=== PATIENT | female | born 2000 | race Caucasian/White ===

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

== ENCOUNTER 2023-04-16 13:45 | Outpatient (CLI) | payer BC, MEDICAID, SELFPAY ==
--- NOTE | 2023-04-16 | ECG_ITS ---
Measurements Intervals [place] Rate: 80 P: 52 ND: 128 QRS: 66 QRSD: 80 T: 23 QT: 390 QTc: 450 Interpretive Statements SINUS RHYTHM NORMAL ECG NO PREVIOUS ECG AVAILABLE FOR COMPARISON Electronically Signed On 04-16-2023 14:42:43 CDT by Fredy Murdock D.O.
== END 2023-04-16 13:46 | disposition home or self-care (01) ==
LOC: ANHCARD 13:49
PROVIDERS: Visit Provider Obstetrics & Gynecology
DX: R07.9 Chest pain, unspecified (principal)
CPT/HCPCS: 93005

== ENCOUNTER 2023-04-21 10:24 | Observation (INO) | payer BC, OTHER, SELFPAY ==
[2023-04-21] VITALS (90 sets, daily range): BP systolic 79–132; BP diastolic 29–74; PULSE 78–149; TEMP 36.6–36.9; O2SAT 91–100; BMI 25.6
[2023-04-21 11:22] LABS: Appearance Urine Clear (Clear); Bacteria Urine None Seen /hpf; Bilirubin Urine Negative (Negative); Blood Urine Negative (Negative); Color Urine Yellow (Yellow); Glucose Urine UA Negative (Negative); Ketones Urine Negative (Negative); Leukocyte Esterase Ur 1+ LEU/UL (NEGATIVE); Need Manual Microscopic Reviewed; Nitrate Urine Negative (Negative); Non Pathogenic Casts 0-2; Protein Urine Negative (Negative); RBC Urine 0-2 /hpf (0-2); Specific Grav Ur 1.005 (1.001-1.035); Squamous Epithelial Cell Urine None seen /hpf (Few); WBC Urine 0-5 /hpf (0-3)
[2023-04-21 11:24] LABS: Add Urine Microscopic? YES
--- NOTE | 2023-04-21 11:47 | PM.OBTRLD ---
OB - Triage/Final Diagnosis Visit Information Date of evaluation: 04/21/23 Reason for evaluation: threatened labor Comments/Additional reasons for admission: I have assessed the risk for this patient, Lana Thompson, and determined that she would benefit from observation care. Evaluation Laboratory results: Laboratory Tests 04/21/23 10:54 Urine Color Yellow Urine Appearance Clear Urine pH 7.0 Ur Specific [place] 1.005 Urine Protein Negative Urine Glucose (UA) Negative Urine Ketones Negative Ur Blood (Man) Negative Urine Nitrate Negative Urine Bilirubin Negative Urine Urobilinogen 1.0 Ur Leukocyte Esterase 1+ H Add Ur Microanalysis Reviewed Urine RBC 0-2 Urine WBC 0-5 Ur Squamous Epith Cells None seen Urine Bacteria None seen Urine Casts 0-2 Vital signs: Vital Signs - 24 hr 04/21/23 10:52 04/21/23 11:00 04/21/23 11:15 Pulse Rate 78 82 78 Blood Pressure 114/68 108/67 103/59 L Oxygen Delivery 04/21/23 11:32 Pulse Rate Blood Pressure Oxygen Delivery Room Air
[2023-04-21] MEDS: TERBUTALINE SULFATE 1 MG/ML VIAL 0.25 MG SUB-Q (11:50)
[2023-04-21] MEDS: FLUCONAZOLE 150 MG TABLET PO (12:12)
[2023-04-21] MEDS: NIFEdipine 10 MG CAPSULE 20 MG PO (13:11)
[2023-04-21] MEDS: SODIUM CHLORIDE 0.9% IV 1,000 ML 999 ML IV CONT (14:22)
[2023-04-21 14:32] LABS: Basophils Absolute Auto 0.1 K/mm3 (0.0-0.1); Basophils Percent Auto 0.6 % (0.2-1.2); Eosinophils Absolute Auto 0.1 K/mm3 (0-0.3); Eosinophils Percent Auto 1.1 % (0-4.4); Hematocrit 33.9 % (37.0-47.0); Hemoglobin 11.4 g/dL (12.0-15.0); Immature Granulocyte Percent A 2.4 % (0-0.5); Lymphocytes Absolute Auto 2.26 K/mm3 (0.9-3.2); Lymphocytes Percent Auto 18.3 % (18.3-44.2); Mean Corpuscular HGB Conc 33.6 g/dl (32-36); Mean Corpuscular Hemoglobin 30.2 pg (26-34); Mean Corpuscular Volume 89.7 fl (80-100); Monocytes Absolute Auto 0.8 K/mm3 (0.1-0.6); Monocytes Percent Auto 6.2 % (2.6-8.5); Neutrophils Absolute Auto 8.8 K/mm3 (1.3-6.7); Neutrophils Percent Auto 71.4 % (45.5-73.1); Platelet Count Result 261 k/mm3 (150-375); Red Blood Count 3.78 M/mm3 (4.2-5.4); Red Cell Distribution Width 12.7 % (11.5-14.5); White Blood Count 12.3 K/mm3 (4.5-10.0)
[2023-04-21 14:43] LABS: Alanine Aminotransferase 23 U/L (6-35); Albumin Level 3.9 g/dL (3.5-5.1); Alkaline Phosphatase 115 U/L (38-126); Anion Gap 10 mmol/L (8-16); Aspartate Amino Transferase 26 U/L (14-36); Bilirubin,Total 0.3 mg/dL (0.2-1.3); Blood Urea Nitrogen 4 mg/dL (7-17); Calcium 8.7 mg/dL (8.4-10.2); Carbon Dioxide 20 mmol/L (22-30); Chloride 106 mmol/L (98-107); Estimated CRCL calculation 101 ml/min; Estimated Glomerular Filt Rate > 60; Glucose 87 mg/dL (65-110); Potassium 3.2 mmol/L (3.4-5.0); Sodium 136 mmol/L (137-145)
[2023-04-21] MEDS: MAGNESIUM SULF 20GM/WATER500ML 500 ML 50 MG IV CONT (15:12)
[2023-04-21] MEDS: BETAMETHASONE SOD PHOS/ACETATE 30 MG/5 ML VIAL 12 MG IM (15:15)
--- NOTE | 2023-04-21 15:44 | PM.IMHP ---
H&P: HPI History of Present Illness Date/Time: 04/21/23 15:44 Chief Complaint: Pain Narrative: a 22-year-old 2 para 1 at 31 and half weeks gestation with an EDC of 06/13/2023 confirmed by early ultrasound presents at 31 and half weeks gestation with lower abdominal. Initially she had a few contractions and was 1cm and very thick and long. She increased contractions and now has been started on magnesium 2g and continues to contract. PMFSH Past Medical History Medical History Gestational HTN Family History Family History Mother Hypertension Grandparent Hypertension Social History Social History Smoking status: Never smoker Substance use: never Spiritual care concerns: No Meds Home Medications and Allergies Home Medications Medication Instructions Recorded Confirmed Type vit no.95-ferrous 1 tablet PO DAILY 08/25/20 10/22/20 History fumarate 28 mg-folic acid 800 mcg tablet () acetaminophen 500 mg tablet 1,000 mg PO Q6H PRN Pain 10/06/20 10/22/20 History (Tylenol Extra Strength) Allergies Allergy/AdvReac Type Severity Reaction Status Date / Time peanut Allergy Severe Anaphylaxis Verified 10/22/20 07:20 tree nut Allergy Severe Anaphylaxis Verified 10/22/20 07:20 Vital Signs Vital Signs - 24 hr 04/21/23 10:52 04/21/23 11:00 04/21/23 11:15 Pulse Rate 78 82 78 Blood Pressure 114/68 108/67 103/59 L Pulse Oximetry Oxygen Delivery 04/21/23 12:13 04/21/23 12:15 04/21/23 12:20 Pulse Rate Blood Pressure Pulse Oximetry 100 100 100 Oxygen Delivery 04/21/23 12:25 04/21/23 12:26 04/21/23 12:31 Pulse Rate Blood Pressure Pulse Oximetry 100 100 100 Oxygen Delivery 04/21/23 12:36 04/21/23 12:41 04/21/23 12:46 Pulse Rate Blood Pressure Pulse Oximetry 100 100 100 Oxygen Delivery 04/21/23 12:51 04/21/23 12:56 04/21/23 13:01 Pulse Rate Blood Pressure Pulse Oximetry 100 100 100 Oxygen Delivery 04/21/23 13:06 04/21/23 13:11 04/21/23 13:16 Pulse Rate Blood Pressure Pulse Oximetry 100 100 100 Oxygen Delivery 04/21/23 13:21 04/21/23 13:26 04/21/23 13:28 Pulse Rate 144 H Blood Pressure 86/29 L Pulse Oximetry 100 100 Oxygen Delivery 04/21/23 13:29 04/21/23 13:30 04/21/23 13:31 Pulse Rate 147 H 140 H Blood Pressure 91/33 L 79/41 L Pulse Oximetry 100 Oxygen Delivery 04/21/23 13:34 04/21/23 13:36 04/21/23 13:41 Pulse Rate 141 H 132 H Blood Pressure 82/52 L 96/38 L Pulse Oximetry 100 100 Oxygen Delivery 04/21/23 13:45 04/21/23 13:46 04/21/23 13:51 Pulse Rate 130 H Blood Pressure 93/48 L Pulse Oximetry 100 100 Oxygen Delivery 04/21/23 13:56 04/21/23 14:00 04/21/23 14:01 Pulse Rate 131 H Blood Pressure 110/54 L Pulse Oximetry 100 100 Oxygen Delivery 04/21/23 14:06 04/21/23 14:11 04/21/23 14:21 Pulse Rate Blood Pressure Pulse Oximetry 100 100 100 Oxygen Delivery 04/21/23 14:25 04/21/23 14:30 04/21/23 14:35 Pulse Rate 109 H Blood Pressure 115/60 Pulse Oximetry 100 100 100 Oxygen Delivery 04/21/23 14:40 04/21/23 14:45 04/21/23 14:50 Pulse Rate 104 H Blood Pressure 122/62 Pulse Oximetry 100 100 100 Oxygen Delivery 04/21/23 14:55 04/21/23 15:00 04/21/23 15:05 Pulse Rate 105 H Blood Pressure 115/60 Pulse Oximetry 100 100 100 Oxygen Delivery 04/21/23 15:10 04/21/23 15:15 04/21/23 15:20 Pulse Rate 102 H Blood Pressure 117/63 Pulse Oximetry 100 100 100 Oxygen Delivery 04/21/23 15:25 04/21/23 15:30 04/21/23 15:35 Pulse Rate 113 H Blood Pressure 127/68 Pulse Oximetry 100 100 100 Oxygen Delivery 04/21/23 15:40 04/21/23 11:32 Pulse Rate Blood Pressure Pulse Oximetr
[2023-04-21] MEDS: LACTATED RINGERS 1,000 ML 75 ML IV CONT (16:16)
[2023-04-21] MEDS: AMPICILLIN 2 GM/NS 100 ML 2 GM/100 ML BAG IVPB (16:16)
== END 2023-04-21 18:00 | disposition short-term general hospital (02) ==
LOC: ANHOBPP 10:31 → ANHLDR 16:53
PROVIDERS: Admitting Provider Obstetrics & Gynecology; Visit Provider Obstetrics & Gynecology
DX: O60.03 Preterm labor without delivery, third trimester (principal); Z3A.31 31 weeks gestation of pregnancy; Z79.1 Long term (current) use of non-steroidal anti-inflammatories (NSAID); Z79.899 Other long term (current) drug therapy
CPT/HCPCS: 36415; 80053; 81001; 85025; 87086; 96361; 96365; 96372; 96375; A9270; G0378; G0379; J0290; J0702; J3105; J3475; J7030; J7120

== ENCOUNTER 2023-05-09 19:46 | Observation (INO) | payer BC, OTHER, SELFPAY ==
--- NOTE | 2023-05-15 08:03 | PM.OBTRLD ---
OB - Triage/Final Diagnosis Visit Information Comments/Additional reasons for admission: I have assessed the risk for this patient, Lana Thompson, and determined that she would benefit from observation care. Final Diagnosis (1) Back pain affecting : Code(s): O99.891 - Other specified diseases and conditions complicating ; M54.9 - Dorsalgia, unspecified Status: Acute
== END 2023-05-09 22:18 | disposition home or self-care (01) ==
PROVIDERS: Admitting Provider Obstetrics & Gynecology; Visit Provider Obstetrics & Gynecology
DX: O99.891 Other specified diseases and conditions complicating pregnancy (principal); M54.9 Dorsalgia, unspecified; Z3A.00 Weeks of gestation of pregnancy not specified
CPT/HCPCS: G0378; G0379

== ENCOUNTER 2023-05-19 12:17 | Outpatient (RCR) | payer BC, OTHER, SELFPAY ==
[2023-05-19 12:47] VITALS: BP 112/70; PULSE 100
== END 2023-07-04 11:58 | disposition home or self-care (01) ==
LOC: ANHOBOP 12:17
PROVIDERS: Visit Provider Obstetrics & Gynecology
DX: O36.8190 Decreased fetal movements, unspecified trimester, not applicable or unspecified (principal); Z3A.36 36 weeks gestation of pregnancy
CPT/HCPCS: 59025

== ENCOUNTER 2023-05-25 19:47 | Observation (INO) | payer BC, OTHER, SELFPAY ==
[2023-05-25 20:07] VITALS: BMI 28.2
--- NOTE | 2023-06-13 00:14 | PM.OBTRLD ---
OB - Triage/Final Diagnosis Visit Information Comments/Additional reasons for admission: I have assessed the risk for this patient, Lana Thompson, and determined that she would benefit from observation care. Final Diagnosis (1) Cramping affecting , antepartum: Code(s): O26.899 - Other specified related conditions, unspecified trimester; R10.9 - Unspecified abdominal pain Status: Acute
== END 2023-05-25 20:54 | disposition home or self-care (01) ==
PROVIDERS: Admitting Provider Obstetrics & Gynecology; Visit Provider Obstetrics & Gynecology
DX: O26.893 Other specified pregnancy related conditions, third trimester (principal); R10.9 Unspecified abdominal pain; Z3A.37 37 weeks gestation of pregnancy
CPT/HCPCS: G0378; G0379

== ENCOUNTER 2023-06-06 04:52 | Inpatient (IN) | payer BC, OTHER, SELFPAY ==
[2023-06-06] VITALS (159 sets, daily range): BP systolic 101–139; BP diastolic 46–90; PULSE 42–135; RESP 16; TEMP 36–36.6; O2SAT 91–100
[2023-06-06] MEDS: OXYTOCIN 30 UNITS/NS 500 ML 30 UNITS/500 ML BAG IV CONT (05:42)
[2023-06-06] MEDS: LACTATED RINGERS 1,000 ML 125 ML IV CONT ×3 (05:43→14:12)
--- NOTE | 2023-06-06 05:45 | WPDANESEPP ---
Anes - Eval Pre Procedure Procedure: labor epidural Date/Time: 06/06/23 05:45 Pre Op Diagnosis: IOL Patient Data Age: 22 Gender: F Height: Weight: Last Vital Signs O2 Del Method Room Air 06/06/23 05:15 Allergies Allergy/AdvReac Type Severity Reaction Status Date / Time peanut Allergy Severe Anaphylaxis Verified 05/26/23 15:35 tree nut Allergy Severe Anaphylaxis Verified 05/26/23 15:35 Home Medications Medication Instructions Recorded Confirmed Type vit no.95-ferrous 1 tablet PO DAILY 08/25/20 06/06/23 History fumarate 28 mg-folic acid 800 mcg tablet () buspirone 5 mg tablet 5 mg PO BID 05/25/23 06/06/23 History citalopram 40 mg tablet 40 mg PO DAILY 05/25/23 06/06/23 History albuterol sulfate 90 mcg/actuation 2 puff inhalation QID PRN Wheezing 05/26/23 05/26/23 History aerosol inhaler cetirizine 10 mg capsule (Zyrtec) 10 mg PO DAILY 05/26/23 05/26/23 History ferrous sulfate 325 mg (65 mg 325 mg PO DAILY 05/26/23 05/26/23 History iron) tablet Patient hx anesthesia problems: none Family hx anesthesia problems: none Results Review: All pre-operative results and documents have been reviewed as part of the pre-operative evaluation. [facility] Past Medical History Medical History (Updated 06/06/23 @ 05:46 by Cat Lopez CRNA) Anxiety and depression Gestational HTN Family History Family History Mother Hypertension Grandparent Hypertension Social History Social History Smoking status: Never smoker Second hand tobacco smoke exposure: No Substance use: never Lack of Transportation: No Lack of Food: Never True Current Housing: I Have Housing Concerned About Future Housing: No Difficulty Paying Gas/Electric Bills: No Difficulty Paying for Meds: No Currently Unemployed: No Education: High School Diploma/GED Difficulty w/ Childcare or Family Care: No Spiritual care concerns: No Exam Day of Procedure 06/06/23 05:45
[2023-06-06 05:58] LABS: Basophils Absolute Auto 0.1 K/mm3 (0.0-0.1); Basophils Percent Auto 0.8 % (0.2-1.2); Eosinophils Absolute Auto 0.2 K/mm3 (0-0.3); Eosinophils Percent Auto 1.3 % (0-4.4); Hematocrit 34.8 % (37.0-47.0); Hemoglobin 11.5 g/dL (12.0-15.0); Immature Granulocyte Absolute 0.59 K/mm3 (0.00-0.031); Immature Granulocyte Percent A 4.6 % (0-0.5); Lymphocytes Percent Auto 23.6 % (18.3-44.2); Mean Corpuscular Hemoglobin 31.2 pg (26-34); Mean Corpuscular Volume 94.3 fl (80-100); Mean Platelet Volume 9.9 fl (7.4-10.4); Monocytes Percent Auto 7.6 % (2.6-8.5); Neutrophils Absolute Auto 7.9 K/mm3 (1.3-6.7); Neutrophils Percent Auto 62.1 % (45.5-73.1); Platelet Count Result 209 k/mm3 (150-375); Red Blood Count 3.69 M/mm3 (4.2-5.4); Red Cell Distribution Width 13.3 % (11.5-14.5); White Blood Count 12.7 K/mm3 (4.5-10.0)
--- NOTE | 2023-06-06 06:51 | PM.IMHP ---
H&P: HPI History of Present Illness Date/Time: 06/06/23 06:51 Chief Complaint: induction of labor at term Narrative: 22-year-old 2 para whose EDC is 06/13/2023 presents at term for induction of labor. She is negative for group B strep her has been uncomplicated PMFSH Past Medical History Medical History Anxiety and depression Gestational HTN Family History Family History Mother Hypertension Grandparent Hypertension Social History Social History Smoking status: Never smoker Second hand tobacco smoke exposure: No Substance use: never Lack of Transportation: No Lack of Food: Never True Current Housing: I Have Housing Concerned About Future Housing: No Difficulty Paying Gas/Electric Bills: No Difficulty Paying for Meds: No Currently Unemployed: No Education: High School Diploma/GED Difficulty w/ Childcare or Family Care: No Spiritual care concerns: No Meds Home Medications and Allergies Home Medications Medication Instructions Recorded Confirmed Type vit no.95-ferrous 1 tablet PO DAILY 08/25/20 06/06/23 History fumarate 28 mg-folic acid 800 mcg tablet () buspirone 5 mg tablet 5 mg PO BID 05/25/23 06/06/23 History citalopram 40 mg tablet 40 mg PO DAILY 05/25/23 06/06/23 History albuterol sulfate 90 mcg/actuation 2 puff inhalation QID PRN Wheezing 05/26/23 05/26/23 History aerosol inhaler cetirizine 10 mg capsule (Zyrtec) 10 mg PO DAILY 05/26/23 05/26/23 History ferrous sulfate 325 mg (65 mg 325 mg PO DAILY 05/26/23 05/26/23 History iron) tablet Allergies Allergy/AdvReac Type Severity Reaction Status Date / Time peanut Allergy Severe Anaphylaxis Verified 05/26/23 15:35 tree nut Allergy Severe Anaphylaxis Verified 05/26/23 15:35 Vital Signs Vital Signs - 24 hr 06/06/23 05:54 06/06/23 06:01 06/06/23 06:10 Pulse Rate 94 85 74 Blood Pressure 118/69 123/81 118/79 Pulse Oximetry 100 Oxygen Delivery 06/06/23 06:13 06/06/23 06:15 06/06/23 06:17 Pulse Rate 81 91 Blood Pressure 123/75 116/77 Pulse Oximetry 100 Oxygen Delivery 06/06/23 06:17 06/06/23 06:17 06/06/23 06:19 Pulse Rate 92 86 Blood Pressure 108/67 120/72 Pulse Oximetry Oxygen Delivery 06/06/23 06:20 06/06/23 06:21 06/06/23 06:23 Pulse Rate 89 87 Blood Pressure 114/67 118/54 L Pulse Oximetry 99 Oxygen Delivery 06/06/23 06:25 06/06/23 06:27 06/06/23 06:29 Pulse Rate 98 103 H 102 H Blood Pressure 118/70 110/69 116/63 Pulse Oximetry 100 Oxygen Delivery 06/06/23 06:30 06/06/23 06:31 06/06/23 06:33 Pulse Rate 85 85 Blood Pressure 122/60 114/60 Pulse Oximetry 100 Oxygen Delivery 06/06/23 06:35 06/06/23 06:37 06/06/23 06:39 Pulse Rate 88 87 86 Blood Pressure 116/63 115/64 119/61 Pulse Oximetry 100 Oxygen Delivery 06/06/23 06:40 06/06/23 06:41 06/06/23 06:43 Pulse Rate 101 H 101 H Blood Pressure 113/71 112/67 Pulse Oximetry 100 Oxygen Delivery 06/06/23 06:45 06/06/23 06:47 06/06/23 06:50 Pulse Rate 116 H 104 H Blood Pressure 103/49 L 101/63 Pulse Oximetry 100 100 Oxygen Delivery 06/06/23 05:15 Pulse Rate Blood Pressure Pulse Oximetry Oxygen Delivery Room Air Exam Const: General: cooperative, healthy appearing, comfortable and average body habitus Orientation/consciousness: oriented to person, oriented to place and oriented to time HENMT: Head: normal to inspection Resp: Effort & Inspection: normal respiratory effort Cardio: Rate: regular rate Rhythm: regular rhythm Heart sounds: S1 normal heart sound present and S2 normal heart sound present GI: Inspection: normal to inspection ( gravid soft uterus) : External Female Exam: normal external appearance Speculum E
[2023-06-06 07:03] LABS: Hepatitis B Surface Antigen Negative (Negative)
[2023-06-06] MEDS: ONDANSETRON INJ 4 MG/2 ML VIAL IV PUSH (07:05)
[2023-06-06] MEDS: LORATADINE 10 MG TABLET PO (10:49)
[2023-06-06 10:54] LABS: Rapid Plasma Reagin Non-Reactive (NonReactive)
--- NOTE | 2023-06-06 12:06 | PM.OBPNLAB ---
Pain Control Date/time seen: 06/06/23 12:06 Pain control: tolerating well and epidural Pelvic Exam Dilation (cm): 4 Effacement (%): 90 station: -1 Amniotic membrane status: Leaking
--- NOTE | 2023-06-06 15:55 | PM.OBPNLAB ---
Pain Control Date/time seen: 06/06/23 15:55 Pain control: tolerating well and epidural Pelvic Exam Dilation (cm): 10 Effacement (%): 100 station: 0 Amniotic membrane status: Leaking
--- NOTE | 2023-06-06 16:25 | PM.OBPRVD ---
OB - Delivery Note Procedure Delivery date: 06/06/23 Procedure: mil Induction method: AROM Delivery augmentation: Pitocin Delivery monitor: External FHT and Internal Uterine Route of delivery: Laceration Description: Perineal - 1st Degree Delivery repair: vicryl Specimen: No Quantitative Blood Loss (ml): 60 Anesthesia type: Epidural Disposition: Floor Baby Date of : 06/06/23 Time of : 16:12 Weeks of gestation at delivery: 39 gender: Male Weight (pounds): 7 Weight (ounces): 9 presentation: vertex position: Right Occiput Anterior Placenta delivery description: Spontaneous Cord Vessel Description: 3 Vessels score one minute: 7 score five minutes: 8
[2023-06-06] MEDS: OXYTOCIN 30 UNITS/NS 500 ML 30 UNITS/500 ML BAG 125 UNITS IV CONT (16:49)
[2023-06-06] MEDS: ACETAMINOPHEN 325 MG TABLET 650 MG PO (17:51)
[2023-06-06] MEDS: WITCH HAZEL 40 PADS 1 PAD TOPICAL (17:51)
[2023-06-06] MEDS: BENZOCAINE 20% AER SPR (*SP) 56 GM CAN 1 SPRAY TOPICAL (17:51)
[2023-06-06 18:14] LABS: Rubella IgG Antibody 31.5 IU/ML
--- NOTE | 2023-06-06 18:45 | PC.NURSE ---
Patient transferred to post room #282 per wheelchair from labor and delivery. Support person present. Oriented to unit, room, information board, rooming in, admission packet and security measures. Patient verbalizes understanding.
[2023-06-06] MEDS: DOCUSATE SODIUM LIQ 100 MG/10 ML UDC PO (21:14)
[2023-06-06] MEDS: IBUPROFEN 600 MG TABLET PO (21:16)
[2023-06-07 00:44] VITALS: BP 115/66; PULSE 88; RESP 14; TEMP 36.6; O2SAT 99
[2023-06-07] MEDS: ACETAMINOPHEN 325 MG TABLET 650 MG PO ×3 (02:34→16:41)
[2023-06-07] MEDS: IBUPROFEN 600 MG TABLET PO ×2 (04:30→16:42)
[2023-06-07 04:39] VITALS: BP 105/66; PULSE 73; RESP 16; TEMP 36.8; O2SAT 100
[2023-06-07 04:57] LABS: Hematocrit 32.1 % (37.0-47.0); Hemoglobin 10.6 g/dL (12.0-15.0)
--- NOTE | 2023-06-07 06:44 | PM.DS ---
DS: Admitting Diagnosis Discharge Date Admitting Diagnosis term DS: Discharge Diagnosis Discharge Diagnosis (1) Term : Code(s): Z34.90 - Encounter for supervision of normal , unspecified, unspecified trimester Status: Acute DS: Summary Hospital Course Reason for hospitalization: induction of labor at term Hospital Course: patient underwent successful induction of labor at term on 06/06/2023. Her hospital course unremarkable. She remained afebrile. She was up, voiding without difficulty, ambulating, eating regular diet, and generally the complaints. Time Spent with Patient Time attestation: Total time spent providing and/or coordinating discharge services: Exam Const: General: cooperative, healthy appearing and comfortable Orientation/consciousness: oriented to person, oriented to place and oriented to time HENMT: Head: normal to inspection Resp: Effort & Inspection: normal respiratory effort Cardio: Rate: regular rate Rhythm: regular rhythm Heart sounds: S1 normal heart sound present and S2 normal heart sound present GI: Inspection: normal to inspection ( Fundus firm below the umbilicus) DS: Data Data Completed and Pending Labs on day of discharge: Labs from last 24 hours 06/07/23 06/06/23 06/06/23 04:32 16:39 05:12 Hgb 10.6 L Hct 32.1 L RPR Non-reactive Hep Bs Antigen Negative Rubella IgG Antibody 31.5 Blood Type O Positive Antibody Screen Negative Discharge Plan Discharge Attending physician on discharge: Tucker Brown Discharging Clinician: Tucker Brown Patient Disposition: Home, Self-Care Activity: may shower and no straining Diet: heart healthy Wound Care Instructions: follow printed instructions Patient Instructions: Antibiotic Form Stand Alone Forms: General Discharge Information Follow-up/Referrals: Tucker Brown MD [Physician] - Discharge Medications: Continued PNV cmb#95-ferrous fumarate-FA [] 28 mg iron- 800 mcg Tablet 1 tablet PO DAILY buspirone 5 mg tablet 5 mg PO BID citalopram 40 mg tablet 40 mg PO DAILY ferrous sulfate 325 mg (65 mg iron) Tablet 325 mg PO DAILY Zyrtec 10 mg Capsule 10 mg PO DAILY albuterol sulfate 90 mcg/actuation Hfa Aerosol Inhaler 2 puff INHALATION QID PRN (Reason: Wheezing) Date of admission: 06/06/23 04:52 Primary Care Provider: PHYSICIAN,RADIO EQUIPMENT REPAIRER Admitting Provider: Tucker Brown Attending physician on admission: Tucker Brown Condition: Stable
--- NOTE | 2023-06-07 06:45 | PC.NURSE ---
Pt introductions made and plan of care discussed per post , pain management, breast bottle feeding, daily care activities and pending discharge to home. PT and friend both recipients of such instructions and no barriers to learning identified at this time. PT received such instructions per one to one discussion , mom baby care guide and demonstrations this shift. PT and friend both verbalized understanding of such care.
--- NOTE | 2023-06-07 06:47 | PM.OBPNVD ---
OB - PN: Subj Subjective Date/time seen: 06/07/23 06:47 Patient comments: no complaints and pain well controlled baby status: doing well OB - PN: Obj Data Labs 06/07/23 04:32 Labs: Laboratory Results - last 24 hr 06/06/23 06/06/23 06/07/23 05:12 16:39 04:32 Hgb 10.6 L Hct 32.1 L RPR Non-reactive Hep Bs Antigen Negative Rubella IgG Antibody 31.5 Blood Type O Positive Antibody Screen Negative OB - PN A/P Plan day: 1 Plan: routine care, discharge home and follow up 6 weeks Time Spent With Patient Time: Total time spent is greater than 50% in coordination of care (as documented) at patient's floor/unit and/or counseling patient: Time with patient: less than 15 minutes Exam Const: General: cooperative, healthy appearing and comfortable Nutritional Appearance: average body habitus Orientation/consciousness: oriented to person, oriented to place and oriented to time Resp: Effort & Inspection: normal respiratory effort Cardio: Rate: regular rate Rhythm: regular rhythm Heart sounds: S1 normal heart sound present and S2 normal heart sound present GI: Inspection: normal to inspection ( fundus firm)
[2023-06-07 08:05] VITALS: BP 117/74; PULSE 77; RESP 18; TEMP 36.5; O2SAT 100
[2023-06-07 09:15] VITALS: PULSE 77; RESP 18; O2SAT 100
[2023-06-07] MEDS: busPIRone HCL 5 MG TABLET PO (09:17)
[2023-06-07] MEDS: MULTIVIT/MIN/PREN/FOL AC/IRON TABLET 1 TAB PO (09:17)
--- NOTE | 2023-06-07 11:42 | PC.NURSE ---
1025 - Report from Primary RN that mother states she will initiate when she gets home. Mother has a history of low milk supply. Dixon Palmer RN educated mother on milk production and building a supply. There was an offer for mother to inform the RN if she desired working with RN learning to breastfeed. Dixon Palmer RN will notify RN if mother requests to breastfeed or work with . As of now there has been one attempt, then formula bottle feeding with no pumping.
--- NOTE | 2023-06-07 11:58 | WPDANLDPN2 ---
Anes-Prog Note L&D Date/Time: 06/07/23 11:58 Neuro status: Neuro function grossly intact. Cardiovascular status: normal Respiratory status: normal Airway patency: baseline Mental status: baseline Post-Op hydration status: normal Vital Signs: Last Vital Signs Temp 36.5 C 06/07/23 08:05 Pulse 77 06/07/23 09:15 Resp 18 06/07/23 09:15 BP 117/74 06/07/23 08:05 Pulse Ox 100 06/07/23 09:15 O2 Del Method Room Air 06/07/23 09:15 Pain score (VAS): 2/10 I/O: Intake & Output 06/06/23 06/07/23 06/07/23 23:59 07:59 15:59 Intake Total 500 600 Balance 500 600 Post-procedural complaints: none Patient feedback: Patient satisfied with anesthetic care.
--- NOTE | 2023-06-07 18:25 | PC.NURSE ---
PT received discharge instructions per protocol and verbalized understanding of such care.
--- NOTE | 2023-06-07 18:41 | PC.NURSE ---
Pt discharged to home ambulatory accompanied by infant and girlfriend and walked to waiting car. follow up appts confirmed
[2023-06-09 10:23] VITALS: BP 120/70; PULSE 87; RESP 16; TEMP 37.2; O2SAT 100
== END 2023-06-07 18:41 | disposition home or self-care (01) | DRG 807 ==
LOC: ANHLDR 04:56 → ANHOB2 18:56
PROVIDERS: Admitting Provider Obstetrics & Gynecology; Visit Provider Obstetrics & Gynecology
DX: O99.344 Other mental disorders complicating childbirth (principal); Z37.0 Single live birth; Z3A.39 39 weeks gestation of pregnancy; O70.0 First degree perineal laceration during delivery; F41.9 Anxiety disorder, unspecified; F32.A Depression, unspecified
CPT/HCPCS: 36415; 85014; 85018; 85025; 86592; 86762; 86850; 86900; 86901; 87340; A9270; J2405; J2590; J2795; J7120

== ENCOUNTER 2023-10-31 13:32 | Emergency (ER) | payer OTHER, BC, MEDICAID, SELFPAY ==
--- NOTE | 2023-10-31 13:38 | ED.EAR ---
HPI - Ear Problem General Chief complaint: Ear Stated complaint: bilateral ear discomfort Time Seen by Provider: 10/31/23 13:38 Source: patient Mode of arrival: ambulatory Limitations: no limitations History of Present Illness HPI Narrative: Bobby is a 23-year-old female patient presenting to the clinic today with complaints of bilateral ear pain, runny nose, and cough times 1 day. She reports she took an at-home COVID test and it was negative. She denies any fever or chills. Related Data Home Medications Medication Instructions Recorded Confirmed citalopram 40 mg tablet 40 mg PO DAILY 05/25/23 06/06/23 bupropion HCl 150 mg 24 hr tablet, mg PO 10/31/23 10/31/23 extended release cetirizine 10 mg tablet (Zyrtec) 10 mg PO DAILY 10/31/23 10/31/23 Allergies Allergy/AdvReac Type Severity Reaction Status Date / Time peanut Allergy Severe Anaphylaxis Verified 10/31/23 13:45 tree nut Allergy Severe Anaphylaxis Verified 10/31/23 13:45 Review of Systems Review of Systems: Pertinent positives per HPI. Patient denies any fever, chills, rash, headache, visual changes, dizziness, cough, shortness of breath, chest pain, palpitations, nausea, vomiting, diarrhea, constipation, abdominal pain, or any urinary issues. [facility] Past Medical History Medical History Anxiety and depression Gestational HTN Family History Family History Mother Hypertension Grandparent Hypertension Social History Social History Smoking status: Never smoker Second hand tobacco smoke exposure: No Substance use: never Lack of Transportation: No Lack of Food: Never True Current Housing: I Have Housing Concerned About Future Housing: No Difficulty Paying Gas/Electric Bills: No Difficulty Paying for Meds: No Currently Unemployed: No Education: High School Diploma/GED Difficulty w/ Childcare or Family Care: No Spiritual care concerns: No Comments At the time of my signature, I reviewed and agree with the nursing past medical, surgical, social, and family history. There is no relevant family history pertinent to the patient complaint. Exam Narrative: General: Well-developed, well nourished, in no apparent distress Head: Normocephalic, atraumatic Eyes: Pupils equally round and reactive to light bilaterally, EOM intact, sclera and conjunctive clear, no discharge, lids normal Ears: TMs intact, congestion, bulging, fluid noted behind bilateral TMs, ear canals clear, no drainage, grossly hearing normal. Nose: Nares patent, clear nasal discharge, no inflammation, no sinus tenderness. Mouth: Oral pharynx without lesions or masses, good dentition, MMM. Neck: Supple, trachea midline, no enlargement of anterior or posterior cervical nodes, no thyroid masses or goiter palpable. Cardio: Regular rate and rhythm, s1 and s2 normal, no murmur appreciated. Resp: Clear to auscultation bilaterally, no rhonchi, rales, wheezing or rubs Course Course Emergency Course: Portions of this record may have been created with voice recognition software. Level of Care: Express Care Visit Vital Signs Vital signs: Vital signs reviewed Medical Decision Making MDM Narrative Medical decision making narrative: At the time of visit patient is resting comfortably on the exam table. Patient appears to be nontoxic. Supportive measures were discussed with the patient and they voiced understanding discharge instructions and agrees to treatment plan. Return precautions reviewed Differential Diagnosis Differential Diagnosis: otitis media, otitis externa, eustachian tube dysfunction, cerumen impaction, upper respiratory infection, serous otitis Discharge Plan Discharge Clinical Impression: Acute serous otitis media Qualifiers: Laterality: bilateral Recurrence:
[2023-10-31 13:42] VITALS: BP 129/70; PULSE 112; RESP 20; TEMP 36.7; O2SAT 98
[2023-10-31 13:47] VITALS: BP 129/70; PULSE 112; RESP 20; TEMP 36.7; O2SAT 98
== END 2023-10-31 14:03 | disposition home or self-care (01) ==
PROVIDERS: Emergency Provider Nurse Practitioner Family
DX: H65.03 Acute serous otitis media, bilateral (principal); H69.93 Unspecified Eustachian tube disorder, bilateral; J06.9 Acute upper respiratory infection, unspecified; F41.9 Anxiety disorder, unspecified; F32.A Depression, unspecified
CPT/HCPCS: 99213; G0463

== ENCOUNTER 2024-02-02 19:46 | Emergency (ER) | payer BC, MEDICAID, SELFPAY ==
[2024-02-02 20:05] VITALS: BP 124/74; PULSE 85; RESP 16; TEMP 36.5; O2SAT 100
[2024-02-02 20:06] VITALS: BP 124/74; PULSE 85; RESP 16; TEMP 36.5; O2SAT 100
--- NOTE | 2024-02-02 20:22 | ED.URI ---
HPI - URI/Sore Throat General Chief Complaint: Upper Respiratory Infection Stated Complaint: sorethroat,bilateral ear pain Time Seen by Provider: 02/02/24 19:50 Source: patient Mode of arrival: ambulatory Limitations: no limitations History of Present Illness HPI Narrative: 23-year-old female presents to [facility] with complaints of headache, sore throat, right ear pain for the past 2 days. Patient has been taking [id number] Excedrin migraine with minimal relief. 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 Patient is a nonsmoker. Patient denies recent travel. Patient denies fever, body aches, chills, vomiting or diarrhea MD elicited complaint: rhinorrhea, nasal congestion and other (Right ear pain, sore throat) Onset (ago): day(s) (2) Able to tolerate fluids by mouth: Yes Exacerbating factors: swallowing Relieving factors: nothing Treatments prior to arrival: ibuprofen Related Data Home Medications Medication Instructions Recorded Confirmed citalopram 40 mg tablet 40 mg PO DAILY 05/25/23 06/06/23 bupropion HCl 150 mg 24 hr tablet, mg PO 10/31/23 10/31/23 extended release hydroxyzine HCl 10 mg tablet mg 02/02/24 Allergies Allergy/AdvReac Type Severity Reaction Status Date / Time peanut Allergy Severe Anaphylaxis Verified 02/02/24 20:05 tree nut Allergy Severe Anaphylaxis Verified 02/02/24 20:05 Review of Systems Constitutional: Constitutional: Denies chills, Denies fatigue, Denies fever(s) and Denies weakness ENT: Denies vertigo, Denies dizziness, Denies epistaxis, Reports nasal congestion and Reports sore throat Comments: Right ear pain Cardiovascular: Cardiovascular: Denies chest pain Respiratory: Respiratory: Denies cough, Denies dyspnea and Denies wheezing Gastrointestinal: Gastrointestinal: Denies diarrhea, Denies nausea and Denies vomiting Integumentary/Breasts: Skin/Breast: Denies erythema and Denies rash Neurologic: Denies vertigo, Denies dizziness, Denies syncope, Reports headache(s), Denies focal weakness and Denies numbness PMFSH Past Medical History Medical History Anxiety and depression Gestational HTN Family History Family History Mother Hypertension Grandparent Hypertension Social History Social History Smoking status: Never smoker Second hand tobacco smoke exposure: No Substance use: never Lack of Transportation: No Lack of Food: Never True Current Housing: I Have Housing Concerned About Future Housing: No Difficulty Paying Gas/Electric Bills: No Difficulty Paying for Meds: No Currently Unemployed: No Education: High School Diploma/GED Difficulty w/ Childcare or Family Care: No Spiritual care concerns: No Comments At time of signature, I agree with nursing past medical, surgical, social and family history. There is no relevant family history pertinent to the presenting complaint. Exam Const: General: healthy appearing and no acute distress Nutritional Appearance: well nourished Orientation/consciousness: patient oriented x3 Limitations: no limitations Other: Tearful at times during examination HENMT: Head: normal to inspection Ears: external ears normal, EAC's normal and TM abnormal dull on the right and erythematous on the right Face/Nose/Sinus: Normal external nose present Face and sinus: normal facial exam Mouth: Yes Normal oral and palatal mucosa present and Yes moist mucous membranes Teeth and gingiva: dentition normal Throat: posterior oropharynx normal and uvula midline Eyes: Conjunctivae: conjunctivae normal Neck: Neck: normal visual inspection Resp: Effort & Inspection: normal respiratory effort and not labored Auscultation: clear to auscultation bilaterally, no crackles, no rales, no
== END 2024-02-02 20:33 | disposition home or self-care (01) ==
PROVIDERS: Emergency Provider Nurse Practitioner Family; PCP Family Medicine
DX: H66.90 Otitis media, unspecified, unspecified ear (principal); F41.8 Other specified anxiety disorders
CPT/HCPCS: 87081; 87426; 87804; 87880; 99213; G0463

== ENCOUNTER 2024-05-28 18:01 | Emergency (ER) | payer BC, MEDICAID, SELFPAY ==
--- NOTE | ~2024-05-28 | XR_ITS ---
EXAMINATION: XR knee LT 3V DATE: 05/28/2024 20:09 INDICATION: Left knee injury and pain. TECHNIQUE: 3 views of left knee were obtained. COMPARISON: None. FINDINGS: Alignment is normal. No fracture. Joint spaces are normal. No knee joint effusion. IMPRESSION: 1. Normal left knee. Reviewed, dictated and finalized at location [facility]. IMPRESSION: 1. Normal left knee.
[2024-05-28 18:15] VITALS: BP 112/86; PULSE 101; RESP 18; TEMP 36.6; O2SAT 100
[2024-05-28 19:39] VITALS: BP 115/70; PULSE 71; RESP 14; TEMP 36.4; O2SAT 99
--- NOTE | 2024-05-28 20:26 | ED.GENADULT ---
HPI - General Adult General Chief complaint: Extremity Injury, Lower Stated complaint: left knee pain Time Seen by Provider: 05/28/24 19:37 History of Present Illness HPI narrative: 23-year-old female present to the emergency department for evaluation for left knee pain. Patient reports she was walking up a hill this morning when she injured her left knee. Patient has tenderness to the medial aspect of her left knee. Patient states that she then immediately went to work and has been walking on the knee all day and has had increasing pain. Related Data Home Medications Medication Instructions Recorded Confirmed citalopram 40 mg tablet 40 mg PO DAILY 05/25/23 06/06/23 bupropion HCl 150 mg 24 hr tablet, mg PO 10/31/23 10/31/23 extended release hydroxyzine HCl 10 mg tablet mg 02/02/24 Allergies Allergy/AdvReac Type Severity Reaction Status Date / Time peanut Allergy Severe Anaphylaxis Verified 05/28/24 18:17 tree nut Allergy Severe Anaphylaxis Verified 05/28/24 18:17 Review of Systems Review of Systems: All systems reviewed & are unremarkable except as noted in HPI and below PMFSH Past Medical History Medical History Anxiety and depression Gestational HTN Family History Family History Mother Hypertension Grandparent Hypertension Social History Social History Smoking status: Never smoker Second hand tobacco smoke exposure: No Substance use: never Lack of Transportation: No Lack of Food: Never True Current Housing: I Have Housing Concerned About Future Housing: No Difficulty Paying Gas/Electric Bills: No Difficulty Paying for Meds: No Currently Unemployed: No Education: High School Diploma/GED Difficulty w/ Childcare or Family Care: No Spiritual care concerns: No Exam Narrative: APPEARANCE: Well appearing, no pain, no distress, well-nourished. HEAD: normocephalic, atraumatic. EYES: PERRLA/EOMI, conjunctivae clear. NOSE: Normal no drainage NECK: Supple. No adenopathy, no masses. RESPIRATORY: Airway patent, respirations nonlabored. Clear to auscultation bilaterally, no rales, rhonchi, wheezing. CARDIOVASCULAR: Regular rate and rhythm without murmurs rubs or gallops. ABDOMINAL: Soft, nontender, nondistended, normal bowel sounds MUSCULOSKELETAL: Left medial knee tenderness to palpation, no deformity NEURO: Alert. Cranial nerves II through XII intact. Good gait. Good coordination SKIN: Warm, dry. Normal Color Course Course Emergency Course: Patient was provided a knee immobilizer and crutches and encouraged to have close follow-up with primary care physician and Orthopedics. Vital Signs Vital signs: Vital Signs Temperature 98 F 05/28/24 18:15 Pulse Rate 101 H 05/28/24 18:15 Respiratory Rate 18 05/28/24 18:15 Blood Pressure 112/86 05/28/24 18:15 Pulse Oximetry 100 05/28/24 18:15 Oxygen Delivery Room Air 05/28/24 18:15 Temperature 97.6 F 05/28/24 19:39 Pulse Rate 71 05/28/24 19:39 Respiratory Rate 14 05/28/24 19:39 Blood Pressure 115/70 05/28/24 19:39 Pulse Oximetry 99 05/28/24 19:39 Oxygen Delivery Room Air 05/28/24 18:15 Medical Decision Making MDM Narrative Medical decision making narrative: 23-year-old female presenting ED for evaluation for left knee pain. X-ray was negative for acute fracture dislocation. Patient does have reproducible medial left knee tenderness. Suspect a ligament strain. Patient states she had been using a knee brace but that it was not helpful. Patient was willing to try the immobilizer and crutches. Patient was advised to limit weight-bearing and to have close follow-up with her primary care physician and with orthopedics. Patient was advised that she may benefit from an outpatient MRI if her symptoms do not improve. Gerard
== END 2024-05-28 20:42 | disposition home or self-care (01) ==
PROVIDERS: Emergency Provider Emergency Medicine; PCP Family Medicine
DX: M23.92 Unspecified internal derangement of left knee (principal); T14.90XA Injury, unspecified, initial encounter; F41.8 Other specified anxiety disorders
CPT/HCPCS: 73562; 99283

== ENCOUNTER 2024-05-31 17:16 | Emergency (ER) | payer BC, MEDICAID, SELFPAY ==
--- NOTE | ~2024-05-31 | US_ITS ---
US venous doppler [facility] DATE: 05/31/2024 18:55 INDICATION: Knee injury. Left leg coldness, pain behind left knee TECHNIQUE: Real-time and color flow imaging and Doppler analysis of the veins of the left lower extre mity COMPARISON: 05/28/2024 left FINDINGS: The left greater saphenous vein is patent. There is spontaneous and phasic flow and normal augmentation and compression of the left femoral vein. Thrombus is identified within the left femoral vein, with incomplete compression. Flow is observed within the left popliteal, posterior tibial and peroneal veins. IMPRESSION: Intraluminal deep venous thrombus of the left femoral vein Reviewed, dictated and finalized at [facility]. Reviewed, dictated and finalized at location A.
--- NOTE | ~2024-05-31 | CT_ITS ---
[facility] LE LT DATE: 05/31/2024 20:07 INDICATION: Knee injury, pain, cold sensation TECHNIQUE: Axial images through the lower pelvis and left lower extremity following intravenous admin istration 100 CC Omnipaque 350 intravenous contrast material COMPARISON: None FINDINGS: The included left external iliac artery, left common femoral, femoral and deep femoral suzanne nidhi, popliteal artery and trifurcation arteries are all patent, with three-vessel runoff into the lo wer leg. There is no identifiable plaque formation or significant stenosis or occlusion or dissection or aneurysm. Part of an IUD is suggested within the partially visualized uterus. IMPRESSION: No arterial stenosis or occlusion of the left lower extremity The timing of this study does not permit evaluation of the venous structures, which are nonenhanced i n this arterial phase examination Reviewed, dictated and finalized at [facility]. Reviewed, dictated and finalized at location A. IMPRESSION: No arterial stenosis or occlusion of the left lower extremity The timing of this study does not permit evaluation of the venous structures, w hich are nonenhanced in this arterial phase examination
[2024-05-31 17:25] VITALS: BP 147/95; PULSE 120; RESP 20; TEMP 36.6; O2SAT 99
--- NOTE | 2024-05-31 18:22 | ED.LOWEXIN ---
HPI - Extremity Injury (Lower) General Chief Complaint: Extremity Injury, Lower Stated Complaint: cold foot Time Seen by Provider: 05/31/24 18:14 Source: patient and other Mode of arrival: ambulatory Limitations: no limitations History of Present Illness HPI Narrative: patient presents with complaint of a cold left foot. She recently injured her left knee and has had her leg in of Velcro knee immobilizer. She notes for the past 3 days her leg has felt / cold. She has some peeling it but notes that she experiences intermittent tingling that does not change with positioning or elevation. She has also developed some ecchymosis behind the knee. Denies any chance of . Has a copper IUD. was to follow-up with orthopedic surgeon this week. Related Data Home Medications Medication Instructions Recorded Confirmed citalopram 40 mg tablet 40 mg PO DAILY 05/25/23 06/06/23 bupropion HCl 150 mg 24 hr tablet, mg PO 10/31/23 10/31/23 extended release hydroxyzine HCl 10 mg tablet mg 02/02/24 Allergies Allergy/AdvReac Type Severity Reaction Status Date / Time peanut Allergy Severe Anaphylaxis Verified 05/28/24 18:17 tree nut Allergy Severe Anaphylaxis Verified 05/28/24 18:17 PMFSH Past Medical History Medical History Anxiety and depression Encounter for insertion of copper IUD Gestational HTN Family History Family History Mother Hypertension Grandparent Hypertension Social History Social History Smoking status: Never smoker Second hand tobacco smoke exposure: No Alcohol intake: current Substance use: never Lack of Transportation: No Lack of Food: Never True Current Housing: I Have Housing Concerned About Future Housing: No Difficulty Paying Gas/Electric Bills: No Difficulty Paying for Meds: No Currently Unemployed: No Education: High School Diploma/GED Difficulty w/ Childcare or Family Care: No Spiritual care concerns: No Exam Narrative: GENERAL: Well-appearing, well-nourished, and in no acute distress. HEAD: Normocephalic, atraumatic. EYES: Non injected, non icteric ENT: Nares clear, no rhinorrhea or epistaxis. NECK: Supple. CHEST: Speaking in full sentences. No respiratory distress. HEART: Regular rate and rhythm. . ABDOMEN: Soft, nondistended. EXTREMITIES: Left leg initially wrapped with commercial velcro knee immobilizer. When this is removed, leg is warm to the touch underneath although the foot is cool. Palpable DP pulse however and capillary refill in toes. SKIN: Warm, dry, no rash. NEURO: No focal deficits. Alert and oriented x3. PSYCH: Normal mood and affect. Course Vital Signs Vital signs: Vital Signs Temperature 97.9 F 05/31/24 17:25 Pulse Rate 120 H 05/31/24 17:25 Respiratory Rate 20 05/31/24 17:25 Blood Pressure 147/95 H 05/31/24 17:25 Pulse Oximetry 99 05/31/24 17:25 Oxygen Delivery Room Air 05/31/24 17:25 Temperature 97.9 F 05/31/24 17:25 Pulse Rate 78 05/31/24 21:09 Respiratory Rate 15 05/31/24 21:09 Blood Pressure 138/74 05/31/24 21:09 Pulse Oximetry 100 05/31/24 21:09 Oxygen Delivery Room Air 05/31/24 17:25 MDM - Extremity Injury (Lower) MDM Narrative Medical decision making narrative: patient presents with complaint of cold foot and left lower extremity. She recently sustained an injury to her left knee and has had it mobilized in a Velcro device. She notes for the past 3 days her foot and calf I have been: Compared to the contralateral side. This does not change with applying blankets or elevating it. In the emergency department she is afebrile with vital signs notable for tachycardia as well as hypertension. She does have a DVT in the left femoral vein. Too much contrast to also receive CT PE study today and she is o
[2024-05-31 18:29] VITALS: BP 135/85; PULSE 92; RESP 17; O2SAT 100
[2024-05-31 18:43] LABS: Basophils Percent Auto 0.6 % (0.2-1.2); Eosinophils Absolute Auto 0.3 K/mm3 (0-0.3); Eosinophils Percent Auto 4.4 % (0-4.4); Hematocrit 41.1 % (37.0-47.0); Hemoglobin 13.9 g/dL (12.0-15.0); Immature Granulocyte Absolute 0.01 K/mm3 (0.00-0.031); Immature Granulocyte Percent A 0.1 % (0-0.5); Lymphocytes Absolute Auto 1.93 K/mm3 (0.9-3.2); Lymphocytes Percent Auto 28.5 % (18.3-44.2); Mean Corpuscular HGB Conc 33.8 g/dl (32-36); Mean Corpuscular Hemoglobin 29.3 pg (26-34); Mean Corpuscular Volume 86.5 fl (80-100); Mean Platelet Volume 9.7 fl (7.4-10.4); Monocytes Absolute Auto 0.4 K/mm3 (0.1-0.6); Monocytes Percent Auto 6.5 % (2.6-8.5); Neutrophils Absolute Auto 4.1 K/mm3 (1.3-6.7); Neutrophils Percent Auto 59.9 % (45.5-73.1); Platelet Count Result 294 k/mm3 (150-375); Red Blood Count 4.75 M/mm3 (4.2-5.4); Red Cell Distribution Width 12.6 % (11.5-14.5); White Blood Count 6.8 K/mm3 (4.5-10.0)
[2024-05-31 18:58] LABS: Magnesium 1.8 mg/dL (1.6-2.3)
[2024-05-31 18:59] LABS: Alanine Aminotransferase 15 U/L (6-35); Albumin Level 4.5 g/dL (3.5-5.1); Alkaline Phosphatase 68 U/L (38-126); Anion Gap 11 mmol/L (4-12); Aspartate Amino Transferase 27 U/L (14-36); Bilirubin,Total 0.8 mg/dL (0.2-1.3); Blood Urea Nitrogen 13 mg/dL (7-17); Calcium 9.6 mg/dL (8.4-10.2); Carbon Dioxide 26 mmol/L (22-30); Chloride 102 mmol/L (98-107); Creatine Kinase 54 U/L (30-135); Estimated CRCL calculation 77 ml/min; Estimated Glomerular Filt Rate > 60; Glucose 102 mg/dL (65-110); Potassium 3.8 mmol/L (3.4-5.0); Sodium 139 mmol/L (137-145)
[2024-05-31 19:00] LABS: Lactic Acid Reflex 0.7 mmol/L (0.7-2.0)
[2024-05-31 19:03] LABS: SPREG INTERNAL CONTROL Positive; Serum Qual hCG Negative
[2024-05-31] MEDS: SODIUM CHLORIDE 0.9% IV 1,000 ML 999 ML IV CONT (19:32)
[2024-05-31 19:36] VITALS: BP 144/92; PULSE 82; RESP 15; O2SAT 100
[2024-05-31 19:39] LABS: Prothrombin Time 13.6 Seconds (11.1-14.7)
[2024-05-31 19:40] LABS: Partial Thromboplastin Time 26.6 Seconds (22.3-36.8)
[2024-05-31 19:47] LABS: D Dimer < 0.27 ug/mL (<0.48)
[2024-05-31] MEDS: RIVAROXABAN 15 MG TABLET PO (21:06)
[2024-05-31 21:09] VITALS: BP 138/74; PULSE 78; RESP 15; O2SAT 100
== END 2024-05-31 21:10 | disposition home or self-care (01) ==
PROVIDERS: Emergency Provider Student in an Organized Health Care Education/Training Program; PCP Family Medicine
DX: I82.412 Acute embolism and thrombosis of left femoral vein (principal); F41.8 Other specified anxiety disorders
CPT/HCPCS: 36415; 73706; 80053; 82550; 83605; 83735; 84703; 85025; 85380; 85610; 85730; 93971; 96360; 99284; A9270; J7030; Q9967

== ENCOUNTER 2024-06-09 10:40 | Outpatient (CLI) | payer SELFPAY ==
--- NOTE | ~2024-06-09 | US_ITS ---
EXAMINATION: US venous doppler [facility] DATE: 06/09/2024 11:07 INDICATION: Left lower limb pain and swelling. TECHNIQUE: Grayscale ultrasound images without and with compression and Doppler ultrasound images of the left lower extremity veins were obtained. COMPARISON: Ultrasound 05/31/2024 FINDINGS: The visualized portions of left common femoral vein, profunda (deep) femoral vein, femoral vein, popl iteal vein, peroneal veins, posterior tibial veins, and greater saphenous vein outflow are patent. IMPRESSION: 1. No deep venous thrombosis. Reviewed, dictated and finalized at location A.
== END 2024-06-09 10:41 | disposition home or self-care (01) ==
PROVIDERS: PCP Orthopaedic Surgery; Visit Provider Orthopaedic Surgery
DX: I82.412 Acute embolism and thrombosis of left femoral vein (principal)
CPT/HCPCS: 93971

== ENCOUNTER 2024-06-13 06:38 | Outpatient (CLI) | payer BC, MEDICAID, SELFPAY ==
--- NOTE | ~2024-06-13 | MR_ITS ---
MRI of the left knee Clinical history: Pain Technique: Coronal proton density and proton density-weighted images, sagittal proton-density and T2 fat-sat images, and axial proton-density fat-saturated images were acquired. Findings: Anterior and posterior cruciate ligaments are intact. Medial collateral ligament and the la teral collateral ligament complex are intact. Popliteus tendon is intact. Medial and lateral menisci are intact, without evidence of tear. 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 There is mild amorphous hernandez bchondral reactive marrow edema at the mid patella. Remaining bone marrow signals are unremarkable. Extensor mechanism is intact. No joint effusion or Drummond's cyst. 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 Reviewed, dictated and finalized at [facility]. 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
== END 2024-06-13 06:39 | disposition home or self-care (01) ==
PROVIDERS: PCP Family Medicine; Visit Provider Orthopaedic Surgery
DX: M22.42 Chondromalacia patellae, left knee (principal)
CPT/HCPCS: 73721

== ENCOUNTER 2024-08-03 20:57 | Emergency (ER) | payer BC, MEDICAID, SELFPAY ==
--- NOTE | 2024-08-03 21:05 | ED.ALLEREA ---
HPI - Allergic Reaction General Chief complaint: Allergic Reaction Stated complaint: allergic reaction; throat closing up, cough, Time Seen by Provider: 08/03/24 21:01 Source: patient Mode of arrival: ambulatory Limitations: no limitations History of Present Illness HPI narrative: This is a 23-year-old female that presents to the emergency department for a possible allergic reaction. Reports she drank a new protein shake. Shortly after she started to develop abnormal sensation in her throat. Reports feelings of chest tightness, abdominal pain, nausea vomiting. She has allergies to tree nuts. Gave herself a dose of epi prior to arrival. Related Data Home Medications Medication Instructions Recorded Confirmed citalopram 40 mg tablet 40 mg PO DAILY 05/25/23 07/30/24 bupropion HCl 150 mg 24 hr tablet, mg PO 10/31/23 07/30/24 extended release Allergies Allergy/AdvReac Type Severity Reaction Status Date / Time peanut Allergy Severe Anaphylaxis Verified 07/30/24 10:38 tree nut Allergy Severe Anaphylaxis Verified 07/30/24 10:38 Review of Systems Review of Systems: CONSTITUTIONAL: Denies fever ENT: Reports throat discomfort CARDIOVASCULAR: Reports chest tightness RESPIRATORY: Denies dyspnea. GASTROINTESTINAL: Reports abdominal pain, nausea, vomiting All systems reviewed & are unremarkable except as noted in HPI and below PMFSH Past Medical History Medical History Anxiety and depression Encounter for insertion of copper IUD Gestational HTN Family History Family History Mother Hypertension Grandparent Hypertension Social History Social History (Updated 07/30/24 @ 11:14 by Zuleima Sharma CMA) Smoking status: Never smoker Second hand tobacco smoke exposure: No Alcohol intake: current Alcohol use details: Occasionally Substance use: never Substance use type: does not use Do You Feel Safe in your Home?: Yes Lack of Transportation: No Lack of Food: Never True Current Housing: I Have Housing Concerned About Future Housing: No Difficulty Paying Gas/Electric Bills: No Difficulty Paying for Meds: No Currently Unemployed: No Education: High School Diploma/GED Difficulty w/ Childcare or Family Care: No Living arrangements: with family Occupation/Education: occupation Additional occupation/education comments: [employer] Gender identity (if verbalized by the patient): Female Spiritual care concerns: No Exam Narrative: GENERAL: Well-appearing, well-nourished, and in no acute distress. HEAD: Normocephalic, atraumatic. EYES: EOMI. ENT: Nares clear, no rhinorrhea or epistaxis. Mucous membranes moist. Oropharynx without tonsillar hypertrophy exudate or other lesions. No swelling of the mouth or throat noted NECK: Supple. No adenopathy or masses. CHEST: Clear to auscultation. No respiratory distress. No wheezes rales or rhonchi HEART: Regular rate and rhythm. No murmur heard. Normal peripheral pulses. EXTREMITIES: Normal range of motion. No edema. SKIN: Warm, dry, no rash. NEURO: No focal deficits. Alert and oriented x3. PSYCH: Normal mood and affect Course Course Emergency Course: Patient remained stable after being observed in the ER for 3 hours. Ready for discharge Vital Signs Vital signs: Vital Signs Temperature 98.7 F 08/03/24 21:10 Pulse Rate 92 08/03/24 21:10 Respiratory Rate 12 08/03/24 21:10 Blood Pressure 137/85 08/03/24 21:10 Pulse Oximetry 100 08/03/24 21:10 Oxygen Delivery Room Air 08/03/24 21:10 Temperature 98.7 F 08/03/24 21:10 Pulse Rate 95 08/03/24 22:38 Respiratory Rate 20 08/03/24 22:38 Blood Pressure 122/64 08/03/24 22:38 Pulse Oximetry 98 08/03/24 22:38 Oxygen Delivery Room Air 08/03/24 21:10 MDM - Allergic Reaction MDM Narrative Medical decision making narrative: patient presents to the emergency department for possible allergic reaction to a protein shake. She had given herself a dose of epi prior to arrival. No obvious face, throat, mouth swelling. She was given Solu-Medrol, Pepcid and Benadryl. Has remained stable while observed in the ER for several hours. Reports she is ready for discharge. She is to follow up with primary provider. She was given warnings to return to the ER Differential Diagnosis Differential diagnosis: Likely anaphylaxis, allergic reaction and angioedema Critical Care Time Critical Care Time Critical Care Time: No Discharge Plan Discharge Clinical Impression: Allergic reaction Qualifiers: Encounter type: initial encounter Qualified Code(s): T78.40XA - Allergy, unspecified, initial encounter Patient Disposition: Home, Self-Care Condition: Improved Instructions: General Allergic Reaction (ED) Additional Instructions: Return to the emergency department if you experience fever, swelling of your mouth or throat, chest pain, shortness of breath, or any other symptoms that are concerning to you. Follow up with primary care doctor Prescriptions: New epinephrine 0.3 mg/0.3 mL auto-injector 0.3 mg IM Q5-15M PRN (Reason: anaphylaxis) Qty: 2 0RF Rx Instructions: do not exceed 3 doses per episode No Action bupropion HCl 150 mg tablet extended release 24 hr PO citalopram 40 mg tablet 40 mg PO DAILY Follow-up/Referrals: Sandeep,VALENTINA Bejarano [Primary Care Provider] -
[2024-08-03 21:10] VITALS: BP 137/85; PULSE 92; RESP 12; TEMP 37.1; O2SAT 100
[2024-08-03] MEDS: diphenhydrAMINE HCl INJ 50 MG/ML VIAL 25 MG IV PUSH (21:15)
[2024-08-03] MEDS: methylPREDNISolone SOD SUCC 125 MG VIAL IV PUSH (21:15)
[2024-08-03] MEDS: FAMOTIDINE 20 MG/2 ML VIAL IV PUSH (21:15)
[2024-08-03 22:38] VITALS: BP 122/64; PULSE 95; RESP 20; O2SAT 98
== END 2024-08-04 00:11 | disposition home or self-care (01) ==
PROVIDERS: Emergency Provider Physician Assistant; PCP Family Medicine
DX: T78.40XA Allergy, unspecified, initial encounter (principal); X58.XXXA Exposure to other specified factors, initial encounter; F41.9 Anxiety disorder, unspecified; F32.A Depression, unspecified
CPT/HCPCS: 96374; 96375; 99284; J1200; J2919

== ENCOUNTER 2024-10-24 20:48 | Emergency (ER) | payer BC, MEDICAID, SELFPAY ==
--- OUTSIDE RECORDS SUMMARY | 2024-10-24 20:51 | XMS_ITS ---
Author Organization [facility] [place] Address [address] [place] [address] Care Team Providers Care Dialysis Clinical Manager Name Role Phone Unavailable Primary Care Physician Unavailab le Medications Name Start Date Expiration Date SIG Comments ParaGard T 380A intrauterine intrauterine device 380 square mm 07/20/2023 07/21/2023 place 1 device by intrauterine route once Payers Insurance Name Company Name Plan Name Plan Number Policy Number Policy Group Number [place] Date [place] [id number] N/A History of Encounters Visit Date Visit Type Provider 07/20/2023 My-IUD Tele-Med Consult Dr. Delbert Russell MD
--- OUTSIDE RECORDS SUMMARY | 2024-10-24 20:51 | XMS_ITS | Continuity of Care Document ---
Author Organization [facility] Address [address] [place] [address] Phone Care Team Providers Care Grocery Shopper Name Role Phone Rach Ponce MD Unavailable [...] Diagnoses Date Provider Providers Copied on Encounter [facility], [address] [place] [address] [address], [place], [address], [place] tel:[phone] [facility] Rt foot fx (chief complaint) Nondisplaced fracture of third metatarsal bone of right foot with routine healing, subsequent encounter Sep-2 1- 5 [place] Rach . [address] [place] [address], [id number] . tel: [phone] [facility], [address] [place] [address] [address], [place], [address], [place] tel:[phone] [facility] Orthopedics [facility] Follow Up of ON Rt foot fx (chief complaint) Closed fracture of metatarsal bone Sep-1 0-201 5 [place] Rach . [address] [place] [address], [id number] . tel:[phone] Referring Provider: Rebecca Sanders, [address], [place], [address] . tel:[phone] Family History Family Member Type Diagnosis Age At Onset No Information Payers Payer name Insurance type Covered republican ID Gustabo bennett(s) Joaquin Cross Federal [id number] OT [id number] Social History Type Description Quantity Date Captured [...]
--- OUTSIDE RECORDS SUMMARY | 2024-10-24 20:51 | XMS_ITS | Referral Summary ---
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 Neutrophil abs 2.3 1.5 - 6.5 K/cumm Comment:Testing performed by : [address] [address] Imm gran abs 0.0 0.0 - 0.1 K/cumm NAYE Comment:Testing performed by : [address] [address] Lymphocyte abs 1.6 0.8 - 3.3 K/cumm NAYE Comment:Testing performed by : [address] [address] Monocyte abs 0.3 0.2 - 0.8 K/cumm NAYE Comment:Testing performed by : [address] [address] Eosinophil abs 0.5 0.0 - 0.5 K/cumm NAYE Comment:Testing performed by : [address], [place]., [address] Basophil abs 0.1 0.0 - 0.1 K/cumm NAYE Comment:Testing performed by : [address] [address] Neutrophil pct 47.7 % [facility] Comment: Interpretive Data Percent cell count reference ranges are not reported, since discordance with absolute values may lead to misinterpretation of CBC data. Current Interpretive Data was last revised on 2018. Testing performed by: [address] [address] Imm gran pct 0.2 % [facility] Comment: Interpretive Data Percent cell count reference ranges are not reported, since discordance with absolute values may lead to misinterpretation of CBC data. Current Interpretive Data was last revised on 2018. Testing performed by: [address] [address] Lymphocyte pct 33.4 % [facility] Comment: Interpretive Data Percent cell count reference ranges are not reported, since discordance with absolute values may lead to misinterpretation of CBC data. Current Interpretive Data was last revised on 2018. Testing performed by: [address] [address] Monocyte pct 6.7 % [facility] Comment: Interpretive Data Percent cell count reference ranges are not reported, since discordance with absolute values may lead to misinterpretation of CBC data. Current Interpretive Data was last revised on 2018. Testing performed by: [address] [address] Eosinophil pct 10.8 % NAYE Comment: Interpretive Data Percent cell count reference ranges are not reported, since discordance with absolute values may lead to misinterpretation of CBC data. Current Interpretive Data was last revised on 2018. Testing performed by: [address] [address] Basophil pct 1.2 % NAYE Comment: Interpretive Data Percent cell count reference ranges are not reported, since discordance with absolute values may lead to misinterpretation of CBC data. Current Interpretive Data was last revised on 2018. Testing performed by: [address] [address] Blood 09/08/2024 10:1 3 AM SLAG DUMPER 09/08/2024 10:14 AM SLAG DUMPER Shyla Jim MD LAB BLOOD ORDERABLES Final Result Performing Organization Address [facility] de Phone Number [address] [place] [address] * Iron profile w/ IBC (09/08/2024 10:13 AM SLAG DUMPER) Iron 68 35 - 145 mcg/dL Comment:Testing performed by : [address] [address] TIBC 338 250 - 400 mcg/dL NAYE Comment:Testing performed by : [address] [address] Transferrin saturation 20 20 - 50 % NAYE Comment:Testing performed by : [address] [address] Blood 09/08/2024 10:1 3 AM SLAG DUMPER 09/08/2024 12:17 PM SLAG DUMPER Shyla Jim MD LAB BLOOD ORDERABLES Final Result Performing Organization Address [facility] de Phone Number [address] [place] [address] * CBC with auto differential (09/08/2024 10:13 AM SLAG DUMPER) WBC 4.9 3.8 - 9.9 K/cumm Comment:Testing performed by : [address] [address] Hgb 12.7 11.9 - 15.5 g/dL NAYE Comment:Testing performed by : [address] [address] Hct 38.2 35.6 - 45.5 % NAYE Comment:Testing performed by : [address], [address] Plt 287 150 - 400 K/cumm NAYE Comment:Testing performed by : [address] [address] MPV 9.5 9.1 - 12.3 fL NAYE Comment:Testing performed by : [address], [address] RBC 4.47 3.90 - 5.20 M/cumm NAYE Comment:Testing performed by : [address], [address] MCV 85.5 81.3 - 96.4 fL NAYE Comment:Testing performed by : [address], [address] MCH 28.4 27.1 - 33.3 pg NAYE Comment:Testing performed by : [address], [address] MCHC 33.2 32.3 - 35.7 g/dL NAYE Comment:Testing performed by : [address], [address] RDW CV 12.8 11.1 - 14.9 % NAYE Comment:Testing performed by : [address], [address] RDW SD 39.6 35.7 - 48.1 fL NAYE Comment:Testing performed by : [address], [address] NRBC abs 0.00 0.00 - 0.01 K/cumm NAYE Comment:Testing performed by : [address], [address] Blood 09/08/2024 10:1 3 AM SLAG DUMPER 09/08/2024 10:14 AM SLAG DUMPER us Shyla Jim MD LAB BLOOD ORDERABLES Final Result [address] [address] * Reticulocyte Count (09/08/2024 10:13 AM SLAG DUMPER) Retics, absolute 0.066 0.020 - 0.087 M/cumm Comment:Testing performed by : [address] [address] Retics 1.5 0.4 - 2.9 % NAYE Comment:Testing performed by : [address] [address] Reticulocyte Hgb 31.6 30.5 - 38.0 pg NAYE Comment:Testing performed by : [address] [address] Blood 09/08/2024 10:1 3 AM SLAG DUMPER 09/08/2024 10:14 AM SLAG DUMPER Shyla Jim MD LAB BLOOD ORDERABLES Final Result Performing Organization Address City/[facility]/ZIP Co de Phone Number [address] [address] * TSH (09/08/2024 10:13 AM SLAG DUMPER) Thyroid Stimulating Hormone 0.98 0.30 - 4.20 mcIUnit/mL Comment:Testing performed by : [address] [address] Blood 09/08/2024 10:1 3 AM SLAG DUMPER 09/08/2024 12:17 PM SLAG DUMPER Shyla Jim MD LAB BLOOD ORDERABLES Final Result [address] [address] * Ferritin (09/08/2024 10:13 AM SLAG DUMPER) [facility] Ferritin 31 15 - 150 ng/mL Comment:Testing performed by : [address] [address] Blood 09/08/2024 10:1 3 AM SLAG DUMPER 09/08/2024 12:17 PM SLAG DUMPER Shyla Jim MD LAB BLOOD ORDERABLES Final Result NAYE [address] [facility] Department [place] [address] * N. gonorrhoeae/C. trachomatis Amplification Urine (10/21/2022 11:02 AM SLAG DUMPER) Pathologist [facility] C. trachomatis Not Detected Not Detected [facility] Comment:Testing performed by : [facility], [address] [place] [address]., [address] N. gonorrhoeae Not Detected Not Detected [facility] Comment: Interpretive Data Testing performed by the [facility]. This assay detects Chlamydia trachomatis and Neisseria gonorrhoeae by nucleic acid amplification testing (NAAT). This test is approved by the [facility] Food and Drug Administration and the performance characteristics have been verified by the laboratory. The performance characteristics of this test have not been evaluated in individuals less than 14 years of age. Current Interpretive Data was last revised on 2018. Testing performed by: [facility], [address] [place]., [address] Urine (None) 10/21/2022 11:0 2 AM SLAG DUMPER 10/21/2022 2:00 PM SLAG DUMPER Christiane Cheung DO LAB MICROBIOLOGY - GENERA L ORDERABLES Final Result Performing Organization Address City/[facility]/ZIP Co de Phone Number [facility] [address] [facility] Department [place] [address] * Hepatitis C antibody (10/21/2022 10:59 AM SLAG DUMPER) Pathologist [facility] Hep C Ab Nonreactive Nonreactive [facility] Comment: Antibodies to HCV not detected. Does NOT exclude the possibility of recent exposure to HCV. Current interpretive data was last revised on 22 Testing performed by: [facility], [address] [facility], [place]., [address] Blood 10/21/2022 10:5 9 AM SLAG DUMPER 10/21/2022 1:30 PM SLAG DUMPER us Christiane Cheung DO LAB MICROBIOLOGY - GENERA L ORDERABLES Final Result NAYE [facility] [address] [facility] Department [place] [address] from Last 3 Months or Most Recently Relevant to Health Maintenance Insurance 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
--- OUTSIDE RECORDS SUMMARY | 2024-10-24 20:51 | XMS_ITS | Clinical Summary ---
Author Organization [facility] Address [address] [facility] [place] [address] Care Team Providers Care Exercise Rider Name Role Phone Unavailable Primary Care Provider Unavailabl e Source Comments [facility],non-owned Affiliates and Associated Physician Practices is amultiple site organization consisting of ambulatory clinics and hospital sitesin [place], [place], [place] and [place]. This disclosure is being madepursuant to the Care Everywhere program and may not contain all information available regarding this patient. Last updated 18.[facility] Definigen Allergies Active Allergy Reactions Criticality Noted Date Comments Peanut-Derived Anaphylaxis High 04/21/2023 Penicillins Other 04/22/2023 Extreme anxiety, panic, crying Skin Adhesives Rash,Itching Medium 04/23/2023 Tree Nuts Anaphylaxis High 04/21/2023 Medications * Be aware that medications may not be up to date on this document. Alwaysverify current medications with the patient. Medication Sig Dispensed Refills Start Date End Date Status citalopram (CeleXA) 20 MG tablet Take 1 (one) tablet by mouth once daily Active cetirizine (ZyrTEC) 10 MG tablet Take 1 (one) tablet by mouth once daily Active MV-Min-Fe Fum-FA-DHA ( 1 PO) Active NIFEdipine (Procardia) 10 MG capsule Take 1 (one) capsule by mouth every 6 hours as needed (contractions) 30 capsule 1 04/24/2023 Active iron polysaccharides (Niferex 150) 150 MG capsule Take 1 (one) capsule by mouth once daily 30 capsule 4 04/24/2023 Active Active Problems Problem Noted Date Diagnosed Date Anxiety 04/24/2023 Depression 04/24/2023 Iron deficiency anemia 04/24/2023 Hx of preeclampsia, prior pr egnancy, currently , third trimester 04/22/2023 Threatened premature labor, antepartum 3 Resolved Problems Problem Noted Date Diagnosed Date Resolved Date Supervision of high risk pre gnancy in third trimester 04/22/2023 04/24/2023 Social History Tobacco Use Types Packs/Day Years Used Date Smoking Tobacco: Never Smokeless Tobacco: Never Tobacco Cessation:Counseling Given: Not Answered Alcohol Use Standard Drinks/Week Comments Not Currently 0 (1 standard drink = 0.6 oz pur e alcohol) Overall Financial Resource Strain (CARDIA) Answe r Date Recorded How hard is it for you to pa y for the very basics like food, housing, medical care, and heating? Somewhat hard 04/21/2023 [facility] [place] [facility] Occup[facility] ional [facility] - Occupational Stress Questionnaire Answer Date Recorded Do you feel stress - tense, restless, nervous, or anxious, or unable to sleep at night because your mind is troubled all the time - these days? Not at all 04/21/2023 Hunger Vital Sign Answer Date Recorded Within the past 12 months, y ou worried that your food would run out before you got the money to buy more. Never true 04/21/20 23 Within the past 12 months, t he food you bought just didn't last and you didn't have money to get more. Never true 04/21/2023 PRAPARE - Transportation Answer Date Re corded In the past 12 months, has l ack of transportation kept you from medical appointments or from getting medications? No 03/25 In the past 12 months, has l ack of transportation kept you from meetings, work, or from getting things needed for daily living? No 04/21/2023 Housing Stability Vital Sign Answer Blake e Recorded In the last 12 months, was t here a time when you were not able to pay the mortgage or rent on time? Yes 04/21/2023 In the last 12 months, how many places have you lived? 2 04/21/2023 In the last 12 months, was t here a time when you did not have a steady place to sleep or slept in a retirement (including now)? No 04/21/2023 Sex and Gender Information Value Date Recorded Sex Assigned at Not on file Gender Identity Not on file Sexual Orientation Not on file Last Filed Vital Signs Vital Sign Reading Time Taken Comments Blood Pressure 129/70 04/24/2023 7:43 AM CDT Pulse - - Temperature 36.6 ??C (97.9 ??F) 04/24/2023 7:43 AM CD T Respiratory Rate 18 04/24/2023 4:19 AM CDT Oxygen Saturation 99% 04/24/2023 7:43 AM CDT Inhaled Oxygen Concentration - - Weight 65 kg (143 lb 4.8 oz) 04/23/2023 9:45 AM CDT Height 157.5 cm (5' 2 ) 04/23/2023 9:45 AM CDT Body Mass Index 26.21 04/23/2023 9:45 AM CDT Plan of Treatment Health Maintenance Due Date Last Done Comments HIV SCREENING 2017 HPV VACCINE (1 - 3-dose series) 2017 MENINGOCOCCAL (Group B) VACCINE (1 of 2 - Standard) 2018 HEPATITIS C SCREENING 09/24/2020 DTAP/TDAP/TD VACCINES (1 - Tdap) 2021 HEPATITIS B VACCINE (1 of 3 - 19+ 3-dose series) 2021 CHLAMYDIA/GONORRHEA SCREENING 04/21/2024 04/21/2023 COVID-19 VACCINE (3 - 2023-2 5 season) 2024 01/12/2021, 12/15/2020 INFLUENZA VACCINE (#1) 2024 2, 09/20/2020 DEPRESSION SCREENING 09/24/2024 PAP SMEAR 10/21/2025 10/21/2022, 12/06/2020 ZOSTER VACCINE (1 of 2) 2052 HIB VACCINE Aged Out No longer eligi ble based on patient's age to complete this topic MENINGOCOCCAL VACCINE Aged Out No charanjit keesha eligible based on patient's age to complete this topic PNEUMOCOCCAL VACCINE Aged Out No long er eligible based on patient's age to complete this topic Procedures Procedure Name Priority Date/Time Associated Diagnosis Comments CHLAMYDIA + GC AMPLIFIED PROBE Routine 04/21/2023 8:47 PM CDT Threatened premature labor, antepartum (HCC) from Last 3 Months or Most Recently Relevant to Health Maintenance Results * CHLAMYDIA + GC AMPLIFIED PROBE (04/21/2023 8:47 PM CDT) Chlamydia Amplified Probe Negative Negative 04/22/2023 8:23 PM CDT [facility]CRO[facility] GC Amplified Probe Negative Negative 04/22/2023 8:23 PM CDT [facility] Microbiology PART OF UTERINE CERVIX / Unknown Collection / Unknown 04/21/2023 8:47 PM CDT 04/21/2023 9:01 PM CDT Narrative [facility] - 04/22/2023 8:23 PM CDT Results based on detection/no detection of ribosomal RNA by amplified method. Josie Gee MD LAB - MICROBIOLOGY O RDERABLES [facility] [address] [place] [address], [facility] [phone] from Last 3 Months or Most Recently Relevant to Health Maintenance Advance Directives * Full Code (Latest Code Status on File) Date Activated Date Inactivated Comments 04/21/2023 6:59 PM 04/24/2023 1:02 PM
--- OUTSIDE RECORDS SUMMARY | 2024-10-24 20:51 | XMS_ITS | Patient Health Summary ---
Author Organization [facility] Address [address] [facility] [place] [address] Care Team Providers Care Shop Fitter Name Role Phone Unavailable Primary Care Provider Unavailabl e Note from [facility],non-owned Affiliates and Associated Physician Practices is amultiple site organization consisting of ambulatory clinics and hospital sitesin [place], [place], [place] and [place]. This disclosure is being madepursuant to the Care Everywhere program and may not contain all information available regarding this patient. Last updated 18.[facility] Allergies * Peanut-Derived(Anaphylaxis) -High Criticality * Penicillins(Other) * Skin Adhesives(Rash,Itching) -Medium Criticality * Tree Nuts(Anaphylaxis) -High Criticality Medications * Be aware that medications may not be up to date on this document. Alwaysverify current medications with the patient. * citalopram (CeleXA) 20 MG tablet Take 1 (one) tablet by mouth once daily * cetirizine (ZyrTEC) 10 MG tablet Take 1 (one) tablet by mouth once daily * MV-Min-Fe Fum-FA-DHA ( 1 PO) * NIFEdipine (Procardia) 10 MG capsule(Started 04/24/2023) Take 1 (one) capsule by mouth every 6 hours as needed (contractions) 1 refill by 04/23/2024 * iron polysaccharides (Niferex 150) 150 MG capsule(Started 04/24/2023) Take 1 (one) capsule by mouth once daily 4 refills by 04/23/2024 Active Problems Problem Noted Date Diagnosed Date [...] medical care, and heating? Somewhat hard 04/21/2023 [facility] [place] of Occupat ional Health - Occupational Stress [...] place to sleep or slept in a [place] facility (including now)? No 04/21/2023 Sex and Gender [...] Mass Index 26.21 04/23/2023 9:45 AM CDT Procedures * SONOGRAM - COMPLETE(Performed 04/23/2023) * FERRITIN(Performed 04/23/2023) * IRON + TRANSFERRIN PANEL(Performed 04/23/2023) * COMPREHENSIVE METABOLIC PANEL(Performed 04/23/2023) * CBC W/O DIFFERENTIAL(Performed 04/23/2023) * URINALYSIS REFLEX MICROSCOPIC REFLEX CULTURE(Performed 04/21/2023) Performed for Threatened premature labor, antepartum ([facility]) * RUPTURE OF MEMBRANES EVAL(Performed 04/21/2023) * BLOOD TYPE VERIFICATION(Performed 04/21/2023) * CHLAMYDIA + GC AMPLIFIED PROBE(Performed 04/21/2023) Performed for Threatened premature labor, antepartum ([facility]) * TRICHOMONAS RAPID TEST(Performed 04/21/2023) Performed for Threatened premature labor, antepartum ([facility]) * TYPE + SCREEN PANEL(Performed 04/21/2023) Performed for Threatened premature labor, antepartum ([facility]) Results * SONOGRAM - COMPLETE (04/23/2023 9:02 AM CDT) Anatomical Region Laterality Modality Other 04/23/2023 9:02 AM CDT Narrative 04/23/2023 4:59 PM CDT ?[facility] ? - [place] [facility] ?PHONE: ??FAX: Pat. Name: ?LANA ARRIAZA. No: ?[id number] Study Date: ?? 04/23/2023 ??9:02am , Age: ? 2000, 22 Pregnancies: ?? 2, Para 1 Height: ? 62 in Weight: ? 127 lb LMP: ?Unknown GA by US: ? 34w5d ?? HEIKE: 05/30/2023 GA Selected: ??32w5d (From Known E) HEIKE: ?06/13/2023 Referring MD: Tucker Smith MD Player Services Representative: ??Swathi Pope RDMS CPT4: ? 04383 BMI: ?23.23 Room: ? 537 Hist/Ind: ? G2: Current ?Contractions ?Threatened PTL ?NIPT: low risk, male ?Anxiety/Depression ?Asthma ?G1: Pre-E MEASUREMENTS & AGE ? GROWTH EVALUATION Measurement ??GA ? Range ? Srce %for GA Ratios ----- ---- ------- BPD ??8.8 cm 35w3d (83y7b-10y4h) Hadl BPD 97% FL/BPD 0.70 (0.71 - 0.87* HC ??32.5 cm 36w5d (78b5l-40k2g) Hadl HC ??97% FL/AC ??0.20 (0.20 - 0.24) AC ??30.6 cm 34w4d (48z0w-96u2s) Hadl AC ??92% HC/AC ??1.06 (0.95 - 1.14) FL ?? 6.1 cm 31w6d (67n1e-68n2w) Hadl FL ??17% CI ? 0.76 (0.70 - 0.86) HL ?? 5.3 cm 30w6d (55m1g-71a8z) Bunny HL ??19% Cere 4.2 cm 33w4d (29w7c-85u3k) Hill Cere66% GA for sonogram 34w5d (75e5e-27k5p) ?? Weight Estimate: based on (BPD,HC,AC,FL) Avg ?Weight: 2355 gm (2010-8gm) Had ? : 5lbs, 3oz ? Normal: 2103 gm (1577- 2628gm) Had ? Wt% ? 82% for 32w5d Heart Rate: 134 bpm Amniotic Fluid Index: 22.5cm (08.4-24.4) Q1: 6.6cm ??Q2: 6.9cm ??Q3: 5.0cm ??Q4: 4.1cm ?? EVAL, PLACENTA Presentation: cephalic Umbilical Cord: 3 Vessels Placenta: anterior Heart Rate: 134 bpm Amniotic Fluid Volume: normal Anatomy!Normal!Abnormal!Suboptimal!Prev. Seen!Comments Cranium ?! ?? x ??! ?! ?! ?! Mdl (CSP/Thal! ?? x ??! ?! ?! ?! Ventricles ?? ! ?! ?! ? x ?! ?! Choroid Plexu! ?! ?! ? x ?! ?! Cerebellum ?? ! ?? x ??! ?! ?! ?! Cisterna M. ??! ?! ?! ? x ?! ?! Nuchal Fold ??! ?! ?! ? x ?! ?! Orbits ? ! ?? x ??! ?! ?! ?! Profile ?! ?? x ??! ?! ?! ?! Nasal Bone ?? ! ?? x ??! ?! ?! ?! Lip ?! ?? x ??! ?! ?! ?! Spine ?! ?! ?! ? x ?! ?! Lungs ?! ?? x ??! ?! ?! ?! 4 Chamber Hea! ?? x ??! ?! ?! ?! LVOT ? ! ?? x ??! ?! ?! ?! RVOT ? ! ?? x ??! ?! ?! ?! 3 Vessel View! ?? x ??! ?! ?! ?! 3 Vessel Trac! ?? x ??! ?! ?! ?! Cross-over ?? ! ?? x ??! ?! ?! ?! Ductal Arch ??! ?? x ??! ?! ?! ?! Aortic Arch ??! ?? x ??! ?! ?! ?! Caval View ?? ! ?? x ??! ?! ?! ?! Situs ?! ?? x ??! ?! ?! ?! Diaphragm ?! ?? x ??! ?! ?! ?! Stomach ?! ?? x ??! ?! ?! ?! Bowel ?! ?? x ??! ?! ?! ?! Kidneys ?! ?? x ??! ?! ?! ?! Bladder ?! ?? x ??! ?! ?! ?! 3 Vessel Cord! ?? x ??! ?! ?! ?! Cord In! ?? x ??! ?! ?! ?! Upper Extremi! ?? x ??! ?! ?! ?! Hands ?! ?! ?! ? x ?! ?! Lower Extremi! ?! ?! ? x ?! ?! Feet ? ! ?! ?! ? x ?! ?! External Julianne! ?? x ??! ?! ?! ?!Male Placental Cor! ?? x ??! ?! ?! ?! CLINICAL SUMMARY This is the first exam at our facility. A single fetus is seen in cephalic presentation. ??The measurements today are consistent with appropriate size for HEIKE provided. ?? The HEIKE is based on a prior outside ultrasound (confirmed). ??The amniotic fluid volume is within normal limits. ?? IMPRESSION: Single, live, intrauterine at 32w5d ?? size is within normal limits ?? Amniotic fluid volume: within normal limits ?? No major malformations were seen within the limitations of ultrasound ?? RECOMMEND: Follow up as clinically indicated per inpatient team. Thank you for allowing us the opportunity to care for your patient. ?? cc: ??Inpatient at time of study ? Josie Gee MD ?<Electronic Signature> ??04/23/2023 04:58pm Josie Gee MD [facility] ORDERABLES * (ABNORMAL) CBC W/O DIFFERENTIAL (04/23/2023 8:54 AM CDT) [facility] WBC 15.2(H) 4.4 - 10.7 x10E9/L 04/23/2023 9:24 AM CDT [facility] RBC 3.22(L) 3.80 - 5.20 x10E12/L 04/23/2023 9:24 AM CDT [facility] Hemoglobin 9.7(L) 12.0 - 15.6 gm/dL 04/23/2023 9:24 AM CDT [facility] Hematocrit 30.2(L) 35.9 - 45.5 % 04/23/2023 9:24 AM CDT [facility] MCV 93.8 80.7 - 98.3 fl 04/23/2023 9:24 AM CDT [facility] MCH 30.1 26.7 - 34.0 pg 04/23/2023 9:24 AM CDT [facility] MCHC 32.1 30.8 - 35.9 gm/dL 04/23/2023 9:24 AM CDT [facility] Platelet Count 198 153 - 416 x10E9/L 04/23/2023 9:24 AM CDT [facility] RDW-CV 12.7 12.1 - 14.9 % 04/23/2023 9:24 AM CDT [facility] MPV 9.6 9.4 - 12.9 fl 04/23/2023 9:24 AM T [facility] Blood BLOOD SPECIMEN / Unknown Lab Venipuncture / Unknown 04/23/2023 8:54 AM CDT 04/23/2023 9:10 AM CDT Josie Gee MD LAB - HEMATOLOGY ORD ERABLES [facility] [address] [place] [address] * (ABNORMAL) COMPREHENSIVE METABOLIC PANEL (04/23/2023 8:54 AM CDT) Glucose 123(H) 70 - 105 mg/dL 04/23/2023 9:57 AM CDT [facility] Sodium 139 136 - 145 mmol/L 04/23/2023 9:57 AM [facility] Potassium 3.4(L) 3.5 - 5.1 mmol/L 04/23/2023 9:57 AM [facility] Chloride 108(H) 98 - 107 mmol/L 04/23/2023 9:57 AM CDT [facility] CO2 19(L) 22 - 29 mmol/L 04/23/2023 9:57 AM CDT [facility] Calcium 8.6 8.4 - 10.4 mg/dL 04/23/2023 9:57 AM [facility] Anion Gap 12 6 - 16 mmol/L [facility] BUN 5(L) 5.3 - 18.7 mg/dL 04/23/2023 9:57 AM CDT [facility] Creatinine 0.67 0.57 - 1.11 mg/dL 04/23/2023 9:57 AM T [facility] Alkaline Phosphatase 96 40 - 150 U/L 04/23/2023 9:57 AM CDT [facility] ALT 19 0 - 55 U/L 04/23/2023 9:57 AM CDT [facility] AST 20 5 - 34 U/L 04/23/2023 9:57 AM [facility] Protein Total 5.9(L) 6.4 - 8.3 gm/dL 04/23/2023 9:57 AM CDT [facility] Albumin 2.5(L) 3.4 - 5.0 gm/dL 04/23/2023 9:57 AM CDT [facility] Bilirubin Total 0.2 0.2 - 1.2 mg/dL 04/23/2023 9:57 AM CDT [facility] eGFR by CKD-EPI >90 >=90 mL/min/1.7 3 m2 04/23/2023 9:57 AM CDT [facility] Blood BLOOD SPECIMEN / Unknown Lab Venipuncture / Unknown 04/23/2023 8:54 AM CDT 04/23/2023 9:10 AM CDT Josie Gee MD LAB - CHEMISTRY INDERJIT BETHEA Performing Organization Address [facility] de Phone Number [facility] [address] [place] [phone] * (ABNORMAL) IRON + TRANSFERRIN PANEL (04/23/2023 8:54 AM CDT) Iron 27(L) 40 - 150 ug/dL 04/23/2023 11:12 AM CDT [facility] Transferrin 374 174 - 382 mg/dL 04/23/2023 11:12 AM CDT [facility] TIBC Calculated 468(H) 240 - 450 ug/dL 04/23/2023 11:12 AM CDT [facility] Iron Saturation % 6(L) 20 - 50 % 04/23/2023 11:12 AM CDT [facility] Blood BLOOD SPECIMEN / Unknown Lab Venipuncture / Unknown 04/23/2023 8:54 AM CDT 04/23/2023 9:10 AM CDT Josie Gee MD LAB - CHEMISTRY INDERJIT BETHEA Performing Organization Address [facility]/ZIP Co de Phone Number [facility] [address] [place] [phone] * FERRITIN (04/23/2023 8:54 AM CDT) Ferritin 14 5 - 204 ng/mL 04/23/2023 11:28 AM CDT [facility] Blood BLOOD SPECIMEN / Unknown Lab Venipuncture / Unknown 04/23/2023 8:54 AM CDT 04/23/2023 9:10 AM CDT Josie Gee MD LAB - CHEMISTRY INDERJIT BETHEA [facility] Organization Address City/State/ZIP Co de Phone Number [facility] [address] [place], [place] [id number] * (ABNORMAL) URINALYSIS REFLEX MICROSCOPIC REFLEX CULTURE (04/21/2023 9:26 PM CDT) Color UA Straw Straw, Yellow 04/21/2023 9:38 PM CDT [facility] Clarity UA Clear Clear 04/21/2023 9:38 PM CDT [facility] Glucose UA Negative Negative 04/21/2023 9:38 PM CDT [facility] Bilirubin UA Negative Negative 04/21/2023 9:38 PM CDT [facility] Ketone UA Trace(A) Negative 04/21/2023 9:38 PM CDT [facility] Specific [place] UA 1.006 1.005 - 1.030 04/21/2023 9:38 PM CDT [facility] Blood UA Negative Negative 04/21/2023 9:38 PM CDT [facility] pH UA 7.0 5.0 - 8.0 pH 04/21/2023 9:38 PM CDT [facility] Protein UA Negative Negative 04/21/2023 9:38 PM CDT [facility] Urobilinogen UA Negative Negative mg/dL 04/21/2023 9:38 PM CDT [facility] Nitrite UA Negative Negative 04/21/2023 9:38 PM CDT [facility] Leukocyte UA Negative Negative 04/21/2023 9:38 PM CDT [facility] Urine Microscopy Urine microscopy not indicated 04/21/2023 9:38 PM CDT [facility] Reflex Status Culture not indicated 04/21/2023 9:38 PM CDT [facility] Urine URINE SPECIMEN OBTAINED BY CLEAN CATCH PROCEDURE / Unknown Collection / Unknown 04/21/2023 9:26 PM CDT 04/21/2023 9:30 PM CDT Narrative [facility] - 04/21/2023 9:38 PM CDT Josie Gee MD LAB - URINALYSIS ORD ERABLES Performing Organization Address [facility] Co de Phone Number [facility] [address] [place] [phone] * RUPTURE OF MEMBRANES EVAL (04/21/2023 9:11 PM CDT) RUPTURE OF MEMBRANES NEGATIVE NEGATIVE 04/21/2023 9:27 PM CDT [facility] Fluid VAGINAL SWAB / Unknown Collection / Unknown 04/21/2023 9:11 PM CDT 04/21/2023 9:[address] [facility] - 04/21/2023 9:27 PM CDT A rupture of membranes diagnosis should not be based on any single test and the results should be interpreted in conjunction with other clinical information. This test may report positive results in patients with intact membranes and therefore decisions to induce labor should not be based solely on the ROM Plus test results. ROM Plus test kits will function properly with trace amounts of blood in the sample. Significant amounts of bloody discharge may cause the test to malfunction and testing of these samples is not recommended. Elevated serum, urine, cord blood, and amniotic fluid as well as maternal serum levels of AFP have been reported in the literature in various developmental disorders such as neural-tube defects, hypothyroidism, autoimmune states, congenital heart defects, cystic fibrosis, etc. ROM Plus has not been evaluated for potential interference in these conditions. Josie Gee MD LAB - BODY FLUID ORD ERABLES Performing Organization Address [facility] Co de Phone Number [facility] [address] [place] [phone] * BLOOD TYPE VERIFICATION (04/21/2023 8:52 PM CDT) ABO Rh O POS 04/21/2023 9:2 4 PM CDT [facility] Blood Bank BLOOD SPECIMEN / Unknown Lab Venipuncture / Unknown 04/21/2023 8:52 PM CDT 04/21/2023 9:00 PM CDT Josie Gee MD LAB - BLOOD BANK ORD ERABLES Performing Organization Address [facility] Co de Phone Number [facility] [address] [place] [phone], [facility] [phone] * CHLAMYDIA + GC AMPLIFIED PROBE (04/21/2023 8:47 PM CDT) Pathologist [facility] Chlamydia Amplified Probe Negative Negative 04/22/2023 8:[address] [facility] GC Amplified Probe Negative Negative 04/22/2023 8:[address] [facility] Microbiology PART OF UTERINE CERVIX / Unknown Collection / Unknown 04/21/2023 8:47 PM CDT 04/21/2023 9:[address] [facility] - 04/22/2023 8:23 PM CDT Results based on detection/no detection of ribosomal RNA by amplified method. Josie Gee MD LAB - MICROBIOLOGY O RDERABLES Performing Organization Address City/[facility] Co de Phone Number [facility] [address] [place] [address], [facility] [phone] * TRICHOMONAS RAPID TEST (04/21/2023 8:47 PM CDT) Pathologist [facility] Trichomonas Rapid Test Negative Negative 04/21/2023 9:26 PM CDT [facility] Microbiology VAGINAL SWAB / Unknown Collection / Unknown 04/21/2023 8:47 PM CDT 04/21/2023 9:01 PM CDT Josie Gee MD LAB - MICROBIOLOGY O RDERABLES Performing Organization Address City/[facility]/ZIP Co de Phone Number [facility] [address] [place] [phone] * TYPE + SCREEN PANEL (04/21/2023 7:09 PM CDT) ABO Rh O POS 04/21/2023 9:24 PM CDT [facility] Comment:No history; collect retype. Antibody Screen NEG 07/29/202 3 9:24 PM CDT [facility] Blood Bank BLOOD SPECIMEN / Unknown Lab Venipuncture / Unknown 04/21/2023 7:09 PM CDT 04/21/2023 8:39 PM CDT Josie Gee MD LAB - BLOOD BANK ORD ERABLES [facility] [address] [phone]
--- OUTSIDE RECORDS SUMMARY | 2024-10-24 20:51 | XMS_ITS | Referral Summary ---
Author Organization [facility] Address [address] [facility] [place] [address] Care Team Providers Care Rolling Up Machine Operator Name Role Phone Unavailable Primary Care Provider Unavailabl e Source Comments [facility],non-owned Affiliates and Associated Physician Practices is amultiple site organization consisting of ambulatory clinics and hospital sitesin [place], [place], [place] and [place]. This disclosure is being madepursuant to the Care Everywhere program and may not contain all information available regarding this patient. Last updated 18.[facility] [employer] Allergies Active Allergy Reactions Criticality Noted Date [...] medical care, and heating? Somewhat hard 04/21/2023 [facility] [place] of Occupat ional Health - Occupational Stress [...] place to sleep or slept in a long term (including now)? No 04/21/2023 Sex and Gender [...] Mass Index 26.21 04/23/2023 9:45 AM CDT Functional Status Functional Status Response Date of Assess ment Is person deaf or have serious hearing difficult y? No 04/21/2023 Is person blind or have serious difficulty seein g? No 04/21/2023 Does person have serious dif ficulty walking/climbing stairs? No 04/21/2023 Does person have difficulty dressing/bathing? No 04/21/2023 Does person have difficulty doing errands alone? No 04/21/2023 Cognitive Status Response Date of Assessm ent Does person have difficulty concentrating/remembering/making decisions? No 04/21/2023 Plan of Treatment Not on file Procedures Procedure Name Priority Date/Time Associated Diagnosis Comments CHLAMYDIA + GC AMPLIFIED PROBE Routine 04/21/2023 8:47 PM CDT Threatened premature labor, antepartum (HCC) from Last 3 Months or Most Recently Relevant to Health Maintenance Results * CHLAMYDIA + GC AMPLIFIED PROBE (04/21/2023 8:47 PM CDT) Chlamydia Amplified Probe Negative Negative 04/22/2023 8:23 PM CDT [facility] GC Amplified Probe Negative Negative 04/22/2023 8:23 PM CDT [facility] Microbiology PART OF UTERINE CERVIX / Unknown Collection / Unknown 04/21/2023 8:47 PM CDT 04/21/2023 9:01 PM CDT Narrative [facility] - 04/22/2023 8:23 PM CDT Results based on detection/no detection of ribosomal RNA by amplified method. Josie Gee MD LAB - MICROBIOLOGY O RDERABLES [facility] [address] [place] [address], [place] [phone] from Last 3 Months or Most Recently Relevant to Health Maintenance Advance Directives * Full Code (Latest Code Status on File) Date Activated Date Inactivated Comments 04/21/2023 6:59 PM 04/24/2023 1:02 PM
--- OUTSIDE RECORDS SUMMARY | 2024-10-24 20:51 | XMS_ITS | Clinical Summary ---
Author Organization [facility] Address [address] [place] [address] Care Team Providers Care Culinary Internship Name Role Phone Rebecca Ramirez MD Unavailable [phone] Carlee Hopkins NP Primary Care Provider [phone] Allergies Active Allergy Reactions Criticality Noted Date Comments Nuts Unknown 03/14/2018 Tree Nuts Anaphylaxis High 06/04/2018 Medications levonorgestreL (MIRENA) IUD 1 each by intrauterine route once Perigard, unable to find in Rx list Active EPINEPHrine 0.3 mg/0.3 mL auto-injection syringeIndicati ons:Tree nut allergy,Nut allergy Inject 0.3 mL (0.3 mg total) into the muscle as instructed as needed for anaphylaxis 1 each 2 Active buPROPion XL (WELLBUTRIN XL) 150 mg 24 hr tabletIndicatio ns:Recurrent major depressive disorder, in partial remission (HCC) TAKE 1 TABLET BY MOUTH EVERY DAY IN THE MORNING 90 tablet 1 Active albuterol HFA (ProAir HFA) 90 mcg/actuation [...] 08/05/2024 Assessment & Plan (08/05/2024 6:31 AM CHEMICAL PUMPER): Acute, seen in ER last evening, with symptoms occurring immediately after drinking a protein shake for the 1st time, protein shake contained whey protein, soy, and dairy, and other ingredients Reviewed patient's cell phone Encouraged to avoid protein shake Advised to carry EpiPen at all times Instructed return to ER if symptoms should recur Referral made to autopsy pathologist History of DVT (deep vein thrombosis) 07/06/2024 BARRIE (generalized anxiety disorder) 01/16/2024 Assessment & Plan (10/16/2024 8:40 AM CHEMICAL PUMPER): Controlled Reviewed PHQ-9=3, BARRIE-7=3 Continued on buspirone 10 mg daily and citalopram 40 mg daily Assessment & Plan (08/05/2024 6:31 AM CHEMICAL PUMPER): Chronic, stable, controlled on medication Continued on [...] 01/16/2024 Assessment & Plan (10/16/2024 8:41 AM CHEMICAL PUMPER): Advised to check expiration date on EpiPen and to notify office if Is aware to carry at all times for possible accidental ingestion Assessment & Plan (08/05/2024 6:29 AM CHEMICAL PUMPER): Instructed to carry EpiPen at all times [...] Effexor Assessment & Plan (10/16/2024 8:41 AM CHEMICAL PUMPER): Controlled Reviewed PHQ-9=3, BARRIE-7=3 Continued on bupropion [...] safety Assessment & Plan (10/10/2022 9:00 AM CHEMICAL PUMPER): Patient with recurrent depression, will increase sertraline [...] control. Assessment & Plan (08/10/2022 8:27 AM CHEMICAL PUMPER): Patient presents today for evaluation of recurrent [...] ideation. Assessment & Plan (11/15/2021 4:04 AM CHEMICAL PUMPER): Patient with recurrent depression, she states that her current regimen is working well for her and she would like to continue on this. She denies any adverse effects and denies any suicidal or homicidal ideation. Assessment & Plan (09/26/2021 1:53 PM CHEMICAL PUMPER): Symptoms seem to be worsening since increasing Wellbutrin. Recommend decreasing Wellbutrin to 150 mg once daily and starting low-dose Lexapro. Patient does have follow-up scheduled with PCP in 1 month. Recent labs reviewed. TSH within normal limits in April 2021 Assessment & Plan (08/14/2021 6:16 PM CHEMICAL PUMPER): Patient with depression, and states that symptoms are improved with wellbutrin. Will increase dosage from 150mg to 300mg XL daily. Patient denies any suicidal or homicidal ideation. She denies any adverse effects. Allergy to peanuts 12/07/2015 Assessment & Plan (10/16/2024 8:41 AM CHEMICAL PUMPER): Advised to check expiration date on EpiPen and to notify office if Is aware to carry at all times for possible accidental ingestion Assessment & Plan (08/05/2024 6:29 AM CHEMICAL PUMPER): Instructed to carry EpiPen at all times Assessment & Plan (01/18/2024 4:21 AM CDT): Instructed to carry EpiPen at all times Moderate persistent asthma without complication 04/30/2008 Assessment & Plan (10/16/2024 8:39 AM CHEMICAL PUMPER): Uncontrolled Discontinued Flovent Started on Breo 200-25 daily Continued on albuterol as directed as needed Assessment & Plan (09/18/2024 4:40 PM CHEMICAL PUMPER): AFVSS, exam benign Recommend restarting daily inhaler [...] 01/16/2024 Assessment & Plan (10/10/2022 9:01 AM CHEMICAL PUMPER): Patient with incidental and states that she is about 4 weeks , discussed risks and benefits of current medications advised that it is okay to proceed on sertraline as this is a safe medication during , and benefits outweigh risk at this time. IUD (intrauterine device) in place 08/10/2022 10/06/2022 Assessment & Plan (08/10/2022 8:28 AM CHEMICAL PUMPER): Patient states that she has had IUD [...] 08/10/2022 Assessment & Plan (08/03/2022 5:44 PM CHEMICAL PUMPER): Rapid strep positive. Antibiotic ordered today. Discussed [...] 11/02/2021 Assessment & Plan (09/26/2021 1:54 PM CHEMICAL PUMPER): BMI Follow-up includes: education provided. Dysuria 06/23/2021 [...] 03/07/202103/10 Assessment & Plan (11/15/2021 4:04 AM CHEMICAL PUMPER): Plan as above. Assessment & Plan (06/23/2021 [...] food 04/07/2013 11/02/2021 Hay fever 04/30/2008 08/10/2022 Encounters Date Type Department Care Team Description 10/16/2024 7:00 AM CHEMICAL PUMPER Office Visit [facility] Medical [facility] Primary Care at [address] [address] Carlee Hopkins NP Moderate persistent asthma without complication (Primary Dx); Recurrent major depressive disorder, in partial remission (HCC); BARRIE (generalized anxiety disorder); Allergy to peanuts; Tree nut allergy; Need for vaccination 09/18/2024 5:05 PM CHEMICAL PUMPER Lab [facility] [place] [address] Sore throat 09/18/2024 4:30 PM CHEMICAL PUMPER Office Visit [facility] Primary Care at [address] [address] Mariela Cruz MD Mild persistent asthma with acute exacerbation (Primary Dx); Sore throat; Fatigue, unspecified type 09/18/2024 Nurse Triage [facility] Primary Care at [address] [address] Carlee Hopkins NP 09/08/2024 10:00 AM CHEMICAL PUMPER Lab [facility] at [address] [address] Iron deficiency anemia, unspecified iron deficiency anemia type; Acute deep vein thrombosis (DVT) of left femoral vein (HCC) 09/08/2024 9:00 AM CHEMICAL PUMPER Office Visit [facility] Physicians [facility] Hematology [address] [place] [address] Shyla Jim MD Iron deficiency anemia, unspecified iron deficiency anemia type (Primary Dx); Acute deep vein thrombosis (DVT) of left femoral vein (HCC); Other fatigue; History of DVT (deep vein thrombosis) 09/01/2024 Telephone [facility] Hematology [facility] Floor [address] [place] [address] hSena Smith 08/04/2024 3:45 PM CHEMICAL PUMPER Office Visit [facility] [place] [address] [place] [address] Carlee Hopkins NP Allergic reaction, subsequent encounter (Primary Dx); Allergy to peanuts; Tree nut allergy; BARRIE (generalized anxiety disorder) from Last 3 Months Immunizations Name Administration Dates Next Due HPV9 10/16/2024,07/17/2024 Hep B Vaccine 11/29/2023 Influenza, Quadrivalent, Spl it, Preservative Free, Intramuscular 08/14/2023,05/13/2022,09/20/2020 Influenza, Trivalent, Preser vative Free, Intramuscular 10/16/2024 Influenza, Unspecified 07/17/2024(Deferr ed: Patient Refused),07/25/2023,11/02/2021(Deferre d: Patient Refused) Moderna SARS-CoV-2 Monovalen t Vaccination (12+ YRS) 01/12/2021,12/15/2020 PPD TEST 05/22/2022,05/13/2022 Pneumococcal Conjugate Pcv20 07/17/2024 Tdap 09/20/2020 Surgical History Surgery Date Site/Laterality Comments TONSILLECTOMY 2021 WISDOM TOOTH EXTRACTION 09/24/2021 Medical History Medical History Date Comments Asthma 5 Y/O Anxiety Depression Preeclampsia 2020 Acne vulgaris Abnormal TSH Arthritis Kidney stone Family History Medical History Relation Name Comments Cancer Father Bernardo Nephrolithiasis Father Bernardo Hypertension Maternal Grandmother Merry Asthma Mother Roxana Cancer Mother Roxana Depression Mother Roxana Diabetes Mother Roxana Heart attack Mother Roxana Hypertension Mother Roxana Hypertension Mother's Sister Cat Bladder Cancer Paternal Grandfather Skin cancer Paternal Grandmother Relation Name Status Comments Father Bernardo Alive Maternal Grandmother Sara Mother Roxana Alive Mother's Sister Cat Paternal Grandfather Paternal Grandmother Social History Tobacco Use Types Packs/Day Years [...] on file Legal Sex Female 11:52 PM CHEMICAL PUMPER Gender Identity Female 12/09/2021 8:41 PM CDT Sexual Orientation Straight 12/09/2021 8: 42 PM CDT Obstetrics History Para Term AB IAB SAB Ectopic Multiple Livin g Live Births 2 1 1 1 1 Date Outcome GA Total Labor Labor/2nd/3rd Weight Sex Type Anes PTL Vanita A1 A5 Name Clin 021 Term 37w 0d 3.005 kg (6 lb 10 oz) M Vag-S pont N Living Complications:Pre eclampsia Delivery Location:[facility] [place] Last Filed Vital Signs Vital Sign Reading Time Taken Comments Blood Pressure 102/80 10/16/2024 7:07 AM CHEMICAL PUMPER Pulse 91 10/16/2024 7:07 AM CHEMICAL PUMPER Temperature 36.6 ??C (97.9 ??F) 10/16/2024 7:07 AM CS T Respiratory Rate 14 10/16/2024 7:07 AM CHEMICAL PUMPER Oxygen Saturation 98% 10/16/2024 7:07 AM CHEMICAL PUMPER Inhaled Oxygen Concentration - - Weight 64 kg (141 lb 3.2 oz) 10/16/2024 7:07 AM CHEMICAL PUMPER Height 158.8 cm (5' 2.52 ) 10/16/2024 7:07 AM CS T Body Mass Index 25.4 10/16/2024 7:07 AM CHEMICAL PUMPER Plan of Treatment Health Maintenance Due Date Last Done Comments Cervical Cancer Screening 2002 Meningococcal B Vaccine (1 o f 2 - Patient Seeks Protection) 2018 Chlamydia and Gonorrhea (GC/ CT) Screening 10/21/2023 10/21/2022, 04/14/2022 Covid-19 Vaccine (4 - 2023-2 5 season) 2024 10/10/2021, 01/12/2021, 12/15/2020 HPV Vaccines (3 - 3-dose series) 01/15/2025 10/16/19 25, 07/17/2024 Regular Well Visit/Exam 18-64 01/15/2025 01/16/2024, 03/04/2021 Depression Screening 10/16/2025 10/16/2024, 10/16/2024, 07/17/2024, Additional history exists DTaP/Tdap/Td Vaccine (2 - Td or Tdap) 09/20/2030 09/20/2020 Hepatitis C Screening Completed 10/21/2022 Pneumococcal vaccine <65 Completed 07/17/2024 Influenza Vaccine Completed 10/16/2024, , 07/25/2023, Additional history exists Varicella Vaccines Discontinued Procedures Procedure Name Priority Date/Time Associated Diagnosis Comments ZBIGNIEW-GOODRICH VIRUS VCA ANTIBODY PANEL Routine 09/18/2024 5:09 PM CHEMICAL PUMPER Sore throat POCT RAPID STREP Routine 09/18/2024 4:20 PM CHEMICAL PUMPER Sore throat DIFFERENTIAL AUTO Routine 09/08/2024 10: 13 AM CHEMICAL PUMPER Iron deficiency anemia, unspecified iron deficiency anemia type Acute deep vein thrombosis (DVT) of left femoral vein (HCC) CBC WITH AUTO DIFFERENTIAL Routine 09/08/2024 10:13 AM CHEMICAL PUMPER Iron deficiency anemia, unspecified iron deficiency anemia type Acute deep vein thrombosis (DVT) of left femoral vein (HCC) FERRITIN Routine 09/08/2024 10:13 AM CHEMICAL PUMPER Iron deficiency anemia, unspecified iron deficiency anemia type Acute deep vein thrombosis (DVT) of left femoral vein (HCC) IRON PROFILE W/ IBC Routine 09/08/2024 1 0:13 AM CHEMICAL PUMPER Iron deficiency anemia, unspecified iron deficiency anemia type Acute deep vein thrombosis (DVT) of left femoral vein (HCC) RETICULOCYTES Routine 09/08/2024 10:13 AM CHEMICAL PUMPER Iron deficiency anemia, unspecified iron deficiency anemia type Acute deep vein thrombosis (DVT) of left femoral vein (HCC) TSH Routine 09/08/2024 10:13 AM CHEMICAL PUMPER Iron deficiency anemia, unspecified iron deficiency anemia type Acute deep vein thrombosis (DVT) of left femoral vein (HCC) N. GONORRHOEAE/C. TRACHOMATIS AMPLIFICATION Routine 10/21/2022 11:02 AM CHEMICAL PUMPER Early stage of HEPATITIS C ANTIBODY Routine 10/21/2022 10:59 AM CHEMICAL PUMPER Early stage of from Last 3 Months or Most Recently Relevant to Health Maintenance Results * (ABNORMAL) Zbigniew-Goodrich virus (EBV) antibody panel Blood (09/18/2024 5:09 PM CHEMICAL PUMPER) Pathologist [facility] EBV nuclear Ab Positive(A) Negative Comment: Indicates the presence of detectable IgG antibody to EBV Nuclear Antigen. Testing performed by: [facility], [address] [place]., [address] EBV VCA IgG Positive(A) Negative NAYE Comment: Indicates the presence of antibody; 90% of the adult population will have been infected with EBV sometime in the past. Testing performed by: [facility], [address] [place]., [address] EBV VCA IgM Negative Negative NAYE SHEARER Comment: No detectable IgM antibody to EBV-VCA. ??A negative result indicates no current infection with EBV. If clinical suspicion of acute EBV infection is present, testing should be repeated after one week. Testing performed by: [facility], [address] [place]., [address] EBV interp Past Infection NAYE SHEARER Comment:Testing performed by : [facility], [address] [place]., [address] Blood 09/18/2024 5:09 PM CHEMICAL PUMPER 09/18/2024 9:22 PM CHEMICAL PUMPER Mariela Cruz MD LAB MICROBIOLOGY - GENERAL ORDERABLES Final Result NAYE SHEARER [facility] [place] [address] * POCT rapid strep A (09/18/2024 4:20 PM CHEMICAL PUMPER) [facility] Rapid Strep A, POC Negative Negative Comment:Lot [id number] 27 Swab 09/18/2024 4:20 PM CHEMICAL PUMPER Mariela Cruz MD POINT OF CARE DONNELL T ORDERABLES Final Result * Differential, auto (09/08/2024 10:13 AM CHEMICAL PUMPER) [facility] Neutrophil abs 2.3 1.5 - 6.5 K/cumm Comment:Testing performed by : [address] [address] Imm gran abs 0.0 0.0 - 0.1 K/cumm NAYE Comment:Testing performed by : [address] [address] Lymphocyte abs 1.6 0.8 - 3.3 K/cumm NAYE Comment:Testing performed by : [address] [address] Monocyte abs 0.3 0.2 - 0.8 K/cumm NAYE Comment:Testing performed by : [address] [address] Eosinophil abs 0.5 0.0 - 0.5 K/cumm NAYE Comment:Testing performed by : [address] [address] Basophil abs 0.1 0.0 - 0.1 K/cumm NAYE Comment:Testing performed by : [address] [address] Neutrophil pct 47.7 % [facility] Comment: Interpretive Data Percent cell count reference ranges are not reported, since discordance with absolute values may lead to misinterpretation of CBC data. Current Interpretive Data was last revised on 2018. Testing performed by: [address] [address] Imm gran pct 0.2 % [facility] Comment: Interpretive Data Percent cell count reference ranges are not reported, since discordance with absolute values may lead to misinterpretation of CBC data. Current Interpretive Data was last revised on 2018. Testing performed by: [address] [address] Lymphocyte pct 33.4 % [facility] Comment: Interpretive Data Percent cell count reference ranges are not reported, since discordance with absolute values may lead to misinterpretation of CBC data. Current Interpretive Data was last revised on 2018. Testing performed by: [address] [address] Monocyte pct 6.7 % [facility] Comment: Interpretive Data Percent cell count reference ranges are not reported, since discordance with absolute values may lead to misinterpretation of CBC data. Current Interpretive Data was last revised on 2018. Testing performed by: [address] [address] Eosinophil pct 10.8 % [facility] Comment: Interpretive Data Percent cell count reference ranges are not reported, since discordance with absolute values may lead to misinterpretation of CBC data. Current Interpretive Data was last revised on 2018. Testing performed by: [address] [address] Basophil pct 1.2 % [facility] Comment: Interpretive Data Percent cell count reference ranges are not reported, since discordance with absolute values may lead to misinterpretation of CBC data. Current Interpretive Data was last revised on 2018. Testing performed by: [address] [address] Blood 09/08/2024 10:1 3 AM CHEMICAL PUMPER 09/08/2024 10:14 AM CHEMICAL PUMPER Shyla Jim MD LAB BLOOD ORDERABLES Final Result Performing Organization Address [facility] de Phone Number [facility] [address] [facility] [place] [address] * Iron profile w/ IBC (09/08/2024 10:13 AM CHEMICAL PUMPER) Iron 68 35 - 145 mcg/dL Comment:Testing performed by : [address] [address] TIBC 338 250 - 400 mcg/dL NAYE Comment:Testing performed by : [address] [address] Transferrin saturation 20 20 - 50 % NAYE Comment:Testing performed by : [address] [address] Blood 09/08/2024 10:1 3 AM CHEMICAL PUMPER 09/08/2024 12:17 PM CHEMICAL PUMPER Shyla Jim MD LAB BLOOD ORDERABLES Final Result Performing Organization Address [facility] de Phone Number [place] [id number] [facility] [place] [address] * CBC with auto differential (09/08/2024 10:13 AM CHEMICAL PUMPER) WBC 4.9 3.8 - 9.9 K/cumm Comment:Testing performed by : [address] [address] Hgb 12.7 11.9 - 15.5 g/dL NAYE Comment:Testing performed by : [address] [address] Hct 38.2 35.6 - 45.5 % NAYE SHEARER Comment:Testing performed by : [address] [address] Plt 287 150 - 400 K/cumm NAYE SHEARER Comment:Testing performed by : [address] [address] MPV 9.5 9.1 - 12.3 fL NAYE SHEARER Comment:Testing performed by : [address], [address] RBC 4.47 3.90 - 5.20 M/cumm NAYE SHEARER Comment:Testing performed by : [address], [address] MCV 85.5 81.3 - 96.4 fL NAYE Comment:Testing performed by : [address] [address] MCH 28.4 27.1 - 33.3 pg NAYE SHEARER Comment:Testing performed by : [address] [address] MCHC 33.2 32.3 - 35.7 g/dL NAYE Comment:Testing performed by : [address], [address] RDW CV 12.8 11.1 - 14.9 % NAYE Comment:Testing performed by : [address] [address] RDW SD 39.6 35.7 - 48.1 fL NAYE Comment:Testing performed by : [address] [address] NRBC abs 0.00 0.00 - 0.01 K/cumm NAYE Comment:Testing performed by : [address] [address] Blood 09/08/2024 10:1 3 AM CHEMICAL PUMPER 09/08/2024 10:14 AM CHEMICAL PUMPER us Shyla Jim MD LAB BLOOD ORDERABLES Final Result NAYE SHEARER [address] [place] [address] * Reticulocyte Count (09/08/2024 10:13 AM CHEMICAL PUMPER) [facility] Retics, absolute 0.066 0.020 - 0.087 M/cumm Comment:Testing performed by : [address] [address] Retics 1.5 0.4 - 2.9 % NAYE Comment:Testing performed by : [address] [address] Reticulocyte Hgb 31.6 30.5 - 38.0 pg NAYE Comment:Testing performed by : [address] [address] Blood 09/08/2024 10:1 3 AM CHEMICAL PUMPER 09/08/2024 10:14 AM CHEMICAL PUMPER Shyla Jim MD LAB BLOOD ORDERABLES Final Result Performing Organization Address City/[facility] Co de Phone Number [address] [address] * TSH (09/08/2024 10:13 AM CHEMICAL PUMPER) [facility] Thyroid Stimulating Hormone 0.98 0.30 - 4.20 mcIUnit/mL Comment:Testing performed by : [address] [address] Blood 09/08/2024 10:1 3 AM CHEMICAL PUMPER 09/08/2024 12:17 PM CHEMICAL PUMPER Shyla Jim MD LAB BLOOD ORDERABLES Final Result Performing Organization Address City/[facility] Co de Phone Number [address] [address] * Ferritin (09/08/2024 10:13 AM CHEMICAL PUMPER) [facility] Ferritin 31 15 - 150 ng/mL Comment:Testing performed by : [address] [address] Blood 09/08/2024 10:1 3 AM CHEMICAL PUMPER 09/08/2024 12:17 PM CHEMICAL PUMPER Shyla Jim MD LAB BLOOD ORDERABLES Final Result Performing Organization Address City/[facility]/ZIP Co de Phone Number NAYE [address] [facility] [place] [address] * N. gonorrhoeae/C. trachomatis Amplification Urine (10/21/2022 11:02 AM CHEMICAL PUMPER) Pathologist [facility] C. trachomatis Not Detected Not Detected [facility] Comment:Testing performed by : [facility], [address] [place] [address]., [address] N. gonorrhoeae Not Detected Not Detected [facility] Comment: Interpretive Data Testing performed by the [facility] Laboratory. This assay detects Chlamydia trachomatis and Neisseria gonorrhoeae by nucleic acid amplification testing (NAAT). This test is approved by the [facility] Food and Drug Administration and the performance characteristics have been verified by the laboratory. The performance characteristics of this test have not been evaluated in individuals less than 14 years of age. Current Interpretive Data was last revised on 2018. Testing performed by: [facility], [address] [place] [address]., [address] Urine (None) 10/21/2022 11:0 2 AM CHEMICAL PUMPER 10/21/2022 2:00 PM CHEMICAL PUMPER Christiane Cheung DO LAB MICROBIOLOGY - GENERA L ORDERABLES Final Result NAYE [facility] [address] [facility] Department [place] [address] * Hepatitis C antibody (10/21/2022 10:59 AM CHEMICAL PUMPER) Pathologist [facility] Hep C Ab Nonreactive Nonreactive [facility] Comment: Antibodies to HCV not detected. Does NOT exclude the possibility of recent exposure to HCV. Current interpretive data was last revised on 22 Testing performed by: [facility], [address] [facility], [place]., [address] Blood 10/21/2022 10:5 9 AM CHEMICAL PUMPER 10/21/2022 1:30 PM CHEMICAL PUMPER us Christiane Cheung DO LAB MICROBIOLOGY - GENERA L ORDERABLES Final Result NAYE [facility] [address] [facility] Department [place] [address] from Last 3 Months or Most Recently Relevant to Health Maintenance Insurance [facility] ANTHEM TRADITIONAL Care Teams Culinary Internship Relationship Specialty Start Date End Date Carlee Hopkins NP [address] [place] [id number] PCP - General Family Medicine 01/16/24 Rebecca Ramirez MD [address] [place] [address] [address] [place] [address] 08/15/19
[2024-10-24 20:58] VITALS: BP 126/77; PULSE 102; RESP 15; TEMP 36.4; O2SAT 99
--- NOTE | 2024-10-24 23:03 | PC.NURSE ---
Patient came up to ED intake desk and advised that she was leaving. Patient had a steady gait upon leaving.
--- OUTSIDE RECORDS SUMMARY | 2024-10-24 23:13 | XMS_ITS | Clinical Summary ---
Author Organization [facility] Address [address] [facility] [place] [address] Care Team Providers Care Chemical Processing Laborer Name Role Phone Unavailable Primary Care Provider Unavailabl e Source Comments [facility],non-owned Affiliates and Associated Physician Practices is amultiple site organization consisting of ambulatory clinics and hospital sitesin [place], [place], [place] and [place]. This disclosure is being madepursuant to the Care Everywhere program and may not contain all information available regarding this patient. Last updated 18.[facility] n[facility]ino Allergies Active Allergy Reactions Criticality Noted Date [...] medical care, and heating? Somewhat hard 04/21/2023 [facility] [place] of Occupat ional Health - Occupational Stress [...] place to sleep or slept in a half-way (including now)? No 04/21/2023 Sex and Gender [...] Probe Negative Negative 04/22/2023 8:23 PM CDT [facility] GC Amplified Probe Negative Negative 04/22/2023 8:23 PM CDT [facility] Microbiology PART OF UTERINE CERVIX / Unknown Collection / Unknown 04/21/2023 8:47 PM CDT 04/21/2023 9:01 PM CDT Narrative [facility] - 04/22/2023 8:23 PM CDT Results based on detection/no detection of ribosomal RNA by amplified method. Josie Gee MD LAB - MICROBIOLOGY O RDERABLES [facility] [address] [place] [address], [facility] [phone] from Last 3 Months or Most Recently Relevant to Health Maintenance Advance Directives * Full Code (Latest Code Status on File) Date Activated Date Inactivated Comments 04/21/2023 6:59 PM 04/24/2023 1:02 PM
--- OUTSIDE RECORDS SUMMARY | 2024-10-24 23:13 | XMS_ITS | Patient Health Summary ---
Author Organization [facility] Address [address] [place] [address] Care Team Providers Care Casino Beverage Server Name Role Phone Unavailable Primary Care Provider Unavailabl e Note from [facility],non-owned Affiliates and Associated Physician Practices is amultiple site organization consisting of ambulatory clinics and hospital sitesin [place], [place], [place] and [place]. This disclosure is being madepursuant to the Care Everywhere program and may not contain all information available regarding this patient. Last updated 18.[facility] Allergies * Peanut-Derived(Anaphylaxis) -High Criticality * [...] medical care, and heating? Somewhat hard 04/21/2023 [facility] [place] of Occupat ional Health - Occupational Stress [...] place to sleep or slept in a usp (including now)? No 04/21/2023 Sex and Gender [...] 04/21/2023) Performed for Threatened premature labor, antepartum ([facility]) * RUPTURE OF MEMBRANES EVAL(Performed 04/21/2023) * BLOOD TYPE VERIFICATION(Performed 04/21/2023) * CHLAMYDIA + GC AMPLIFIED PROBE(Performed 04/21/2023) Performed for Threatened premature labor, antepartum ([facility]) * TRICHOMONAS RAPID TEST(Performed 04/21/2023) Performed for Threatened premature labor, antepartum ([facility]) * TYPE + SCREEN PANEL(Performed 04/21/2023) Performed for Threatened premature labor, antepartum ([facility]) Results * SONOGRAM - COMPLETE (04/23/2023 9:02 AM CDT) Anatomical Region Laterality Modality Other 04/23/2023 9:02 AM CDT Narrative 04/23/2023 4:59 PM CDT ?[facility] - [place] [facility] ?PHONE: ??FAX: Pat. Name: ?LANA ARRIAZA. No: ?[id number] Study Date: ?? 04/23/2023 ??9:02am , Age: ? 2000, 22 Pregnancies: ?? 2, Para 1 Height: ? 62 in Weight: ? 127 lb LMP: ?Unknown GA by US: ? 34w5d ?? HEIKE: 05/30/2023 GA Selected: ??32w5d (From Known E) HEIKE: ?06/13/2023 Referring MD: Tucker Smith MD Cabinet Mounter: ??Swathi Pope RDMS CPT4: ? 20042 BMI: ?23.23 Room: ? 537 Hist/Ind: ? G2: Current ?Contractions ?Threatened PTL ?NIPT: low risk, male ?Anxiety/Depression ?Asthma ?G1: Pre-E MEASUREMENTS & AGE ? GROWTH EVALUATION Measurement ??GA ? Range ? Srce %for GA Ratios ----- ---- ------- BPD ??8.8 cm 35w3d (42m7e-98p4g) Hadl BPD 97% FL/BPD 0.70 (0.71 - 0.87* HC ??32.5 cm 36w5d (87z0k-79c5c) Hadl HC ??97% FL/AC ??0.20 (0.20 - 0.24) AC ??30.6 cm 34w4d (83k6l-61u2c) Hadl AC ??92% HC/AC ??1.06 (0.95 - 1.14) FL ?? 6.1 cm 31w6d (85l9i-07m9w) Hadl FL ??17% CI ? 0.76 (0.70 - 0.86) HL ?? 5.3 cm 30w6d (01b2w-06z7b) Bunny HL ??19% Cere 4.2 cm 33w4d (20j8f-95f1c) Hill Cere66% GA for sonogram 34w5d (64t0w-32d9k) ?? Weight Estimate: based on (BPD,HC,AC,FL) Avg [...] ?<Electronic Signature> ??04/23/2023 04:58pm Josie Gee MD [facility] ORDERABLES * (ABNORMAL) CBC W/O DIFFERENTIAL (04/23/2023 8:54 AM CDT) [facility] WBC 15.2(H) 4.4 - 10.7 x10E9/L 04/23/2023 [...] - 14.9 % 04/23/2023 9:24 AM CDT [facility] MPV 9.6 9.4 - 12.9 fl 04/23/2023 9:24 AM T [facility] Blood BLOOD SPECIMEN / Unknown Lab Venipuncture / Unknown 04/23/2023 8:54 AM CDT 04/23/2023 9:10 AM CDT Josie Gee MD LAB - HEMATOLOGY ORD ERABLES [facility] [address] [place] [address] * (ABNORMAL) COMPREHENSIVE METABOLIC PANEL (04/23/2023 8:54 AM CDT) Glucose 123(H) 70 - 105 mg/dL 04/23/2023 9:57 AM CDT [facility] Sodium 139 136 - 145 mmol/L 04/23/2023 9:57 AM [facility] Potassium 3.4(L) 3.5 - 5.1 mmol/L 04/23/2023 9:57 AM [facility] Chloride 108(H) 98 - 107 mmol/L 04/23/2023 9:57 AM CDT [facility] CO2 19(L) 22 - 29 mmol/L 04/23/2023 9:57 AM CDT [facility] Calcium 8.6 8.4 - 10.4 mg/dL 04/23/2023 9:57 AM [facility] Anion Gap 12 6 - 16 mmol/L 04/23/2023 9:57 AM [facility] BUN 5(L) 5.3 - 18.7 mg/dL 04/23/2023 9:57 AM CDT [facility] Creatinine 0.67 0.57 - 1.11 mg/dL 04/23/2023 9:57 AM T [facility] Alkaline Phosphatase 96 40 - 150 U/L 04/23/2023 9:57 AM CDT [facility] ALT 19 0 - 55 U/L 04/23/2023 9:57 AM CDT [facility] AST 20 5 - 34 U/L 04/23/2023 9:57 AM [facility] Protein Total 5.9(L) 6.4 - 8.3 gm/dL 04/23/2023 9:57 AM CDT [facility] Albumin 2.5(L) 3.4 - 5.0 gm/dL 04/23/2023 9:57 AM CDT [facility] Bilirubin Total 0.2 0.2 - 1.2 mg/dL 04/23/2023 9:57 AM CDT [facility] eGFR by CKD-EPI >90 >=90 mL/min/1.7 3 m2 04/23/2023 9:57 AM CDT [facility] Blood BLOOD SPECIMEN / Unknown Lab Venipuncture / Unknown 04/23/2023 8:54 AM CDT 04/23/2023 9:10 AM CDT Josie Gee MD LAB - CHEMISTRY INDERJIT BETHEA Performing Organization Address [facility] de Phone Number [facility] [address] [place] [phone] * (ABNORMAL) IRON + TRANSFERRIN PANEL (04/23/2023 8:54 AM CDT) Iron 27(L) 40 - 150 ug/dL 04/23/2023 11:12 AM CDT [facility] Transferrin 374 174 - 382 mg/dL 04/23/2023 11:12 AM CDT [facility] TIBC Calculated 468(H) 240 - 450 ug/dL 04/23/2023 11:12 AM CDT [facility] Iron Saturation % 6(L) 20 - 50 % 04/23/2023 11:12 AM CDT [facility] Blood BLOOD SPECIMEN / Unknown Lab Venipuncture / Unknown 04/23/2023 8:54 AM CDT 04/23/2023 9:10 AM CDT Josie Gee MD LAB - CHEMISTRY INDERJIT BETHEA Performing Organization Address [facility]/ZIP Co de Phone Number [facility] [address] [place] [phone] * FERRITIN (04/23/2023 8:54 AM CDT) Ferritin 14 5 - 204 ng/mL 04/23/2023 11:28 AM CDT [facility] Blood BLOOD SPECIMEN / Unknown Lab Venipuncture / Unknown 04/23/2023 8:54 AM CDT 04/23/2023 9:10 AM CDT Josie Gee MD LAB - CHEMISTRY INDERJIT BETHEA [facility] Organization Address City/State/ZIP Co de Phone Number [facility] [address] [place], [place] [id number] * (ABNORMAL) URINALYSIS REFLEX MICROSCOPIC REFLEX CULTURE (04/21/2023 9:26 PM CDT) Color UA Straw Straw, Yellow 04/21/2023 9:38 PM CDT [facility] Clarity UA Clear Clear 04/21/2023 9:38 PM CDT [facility] Glucose UA Negative Negative 04/21/2023 9:38 PM CDT [facility] Bilirubin UA Negative Negative 04/21/2023 9:38 PM CDT [facility] Ketone UA Trace(A) Negative 04/21/2023 9:38 PM CDT [facility] Specific Sulligent UA 1.006 1.005 - 1.030 04/21/2023 9:38 PM CDT [facility] Blood UA Negative Negative 04/21/2023 9:38 PM CDT [facility] pH UA 7.0 5.0 - 8.0 pH 04/21/2023 9:38 PM CDT [facility] Protein UA Negative Negative 04/21/2023 9:38 PM CDT [facility] Urobilinogen UA Negative Negative mg/dL 04/21/2023 9:38 PM CDT [facility] Nitrite UA Negative Negative 04/21/2023 9:38 PM CDT [facility] Leukocyte UA Negative Negative 04/21/2023 9:38 PM CDT [facility] Urine Microscopy Urine microscopy not indicated 04/21/2023 9:38 PM CDT [facility] Reflex Status Culture not indicated 04/21/2023 9:38 PM CDT [facility] Urine URINE SPECIMEN OBTAINED BY CLEAN CATCH PROCEDURE / Unknown Collection / Unknown 04/21/2023 9:26 PM CDT 04/21/2023 9:30 PM CDT Narrative [facility] - 04/21/2023 9:38 PM CDT Josie Gee MD LAB - URINALYSIS ORD ERABLES Performing Organization Address [facility] Co de Phone Number [facility] [address] [place] [phone] * RUPTURE OF MEMBRANES EVAL (04/21/2023 9:11 PM CDT) RUPTURE OF MEMBRANES NEGATIVE NEGATIVE 04/21/2023 9:27 PM CDT [facility] Fluid VAGINAL SWAB / Unknown Collection / Unknown 04/21/2023 9:11 PM CDT 04/21/2023 9:11 PM CDT [facility] - 04/21/2023 9:27 PM CDT [...] BODY FLUID ORD ERABLES Performing Organization Address [facility] Co de Phone Number [facility] [address] [place] [phone] * BLOOD TYPE VERIFICATION (04/21/2023 8:52 PM CDT) ABO Rh O POS 04/21/2023 9:2 4 PM CDT [facility] Blood Bank BLOOD SPECIMEN / Unknown Lab Venipuncture / Unknown 04/21/2023 8:52 PM CDT 04/21/2023 9:00 PM CDT Josie Gee MD LAB - BLOOD BANK ORD ERABLES Performing Organization Address [facility] Co de Phone Number [facility] [address] [place] [address], [facility] [phone] * CHLAMYDIA + GC AMPLIFIED PROBE (04/21/2023 8:47 PM CDT) Pathologist [facility] Chlamydia Amplified Probe Negative Negative 04/22/2023 8:23 PM CDT [facility] GC Amplified Probe Negative Negative 04/22/2023 8:23 PM CDT [facility] Microbiology PART OF UTERINE CERVIX / Unknown Collection / Unknown 04/21/2023 8:47 PM CDT 04/21/2023 9:01 PM CDT Narrative [facility] - 04/22/2023 8:23 PM CDT Results based on detection/no detection of ribosomal RNA by amplified method. Josie Gee MD LAB - MICROBIOLOGY O RDERABLES Performing Organization Address City/[facility] Co de Phone Number [facility] [address] [place] [address], [facility] [phone] * TRICHOMONAS RAPID TEST (04/21/2023 8:47 PM CDT) Pathologist [facility] Trichomonas Rapid Test Negative Negative 04/21/2023 9:26 PM CDT [facility] Microbiology VAGINAL SWAB / Unknown Collection / Unknown 04/21/2023 8:47 PM CDT 04/21/2023 9:01 PM CDT Josie Gee MD LAB - MICROBIOLOGY O RDERABLES Performing Organization Address City/[facility]/ZIP Co de Phone Number [facility] [address] [place] [phone] * TYPE + SCREEN PANEL (04/21/2023 7:09 PM CDT) ABO Rh O POS 04/21/2023 9:24 PM CDT [facility] Comment:No history; collect retype. Antibody Screen NEG 07/29/202 3 9:24 PM CDT [facility] Blood Bank BLOOD SPECIMEN / Unknown Lab Venipuncture / Unknown 04/21/2023 7:09 PM CDT 04/21/2023 8:39 PM CDT Josie Gee MD LAB - BLOOD BANK ORD ERABLES [facility] [address] [phone]
--- OUTSIDE RECORDS SUMMARY | 2024-10-24 23:13 | XMS_ITS ---
Author Organization [facility] Address [address] [facility] [place] [address] Care Team Providers Care Web Production Designer Name Role Phone Unavailable Primary Care Physician Unavailab le Medications Name Start Date Expiration Date SIG Comments ParaGard T 380A intrauterine intrauterine device 380 square mm 07/20/2023 07/21/2023 place 1 device by intrauterine route once Payers Insurance Name Company Name Plan Name Plan Number Policy Number Policy Group Number [place] Date [place] [id number] N/A History of Encounters Visit Date Visit Type Provider 07/20/2023 My-IUD Tele-Med Consult Dr. Delbert Russell MD
--- OUTSIDE RECORDS SUMMARY | 2024-10-24 23:13 | XMS_ITS | Continuity of Care Document ---
Author Organization [facility] Address [address] [address] [facility] [address] [place] [address] Phone Care Team Providers Care Agriculture Department Chair Name Role Phone Rach Ponce MD Unavailable [...] Diagnoses Date Provider Providers Copied on Encounter [facility], [address] [place] [address] [address], [place], [address], [place] tel:[phone] [facility] Up of Rt foot fx (chief complaint) Nondisplaced fracture of third metatarsal bone of right foot with routine healing, subsequent encounter Sep-2 1- 5 [place] Rach . [address] [place] [address], [id number] . tel: [phone] [facility], [address] [place] [address], [place], [address], [place] tel:[phone] [facility] Follow Up of ON Rt foot fx (chief complaint) Closed fracture of metatarsal bone Sep-1 0-201 5 [place] Rach . [address] [place] [address], [id number] . tel:[phone] Referring Provider: Rebecca Sanders, [address], [place], [address] . tel:[phone] Family History Family Member Type Diagnosis Age At Onset No Information Payers Payer name Insurance type Covered democrat ID Gustabo bennett(s) [employer] [id number] Social History Type Description Quantity Date Captured [...]
--- OUTSIDE RECORDS SUMMARY | 2024-10-24 23:13 | XMS_ITS | Referral Summary ---
Author Organization [facility] Address [address] [facility] [place] [address] Care Team Providers Care Cpas Name Role Phone Unavailable Primary Care Provider Unavailabl e Source Comments [facility],non-owned Affiliates and Associated Physician Practices is amultiple site organization consisting of ambulatory clinics and hospital sitesin [place], [place], [place] and [place]. This disclosure is being madepursuant to the Care Everywhere program and may not contain all information available regarding this patient. Last updated 18.[facility] Allergies Active Allergy Reactions Criticality Noted Date [...] medical care, and heating? Somewhat hard 04/21/2023 [facility] of Occupat ional Health - Occupational Stress [...] place to sleep or slept in a long-term (including now)? No 04/21/2023 Sex and Gender [...] Probe Negative Negative 04/22/2023 8:23 PM CDT [facility] GC Amplified Probe Negative Negative 04/22/2023 8:23 PM CDT [facility] Microbiology PART OF UTERINE CERVIX / Unknown Collection / Unknown 04/21/2023 8:47 PM CDT 04/21/2023 9:01 PM CDT Narrative [facility] - 04/22/2023 8:23 PM CDT Results based on detection/no detection of ribosomal RNA by amplified method. Josie Gee MD LAB - MICROBIOLOGY O RDERABLES [facility] [address] [place] [address], [place] [phone] from Last 3 Months or Most Recently Relevant to Health Maintenance Advance Directives * Full Code (Latest Code Status on File) Date Activated Date Inactivated Comments 04/21/2023 6:59 PM 04/24/2023 1:02 PM
== END 2024-10-25 00:17 | disposition left against medical advice (07) ==
PROVIDERS: PCP Family Medicine
DX: N89.8 Other specified noninflammatory disorders of vagina (principal)
CPT/HCPCS: 99199

== ENCOUNTER 2024-10-31 09:23 | Emergency (ER) | payer BC, MEDICAID, SELFPAY ==
--- NOTE | 2024-10-31 09:33 | ED.SKABFB ---
HPI - Skin/Abscess/Foreign Bdy General Chief complaint: Allergic Reaction Stated complaint: rash on body, exp FLU A Time Seen by Provider: 10/31/24 09:33 Source: patient, RN notes reviewed and old records reviewed Mode of arrival: ambulatory Limitations: no limitations History of Present Illness HPI narrative: Patient presents with complaints rash to bilateral arms that she noticed upon awakening this morning, she reports that the rash is spreading. She is also complaining tickle in her throat, cough, runny nose. She states she feels as though she is having allergic reaction, but reports that she did not consume anything besides Gatorade yesterday, and has not had anything to eat or drink today. Denies any change in lotion, soaps, detergents. She reports that she was sitting in the emergency department all day yesterday with her child who has influenza. She has not taken any medication for her symptoms Related Data Home Medications ?Medication ?Instructions ?Recorded ?Confirmed ?Last Taken ?Type citalopram 40 mg tablet 40 mg PO DAILY 05/25/23 10/31/24 05/26/23 09:00 History bupropion HCl 150 mg 24 hr tablet, 150 mg PO DAILY 10/31/23 10/31/24 Unknown History extended release albuterol sulfate 90 mcg/actuation 2 puff inhalation Q4-6H PRN 10/31/24 10/31/24 Unknown History aerosol inhaler shortness of breath or wheezing fluticasone furoate 200 1 inh inhalation Q24H 10/31/24 10/31/24 Unknown History mcg-vilanterol 25 mcg/dose inhalation powder Allergies Allergy/AdvReac Type Severity Reaction Status Date / Time peanut Allergy Severe Anaphylaxis Verified 10/31/24 09:30 tree nut Allergy Severe Anaphylaxis Verified 10/31/24 09:30 Review of Systems Review of Systems: All systems reviewed & are unremarkable except as noted in HPI and below Constitutional: Constitutional: Reports no additional constitutional complaints ENT: Reports system reviewed and no additional complaints, except as documented, Reports nasal discharge and Reports sore throat Cardiovascular: Cardiovascular: Reports no additional cardiovascular complaints Respiratory: Respiratory: Reports no additional respiratory complaints and Reports cough Gastrointestinal: Gastrointestinal: Reports no additional gastrointestinal complaints Integumentary/Breasts: Skin/Breast: Reports pruritus and Reports rash PMFSH Past Medical History Medical History Encounter for insertion of copper IUD Anxiety and depression Gestational HTN Family History Family History Mother Hypertension Grandparent Hypertension Social History Social History Smoking status: Never smoker Second hand tobacco smoke exposure: No Alcohol intake: current Alcohol use details: Occasionally Substance use: never Substance use type: does not use Do You Feel Safe in your Home?: Yes Lack of Transportation: No Lack of Food: Never True Current Housing: I Have Housing Concerned About Future Housing: No Difficulty Paying Gas/Electric Bills: No Difficulty Paying for Meds: No Currently Unemployed: No Education: High School Diploma/GED Difficulty w/ Childcare or Family Care: No Living arrangements: with family Occupation/Education: occupation Additional occupation/education comments: [employer] Gender identity (if verbalized by the patient): Female Spiritual care concerns: No Comments At the time of my signature, I reviewed and agree with the nursing past medical, surgical, social, and family history. There is no relevant family history pertinent to the patient complaint. Exam Const: General: cooperative, no acute distress, alert and awake Orientation/consciousness: oriented to person, oriented to place and oriented to time HENMT: Head: normal to inspection Face/Nose/Sinus: Nasal discharge present clear Mouth: Yes moist mucous membranes Resp: Effort & Inspection: normal respiratory effort and able to speak in complete sentences Auscultation: clear to auscultation bilaterally, no crackles, no rales, no rhonchi and no wheezes Cardio: Palpation: normal PMI Rate: regular rate Rhythm: regular rhythm Heart sounds: S1 normal heart sound present and S2 normal heart sound present Skin: Rashes: rashes noted maculopapular rash bilateral forearm Neuro: General: oriented to person, oriented to place and oriented to time Cranial nerves: Yes CN's II-XII intact bilaterally Psych: Appearance: grossly normal Thought process: Normal thought process present Insight: Good insight present (Psych) Judgement: Good judgement present (Psych) Course Course Level of Care: Express Care Visit Vital Signs Vital signs: Reviewed Transfer Transfered to: [facility] Transportation: ALS Transfer rationale: Patient feeling worse after prednisone and Benadryl. Reports this is how she typically begins feeling prior to an anaphylactic reaction. Transferred by EMS. Lung sounds are clear, rash does not appear to be spreading. No drooling or stridor. Cough is noted Accepting physician: VALENTINA Segura MDM - Skin/Abscess/Foreign Bdy MDM Narrative Medical decision making narrative: Negative COVID, negative flu. Patient is becoming increasingly anxious, worsening cough. She was transferred via ambulance to [facility] Discharge instructions reviewed with patient, as well as provided in writing per nursing staff. The instructions also include specific and strict return/GO TO THE ER as well as f/u information. All questions have been answered, and the patient deny any further questions with discharge and discharge plan. Some parts of this dictation were generated by voice recognition software and may contain typographical and/or grammatical inaccuracies. Differential Diagnosis Differential diagnosis: Likely viral exanthem and other (Allergic reaction, influenza, Idiopathic rash) Medical Records Attestation: I reviewed the patient's medical records. Lab Data Attestation: I reviewed the patient's lab results. Discharge Plan Discharge Clinical Impression: Allergic reaction Qualifiers: Encounter type: initial encounter Qualified Code(s): T78.40XA - Allergy, unspecified, initial encounter Patient Disposition: Acute Care Hospital Condition: Stable Patient Language: Telugu Prescriptions: No Action bupropion HCl 150 mg tablet extended release 24 hr 150 mg PO DAILY fluticasone furoate-vilanterol 200-25 mcg/dose blister with device 1 inh INHALATION Q24H albuterol sulfate 90 mcg/actuation HFA aerosol inhaler 2 puff INHALATION Q4-6H PRN (Reason: shortness of breath or wheezing) citalopram 40 mg tablet 40 mg PO DAILY epinephrine 0.3 mg/0.3 mL auto-injector 0.3 mg IM Q5-15M PRN (Reason: anaphylaxis) Qty: 2 0RF Rx Instructions: do not exceed 3 doses per episode Follow-up/Referrals: Sandeep,VALENTINA Bejarano [Primary Care Provider] - Time of Disposition: 10:16
[2024-10-31 09:34] VITALS: BP 141/91; PULSE 89; RESP 16; TEMP 35.8; O2SAT 98
[2024-10-31] MEDS: predniSONE 20 MG TABLET 60 MG PO (09:41)
[2024-10-31] MEDS: diphenhydrAMINE HCl CAP 25 MG CAPSULE 50 MG PO (09:41)
[2024-10-31 10:12] VITALS: PULSE 82; O2SAT 100
[2024-10-31 10:52] LABS: EDCOVIDSCREEN Negative (Negative); EDINFLUASCREEN Negative (Negative); EDINFLUBSCREEN Negative (Negative)
== END 2024-10-31 10:12 | disposition short-term general hospital (02) ==
PROVIDERS: Emergency Provider Nurse Practitioner Family; PCP Family Medicine
DX: T78.40XA Allergy, unspecified, initial encounter (principal); Z20.822 Contact with and (suspected) exposure to COVID-19; F41.9 Anxiety disorder, unspecified; F32.A Depression, unspecified
CPT/HCPCS: 87426; 87804; 99215; A9270; G0463; J7512

== ENCOUNTER 2024-11-07 18:58 | Emergency (ER) | payer BC, MEDICAID, SELFPAY ==
--- OUTSIDE RECORDS SUMMARY | 2024-11-07 19:00 | XMS_ITS | Patient Health Summary ---
Author Organization [facility] Address [address] [place] [address] Care Team Providers Care Ground Products Director Name Role Phone Unavailable Primary Care Provider Unavailabl e Note from [facility],non-owned Affiliates and Associated Physician Practices is amultiple site organization consisting of ambulatory clinics and hospital sitesin [place], [place] and [place]. This disclosure is being madepursuant to the Care Everywhere program and may not contain all information available regarding this patient. Last updated 18.[facility] Allergies * Peanut-Derived(Anaphylaxis) -High Criticality * Penicillins(Other) [...] medical care, and heating? Somewhat hard 04/21/2023 [facility] [place] of Occupat ional Health - Occupational Stress [...] place to sleep or slept in a detention (including now)? No 04/21/2023 Sex and Gender Information Value Date Recorded Sex Assigned at Not on file Gender Identity Not on file Sexual Orientation Not on file Last Filed Vital Signs Vital Sign Reading Time Taken Comments Blood Pressure 129/70 04/24/2023 7:43 AM CDT Pulse - - Temperature 36.6 C (97.9 F) 04/24/2023 7:43 AM CDT Respiratory Rate 18 04/24/2023 4:19 AM CDT [...] 04/21/2023) Performed for Threatened premature labor, antepartum ([facility]) * RUPTURE OF MEMBRANES EVAL(Performed 04/21/2023) * BLOOD TYPE VERIFICATION(Performed 04/21/2023) * CHLAMYDIA + GC AMPLIFIED PROBE(Performed 04/21/2023) Performed for Threatened premature labor, antepartum ([facility]) * TRICHOMONAS RAPID TEST(Performed 04/21/2023) Performed for Threatened premature labor, antepartum ([facility]) * TYPE + SCREEN PANEL(Performed 04/21/2023) Performed for Threatened premature labor, antepartum ([facility]) Results * SONOGRAM - COMPLETE (04/23/2023 9:02 AM CDT) Anatomical Region Laterality Modality Other 04/23/2023 9:02 AM CDT Narrative 04/23/2023 4:59 PM CDT [facility] PHONE: FAX: Pat. Name: LANA ARRIAZA Pat. No: [id number] Study Date: 04/23/2023 9:02am , Age: 01 2000, 22 Pregnancies: 2, Para 1 Height: 62 in Weight: 127 lb LMP: Unknown GA by US: 34w5d HEIKE: 05/30/2023 GA Selected: 32w5d (From Known E) HEIKE: 06/13/2023 Referring MD: Tucker Smith MD Transition Program Manager: Swathi Pope RDMS CPT4: 30265 BMI: 23.23 Room: [address] [place] [address]/Ind: G2: Current Contractions Threatened PTL NIPT: low risk, male Anxiety/Depression Asthma G1: Pre-E MEASUREMENTS & AGE GROWTH EVALUATION Measurement GA Range Srce %for GA Ratios ----- ---- ------- BPD 8.8 cm 35w3d (69w0w-61d6m) Hadl BPD 97% FL/BPD 0.70 (0.71 - 0.87* HC 32.5 cm 36w5d (01p5q-21a1y) Hadl HC 97% FL/AC 0.20 (0.20 - 0.24) AC 30.6 cm 34w4d (13i6q-92y3g) Hadl AC 92% HC/AC 1.06 (0.95 - 1.14) FL 6.1 cm 31w6d (56y1w-81q7n) Hadl FL 17% CI 0.76 (0.70 - 0.86) HL 5.3 cm 30w6d (12w6l-70j8j) Bunny HL 19% Cere 4.2 cm 33w4d (79m0s-08k6a) Hill Cere66% GA for sonogram 34w5d (16z7g-72f7b) Weight Estimate: based on (BPD,HC,AC,FL) Avg Weight: 2355 gm (2010-8gm) Had : 5lbs, 3oz Normal: 2103 gm (1577-2628gm) Had Wt% 82% for 32w5d Heart Rate: 134 bpm Amniotic Fluid Index: 22.5cm (08.4-24.4) Q1: 6.6cm Q2: 6.9cm Q3: 5.0cm Q4: 4.1cm EVAL, PLACENTA Presentation: cephalic Umbilical Cord: 3 Vessels Placenta: anterior Heart Rate: 134 bpm Amniotic Fluid Volume: normal Anatomy!Normal!Abnormal!Suboptimal!Prev. Seen!Comments Cranium ! x ! ! ! ! Mdl (CSP/Thal! x ! ! ! ! Ventricles ! ! ! x ! ! Choroid Plexu! ! ! x ! ! Cerebellum ! x ! ! ! ! Cisterna M. ! ! ! x ! ! Nuchal Fold ! ! ! x ! ! Orbits ! x ! ! ! ! Profile ! x ! ! ! ! Nasal Bone ! x ! ! ! ! Lip ! x ! ! ! ! Spine ! ! ! x ! ! Lungs ! x ! ! ! ! 4 Chamber Hea! x ! ! ! ! LVOT ! x ! ! ! ! RVOT ! x ! ! ! ! 3 Vessel View! x ! ! ! ! 3 Vessel Trac! x ! ! ! ! Cross-over ! x ! ! ! ! Ductal Arch ! x ! ! ! ! Aortic Arch ! x ! ! ! ! Caval View ! x ! ! ! ! Situs ! x ! ! ! ! Diaphragm ! x ! ! ! ! Stomach ! x ! ! ! ! Bowel ! x ! ! ! ! Kidneys ! x ! ! ! ! Bladder ! x ! ! ! ! 3 Vessel Cord! x ! ! ! ! Cord In! x ! ! ! ! Upper Extremi! x ! ! ! ! Hands ! ! ! x ! ! Lower Extremi! ! ! x ! ! Feet ! ! ! x ! ! External Julianne! x ! ! ! !Male Placental Cor! x ! ! ! ! CLINICAL SUMMARY This is the first exam at our facility. A single fetus is seen in cephalic presentation. The measurements today are consistent with appropriate size for HEIKE provided. The HEIKE is based on a prior outside ultrasound (confirmed). The amniotic fluid volume is within normal limits. IMPRESSION: Single, live, intrauterine at 32w5d size is within normal limits Amniotic fluid volume: within normal limits No major malformations were seen within the limitations of ultrasound RECOMMEND: Follow up as clinically indicated per inpatient team. Thank you for allowing us the opportunity to care for your patient. darian cc: Inpatient at time of study Josie Gee MD <Electronic Signature> 04/23/2023 04:58pm Josie Gee MD [facility] ORDERABLES * (ABNORMAL) CBC W/O DIFFERENTIAL (04/23/2023 8:54 AM CDT) [facility] Signature WBC 15.2(H) 4.4 - 10.7 x10E9/L 04/23/2023 9:24 AM CDT [facility] RBC 3.22(L) 3.80 - 5.20 x10E12/L 04/23/2023 9:24 AM CDT [facility] Hemoglobin 9.7(L) 12.0 - 15.6 gm/dL 04/23/2023 9:24 AM CDT [facility] Hematocrit 30.2(L) 35.9 - 45.5 % 04/23/2023 9:24 AM CDT [facility] MCV 93.8 80.7 - 98.3 fl 04/23/2023 9:24 AM CDT [facility] MCH 30.1 26.7 - 34.0 pg 04/23/2023 9:24 AM CDT [facility] MCHC 32.1 30.8 - 35.9 gm/dL 04/23/2023 9:24 AM CDT [facility] Platelet Count 198 153 - 416 x10E9/L 04/23/2023 9:24 AM CDT [facility] RDW-CV 12.7 12.1 - 14.9 % 04/23/2023 9:24 AM CDT [facility] MPV 9.6 9.4 - 12.9 fl 04/23/2023 9:24 AM CDT [facility] Blood BLOOD SPECIMEN / Unknown Lab Venipuncture / Unknown 04/23/2023 8:54 AM CDT 04/23/2023 9:10 AM CDT Josie Gee MD LAB - HEMATOLOGY ORD ERABLES Performing Organization Address City/State/[facility] Co de Phone Number [facility] [address] [place] [address] * (ABNORMAL) COMPREHENSIVE METABOLIC PANEL (04/23/2023 8:54 AM CDT) Glucose 123(H) 70 - 105 mg/dL 04/23/2023 9:57 AM CDT [facility] Sodium 139 136 - 145 mmol/L 04/23/2023 9:57 AM CDT [facility] Potassium 3.4(L) 3.5 - 5.1 mmol/L 04/23/2023 9:57 AM CDT [facility] Chloride 108(H) 98 - 107 mmol/L 04/23/2023 9:57 AM CDT [facility] CO2 19(L) 22 - 29 mmol/L 04/23/2023 9:57 AM CDT [facility] Calcium 8.6 8.4 - 10.4 mg/dL 04/23/2023 9:57 AM CDT [facility] Anion Gap 12 6 - 16 mmol/L 04/23/2023 9:57 AM CDT [facility] BUN 5(L) 5.3 - 18.7 mg/dL 04/23/2023 9:57 AM CDT [facility] Creatinine 0.67 0.57 - 1.11 mg/dL 04/23/2023 9:57 AM CDT [facility] Alkaline Phosphatase 96 40 - 150 U/L 04/23/2023 9:57 AM CDT [facility] ALT 19 0 - 55 U/L 04/23/2023 9:57 AM CDT [facility] AST 20 5 - 34 U/L 04/23/2023 9:57 AM CDT [facility] Protein Total 5.9(L) 6.4 - 8.3 gm/dL 04/23/2023 9:57 AM CDT [facility] Albumin 2.5(L) 3.4 - 5.0 gm/dL 04/23/2023 9:57 AM CDT [facility] Bilirubin Total 0.2 0.2 - 1.2 mg/dL 04/23/2023 9:57 AM CDT [facility] eGFR by CKD-EPI >90 >=90 mL/min/1.7 3 m2 04/23/2023 9:57 AM CDT [facility] Blood BLOOD SPECIMEN / Unknown Lab Venipuncture / Unknown 04/23/2023 8:54 AM CDT 04/23/2023 9:10 AM CDT Josie Gee MD LAB - CHEMISTRY ORDE [facility] Organization Address City/State/ZIP Co de Phone Number [facility] [address] [place] [address] * (ABNORMAL) IRON + TRANSFERRIN PANEL (04/23/2023 8:54 AM CDT) Iron 27(L) 40 - 150 ug/dL 04/23/2023 11:12 AM CDT [facility] Transferrin 374 174 - 382 mg/dL 04/23/2023 11:12 AM CDT [facility] TIBC Calculated 468(H) 240 - 450 ug/dL 04/23/2023 11:12 AM CDT [facility] Iron Saturation % 6(L) 20 - 50 % 04/23/2023 11:12 AM CDT [facility] Blood BLOOD SPECIMEN / Unknown Lab Venipuncture / Unknown 04/23/2023 8:54 AM CDT 04/23/2023 9:10 AM CDT Josie Gee MD LAB - CHEMISTRY INDERJIT BETHEA Performing Organization Address [facility] Co de Phone Number [facility] [address] [place] [id number] * FERRITIN (04/23/2023 8:54 AM CDT) Pathologist [facility] Ferritin 14 5 - 204 ng/mL 04/23/2023 11:28 AM CDT [facility] Blood BLOOD SPECIMEN / Unknown Lab Venipuncture / Unknown 04/23/2023 8:54 AM CDT 04/23/2023 9:10 AM CDT Josie Gee MD LAB - CHEMISTRY INDERJIT BETHEA Performing Organization Address [facility] de Phone Number [facility] [address] [place] [id number] * (ABNORMAL) URINALYSIS REFLEX MICROSCOPIC REFLEX CULTURE (04/21/2023 9:26 PM CDT) Color UA Straw Straw, Yellow 04/21/2023 9:38 PM CDT [facility] Clarity UA Clear Clear 04/21/2023 9:38 PM CDT [facility] Glucose UA Negative Negative 04/21/2023 9:38 PM CDT [facility] Bilirubin UA Negative Negative 04/21/2023 9:38 PM CDT [facility] Ketone UA Trace(A) Negative 04/21/2023 9:38 PM CDT [facility] Specific [place] UA 1.006 1.005 - 1.030 04/21/2023 9:38 PM CDT [facility] Blood UA Negative Negative 04/21/2023 9:38 PM CDT [facility] pH UA 7.0 5.0 - 8.0 pH 04/21/2023 9:38 PM CDT [facility] Protein UA Negative Negative 04/21/2023 9:38 PM CDT [facility] Urobilinogen UA Negative Negative mg/dL 04/21/2023 9:38 PM CDT [facility] Nitrite UA Negative Negative 04/21/2023 9:38 PM CDT [facility] Leukocyte UA Negative Negative 04/21/2023 9:38 PM CDT [facility] Urine Microscopy Urine microscopy not indicated 04/21/2023 9:38 PM CDT [facility] Reflex Status Culture not indicated 04/21/2023 9:38 PM CDT [facility] Urine URINE SPECIMEN OBTAINED BY CLEAN CATCH PROCEDURE / Unknown Collection / Unknown 04/21/2023 9:26 PM CDT 04/21/2023 9:30 PM CDT Narrative [facility] - 04/21/2023 9:38 PM CDT Josie Gee MD LAB - URINALYSIS ORD ERABLES Performing Organization Address City/State/[facility] Co de Phone Number [facility] [address] [place] [address] * RUPTURE OF MEMBRANES EVAL (04/21/2023 9:11 PM CDT) RUPTURE OF MEMBRANES NEGATIVE NEGATIVE 04/21/2023 9:27 PM CDT [facility] Fluid VAGINAL SWAB / Unknown Collection / Unknown 04/21/2023 9:11 PM CDT 04/21/2023 9:11 PM CDT Narrative [facility] - 04/21/2023 9:27 PM CDT A [...] BODY FLUID ORD ERABLES Performing Organization Address City/[facility]/ZIP Co de Phone Number [facility] [address] [place] [phone] * BLOOD TYPE VERIFICATION (04/21/2023 8:52 PM CDT) ABO Rh O POS 04/21/2023 9:2 4 PM CDT [facility] Blood Bank BLOOD SPECIMEN / Unknown Lab Venipuncture / Unknown 04/21/2023 8:52 PM CDT 04/21/2023 9:00 PM CDT Josie Gee MD LAB - BLOOD BANK ORD ERABLES Performing Organization Address [facility] Co de Phone Number [facility] [address] [place] [id number] [place] [address] * CHLAMYDIA + GC AMPLIFIED PROBE (04/21/2023 8:47 PM CDT) Chlamydia Amplified Probe Negative Negative 04/22/2023 8:23 PM CDT [facility] GC Amplified Probe Negative Negative 04/22/2023 8:23 PM CDT [facility] Microbiology PART OF UTERINE CERVIX / Unknown Collection / Unknown 04/21/2023 8:47 PM CDT 04/21/2023 9:01 PM CDT Narrative [facility] - 04/22/2023 8:23 PM CDT Results based on detection/no detection of ribosomal RNA by amplified method. Josie Gee MD LAB - MICROBIOLOGY O RDERABLES Performing Organization Address City/[facility]/ZIP Co de Phone Number [facility] [address] [place] [address], [facility] [phone] * TRICHOMONAS RAPID TEST (04/21/2023 8:47 PM CDT) Pathologist [facility] Trichomonas Rapid Test Negative Negative 04/21/2023 9:26 PM CDT [facility] Microbiology VAGINAL SWAB / Unknown Collection / Unknown 04/21/2023 8:47 PM CDT 04/21/2023 9:01 PM CDT Josie Gee MD LAB - MICROBIOLOGY O RDERABLES Performing Organization Address City/[facility]/ZIP Co de Phone Number [facility] [address] [place] [address] * TYPE + SCREEN PANEL (04/21/2023 7:09 PM CDT) ABO Rh O POS 04/21/2023 9:24 PM CDT [facility] Comment:No history; collect retype. Antibody Screen NEG 9:24 PM CDT [facility] Blood Bank BLOOD SPECIMEN / Unknown Lab Venipuncture / Unknown 04/21/2023 7:09 PM CDT 04/21/2023 8:39 PM CDT Josie Gee MD LAB - BLOOD BANK ORD ERABLES [facility] [address] [place] [id number] [phone]
--- OUTSIDE RECORDS SUMMARY | 2024-11-07 19:00 | XMS_ITS | Referral Summary ---
Author Organization [facility] Address [address] [place] [address] Care Team Providers Care Analyst Name Role Phone Unavailable Primary Care Provider Unavailabl e Source Comments [facility],non-owned Affiliates and Associated Physician Practices is amultiple site organization consisting of ambulatory clinics and hospital sitesin [place], [place], [place] and [place]. This disclosure is being madepursuant to the Care Everywhere program and may not contain all information available regarding this patient. Last updated 18.[facility] Allergies Active Allergy Reactions Criticality Noted Date [...] medical care, and heating? Somewhat hard 04/21/2023 [facility] [place] of Occupat ional Health - Occupational Stress [...] place to sleep or slept in a custodial (including now)? No 04/21/2023 Sex and Gender [...] Probe Negative Negative 04/22/2023 8:23 PM CDT [facility] GC Amplified Probe Negative Negative 04/22/2023 8:23 PM CDT [facility] Microbiology PART OF UTERINE CERVIX / Unknown Collection / Unknown 04/21/2023 8:47 PM CDT 04/21/2023 9:01 PM CDT Narrative [facility] - 04/22/2023 8:23 PM CDT Results based on detection/no detection of ribosomal RNA by amplified method. Josie Gee MD LAB - MICROBIOLOGY O RDERABLES [facility] [address] [place] [address], [facility] [phone] from Last 3 Months or Most Recently Relevant to Health Maintenance Advance Directives * Full Code (Latest Code Status on File) Date Activated Date Inactivated Comments 04/21/2023 6:59 PM 04/24/2023 1:02 PM
--- OUTSIDE RECORDS SUMMARY | 2024-11-07 19:01 | XMS_ITS | Continuity of Care Document ---
Author Organization [facility] Orthopaed ic Surgery Address [address] [place] [address] Phone Care Team Providers Care Tank Tender Name Role Phone Rach Ponce MD Unavailable [...] Diagnoses Date Provider Providers Copied on Encounter [facility] Orthopaedic Surgery, [address] [place] [address] [address], [address], [place] tel:[phone] [facility] of Rt foot fx (chief complaint) Nondisplaced fracture of third metatarsal bone of right foot with routine healing, subsequent encounter Sep-2 1- 5 Likely Rach . [address] [place] [address], [id number] . tel: [phone] [facility] Orthopaedic Surgery, [address] [place] [address] [address], [place], [address], [place] tel:[phone] [facility] Orthopedics [facility] Follow Up of ON Rt foot fx (chief complaint) Closed fracture of metatarsal bone Sep-1 0-201 5 Kris Rach . [address] [place] [address], [id number] . tel:[phone] Referring Provider: Rebecca Sanders, [address], [place], [address] . tel:[phone] Family History Family Member Type Diagnosis Age At Onset No Information Payers Payer name Insurance type Covered alliance party ID Gustabo bennett(s) [employer] [employer] E2 OT [id number] Social History Type Description Quantity Date Captured [...]
--- OUTSIDE RECORDS SUMMARY | 2024-11-07 19:01 | XMS_ITS | Clinical Summary ---
Author Organization [facility] Address [address] [place] [address] Care Team Providers Care Lead Technician Name Role Phone Unavailable Primary Care Provider Unavailabl e Source Comments [facility],non-owned Affiliates and Associated Physician Practices is amultiple site organization consisting of ambulatory clinics and hospital sitesin [place], [place], [place] and [place]. This disclosure is being madepursuant to the Care Everywhere program and may not contain all information available regarding this patient. Last updated 18.[facility] [employer] Allergies Active Allergy Reactions Criticality Noted Date [...] medical care, and heating? Somewhat hard 04/21/2023 [facility] [place] of Occupat ional Health - Occupational [...] place to sleep or slept in a skilled nursing (including now)? No 04/21/2023 Sex and Gender [...] 2024 01/12/2021, 12/15/2020 INFLUENZA VACCINE (#1) 2024 , 09/20/2020 DEPRESSION SCREENING 09/24/2024 PAP SMEAR 10/21/2025 [...] Probe Negative Negative 04/22/2023 8:23 PM CDT [facility] GC Amplified Probe Negative Negative 04/22/2023 8:23 PM CDT [facility] Microbiology PART OF UTERINE CERVIX / Unknown Collection / Unknown 04/21/2023 8:47 PM CDT 04/21/2023 9:01 PM CDT Narrative [facility] - 04/22/2023 8:23 PM CDT Results based on detection/no detection of ribosomal RNA by amplified method. Josie Gee MD LAB - MICROBIOLOGY O RDERABLES [facility] [address] [place], [place] [address] [phone] from Last 3 Months or Most Recently Relevant to Health Maintenance Advance Directives * Full Code (Latest Code Status on File) Date Activated Date Inactivated Comments 04/21/2023 6:59 PM 04/24/2023 1:02 PM
--- OUTSIDE RECORDS SUMMARY | 2024-11-07 19:02 | XMS_ITS ---
Author Organization [facility] Address [address] [place] [address] Care Team Providers Care Summer Camp Counselor Name Role Phone Unavailable Primary Care Physician Unavailab le Medications Name Start Date Expiration Date SIG Comments ParaGard T 380A intrauterine intrauterine device 380 square mm 07/20/2023 07/21/2023 place 1 device by intrauterine route once Payers Insurance Name Company Name Plan Name Plan Number Policy Number Policy Group Number Start Date [place] [id number] N/A History of Encounters Visit Date Visit Type Provider 07/20/2023 My-IUD Tele-Med Consult Dr. Delbert Russell MD
[2024-11-07 19:06] VITALS: BP 124/77; PULSE 124; RESP 16; TEMP 36.4; O2SAT 100
[2024-11-07 20:20] VITALS: BP 119/76; O2SAT 100
--- OUTSIDE RECORDS SUMMARY | 2024-11-07 20:22 | XMS_ITS ---
Author Organization [facility] [employer] Address [address] [facility] [place] [address] Care Team Providers Care Manager Loan Name Role Phone Unavailable Primary Care Physician Unavailab le Medications Name Start Date Expiration Date SIG Comments ParaGard T 380A intrauterine intrauterine device 380 square mm 07/20/2023 07/21/2023 place 1 device by intrauterine route once Payers Insurance Name Company Name Plan Name Plan Number Policy Number Policy Group Number Start Date [place] [id number] N/A History of Encounters Visit Date Visit Type Provider 07/20/2023 My-IUD Tele-Med Consult Dr. Delbert Russell MD
--- OUTSIDE RECORDS SUMMARY | 2024-11-07 20:22 | XMS_ITS | Clinical Summary ---
Author Organization [facility] Address [address] [place] [address] Care Team Providers Care Ear Mold Laboratory Technician Name Role Phone Unavailable Primary Care Provider Unavailabl e Source Comments [facility],non-owned Affiliates and Associated Physician Practices is amultiple site organization consisting of ambulatory clinics and hospital sitesin [place], [place], [place] and [place]. This disclosure is being madepursuant to the Care Everywhere program and may not contain all information available regarding this patient. Last updated 18.[facility] Lat[facility] Medical Allergies Active Allergy Reactions Criticality Noted Date [...] medical care, and heating? Somewhat hard 04/21/2023 [facility] [place] of Occupat ional Health - Occupational Stress [...] place to sleep or slept in a mcc (including now)? No 04/21/2023 Sex and Gender [...] Probe Negative Negative 04/22/2023 8:23 PM CDT [facility]CROBIOLOG[facility] GC Amplified Probe Negative Negative 04/22/2023 8:23 PM CDT [facility] Microbiology PART OF UTERINE CERVIX / Unknown Collection / Unknown 04/21/2023 8:47 PM CDT 04/21/2023 9:01 PM CDT Narrative [facility]CRO[facility] - 04/22/2023 8:23 PM CDT Results based on detection/no detection of ribosomal RNA by amplified method. Josie Gee MD LAB - MICROBIOLOGY O RDERABLES [facility] [address] [place], [place] [address] [phone] from Last 3 Months or Most Recently Relevant to Health Maintenance Advance Directives * Full Code (Latest Code Status on File) Date Activated Date Inactivated Comments 04/21/2023 6:59 PM 04/24/2023 1:02 PM
--- OUTSIDE RECORDS SUMMARY | 2024-11-07 20:22 | XMS_ITS | Patient Health Summary ---
Author Organization [facility] Address [address] [place] [address] Care Team Providers Care Trade Union Official Name Role Phone Unavailable Primary Care Provider Unavailabl e Note from [facility],non-owned Affiliates and Associated Physician Practices is amultiple site organization consisting of ambulatory clinics and hospital sitesin [place], [place], [place] and [place]. This disclosure is being madepursuant to the Care Everywhere program and may not contain all information available regarding this patient. Last updated 18.[facility] Allergies * Peanut-Derived(Anaphylaxis) -High Criticality * Penicillins(Other) [...] medical care, and heating? Somewhat hard 04/21/2023 [facility] [place] of Occupat ional Health - Occupational Stress [...] place to sleep or slept in a mcfp (including now)? No 04/21/2023 Sex and Gender [...] 04/21/2023) Performed for Threatened premature labor, antepartum ([facility]) * RUPTURE OF MEMBRANES EVAL(Performed 04/21/2023) * BLOOD TYPE VERIFICATION(Performed 04/21/2023) * CHLAMYDIA + GC AMPLIFIED PROBE(Performed 04/21/2023) Performed for Threatened premature labor, antepartum ([facility]) * TRICHOMONAS RAPID TEST(Performed 04/21/2023) Performed for Threatened premature labor, antepartum ([facility]) * TYPE + SCREEN PANEL(Performed 04/21/2023) Performed for Threatened premature labor, antepartum ([facility]) Results * SONOGRAM - COMPLETE (04/23/2023 9:02 AM CDT) Anatomical Region Laterality Modality Other 04/23/2023 9:02 AM CDT Narrative 04/23/2023 4:59 PM CDT [facility] PHONE: FAX: Pat. Name: LANA ARRIAZA Pat. No: [id number] Study Date: 04/23/2023 9:02am , Age: 01 2000, 22 Pregnancies: 2, Para 1 Height: 62 in Weight: 127 lb LMP: Unknown GA by US: 34w5d HEIKE: 05/30/2023 GA Selected: 32w5d (From Known E) HEIKE: 06/13/2023 Referring MD: Tucker Smith MD Realty Loan Specialist: Swathi Pope RDMS CPT4: 25738 BMI: 23.23 Room: [address] [place] [address]/Ind: G2: Current Contractions Threatened PTL NIPT: low risk, male Anxiety/Depression Asthma G1: Pre-E MEASUREMENTS & AGE GROWTH EVALUATION Measurement GA Range Srce %for GA Ratios ----- ---- ------- BPD 8.8 cm 35w3d (38y4a-21o0m) Hadl BPD 97% FL/BPD 0.70 (0.71 - 0.87* HC 32.5 cm 36w5d (43d8r-46z5h) Hadl HC 97% FL/AC 0.20 (0.20 - 0.24) AC 30.6 cm 34w4d (75p0e-73q5p) Hadl AC 92% HC/AC 1.06 (0.95 - 1.14) FL 6.1 cm 31w6d (06c8j-33u2y) Hadl FL 17% CI 0.76 (0.70 - 0.86) HL 5.3 cm 30w6d (38k7o-66p7o) Bunny HL 19% Cere 4.2 cm 33w4d (47r7x-53t6d) Hill Cere66% GA for sonogram 34w5d (30c3x-94o7u) Weight Estimate: based on (BPD,HC,AC,FL) Avg Weight: [...] <Electronic Signature> 04/23/2023 04:58pm Josie Gee MD [facility] ORDERABLES * (ABNORMAL) CBC W/O DIFFERENTIAL (04/23/2023 8:54 AM CDT) [facility] Signature WBC 15.2(H) 4.4 - 10.7 x10E9/L 04/23/2023 9:24 AM CDT [facility] RBC 3.22(L) 3.80 - 5.20 x10E12/L 04/23/2023 9:[address] [facility] Hemoglobin 9.7(L) 12.0 - 15.6 gm/dL 04/23/2023 9:[address] [facility] Hematocrit 30.2(L) 35.9 - 45.5 % 04/23/2023 9:[address] [facility] MCV 93.8 80.7 - 98.3 fl 04/23/2023 9:[address] [facility] MCH 30.1 26.7 - 34.0 pg 04/23/2023 9:[address] [facility] MCHC 32.1 30.8 - 35.9 gm/dL 04/23/2023 9:[address] [facility] Platelet Count 198 153 - 416 x10E9/L 04/23/2023 9:[address] [facility] RDW-CV 12.7 12.1 - 14.9 % 04/23/2023 9:[address] [facility] MPV 9.6 9.4 - 12.9 fl 04/23/2023 9:[address] [facility] Blood BLOOD SPECIMEN / Unknown Lab Venipuncture / Unknown 04/23/2023 8:54 AM CDT 04/23/2023 9:10 AM CDT Josie Gee MD LAB - HEMATOLOGY ORD ERABLES Performing Organization Address City/State/[facility] Co de Phone Number [facility] [address] [place] [address] * (ABNORMAL) COMPREHENSIVE METABOLIC PANEL (04/23/2023 8:54 AM CDT) Glucose 123(H) 70 - 105 mg/dL 04/23/2023 9:[address] [facility] Sodium 139 136 - 145 mmol/L 04/23/2023 9:[address] [facility] Potassium 3.4(L) 3.5 - 5.1 mmol/L 04/23/2023 9:[address] [facility] Chloride 108(H) 98 - 107 mmol/L 04/23/2023 9:[address] [facility] CO2 19(L) 22 - 29 mmol/L 04/23/2023 9:[address] [facility] Calcium 8.6 8.4 - 10.4 mg/dL 04/23/2023 9:[address] [facility] Anion Gap 12 6 - 16 mmol/L 04/23/2023 9:[address] [facility] BUN 5(L) 5.3 - 18.7 mg/dL 04/23/2023 9:[address] [facility] Creatinine 0.67 0.57 - 1.11 mg/dL 04/23/2023 9:[address] [facility] Alkaline Phosphatase 96 40 - 150 U/L 04/23/2023 9:[address] [facility] ALT 19 0 - 55 U/L 04/23/2023 9:[address] [facility] AST 20 5 - 34 U/L 04/23/2023 9:[address] [facility] Protein Total 5.9(L) 6.4 - 8.3 gm/dL 04/23/2023 9:[address] [facility] Albumin 2.5(L) 3.4 - 5.0 gm/dL 04/23/2023 9:[address] [facility] Bilirubin Total 0.2 0.2 - 1.2 mg/dL 04/23/2023 9:[address] [facility] eGFR by CKD-EPI >90 >=90 mL/min/1.7 3 m2 04/23/2023 9:[address] [facility] Blood BLOOD SPECIMEN / Unknown Lab Venipuncture / Unknown 04/23/2023 8:54 AM CDT 04/23/2023 9:10 AM CDT Josie Gee MD LAB - CHEMISTRY ORDE [facility] Organization Address City/State/ZIP Co de Phone Number [facility] [address] [place] [address] * (ABNORMAL) IRON + TRANSFERRIN PANEL (04/23/2023 8:54 AM CDT) Iron 27(L) 40 - 150 ug/dL 04/23/2023 11:[address] [facility] Transferrin 374 174 - 382 mg/dL 04/23/2023 11:[address] [facility] TIBC Calculated 468(H) 240 - 450 ug/dL 04/23/2023 11:[address] [facility] Iron Saturation % 6(L) 20 - 50 % 04/23/2023 11:[address] [facility] Blood BLOOD SPECIMEN / Unknown Lab Venipuncture / Unknown 04/23/2023 8:54 AM CDT 04/23/2023 9:10 AM CDT Josie Gee MD LAB - CHEMISTRY INDERJIT BETHEA Performing Organization Address [facility] Co de Phone Number [facility] [address] [place] [address] * FERRITIN (04/23/2023 8:54 AM CDT) Pathologist [facility] Ferritin 14 5 - 204 ng/mL 04/23/2023 11:[address] [facility] Blood BLOOD SPECIMEN / Unknown Lab Venipuncture / Unknown 04/23/2023 8:54 AM CDT 04/23/2023 9:10 AM CDT Josie Gee MD LAB - CHEMISTRY INDERJIT BETHEA Performing Organization Address [facility] de Phone Number [facility] [address] [place] [address] * (ABNORMAL) URINALYSIS REFLEX MICROSCOPIC REFLEX CULTURE (04/21/2023 9:26 PM CDT) Color UA Straw Straw, Yellow 04/21/2023 9:[address] [facility] Clarity UA Clear Clear 04/21/2023 9:[address] [facility] Glucose UA Negative Negative 04/21/2023 9:[address] [facility] Bilirubin UA Negative Negative 04/21/2023 9:[address] [facility] Ketone UA Trace(A) Negative 04/21/2023 9:[address] [facility] Specific [place] UA 1.006 1.005 - 1.030 04/21/2023 9:[address] [facility] Blood UA Negative Negative 04/21/2023 9:[address] [facility] pH UA 7.0 5.0 - 8.0 pH 04/21/2023 9:[address] [facility] Protein UA Negative Negative 04/21/2023 9:[address] [facility] Urobilinogen UA Negative Negative mg/dL 04/21/2023 9:[address] [facility] Nitrite UA Negative Negative 04/21/2023 9:[address] [facility] Leukocyte UA Negative Negative 04/21/2023 9:[address] [facility] Urine Microscopy Urine microscopy not indicated 04/21/2023 9:[address] [facility] Reflex Status Culture not indicated 04/21/2023 9:[address] [facility] Urine URINE SPECIMEN OBTAINED BY CLEAN CATCH PROCEDURE / Unknown Collection / Unknown 04/21/2023 9:26 PM CDT 04/21/2023 9:[address] [facility] - 04/21/2023 9:38 PM CDT Josie Gee MD LAB - URINALYSIS ORD ERABLES Performing Organization Address City/State/[facility] Co de Phone Number [facility] [address] [place] [address] * RUPTURE OF MEMBRANES EVAL (04/21/2023 9:11 PM CDT) RUPTURE OF MEMBRANES NEGATIVE NEGATIVE 04/21/2023 9:[address] [facility] Fluid VAGINAL SWAB / Unknown Collection / Unknown 04/21/2023 9:11 PM CDT 04/21/2023 9:[address] [facility] - 04/21/2023 9:27 PM CDT A [...] BODY FLUID ORD ERABLES Performing Organization Address City/[facility]/ZIP Co de Phone Number [facility] [address] [place] [address] * BLOOD TYPE VERIFICATION (04/21/2023 8:52 PM CDT) ABO Rh O POS 04/21/2023 9:[address] [facility] Blood Bank BLOOD SPECIMEN / Unknown Lab Venipuncture / Unknown 04/21/2023 8:52 PM CDT 04/21/2023 9:00 PM CDT Josie Gee MD LAB - BLOOD BANK ORD ERABLES Performing Organization Address [facility] Co de Phone Number [facility] [address] [place] [id number] [place] [address] * CHLAMYDIA + GC AMPLIFIED PROBE (04/21/2023 8:47 PM CDT) Chlamydia Amplified Probe Negative Negative 04/22/2023 8:23 PM CDT [facility] GC Amplified Probe Negative Negative 04/22/2023 8:23 PM CDT [facility] Microbiology PART OF UTERINE CERVIX / Unknown Collection / Unknown 04/21/2023 8:47 PM CDT 04/21/2023 9:01 PM CDT Narrative [facility] - 04/22/2023 8:23 PM CDT Results based on detection/no detection of ribosomal RNA by amplified method. Josie Gee MD LAB - MICROBIOLOGY O RDERABLES Performing Organization Address City/[facility]/ZIP Co de Phone Number [facility] [address] [place] [address], [facility] [phone] * TRICHOMONAS RAPID TEST (04/21/2023 8:47 PM CDT) Pathologist [facility] Trichomonas Rapid Test Negative Negative 04/21/2023 9:[address] [facility] Microbiology VAGINAL SWAB / Unknown Collection / Unknown 04/21/2023 8:47 PM CDT 04/21/2023 9:01 PM CDT Josie Gee MD LAB - MICROBIOLOGY O RDERABLES Performing Organization Address City/[facility]/ZIP Co de Phone Number [facility] [address] [place] [address] * TYPE + SCREEN PANEL (04/21/2023 7:09 PM CDT) ABO Rh O POS 04/21/2023 9:[address] [facility] Comment:No history; collect retype. Antibody Screen NEG 9:[address] [facility] Blood Bank BLOOD SPECIMEN / Unknown Lab Venipuncture / Unknown 04/21/2023 7:09 PM CDT 04/21/2023 8:39 PM CDT Josie Gee MD LAB - BLOOD BANK ORD ERABLES [facility] [address] [place] [address] [phone]
--- OUTSIDE RECORDS SUMMARY | 2024-11-07 20:22 | XMS_ITS | Referral Summary ---
Author Organization [facility] Address [address] [place] [address] Care Team Providers Care Certification Engineer Name Role Phone Unavailable Primary Care Provider Unavailabl e Source Comments [facility],non-owned Affiliates and Associated Physician Practices is amultiple site organization consisting of ambulatory clinics and hospital sitesin [place], [place], [place] and [place]. This disclosure is being madepursuant to the Care Everywhere program and may not contain all information available regarding this patient. Last updated 18.[facility] [employer] Allergies Active Allergy Reactions Criticality Noted Date [...] medical care, and heating? Somewhat hard 04/21/2023 [facility] [place] of Occupat ional Health - Occupational Stress [...] place to sleep or slept in a alf (including now)? No 04/21/2023 Sex and Gender [...] Probe Negative Negative 04/22/2023 8:23 PM CDT [facility] GC Amplified Probe Negative Negative 04/22/2023 8:23 PM CDT [facility] Microbiology PART OF UTERINE CERVIX / Unknown Collection / Unknown 04/21/2023 8:47 PM CDT 04/21/2023 9:01 PM CDT Narrative [facility] - 04/22/2023 8:23 PM CDT Results based on detection/no detection of ribosomal RNA by amplified method. Josie Gee MD LAB - MICROBIOLOGY O RDERABLES [facility] [address] [place] [address], [facility] [phone] from Last 3 Months or Most Recently Relevant to Health Maintenance Advance Directives * Full Code (Latest Code Status on File) Date Activated Date Inactivated Comments 04/21/2023 6:59 PM 04/24/2023 1:02 PM
--- OUTSIDE RECORDS SUMMARY | 2024-11-07 20:22 | XMS_ITS | Continuity of Care Document ---
Author Organization [facility]opa[facility] Surgery Address [address] [place] [address] Phone Care Team Providers Care Eligibility Consultant Name Role Phone Rach Ponce MD Unavailable [...] Diagnoses Date Provider Providers Copied on Encounter [facility] Orthopa[facility], [address] [place] [address] [address], [address], [place] tel:[phone] [facility] of Rt foot fx (chief complaint) Nondisplaced fracture of third metatarsal bone of right foot with routine healing, subsequent encounter Sep-2 1- 5 [employer] Rach . [address] [place] [address], [id number] . tel: [phone] [facility] Orthopaedic Surgery, [address] [place] [address], [address], [place] tel:[phone] [facility] Follow Up of ON Rt foot fx (chief complaint) Closed fracture of metatarsal bone Sep-1 0-201 5 Kris Rach . [address] [place] [address], [id number] . tel:[phone] Referring Provider: Rebecca Sanders, [address], [place], [address] . tel:[phone] Family History Family Member Type Diagnosis Age At Onset No Information Payers Payer name Insurance type Covered republican ID Gustabo bennett(s) [place] [employer] E2 OT [id number] Social History Type Description Quantity Date Captured [...]
[2024-11-07 20:31] VITALS: BP 119/67; O2SAT 100
--- NOTE | 2024-11-07 20:38 | ED.ALLEREA ---
HPI - Allergic Reaction General Chief complaint: Allergic Reaction Stated complaint: allergic reaction Time Seen by Provider: 11/07/24 19:52 History of Present Illness HPI narrative: Patient presents here with anaphylaxis reaction to peanuts, she started feeling itchy, swelling of her throat, chest tightness and wheezing, gave herself her EpiPen, and came here; is still feeling shaky and some tingling in her fingers and some slight chest tightness. Related Data Home Medications ?Medication ?Instructions ?Recorded ?Confirmed ?Last Taken ?Type citalopram 40 mg tablet 40 mg PO DAILY 05/25/23 10/31/24 05/26/23 09:00 History bupropion HCl 150 mg 24 hr tablet, 150 mg PO DAILY 10/31/23 10/31/24 Unknown History extended release albuterol sulfate 90 mcg/actuation 2 puff inhalation Q4-6H PRN 10/31/24 10/31/24 Unknown History aerosol inhaler shortness of breath or wheezing buspirone 10 mg tablet 10 mg PO DAILY 10/31/24 10/31/24 Unknown History fluticasone furoate 200 1 inh inhalation Q24H 10/31/24 10/31/24 Unknown History mcg-vilanterol 25 mcg/dose inhalation powder Allergies Allergy/AdvReac Type Severity Reaction Status Date / Time peanut Allergy Severe Anaphylaxis Verified 10/31/24 09:30 tree nut Allergy Severe Anaphylaxis Verified 10/31/24 09:30 Review of Systems Review of Systems: All systems reviewed & are unremarkable except as noted in HPI and below PMFSH Past Medical History Medical History Encounter for insertion of copper IUD Anxiety and depression Gestational HTN Family History Family History Mother Hypertension Grandparent Hypertension Social History Social History Smoking status: Never smoker Second hand tobacco smoke exposure: No Alcohol intake: current Alcohol use details: Occasionally Substance use: never Substance use type: does not use Do You Feel Safe in your Home?: Yes Lack of Transportation: No Lack of Food: Never True Current Housing: I Have Housing Concerned About Future Housing: No Difficulty Paying Gas/Electric Bills: No Difficulty Paying for Meds: No Currently Unemployed: No Education: High School Diploma/GED Difficulty w/ Childcare or Family Care: No Living arrangements: with family Occupation/Education: occupation Additional occupation/education comments: [employer] Gender identity (if verbalized by the patient): Female Spiritual care concerns: No Exam Narrative: EXAMINATION OF ORGAN SYSTEMS/BODY AREAS: Constitutional: Vital signs per nursing GENERAL:[No acute distress, non-toxic appearing.] HEAD: Normal with no signs of head trauma. EYES: EOMI, conjunctiva normal ENT: No lip, tongue, throat swelling LUNGS: Slightly tachypneic without significant wheezing HEART: Slightly tachycardic ABD: [Soft], [nontender to palpation] EXT: Normal range of motion SKIN: [No rashes or lesions.] NEURO: [Alert and oriented x 3. No gross focal sensory or strength deficits.] PSYCH: Normal affect Course Vital Signs Vital signs: Vital Signs Temperature 97.6 F 11/07/24 19:06 Pulse Rate 124 H 11/07/24 19:06 Respiratory Rate 16 11/07/24 19:06 Blood Pressure 124/77 11/07/24 19:06 Pulse Oximetry 100 11/07/24 19:06 Temperature 97.6 F 11/07/24 19:06 Pulse Rate 124 H 11/07/24 19:06 Respiratory Rate 16 11/07/24 19:06 Blood Pressure 124/77 11/07/24 19:06 Pulse Oximetry 100 11/07/24 19:06 MDM - Allergic Reaction MDM Narrative Medical decision making narrative: MEDICAL DECISION MAKING AND COURSE IN THE ED WITH INTERPRETATION/REVIEW OF DIAGNOSTIC STUDIES: Electronic medical record was reviewed. Patient presented to the ED with a complaint of anaphylaxis. Vitals [were within acceptable limits]. Physical exam revealed slightly anxious appearing patient without evidence of airway compromise, clear lungs. [Patient was given claritin, famotidine, steroids]. On re-evaluation, the patient was feeling improved. She has not had worsening of symptoms here and after period of observation here, I do feel she is stable for discharge and will go home with claritin, famotidine, and prednisone and refill of EpiPen, and followup with PCP, return for further issues. Patient verbalizes understanding and feels comfortable this plan. Discharge Plan Discharge Clinical Impression: Anaphylaxis Patient Disposition: Home, Self-Care Condition: Stable Instructions: Anaphylaxis (ED) Additional Instructions: Take medications as prescribed, and if your symptoms return, give yourself your EpiPen and come to the ER immediately. Patient Language: Mohawk Prescriptions: New prednisone 20 mg tablet 40 mg PO DAILY 4 Days Qty: 8 0RF famotidine 20 mg tablet 20 mg PO DAILY Qty: 4 0RF epinephrine [EpiPen] 0.3 mg/0.3 mL auto-injector 0.3 mg IM Q5-15M PRN (Reason: anaphylaxis) Qty: 2 0RF Rx Instructions: do not exceed 3 doses per episode albuterol sulfate 90 mcg/actuation HFA aerosol inhaler 2 puff inhalation QID PRN (Reason: shortness of breath or wheezing) Qty: 8.5 0RF loratadine 10 mg tablet 10 mg PO DAILY Qty: 14 0RF No Action bupropion HCl 150 mg tablet extended release 24 hr 150 mg PO DAILY fluticasone furoate-vilanterol 200-25 mcg/dose blister with device 1 inh INHALATION Q24H albuterol sulfate 90 mcg/actuation HFA aerosol inhaler 2 puff INHALATION Q4-6H PRN (Reason: shortness of breath or wheezing) buspirone 10 mg tablet 10 mg PO DAILY citalopram 40 mg tablet 40 mg PO DAILY epinephrine 0.3 mg/0.3 mL auto-injector 0.3 mg IM Q5-15M PRN (Reason: anaphylaxis) Qty: 2 0RF Rx Instructions: do not exceed 3 doses per episode Follow-up/Referrals: Sandeep,VALENTINA Bejarano [Primary Care Provider] -
[2024-11-07 20:46] VITALS: BP 115/63; PULSE 87; RESP 20; TEMP 36.1; O2SAT 100
[2024-11-07] MEDS: LORATADINE 10 MG TABLET PO (20:58)
[2024-11-07] MEDS: predniSONE 20 MG TABLET 40 MG PO (20:58)
[2024-11-07] MEDS: FAMOTIDINE 20 MG TABLET PO (20:58)
[2024-11-07 21:00] VITALS: O2SAT 100
== END 2024-11-07 21:08 | disposition home or self-care (01) ==
PROVIDERS: Emergency Provider Emergency Medicine; PCP Family Medicine
DX: T78.01XA Anaphylactic reaction due to peanuts, initial encounter (principal); F41.9 Anxiety disorder, unspecified; F32.A Depression, unspecified; Z79.899 Other long term (current) drug therapy
CPT/HCPCS: 99283; A9270; J7512

== ENCOUNTER 2025-05-11 08:33 | Emergency (ER) | payer BC, MEDICAID, SELFPAY ==
[2025-05-11 08:40] VITALS: BP 109/61; PULSE 82; RESP 18; TEMP 36.6; O2SAT 100
--- OUTSIDE RECORDS SUMMARY | 2025-05-11 08:50 | XMS_ITS | Clinical Summary ---
Author Organization [facility] Address [address] [place] [address] Care Team Providers Care Tosser Name Role Phone Rebecca Ramirez MD Unavailable [phone] Carlee Hopkins NP Primary Care Provider [phone] Allergies Active Allergy Reactions Criticality Noted Date Comments Nuts Unknown 03/14/2018 Tree Nuts Anaphylaxis High 06/04/2018 Medications levonorgestreL (MIRENA) IUD 1 each by intrauterine route once Perigard, unable to find in Rx list Active EPINEPHrine 0.3 mg/0.3 mL auto-injection syringeIndicatio ns:Tree nut allergy,Nut allergy Inject 0.3 mL (0.3 mg total) into the muscle as instructed as needed for anaphylaxis 1 each 2 4 Active albuterol HFA (ProAir HFA) 90 mcg/actuation inhalerIndicatio ns:Mild persistent asthma without complication Inhale 2 puffs every 4 (four) hours as needed for wheezing or shortness of breath 1 each 2 4 025 Active fluticasone furoate-vilanter oL (Breo Ellipta) 200-25 mcg/dose diskus inhalerIndicatio ns:Moderate persistent asthma without complication Inhale 1 puff daily Rinse mouth with water after use. Do not swallow. 60 each 5 5 Active citalopram (CeleXA) 40 mg tabletIndication s:Recurrent major depressive disorder, in partial remission,BARRIE (generalized anxiety disorder) Take 1 tablet (40 mg total) by mouth daily 90 tablet 1 5 Active LORazepam (ATIVAN) 0.5 mg tablet Take 1 tablet (0.5 mg total) by mouth 2 (two) times a day as needed 5 Active busPIRone (BUSPAR) 15 mg tablet Take 1 tablet (15 mg total) by mouth 2 (two) times a day 5 Active dextroamphetamin e-amphetamine XR (ADDERALL XR) 25 mg 24 hr capsule TAKE 1 CAPSULE BY MOUTH DAILY IN THE MORNING 5 Active amoxicillin 500 mg capsule 5 Active buPROPion XL (WELLBUTRIN XL) 300 mg 24 hr tabletIndication s:Recurrent major depressive disorder, in partial remission Take 1 tablet (300 mg total) by mouth every morning 90 tablet 1 5 Active triamcinolone (KENALOG) 0.1 % creamIndications :Canker sore Apply to affected area 1-2 times daily as needed. 15 g 5 5 026 Active Active Problems Problem Noted Date Diagnosed Date External hemorrhoids 04/09/2025 Assessment & Plan (04/09/2025 2:30 PM CDT): New referral made to Dr. Julieth Melton, colorectal surgeon History of DVT (deep vein thrombosis) 07/06/2024 Canker sore 07/06/2024 Assessment & Plan (04/09/2025 2:30 PM CDT): Uncontrolled Started triamcinolone cream PRN Assessment & Plan (07/06/2024 1:32 PM CDT): Acute Supportive care measures discussed BARRIE (generalized anxiety disorder) 01/16/2024 Assessment & Plan (04/09/2025 2:28 PM CDT): Controlled Continue on citalopram, buspirone, and lorazepam Encouraged to follow up with psychiatry as recommended Assessment & Plan (01/14/2025 10:37 AM CDT): Uncontrolled Reviewed PHQ-2=1, previously 3, PHQ-9=10, was 3 in 09/2024, BARRIE-7=12, previously 16 Discussed options of switching from citalopram to a different SSRI, switching from citalopram to an SNRI, continuing same dose of citalopram and increasing the dose of buspirone Recommended consultation with Psychiatry and suggested counseling Mentioned walk-in clinic in [place] for mental health, encouraged to seek appointment today Assessment & Plan (12/24/2024 6:22 AM CDT): Uncontrolled Reviewed PHQ-2=1, previously 3, BARRIE-7=16, previously 3 Continued on citalopram 40 mg daily and buspirone, suggested increase in buspirone from 10 mg daily to 10 mg twice daily for better control of anxiety symptoms Assessment & Plan (10/16/2024 8:40 AM INTELLIGENCE GROUP SUPERVISOR): Controlled Reviewed PHQ-9=3, BARRIE-7=3 Continued on buspirone 10 mg daily and citalopram 40 mg daily Assessment & Plan (08/05/2024 6:31 AM INTELLIGENCE GROUP SUPERVISOR): Chronic, stable, controlled on medication Continued on [...] hair and dander 01/16/2024 Assessment & Plan (04/09/2025 2:28 PM CDT): Controlled without medication Will monitor for stability Assessment & Plan (01/18/2024 4:24 AM CDT): Chronic, stable, currently not on medication Will monitor for stability Annual physical exam 01/16/2024 Assessment & Plan (04/09/2025 2:28 PM CDT): Reviewed past and current medical history, surgical history, social history, family history, current medications, and allergies. The chart was updated to identify any changes in these areas. Assessment & Plan (01/18/2024 4:25 AM CDT): [...] Tree nut allergy 01/16/2024 Assessment & Plan (04/09/2025 2:28 PM CDT): Encouraged to carry EpiPen at all times Assessment & Plan (12/24/2024 6:23 AM CDT): Encouraged to carry EpiPen at all times Assessment & Plan (10/16/2024 8:41 AM INTELLIGENCE GROUP SUPERVISOR): Advised to check expiration date on EpiPen and to notify office if Is aware to carry at all times for possible accidental ingestion Assessment & Plan (08/05/2024 6:29 AM INTELLIGENCE GROUP SUPERVISOR): Instructed to carry EpiPen at all times Assessment & Plan (01/18/2024 4:21 AM CDT): Instructed to carry EpiPen at all times Rectal bleeding 01/16/2024 Assessment & Plan (04/09/2025 2:29 PM CDT): New referral made to Dr. Julieth Melton, colorectal surgeon Assessment & Plan (01/18/2024 4:25 AM CDT): Chronicity and stability unknown Referral made to Gastroenterology for further evaluation and management History of pre-eclampsia 01/31/2023 Recurrent major depressive disorder, in partial remission 08/14/2021 Overview (08/10/2022): Tried and failed: lexapro and Effexor Assessment & Plan (04/09/2025 2:27 PM CDT): Uncontrolled Reviewed PHQ-2=0 Continued on bupropion XL and citalopram Encouraged to follow up with psychiatry as recommended Advised if suicidal ideation thoughts of harming self or others, to go to ER and/or call [phone] for assistance, agree to contract for safety Assessment & Plan (01/14/2025 10:38 AM CDT): Uncontrolled Reviewed PHQ-2=1, previously 3, PHQ-9=10, was 3 in 09/2024, BARRIE-7=12, previously 16 Discussed options of switching from citalopram to a different SSRI, switching from citalopram to an SNRI, continuing same dose of citalopram and increasing dose of bupropion, or starting on Abilify Recommended consultation with Psychiatry and suggested counseling Mentioned walk-in clinic in [place] for mental health, encouraged to be seen today if possible Advised if suicidal ideation thoughts of harming self or others, to go to ER and/or call [phone] for assistance, agree to contract for safety Assessment & Plan (12/23/2024 3:02 PM CDT): Controlled Reviewed PHQ-2=1, previously 3, BARRIE-7=16, previously 3 Continued on bupropion XL 150 mg daily and citalopram 40 mg daily Advised if suicidal ideation thoughts of harming self or others, to go to ER and/or call [phone] for assistance, agree to contract for safety Assessment & Plan (10/16/2024 8:41 AM INTELLIGENCE GROUP SUPERVISOR): Controlled Reviewed PHQ-9=3, BARRIE-7=3 Continued on bupropion [...] safety Assessment & Plan (10/10/2022 9:00 AM INTELLIGENCE GROUP SUPERVISOR): Patient with recurrent depression, will increase sertraline [...] control. Assessment & Plan (08/10/2022 8:27 AM INTELLIGENCE GROUP SUPERVISOR): Patient presents today for evaluation of recurrent [...] ideation. Assessment & Plan (11/15/2021 4:04 AM INTELLIGENCE GROUP SUPERVISOR): Patient with recurrent depression, she states that her current regimen is working well for her and she would like to continue on this. She denies any adverse effects and denies any suicidal or homicidal ideation. Assessment & Plan (09/26/2021 1:53 PM INTELLIGENCE GROUP SUPERVISOR): Symptoms seem to be worsening since increasing Wellbutrin. Recommend decreasing Wellbutrin to 150 mg once daily and starting low-dose Lexapro. Patient does have follow-up scheduled with PCP in 1 month. Recent labs reviewed. TSH within normal limits in April 2021 Assessment & Plan (08/14/2021 6:16 PM INTELLIGENCE GROUP SUPERVISOR): Patient with depression, and states that symptoms are improved with wellbutrin. Will increase dosage from 150mg to 300mg XL daily. Patient denies any suicidal or homicidal ideation. She denies any adverse effects. Allergy to peanuts 12/07/2015 Assessment & Plan (04/09/2025 2:26 PM CDT): Encouraged to carry EpiPen at all times Assessment & Plan (12/24/2024 6:23 AM CDT): Encouraged to carry EpiPen at all times Assessment & Plan (10/16/2024 8:41 AM INTELLIGENCE GROUP SUPERVISOR): Advised to check expiration date on EpiPen and to notify office if Is aware to carry at all times for possible accidental ingestion Assessment & Plan (08/05/2024 6:29 AM INTELLIGENCE GROUP SUPERVISOR): Instructed to carry EpiPen at all times Assessment & Plan (01/18/2024 4:21 AM CDT): Instructed to carry EpiPen at all times Moderate persistent asthma without complication 04/30/2008 Assessment & Plan (04/09/2025 2:26 PM CDT): Controlled Continued on Breo 200-25 daily and albuterol as directed as needed Assessment & Plan (12/24/2024 6:22 AM CDT): Controlled Continued on Breo 200-25 daily and albuterol as directed as needed Assessment & Plan (10/16/2024 8:39 AM INTELLIGENCE GROUP SUPERVISOR): Uncontrolled Discontinued Flovent Started on Breo 200-25 daily Continued on albuterol as directed as needed Assessment & Plan (09/18/2024 4:40 PM INTELLIGENCE GROUP SUPERVISOR): AFVSS, exam benign Recommend restarting daily inhaler [...] Problem Noted Date Diagnosed Date Resolved Date Acute nonintractable headache 03/12/2025 04/09/2025 Assessment & Plan (03/12/2025 2:08 PM CDT): Improving Reviewed ER notes dated 03/09/2025 Continued on prednisone naproxen, and orphenadrine ER as directed Offered additional time off work, declined, would like to return to work today, has excuse for 03/09 through 03/11 provided by ER Strict return precautions given Acute bilateral low back lore n without sciatica 03/12/2025 04/09/2025 Assessment & Plan (03/12/2025 2:08 PM CDT): Reviewed ER notes dated 03/09/2025 Continued on prednisone naproxen, and orphenadrine ER as directed Discussed obtaining x-rays, referral to PT if pain does not resolve Offered additional time off work, declined, would like to return to work today, has excuse for 03/09 through 03/11 provided by ER Strict return precautions given Acute bilateral thoracic back pain 03/12/2025 04/09/2025 Assessment & Plan (03/12/2025 2:08 PM CDT): Reviewed ER notes dated 03/09/2025 Continued on prednisone naproxen, and orphenadrine ER as directed Discussed obtaining x-rays, referral to PT if pain does not resolve Offered additional time off work, declined, would like to return to work today, has excuse for 03/09 through 03/11 provided by ER Strict return precautions given Interscapular pain 03/12/2025 Assessment & Plan (03/12/2025 2:09 PM CDT): Reviewed ER notes dated 03/09/2025 Continued on prednisone naproxen, and orphenadrine ER as directed Discussed obtaining x-rays, referral to PT if pain does not resolve Offered additional time off work, declined, would like to return to work today, has excuse for 03/09 through 03/11 provided by ER Strict return precautions given Allergic reaction 08/05/2024 12/24/2024 Assessment & Plan (08/05/2024 6:31 AM INTELLIGENCE GROUP SUPERVISOR): Acute, seen in ER last evening, with symptoms occurring immediately after drinking a protein shake for the 1st time, protein shake contained whey protein, soy, and dairy, and other ingredients Reviewed patient's cell phone Encouraged to avoid protein shake Advised to carry EpiPen at all times Instructed return to ER if symptoms should recur Referral made to lime trimmer sree Martinez 07/06/2024 07/21/2024 Assessment & Plan (07/06/2024 1:31 PM CDT): Acute Started on nystatin swish and swallow as directed Acute deep vein thrombosis ( DVT) of [...] 01/16/2024 Assessment & Plan (10/10/2022 9:01 AM INTELLIGENCE GROUP SUPERVISOR): Patient with incidental and states that she is about 4 weeks , discussed risks and benefits of current medications advised that it is okay to proceed on sertraline as this is a safe medication during , and benefits outweigh risk at this time. IUD (intrauterine device) in place 08/10/2022 10/06/2022 Assessment & Plan (08/10/2022 8:28 AM INTELLIGENCE GROUP SUPERVISOR): Patient states that she has had IUD [...] 08/10/2022 Assessment & Plan (08/03/2022 5:44 PM INTELLIGENCE GROUP SUPERVISOR): Rapid strep positive. Antibiotic ordered today. Discussed [...] 11/02/2021 Assessment & Plan (09/26/2021 1:54 PM INTELLIGENCE GROUP SUPERVISOR): BMI Follow-up includes: education provided. Dysuria 06/23/2021 [...] Acute midline low back pain without sciatica 1 03/10/2022 Assessment & Plan (06/22/2021 11:13 AM [...] 03/07/202103/10 Assessment & Plan (11/15/2021 4:04 AM INTELLIGENCE GROUP SUPERVISOR): Plan as above. Assessment & Plan (06/23/2021 [...] Encounters Date Type Department Care Team Description 04/09/2025 2:30 PM CDT Office Visit [facility] Primary Care at [address] [phone] Carlee Hopkins NP Annual physical exam (Primary Dx); Rectal bleeding; External hemorrhoids; Moderate persistent asthma without complication; Recurrent major depressive disorder, in partial remission; BARRIE (generalized anxiety disorder); Tree nut allergy; Allergy to peanuts; Canker sore; Allergic rhinitis due to animal hair and dander 04/07/2025 Nurse Triage [facility] Primary [facility] at [address] [phone] Carlee Melendez RN 04/07/2025 Telephone [facility] Primary [facility] at [address] [phone] Carlee Hopkins NP Recommendation Request 03/13/2025 Results Follow-Up [facility] Emergency Department [address] [place] [address] Cris Kinney PA Urine culture Urine 03/12/2025 9:15 AM CDT Office Visit [facility] Primary [facility] at [address] [phone] Carlee Hopkins NP Interscapular pain (Primary Dx); Acute bilateral thoracic back pain; Acute bilateral low back pain without sciatica; Acute nonintractable headache, unspecified headache type 03/09/2025 8:44 AM CDT - 03/09/2025 12:21 PM CDT Emergency [facility] Emergency Department [address] [place] [address] Acute left-sided thoracic back pain (Primary Dx); Cystitis Discharge Disposition: Discharge to home or self care 02/18/2025 Telephone [facility] [address] [address] [place] [address] Hank Aguilar DO from Last 3 Months Immunizations Immunization Administration Dates Next Due HPV9 10/16/2024,07/17/2024 Hep [...] Y/O Anxiety Depression Preeclampsia 2020 Acne vulgaris 03/22/2018 Abnormal TSH 03/07/2021 Arthritis Kidney stone Family History Medical History Relation Name Comments Cancer Father Bernardo Nephrolithiasis Father Bernardo Hypertension Maternal Grandmother Merry Asthma Mother Roxana Cancer Mother Roxana Depression Mother Roxana Diabetes Mother Roxana Heart attack Mother Roxana Hypertension Mother Roxana Hypertension Mother's Sister Cat Bladder Cancer Paternal Grandfather Skin cancer Paternal Grandmother Relation Name Status Comments Father Bernardo Alive Maternal Grandmother Merry Mother Roxana Alive Mother's Sister Cat Paternal Grandfather Paternal Grandmother Social History Tobacco Use Types Packs/Day Years Used Date Smoking Tobacco: Some Days Vaping Started: 2022 Passive Smoke Exposure: Yes Smokeless Tobacco: Never [...] points, staff should administer the PHQ-9) 0 04/09/2025 Exercise Vital Sign Answer Date Recorde d Days of Exercise per Week 7 days 2018 Minutes of Exercise per Session 30 min 02/25/2019 PHQ-9 Answer Date Recorded PHQ-9 Total Score 10 01/14/2025 Personal Safety Answer Date Recorded Have you ever been in or are you currently in a harmful physical or emotional relationship or is someone making you feel afraid or unsafe? Denies 03/09/2025 Comments No Sex and Gender Information Value Date Recorded Sex Assigned at Not on file Legal Sex Female 11:52 PM INTELLIGENCE GROUP SUPERVISOR Gender Identity Female 12/09/2021 8:41 PM CDT [...] Vag-S pont N Living Complications:Pre eclampsia Delivery Location:[facility] in [place] Last Filed Vital Signs Vital Sign Reading Time Taken Comments Blood Pressure 108/70 04/09/2025 1:47 PM CDT Pulse 95 04/09/2025 1:47 PM CDT Temperature 36.8 C (98.2 F) 04/09/2025 1:47 PM CDT Respiratory Rate 14 04/09/2025 1:47 PM CDT Oxygen Saturation 98% 04/09/2025 1:47 PM CDT Inhaled Oxygen Concentration - - Weight 54.5 kg (120 lb 3.2 oz) 04/09/2025 1:47 P M CDT Height 157.5 cm (5' 2.01) 04/09/2025 1:47 PM CD T Body Mass Index 21.98 04/09/2025 1:47 PM CDT Plan of Treatment Health Maintenance Due Date Last Done Comments Cervical Cancer Screening 2002 Meningococcal B Vaccine (1 o f 2 - Standard) 2018 Chlamydia and Gonorrhea (GC/ CT) Screening 10/21/2023 10/21/2022, 04/14/2022 Covid-19 Vaccine (2023-2 5 season) 2024 10/10/2021, 01/12/2021, 12/15/2020 HPV Vaccines (3 - 3-dose series) 01/15/2025 10/16/19 25, 07/17/2024 Influenza Vaccine (#1) 2025 , 08/14/2023, 07/25/2023, Additional history exists Depression Screening 04/09/2026 04/09/2025, 03/12/2025, 01/14/2025, Additional history exists Regular Well Visit/Exam 18-64 04/09/2026, 01/16/2024, 03/04/2021 DTaP/Tdap/Td Vaccine (2 - Td or Tdap) 09/20/2030 09/20/2020 Hepatitis C Screening Completed 10/21/2022 Hepatitis B Screening Completed 11/29/2023 Pneumococcal vaccine <65 Completed 07/17/2024 Varicella Vaccines Discontinued Procedures Procedure Name Priority Date/Time Associated Diagnosis Comments EGFR STAT 03/09/2025 9:26 AM CDT URINALYSIS, MICROSCOPIC ONLY STAT 03/09/2025 9:26 AM CDT DIFFERENTIAL AUTO STAT 03/09/2025 9:2 6 AM CDT COMPREHENSIVE METABOLIC PANEL STAT 03/09/2025 9:26 AM CDT CBC WITH AUTO DIFFERENTIAL STAT 03/09/2025 9:26 AM CDT URINE CULTURE STAT 03/09/2025 9:26 AM CDT URINALYSIS AND REFLEX TO MICROSCOPIC AND CULTURE STAT 03/09/2025 9:26 AM CDT POCT HCG, URINE Routine 03/09/2025 8:14 AM CDT N. GONORRHOEAE/C. TRACHOMATIS AMPLIFICATION Routine 10/21/2022 11:02 AM INTELLIGENCE GROUP SUPERVISOR Early stage of HEPATITIS C ANTIBODY Routine 10/21/2022 10:59 AM INTELLIGENCE GROUP SUPERVISOR Early stage of from Last 3 Months or Most Recently Relevant to Health Maintenance Results * eGFR (03/09/2025 9:26 AM CDT) eGFR 76 >=60 mL/min/1. 73 m2 Comment: Interpretive Data Reference Interval Normal >/= 90 mL/min/1.73m2 Mildly decreased* 60 - 89 mL/min/1.73m2 Mildly to moderately decreased 45 - 59 mL/min/1.73m2 Moderately to severely decreased 30 - 44 mL/min/1.73m2 Severely decreased 15 - 29 mL/min/1.73m2 Kidney Failure < 15 mL/min/1.73m2 *Relative to young adult level Estimated glomerular filtration rate is determined by the 2020 CKD-EPI equation recommended by the National Kidney Foundation (A Unifying Approach to GFR Estimation: Recommendations of the NKF-ASK Task Force on Reassessing the Inclusion of Race in Diagnosing Kidney Disease, JASN 2020). The CKD-EPI equation should not be used for patients with unstable renal function and has not been validated in children and those over 70. Current interpretive data was last reviewed 2021. Testing performed by: [facility], [address] [place] [address]., [id number] Blood 03/09/2025 9:26 AM CDT 03/09/2025 9:32 AM CDT us Cris MADDEN LAB BLOOD ORDERABLES Final R esult [facility] [address] [facility] Department [place] [address] * (ABNORMAL) Differential, auto (03/09/2025 9:26 AM CDT) Neutrophil abs 10.65(H) 1.50 - 6.50 K/cumm Comment:Testing performed by : [address] [address] Imm gran abs 0.07 0.00 - 0.10 K/cumm NAYE Comment:Testing performed by : [address] [address] Lymphocyte abs 0.73(L) 0.80 - 3.30 K/cumm NAYE Comment:Testing performed by : [address] [address] Monocyte abs 0.83(H) 0.20 - 0.80 K/cumm NAYE Comment:Testing performed by : [address] [address] Eosinophil abs 0.09 0.00 - 0.50 K/cumm NAYE Comment:Testing performed by : [address] [address] Basophil abs 0.05 0.00 - 0.10 K/cumm NAYE Comment:Testing performed by : [address] [address] Neutrophil pct 85.7 % NAYE Comment: Interpretive Data Percent cell count reference ranges are not reported, since discordance with absolute values may lead to misinterpretation of CBC data. Current Interpretive Data was last revised on 2018. Testing performed by: [address] [address] Imm gran pct 0.6 % NAYE Comment: Interpretive Data Percent cell count reference ranges are not reported, since discordance with absolute values may lead to misinterpretation of CBC data. Current Interpretive Data was last revised on 2018. Testing performed by: [address] [address] Lymphocyte pct 5.9 % NAYE Comment: Interpretive Data Percent cell count reference ranges are not reported, since discordance with absolute values may lead to misinterpretation of CBC data. Current Interpretive Data was last revised on 2018. Testing performed by: [address] [address] Monocyte pct 6.7 % NAYE Comment: Interpretive Data Percent cell count reference ranges are not reported, since discordance with absolute values may lead to misinterpretation of CBC data. Current Interpretive Data was last revised on 2018. Testing performed by: [address] [address] Eosinophil pct 0.7 % NAYE Comment: Interpretive Data Percent cell count reference ranges are not reported, since discordance with absolute values may lead to misinterpretation of CBC data. Current Interpretive Data was last revised on 2018. Testing performed by: [address] [address] Basophil pct 0.4 % NAYE Comment: Interpretive Data Percent cell count reference ranges are not reported, since discordance with absolute values may lead to misinterpretation of CBC data. Current Interpretive Data was last revised on 2018. Testing performed by: [address] [address] Blood 03/09/2025 9:26 AM CDT 03/09/2025 9:32 AM CDT us Cris MADDEN LAB BLOOD ORDERABLES Final [facility] [address] [facility] Department [place] [address] * (ABNORMAL) Urinalysis reflex to microscopic and culture Urine (03/09/2025 9:26 AM CDT) Color, ur Yellow Yellow Comment:Testing performed by : [address] [address] Clarity, ur Cloudy(A) Clear NAYE Comment:Testing performed by : [address] [address] Specific gravity, ur 1.025 1.003 - 1.030 NAYE Comment:Testing performed by : [address], [place]., [address] pH, urine 6.5 NAYE Comment: Interpretive Data U rine pH is affected by diet, medications, systemic acid-base disturbances, and renal tubular function. pH may affect urinary stone formation. For example, urine pH below 6.0 may help reduce the tendency for calcium phosphate stones and pH greater than 6.0 may reduce the tendency for uric acid stone formation. Source: [facility] [employer] Current Interpretive Data was last revised on 2017 Testing performed by: [address] [address] Protein, ur ql 1+(A) Negative NAYE Comment:Testing performed by : [address] [address] Glucose, ur ql Negative Negative NAYE Comment:Testing performed by : [address] [address] Ketones, ur Negative Negative NAYE Comment:Testing performed by : [address] [address] Bilirubin, ur Negative Negative NAYE Comment:Testing performed by : [address] [address] Blood, ur 1+(A) Negative NAYE Comment:Testing performed by : [address] [address] Urobilinogen, ur <2.0 <2.0 mg/dL NAYE Comment:Testing performed by : [address] [address] Nitrite, ur Positive(A) Negative NAYE Comment:Testing performed by : [address] [address] Leukocyte esterase, ur 2+(A) Negative NAYE Comment:Testing performed by : [address] [address] UA reflex comment Reflex to microscopic UA will be performed. NAYE Comment:Testing performed by : [address] [address] Urine 03/09/2025 9:26 AM CDT 03/09/2025 9:32 AM CDT us Cris MADDEN LAB MICROBIOLOGY - GENERAL O RDERABLES Final Result [facility] [address] [facility] Department [place] [address] * (ABNORMAL) CBC with auto differential (03/09/2025 9:26 AM CDT) WBC 12.42(H) 3.80 - 9.90 K/cumm Comment:Testing performed by : [address] [address] Hgb 12.3 11.9 - 15.5 g/dL NAYE Comment:Testing performed by : [address] [address] Hct 35.8 35.6 - 45.5 % NAYE Comment:Testing performed by : [address] [id number] Plt 263 150 - 400 K/cumm NAYE Comment:Testing performed by : [address] [address] MPV 9.1 9.1 - 12.3 fL NAYE Comment:Testing performed by : [address] [address] RBC 4.24 3.90 - 5.20 M/cumm NAYE SHEARER Comment:Testing performed by : [address] [address] MCV 84.4 81.3 - 96.4 fL NAYE Comment:Testing performed by : [address] [address] MCH 29.0 27.1 - 33.3 pg NAYE SHEARER Comment:Testing performed by : [address] [address] MCHC 34.4 32.3 - 35.7 g/dL NAYE SHEARER Comment:Testing performed by : [facility], [address] [place] [address], [place]., [address] RDW CV 12.8 11.1 - 14.9 % NAYE SHEARER Comment:Testing performed by : [facility], [address] [place] [address], [place]., [address] RDW SD 39.0 35.7 - 48.1 fL NAYE SHEARER Comment:Testing performed by : [address], [place]., [address] NRBC abs 0.00 0.00 - 0.01 K/cumm NAYE Comment:Testing performed by : [address], [place]., [address] Blood 03/09/2025 9:26 AM CDT 03/09/2025 9:32 AM CDT us Cris MADDEN LAB BLOOD ORDERABLES Final R esult Performing Organization Address City/State/[facility] Co de Phone Number NAYE [address] [facility] Department [place] [address] * (ABNORMAL) Urinalysis, microscopic only (03/09/2025 9:26 AM CDT) WBC, ur 21-50(A) 0 - 5 /HPF Comment:Testing performed by : [address] [address] RBC, ur 11-20(A) 0 - 2 /HPF NAYE SHEARER Comment:Testing performed by : [address] [address] Epithelial cells, squamous, ur >50(A) 0 - 5 /HPF NAYE Comment:Testing performed by : [address], [place]., [address] Mucous, ur Present(A) NAYE SHEARER Comment:Testing performed by : [address] [address] Culture Reflex Comment Reflex to urine culture will be performed. NAYE SHEARER Comment:Testing performed by : [address], [place]., [address] Urine 03/09/2025 9:2 6 AM CDT 03/09/2025 9:32 AM CDT us Cris MADDEN LAB URINE ORDERABLES Final R esult NAYE [address] [facility] Department [place] [address] * (ABNORMAL) Urine culture Urine (03/09/2025 9:26 AM CDT) Report Final Report: Greater than or equal to 100,000 colonies/mL of Klebsiella (Enterobacter) aerogenes (.) Comment:Testing performed by : [facility], [address] [place] [address] Organism KLEBSIELLA (ENTEROBACTER) AEROGENES NAYE Urine 03/09/2025 9:26 AM CDT 03/09/2025 1:49 PM CDT Narrative NAYE - 03/11/2025 11:29 AM CDT Urine culture reflexed based upon urinalysis results. Testing performed by [facility] Microbiology Laboratory ([phone]) Organism Antibiotic Method Susceptibility Klebsiella (Enterobacter) aerogenes Ampicillin INTERPRETATION Resistant Klebsiella (Enterobacter) aerogenes Cefazolin INTERPRETATION Resistant Klebsiella (Enterobacter) aerogenes Nitrofurantoin INTERPRETATION Intermediate Klebsiella (Enterobacter) aerogenes Gentamicin INTERPRETATION Susceptible Klebsiella (Enterobacter) aerogenes Trimethoprim with Sulfamethoxazole INTERPRETATION Susceptible Klebsiella (Enterobacter) aerogenes Meropenem INTERPRETATION Susceptible Klebsiella (Enterobacter) aerogenes Cefepime INTERPRETATION Susceptible Klebsiella (Enterobacter) aerogenes Ciprofloxacin INTERPRETATION Susceptible Klebsiella (Enterobacter) aerogenes Ceftazidime INTERPRETATION Resistant Klebsiella (Enterobacter) aerogenes Ceftriaxone INTERPRETATION Resistant Klebsiella (Enterobacter) aerogenes Piperacillin/Tazobactam INTERPRETATION Resistant us Cris MADDEN LAB MICROBIOLOGY - GENERAL O RDERABLES Final Result NAYE [facility] Department [place] [address] * Comprehensive metabolic panel (03/09/2025 9:26 AM CDT) Sodium 137 135 - 145 mmol/L Comment:Testing performed by : [address], [place]., [address] Potassium, pl 3.4 3.3 - 4.9 mmol/L NAYE Comment:Testing performed by : [address], [place]., [address] Chloride 103 97 - 110 mmol/L NAYE Comment:Testing performed by : [address], [place]., [address] CO2 24 22 - 32 mmol/L NAYE Comment:Testing performed by : [address], [place]., [address] Anion gap 10 2 - 15 mmol/L NAYE Comment:Testing performed by : [address], [place]., [address] BUN 12 6 - 25 mg/dL NAYE Comment:Testing performed by : [address], [place]., [address] Creatinine 1.06 0.60 - 1.10 mg/dL NAYE Comment:Testing performed by : [address], [place]., [address] Glucose 92 70 - 199 mg/dL [facility] Comment: Interpretive Data Fasting glucose >/= 126 mg/dl is diagnostic for diabetes. Fasting is defined as no caloric intake for at least 8 hours. Fasting glucose between 100 mg/dl to 125 mg/dl is diagnostic of prediabetes. In a patient with classic symptoms of hyperglycemia or hyperglycemic crisis, a random glucose >/= 200 mg/dl is diagnostic for diabetes. In the absence of unequivocal hyperglycemia, results should be confirmed by repeat testing. The classification and Diagnosis of Diabetes Diabetes Care 202; 46: S19-S40. Current interpretive data was last revised 2022. Testing performed by: [address] [address] Calcium 9.1 8.5 - 10.3 mg/dL NAYE Comment:Testing performed by : [address], [place]., [address] Bilirubin, total 0.9 0.1 - 1.2 mg/dL NAYE Comment:Testing performed by : [address] [address] Protein, pl 6.7 6.5 - 8.5 g/dL NAYE Comment:Testing performed by : [address] [address] Albumin 4.3 3.5 - 5.0 g/dL NAYE Comment:Testing performed by : [address] [address] Alk phos 74 40 - 130 Units/L NAYE Comment:Testing performed by : [address], [place]., [address] ALT 17 7 - 45 Units/L NAYE Comment:Testing performed by : [address] [address] AST 18 10 - 45 Units/L NAYE Comment:Testing performed by : [address] [address] Blood 03/09/2025 9:26 AM CDT 03/09/2025 9:32 AM CDT Cris MADDEN LAB BLOOD ORDERABLES Final R esult NAYE [address] [facility] Department of Laboratories [place], [place] [id number] * POCT hCG, urine (03/09/2025 8:14 AM CDT) Pathologist [facility] [place] HCG, ur, POC Negative Negative Lot Number [id number] QC Backgroud Clear Acceptable QC Control Line Acceptable Urine 03/09/2025 8:14 AM CDT Paco Metcalf DO POINT OF CARE TEST ORDERABL ES Final Result * N. gonorrhoeae/C. trachomatis Amplification Urine (10/21/2022 11:02 AM INTELLIGENCE GROUP SUPERVISOR) Pathologist [facility] [place] C. trachomatis Not Detected Not Detected [facility] Comment:Testing performed by : [facility], [address] [place]., [address] N. gonorrhoeae Not Detected Not Detected [facility] Comment: Interpretive Data Testing performed by the [facility] Laboratory. This assay detects Chlamydia trachomatis and Neisseria gonorrhoeae by nucleic acid amplification testing (NAAT). This test is approved by the [facility] Food and Drug Administration and the performance characteristics have been verified by the laboratory. The performance characteristics of this test have not been evaluated in individuals less than 14 years of age. Current Interpretive Data was last revised on 2018. Testing performed by: [facility], [address] [place] [address]., [address] Urine (None) 10/21/2022 11:0 2 AM INTELLIGENCE GROUP SUPERVISOR 10/21/2022 2:00 PM INTELLIGENCE GROUP SUPERVISOR [facility] LAB MICROBIOLOGY - GENERA L ORDERABLES Final Result Performing Organization Address City/[facility] Co de Phone Number [facility] [address] [place] [address] * Hepatitis C antibody (10/21/2022 10:59 AM INTELLIGENCE GROUP SUPERVISOR) Pathologist [facility] [place] Hep C Ab Nonreactive Nonreactive [facility] Comment: Antibodies to HCV not detected. Does NOT exclude the possibility of recent exposure to HCV. Current interpretive data was last revised on 22 Testing performed by: [facility], [address] [place] [address]., [address] Blood 10/21/2022 10:5 9 AM INTELLIGENCE GROUP SUPERVISOR 10/21/2022 1:30 PM INTELLIGENCE GROUP SUPERVISOR Christiane [facility]le [facility] LAB MICROBIOLOGY - GENERA L ORDERABLES Final Result Performing Organization Address City/[facility]/ZIP Co de Phone Number [facility] [address] [place] [address] from Last 3 Months or Most Recently Relevant to Health Maintenance Insurance [facility] FEDERAL Member Subscriber Plan / Payer (Ef fective 2020-Present) Name:Lana Arriaza Relation to Subscriber:Child Name:BERNARDO ARRIAZA Date of :1975 (Home) Address: [address] [place] [id number] Payer ID:[id number] (NAIC) Group ID:[id number] Type:Copious Address: [facility] [id number] [place] [address] [facility] IDPA ANTH TRADITIONAL Care Teams Tosser Relationship Specialty Start Date End Date Carlee Hopkins NP [address] [place] [id number] PCP - General Family Medicine 01/16/24 Rebecca Ramirez MD [address] [place] [address] [address] [address] 08/15/19
--- OUTSIDE RECORDS SUMMARY | 2025-05-11 08:51 | XMS_ITS | Patient Health Record ---
Author Organization [facility] Address [address] [place] [address] Care Team Providers Care Executive Talent Acquisition Consultant Name Role Phone Carlee Campos Primary Care Provider UnavailMarilu Hernandez Unavailable [phone] Ken Rizo Unavailable [phone] Allergies Allergen (clinical drug ingredient) Drug/Non Drug Allergy documented on EMR Reaction Allergy Type Onset Date Status PEANUTS (uncoded) Unknown Allergy Ac tive TREENUTS (uncoded) Unknown Allergy A ctive Results Component Value Reference Range Notes UDT Reviewed date:01/27/2025 02:54:02 PM Interpretation: Performing Lab: Notes/Report: THC n 0 - 50 ng/ml Cocaine n 0 - 300 ng/ml Amphetamine n 0 - 1000 ng/ml Buprenorphine (BUP) n 0 - 10 ng/ml Secobarbital (Bar) n 0 - 300 ng/ml Oxazepam (BZO) n 0 - 300 ng/ml 4-kepvkzjyte-4,9-ldeqcloh-0, 3-dipheny lpyrrolidine (EDDP) n 0 - 300 ng/ml Methamphetamine (MET) n 0 - 1000 ng/ml Methylenedioxymethamphetamine (MDMA) n 0 - 500 ng/ml Morphine (MOP 300/[id number]) n 0 - 300 ng/ml Methadone (MTD) n 0 - 300 ng/ml Phencyclidine (PCP) n 0 - 25 ng/ml Nortriptyline (TCA) n 0 - 1000 ng/ml Oxycodone n 0 - 300 ng/ml x n 0 - 300 ng/ml UDT Reviewed date:01/14/2025 01:17:39 PM Interpretation: Performing Lab: Notes/Report: THC N 0 - 50 ng/ml Cocaine N 0 - 300 ng/ml Amphetamine N 0 - 1000 ng/ml Buprenorphine (BUP) M 0 - 10 ng/ml Secobarbital (Bar) N 0 - 300 ng/ml Oxazepam (BZO) N 0 - 300 ng/ml 9-qewwvgyulg-2,5-tsqwaqco-0, 3-dipheny lpyrrolidine (EDDP) N 0 - 300 ng/ml Methamphetamine (MET) N 0 - 1000 ng/ml Methylenedioxymethamphetamine (MDMA) N 0 - 500 ng/ml Morphine (MOP 300/[id number]) N 0 - 300 ng/ml Methadone (MTD) N 0 - 300 ng/ml Phencyclidine (PCP) N 0 - 25 ng/ml Nortriptyline (TCA) N 0 - 1000 ng/ml Oxycodone N 0 - 300 ng/ml Amphetamine Reviewed date:02/22/2025 07:05:20 PM Interpretation: Performing Lab: Notes/Report: Stimulants Reviewed date:02/22/2025 07:05:20 PM Interpretation: Performing Lab: Notes/Report: Phentermine NEGATIVE 100.0 ng/mL Not Medicated Consistent Methylphenidate NEGATIVE 50.0 ng/mL Not Medicate d Consistent Methamphetamine NEGATIVE 100.0 ng/mL Not Medicate d Consistent Amphetamine 1909.4 100.0 ng/mL Medicated Consistent Benzodiazepines Reviewed date:02/22/2025 07:05:20 PM Interpretation: Performing Lab:[address] [place] [address], [address] [place] [address], Director - [phone] Notes/Report: An exception occurred while processing this report and so it has incomplete data. Please contact [employer] for assistance. Not Medicated Consistent Not Medicated Consistent Not Medicated Consistent Not Medicated Consistent Not Medicated Consistent Medicated Consistent Not Medicated Consistent Not Medicated Consistent Not Medicated Consistent Not Medicated Consistent 7-Aminoclonazepam NEGATIVE 20.0 ng/mL Temazepam NEGATIVE 40.0 ng/mL Oxazepam NEGATIVE 40.0 ng/mL Midazolam NEGATIVE 40.0 ng/mL Lorazepam 126.9 40.0 ng/mL Nordiazepam NEGATIVE 40.0 ng/mL Diazepam NEGATIVE 40.0 ng/mL Clonazepam NEGATIVE 20.0 ng/mL Hydroxyalprazolam NEGATIVE 20.0 ng/mL Alprazolam NEGATIVE 20.0 ng/mL PDF Report [email or web address] [email or web address] Validity Testing Reviewed date:02/22/2025 07:05:20 PM Interpretation: Performing Lab: Notes/Report: Not Medicated Consistent Not Medicated Consistent Not Medicated Consistent Not Medicated Consistent Specific [place] 1.009 1.003 - 1.030 pH 6.6 3.0 - 10.9 Oxidants 0 200 g/mL Creatinine 40.1 20.0 - 300.0 mg/dL UDT Reviewed date:03/02/2025 10:50:39 AM Interpretation: Performing Lab: Notes/Report: THC n 0 - 50 ng/ml Cocaine n 0 - 300 ng/ml Amphetamine p 0 - 1000 ng/ml Buprenorphine (BUP) n 0 - 10 ng/ml Secobarbital (Bar) n 0 - 300 ng/ml Oxazepam (BZO) p 0 - 300 ng/ml 9-qjlcoxrkpl-5,1-tekvbcjr-0, 3-dipheny lpyrrolidine (EDDP) n 0 - 300 ng/ml Methamphetamine (MET) n 0 - 1000 ng/ml Methylenedioxymethamphetamine (MDMA) n 0 - 500 ng/ml Morphine (MOP 300/[id number]) n 0 - 300 ng/ml Methadone (MTD) n 0 - 300 ng/ml Phencyclidine (PCP) n 0 - 25 ng/ml Nortriptyline (TCA) n 0 - 1000 ng/ml Oxycodone n 0 - 300 ng/ml x n 0 - 300 ng/ml UDT Reviewed date:02/11/2025 09:41:37 AM Interpretation: Performing Lab: Notes/Report: THC n 0 - 50 ng/ml Cocaine n 0 - 300 ng/ml Amphetamine p 0 - 1000 ng/ml Buprenorphine (BUP) n 0 - 10 ng/ml Secobarbital (Bar) n 0 - 300 ng/ml Oxazepam (BZO) p 0 - 300 ng/ml 6-gxsuohksap-4,4-bgmezqrj-5, 3-dipheny lpyrrolidine (EDDP) n 0 - 300 ng/ml Methamphetamine (MET) n 0 - 1000 ng/ml Methylenedioxymethamphetamine (MDMA) n 0 - 500 ng/ml Morphine (MOP 300/[id number]) n 0 - 300 ng/ml Methadone (MTD) n 0 - 300 ng/ml Phencyclidine (PCP) n 0 - 25 ng/ml Nortriptyline (TCA) n 0 - 1000 ng/ml Oxycodone n 0 - 300 ng/ml x n 0 - 300 ng/ml Reason For Referral No Information Medications Medication SIG (Take, Route, Frequency, Duration) Notes Start Date End Date Status Amphetamine-Dextroamphet ER 20 MG 1 capsule every morning Orally Once a day; Duration: 30 days 05/07/2025 Active LORazepam 0.5 MG 1 tablet at bedtime as needed Orally twice a day; Duration: 30 days Active guanFACINE HCl ER 1 MG 1 tablet Orally d aily; Duration: 30 days 05/07/2025 Active buPROPion HCl ER (XL) 300 MG 1 tablet every morning Oral Once a day; Duration: 90 days Active busPIRone HCl 15 MG TAKE 1 TABLET BY ZUHAIR TH TWICE DAILY; Duration: 90 Active busPIRone HCl 15 MG 1 tablet Oral Twice a day; Duration: 90 days Active Citalopram Hydrobromide 40 MG TAKE 1 TABLET BY MOUTH DAILY; Duration: 90 Active Social History Tobacco Use: Social History Observation Description Date Details (start date - stop date) Never Smoker NA - NA Sex Assigned At : Social History Observation Description Sex Assigned At Female Tobacco Control (Standard) Question Answer Notes Tobacco use: Nonsmoker AUDIT-C (Standard) Question Answer Notes Did you have a drink contain ing alcohol in the past year? Yes How often did you have six o r more drinks on one occasion in the past year? Never (0 point) How many drinks did you have on a typical day when you were drinking in the past year? 1 or 2 drinks (0 point) How often did you have a dri nk containing alcohol in the past year? 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) Active confirmed Problem Generalized anxiety disorder (98711993) Generalized anxiety disorder (F41.1) Active confirmed Problem Attention deficit hyperactivity disorder (860501058) ADHD (attention deficit hyperactivity disorder), combined type (F90.2) Active confirmed Problem Attention deficit hyperactivity disorder (881887663) Attention deficit hyperactivity disorder (ADHD), unspecified ADHD type (F90.9) Active confirmed Problem Unable to concentrate (finding) (66557447) Difficulty concentrating (R41.840) Active confirmed Vital Signs Heart Rate 97 /min 05/07/2025 Height-cm 157.48 cm 05/07/2025 Blood pressure diastolic 85 mm Hg 05/07/2025 Weight-kg 55.97 kg 05/07/2025 Height 62 in 05/07/2025 Blood pressure systolic 130 mm Hg 05/07/2025 Weight 123.4 lbs 05/07/2025 BMI 22.57 kg/m2 05/07/2025 Procedures Procedure Date Ordered Date Performed Result Body Sit e ADHD Testing 01/14/2025 01/19/2025 N/A Encounters Encounter Location Date Provider Diagnosis [facility] [employer] [address] [address] 01/14/2025 Marilu Kurilla Major depressive disorder, recurrent severe without psychotic features F33.2 ; Generalized anxiety disorder F41.1 ; Difficulty concentrating R41.840 ; Encounter for screening for cardiovascular disorders Z13.6 and Encounter for screening for depression Z13.31 [facility] [employer] [address] [address] 01/19/2025 Ken Rizo Attention deficit hyperactivity disorder (ADHD), unspecified ADHD type F90.9 [facility] [employer] [address] 01/26/2025 Marilu Kurilla Major depressive disorder, recurrent severe without psychotic features F33.2 ; Generalized anxiety disorder F41.1 ; ADHD (attention deficit hyperactivity disorder), combined type F90.2 ; Encounter for screening for depression Z13.31 and Encounter for screening for cardiovascular disorders Z13.6 [facility] [employer] [address] [address] 01/27/2025 Marilu Kurilla Major depressive disorder, recurrent severe without psychotic features F33.2 ; Generalized anxiety disorder F41.1 ; ADHD (attention deficit hyperactivity disorder), combined type F90.2 ; Encounter for screening for cardiovascular disorders Z13.6 and Encounter for screening for depression Z13.31 [facility] [employer] [address] [address] 02/11/2025 Marilu Kurilla Major depressive disorder, recurrent severe without psychotic features F33.2 ; Generalized anxiety disorder F41.1 ; ADHD (attention deficit hyperactivity disorder), combined type F90.2 ; Encounter for screening for depression Z13.31 ; Encounter for screening for cardiovascular disorders Z13.6 and High risk medication use Z79.899 [facility], [facility] [address] [place] [address] 03/02/2025 Marilu Kurilla Major depressive disorder, recurrent severe without psychotic features F33.2 ; Generalized anxiety disorder F41.1 ; ADHD (attention deficit hyperactivity disorder), combined type F90.2 ; Encounter for screening for depression Z13.31 ; Negative depression screening Z13.31 and Encounter for screening for cardiovascular disorders Z13.6 [facility] [address] [place] [address] 04/16/2025 Marilu Mcqueen [facility], [facility] [address] [place] [address] 05/07/2025 Marilu Kurilla Major depressive disorder, recurrent severe without psychotic features F33.2 ; Generalized anxiety disorder F41.1 and ADHD (attention deficit hyperactivity disorder), combined type F90.2 [facility] [address] [place] [address] 01/28/2025 Marilu Mcqueen [facility], [facility] [address] [place] [address] 01/29/2025 Mariluharmony Mcqueen Generalized anxiety disorder F41.1 [facility] [address] [place] [address] 01/14/2025 Mariluharmony Mcqueen [facility], [facility] [address] [place] [address] 01/14/2025 Mariluharmony Mcqueen [facility], [facility] [address] [place] [address] 01/26/2025 Mariluharmony Mcqueen ADHD (attention defi cit hyperactivity disorder), combined type F90.2 [place] [address] [place] [address] 01/27/2025 Marilu Mcqueen [facility], [facility] [address] [place] [address] 01/27/2025 Marilu Mcqueen [facility], [facility] [address] [place] [address] 01/27/2025 Marilu Mcqueen [facility], [facility] [address] [place] [address] 01/27/2025 Marilu Mcqueen [facility], [facility] [address] [place] [address] 01/27/2025 Marilu Mcqueen [facility], [facility] [address] [place] [address] 01/27/2025 Marilu Mcqueen [facility], [facility] [address] [place] [address] 01/27/2025 Marilu Mcqueen [facility], [facility] [address] [place] [address] 01/27/2025 Marilu Mcqueen [facility], [facility] [address] [place] [address] 01/27/2025 Marilu Mcqueen [facility], [facility] [address] [place] [address] 02/04/2025 Marilu Mcqueen [facility], [facility] [address] [place] [address] 02/05/2025 Marilu Mcqueen [facility], [facility] [address] [place] [address] 02/07/2025 Marilu Mcqueen [facility], [facility] [address] [place] [address] 02/07/2025 Marilu Mcqueen [facility], [facility] [address] [place] [address] 02/09/2025 Marilu Mcqueen [facility], [facility] [address] [place] [address] 02/11/2025 Marilu Mcqueen [facility], [facility] [address] [place] [address] 02/11/2025 Marilu Mcqueen [facility], [facility] [address] [place] [address] 02/11/2025 Marilu Mcqueen [facility], [facility] [address] [place] [address] 02/17/2025 Marilu Mcqueen [facility], [facility] [address] [place] [address] 02/21/2025 Marilu Mcqueen [facility], [facility] [address] [place] [address] 02/23/2025 [facility]ilu Mcqueen [facility] [address] [place] [address] 02/23/2025 Marilu Mcqueen [facility] [address] [place] [address] 03/31/2025 Marilu Mcqueen ADHD (attention defi cit hyperactivity disorder), combined type F90.2 [facility] [address] [place] [address] 05/05/2025 Marilu Mcqueen ADHD (attention defi cit hyperactivity disorder), combined type F90.2 Assessments Encounter Date Diagnosis (ICD Code) Assessment Notes Treatment Notes Treatment Clinical Notes Section Notes 01/14/2025 Major depressive disorder, recurrent severe without psychotic features (ICD-10 - F33.2) Common side effects of Wellbutrin include insomnia, increased anxiety, nausea, dizziness, decreased appetite, restlessness, irritability and anger, increased sweating or hot flashes, tremors, joint pain. Wellbutrin is not recommended in individuals with a history of seizures. If side effects persist, please contact the office. 01/14/2025 Generalized anxiety disorder (ICD-10 - F41.1) 01/19/2025 Attention deficit hyperactivity disorder (ADHD), unspecified ADHD type (ICD-10 - F90.9) ADHD and Cognitive Profile Interpretation ASRS Result: Not indicative of ADHD Cognitive Markers Outside Typical Range: 3 Momin Findings: Response Inhibition (Double Trouble) Number of Errors: 22 (Significantly higher than typical) Interference Ratios: Errors = 7, Reaction Time = 1.5 (Both outside normal range) Percentiles: Errors (97), Interference for Errors (93), Reaction Time (92) Interpretation: Clear deficits in response inhibition. The individual has difficulty suppressing irrelevant information, which may result in distractibility or impulsivity, even if not self-reported. Sustained Attention (SART) Reaction Time Variability: 64 ms (3rd percentile) Commission and Omission Errors: Within normal limits Interpretation: Extremely poor consistency in maintaining attention over time, even though accuracy is preserved. Suggests vigilance fatigue or mental drifting. Attention (Feature Match) Errors: 1 (Acceptable), but reaction time is 2917 ms (slower than typical) Percentile: 34 for accuracy, 64 for speed Interpretation: Attention is functionally intact but potentially slowed, which could impact real-world task efficiency. Planning and Working Memory Scores: Planning (21, 52nd percentile), Working Memory (6, 51st percentile) Interpretation: These executive functions are in the average range, suggesting the ability to organize and manage information is not impaired. ASRS (Adult ADHD Self-Report Scale) Part A: 3 (below diagnostic threshold) Part B: 6 (supportive but not diagnostic) Interpretation: Self-report does not reflect significant ADHD symptoms, but objective impairments in inhibition and sustained attention are present. Clinical Summary: Although the ASRS does not indicate ADHD, there are notable impairments in response inhibition and sustained attention, which may reflect difficulties with self-regulation and cognitive control. This suggests a subclinical executive function profile that could affect academic, occupational, or daily performance, even in the absence of a formal ADHD diagnosis. Non-Pharmacologic Recommendations: 1. Cognitive Control Training Use online tools that target inhibition and task switching. Exercises like Stroop tasks, Steven tasks, or go/no-go games are helpful. 2. Mindfulness-Based Attention Training Daily mindfulness practice (10 minutes per day) improves sustained attention and reduces cognitive interference. Apps like [employer]ago or [employer] Timer can support this. 3. Metacognitive Strategy Training Teach self-monitoring techniques to identify distraction or errors. Use checklists to guide behavior during tasks requiring sustained attention. 4. Environmental Supports Minimize distractions (visual and auditory) in work or study areas. Use noise-canceling headphones or white noise to support focus. 5. Consistent Task Scheduling Time-block demanding tasks during peak mental alertness hours. Break tasks into short intervals with brief rests to avoid attention lapses. 6. Sleep and Physical Activity Prioritize 7 to 9 hours of quality sleep to optimize attention regulation. Engage in regular physical activity to support cognitive endurance. 7. Cognitive Fatigue Management Rotate tasks that require high attention with low-demand ones to preserve mental energy. Use timers to prompt attention breaks and re-engagement. 01/26/2025 Major depressive disorder, recurrent severe without psychotic features (ICD-10 - F33.2) Common side effects of Wellbutrin include insomnia, increased anxiety, nausea, dizziness, decreased appetite, restlessness, irritability and anger, increased sweating or hot flashes, tremors, joint pain. Wellbutrin is not recommended in individuals with a history of seizures. If side effects persist, please contact the office. 01/26/2025 Generalized anxiety disorder (ICD-10 - F41.1) 01/26/2025 ADHD (attention deficit hyperactivity disorder), combined type (ICD-10 - F90.2) 01/27/2025 Major depressive disorder, recurrent severe without psychotic features (ICD-10 - F33.2) Common side effects of Wellbutrin include insomnia, increased anxiety, nausea, dizziness, decreased appetite, restlessness, irritability and anger, increased sweating or hot flashes, tremors, joint pain. Wellbutrin is not recommended in individuals with a history of seizures. If side effects persist, please contact the office. 01/27/2025 Generalized anxiety disorder (ICD-10 - F41.1) 01/29/2025 Generalized anxiety disorder (ICD-10 - F41.1) 02/11/2025 Major depressive disorder, recurrent severe without psychotic features (ICD-10 - F33.2) Common side effects of Wellbutrin include insomnia, increased anxiety, nausea, dizziness, decreased appetite, restlessness, irritability and anger, increased sweating or hot flashes, tremors, joint pain. Wellbutrin is not recommended in individuals with a history of seizures. If side effects persist, please contact the office. 02/11/2025 Generalized anxiety disorder (ICD-10 - F41.1) 03/02/2025 Major depressive disorder, recurrent severe without psychotic features (ICD-10 - F33.2) Common side effects of Wellbutrin include insomnia, increased anxiety, nausea, dizziness, decreased appetite, restlessness, irritability and anger, increased sweating or hot flashes, tremors, joint pain. Wellbutrin is not recommended in individuals with a history of seizures. If side effects persist, please contact the office. 03/02/2025 Generalized anxiety disorder (ICD-10 - F41.1) 03/31/2025 ADHD (attention deficit hyperactivity disorder), combined type (ICD-10 - F90.2) 05/05/2025 ADHD (attention deficit hyperactivity disorder), combined type (ICD-10 - F90.2) 05/07/2025 Major depressive disorder, recurrent severe without psychotic features (ICD-10 - F33.2) Common side effects of Wellbutrin include insomnia, increased anxiety, nausea, dizziness, decreased appetite, restlessness, irritability and anger, increased sweating or hot flashes, tremors, joint pain. Wellbutrin is not recommended in individuals with a history of seizures. If side effects persist, please contact the office. 05/07/2025 Generalized anxiety disorder (ICD-10 - F41.1) 03/02/2025 ADHD (attention deficit hyperactivity disorder), combined type (ICD-10 - F90.2) ADHD Stimulant Education -Discussed with patient risk of misuse, abuse, and addiction before prescribing stimulant medicines. -Counseled not to share their prescribed stimulant with anyone else. -Educated patient will monitor during treatment: regularly assess and monitor them for signs and symptoms of nonmedical use, addiction, and potential diversion, which may be evidenced by more frequent renewal requests and medication metabolites absent from urine drug screens. -Random UDS (at least every three months or more frequently deemed by provider). -Per office policy, only prescribed to local pharmacy in [place], no early refills on control substance. 02/11/2025 ADHD (attention deficit hyperactivity disorder), combined type (ICD-10 - F90.2) ADHD Stimulant Education -Discussed with patient risk of misuse, abuse, and addiction before prescribing stimulant medicines. -Counseled not to share their prescribed stimulant with anyone else. -Educated patient will monitor during treatment: regularly assess and monitor them for signs and symptoms of nonmedical use, addiction, and potential diversion, which may be evidenced by more frequent renewal requests and medication metabolites absent from urine drug screens. -Random UDS (at least every three months or more frequently deemed by provider). -Per office policy, only prescribed to [facility] in [place], no early refills on control substance. 01/14/2025 Difficulty concentrating (ICD-10 - R41.840) Pre-treatment evaluation and contraindications Before initiating treatment with a stimulant in adults, we review their cardiovascular history, including chest pain, palpitations, syncope, myocardial infarction, arrhythmia, valvular disease, and family history. We measure blood pressure and pulse in all patients and obtain an electrocardiogram (ECG) in individuals with cardiac history or cardiac symptoms such as palpitations or chest pain. In individuals with a cardiac history, or when findings outside normal limits are seen, we consult a banquet kitchen supervisor to determine whether the results are sufficiently severe to avoid these medications. We also rule out MIKA; if you are using cannabis, are heavy alcohol, or are using other street drugs and have a history of MIKA, than we consider non-stimulant treatment. We also do routine and random UDT If you refuse or fail to give urine for urine, then we will not prescribe controlled substances. If your urine comes positive for medicine (which are not prescribed to you) and illicit drugs (including Cannabis) then we will not prescribe a controlled substance There is a charge for Stimulant refills 01/26/2025 ADHD (attention deficit hyperactivity disorder), combined type (ICD-10 - F90.2) ADHD Stimulant Education -Discussed with patient risk of misuse, abuse, and addiction before prescribing stimulant medicines. -Counseled not to share their prescribed stimulant with anyone else. -Educated patient will monitor during treatment: regularly assess and monitor them for signs and symptoms of nonmedical use, addiction, and potential diversion, which may be evidenced by more frequent renewal requests and medication metabolites absent from urine drug screens. -Random UDS (at least every three months or more frequently deemed by provider). -Per office policy, only prescribed to local pharmacy in [place], no early refills on control substance. 01/27/2025 ADHD (attention deficit hyperactivity disorder), combined type (ICD-10 - F90.2) ADHD Stimulant Education -Discussed with patient risk of misuse, abuse, and addiction before prescribing stimulant medicines. -Counseled not to share their prescribed stimulant with anyone else. -Educated patient will monitor during treatment: regularly assess and monitor them for signs and symptoms of nonmedical use, addiction, and potential diversion, which may be evidenced by more frequent renewal requests and medication metabolites absent from urine drug screens. -Random UDS (at least every three months or more frequently deemed by provider). -Per office policy, only prescribed to local pharmacy in [place], no early refills on control substance. 01/26/2025 Encounter for screening for depression (ICD-10 - Z13.31) 01/27/2025 Encounter for screening for cardiovascular disorders (ICD-10 - Z13.6) 01/14/2025 Encounter for screening for cardiovascular disorders (ICD-10 - Z13.6) 02/11/2025 Encounter for screening for depression (ICD-10 - Z13.31) 03/02/2025 Encounter for screening for depression (ICD-10 - Z13.31) 05/07/2025 ADHD (attention deficit hyperactivity disorder), combined type (ICD-10 - F90.2) ADHD Stimulant Education -Discussed with patient risk of misuse, abuse, and addiction before prescribing stimulant medicines. -Counseled not to share their prescribed stimulant with anyone else. -Educated patient will monitor during treatment: regularly assess and monitor them for signs and symptoms of nonmedical use, addiction, and potential diversion, which may be evidenced by more frequent renewal requests and medication metabolites absent from urine drug screens. -Random UDS (at least every three months or more frequently deemed by provider). -Per office policy, only prescribed to local pharmacy in [place], no early refills on control substance. 03/02/2025 Negative depression screening (ICD-10 - Z13.31) 02/11/2025 Encounter for screening for cardiovascular disorders (ICD-10 - Z13.6) 01/14/2025 Encounter for screening for depression (ICD-10 - Z13.31) 01/26/2025 Encounter for screening for cardiovascular disorders (ICD-10 - Z13.6) 01/27/2025 Encounter for screening for depression (ICD-10 - Z13.31) 02/11/2025 High risk medication use (ICD-10 - Z79.899) 03/02/2025 Encounter for screening for cardiovascular disorders (ICD-10 - Z13.6) 01/14/2025 Other Increase Wellbutrin to 300mg daily for depression. Increase Buspar to 15mg BID for anxiety Patient educated on all medications including potential benefits, side effects, risks. Educated on proper dosing schedule and importance of compliance. Schedule for ADHD evaluation, appears ADHD related symptoms potentially exacerbating anxiety and depression. ADHD evaluation to confirm diagnosis. -Assessment and treatment plan reviewed with patient. -Compliance with treatment plan importance discussed. -Discussed the risks/benefits of this medication -Discussed medication side effects. -Contact office if symptoms worsen. -Discussed that it can take up to 6-8 weeks to see full therapeutic effects of psychotropic medications. -Crisis prevention hotline 988. 01/26/2025 Other [facility] Clinical Report ADHD testing results reviewed and discussed with patient. - Cognitive markers supportive of diagnosis. Start Adderall ER 15mg daily for ADHD management Continue increased Wellbutrin, Buspar- most recent increase about 10 days ago, expect further improvements as it may take up to 6 weeks for full benefit. Patient educated on all medications including potential benefits, side effects, risks. Educated on proper dosing schedule and importance of compliance. [place] report checked and consistent with prescription history, no controlled substance prescriptions from other providers. UDT completed last apt, negative for illicit substances -Assessment and treatment plan reviewed with patient. -Compliance with treatment plan importance discussed. -Discussed the risks/benefits of this medication -Discussed medication side effects. -Contact office if symptoms worsen. -Discussed that it can take up to 6-8 weeks to see full therapeutic effects of psychotropic medications. -[facility] 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 Await Adderall insurance approval, has not started yet Patient educated on all medications including potential benefits, side effects, risks. Educated on proper dosing schedule and importance of compliance. [place] report checked and consistent with prescription history, no controlled substance prescriptions from other providers. -Assessment and treatment plan reviewed with patient. -Compliance with treatment plan importance discussed. -Discussed the risks/benefits of this medication -Discussed medication side effects. -Contact office if symptoms worsen. -Discussed that it can take up to 6-8 weeks to see full therapeutic effects of psychotropic medications. -[facility] 02/11/2025 Other Increase Adderall ER to 20mg daily for ADHD management Patient educated on all medications including potential benefits, side effects, risks. Educated on proper dosing schedule and importance of compliance. [place] report checked and consistent with prescription history, no controlled substance prescriptions from other providers. -Assessment and treatment plan reviewed with patient. -Compliance with treatment plan importance discussed. -Discussed the risks/benefits of this medication -Discussed medication side effects. -Contact office if symptoms worsen. -Discussed that it can take up to 6-8 weeks to see full therapeutic effects of psychotropic medications. -[facility]. 03/02/2025 Other Increase Adderall ER to 25mg daily for ADHD management, emotional dysregulation. -could consider guanfacine, clonidine augmentation if needed Patient educated on all medications including potential benefits, side effects, risks. Educated on proper dosing schedule and importance of compliance. [place] report checked and consistent with prescription history, no controlled substance prescriptions from other providers. -Assessment and treatment plan reviewed with patient. -Compliance with treatment plan importance discussed. -Discussed the risks/benefits of this medication -Discussed medication side effects. -Contact office if symptoms worsen. -Discussed that it can take up to 6-8 weeks to see full therapeutic effects of psychotropic medications. -Crisis prevention hotline 988. 05/07/2025 Other Decrease Adderall back to 20mg daily Start guanfacine er 1mg daily for adhd, emotional regulation Patient educated on all medications including potential benefits, side effects, risks. Educated on proper dosing schedule and importance of compliance. [place] report checked and consistent with prescription history, no controlled substance prescriptions from other providers. -Assessment and treatment plan reviewed with patient. -Compliance with treatment plan importance discussed. -Discussed the risks/benefits of this medication -Discussed medication side effects. -Contact office if symptoms worsen. -Discussed that it can take up to 6-8 weeks to see full therapeutic effects of psychotropic medications. -Crisis prevention hotline 988. Plan Of Treatment Pending Test Test Name Order Date DRUG MONITOR,AMPHETAMINE, QN, URINE ([id number]) 02/11/2025 DRUG MONITOR,AMPHETAMINE, W/DL, QN URINE ([id number]) 02/11/2025 DRUG MONITOR,BARBITURATE, QN, URINE ([id number]) 02/11/2025 DRUG MONITOR, BENZO, QN, URINE ([id number]) 0 02/11/2025 DRUG MONITOR, MARIJUANA METAB, QN, URINE ([id number]) 02/11/2025 DRUG MONITOR, METHADONE METAB, QN, URINE ([id number]) 02/11/2025 DRUG MONITOR, OPIATES EXPANDED, QN, URIN E ([id number]) 02/11/2025 DRUG MONITOR, PCP, QN, URINE ([id number]) DRUG MONITOR, FENTANYL, QN, URINE ([id number] ) 02/11/2025 DRUG MONITOR, BUP AND NALOXONE,QN,URINE ([id number]) 02/11/2025 DRUG MONITOR,CARISOPRODOL METAB, QN, URI NE ([id number]) 02/11/2025 DRUG MONITOR, TRICYCLIC ANTIDEPRESS, QN, URINE ([id number]) 02/11/2025 DRUG MONITOR, GABAPENTIN, QN, URINE ([id number]) 02/11/2025 DRUG MONITOR, MEPERIDINE, QN, URINE ([id number]) 02/11/2025 DRUG MONITOR, TRAMADOL, QN, URINE ([id number] ) 02/11/2025 DRUG MONITOR, PREGABALIN, QN, URINE ([id number]) 02/11/2025 DRUG MONITOR, MDMA/MDA, QN, URINE ([id number] ) 02/11/2025 DRUG MONITOR, ALCOHOL METAB, W/CONF, URI NE ([id number]) 02/11/2025 DRUG MONITOR,METHYLPHENID METAB, QN, URI NE ([id number]) 02/11/2025 DRUG MONITOR, COCAINE METAB, QN, URINE ( [id number]) 02/11/2025 PRESCRIBED DRUGS, medMATCH(R) ([id number]) SPECIMEN VALIDITY TEST PANEL ([id number]) DRUG MONITOR, METHAMPHETAMINE D/L,U (394 13) 02/11/2025 DRUG MONITOR, ZOLPIDEM, QN, URINE ([id number] ) 02/11/2025 DRUG MONITOR, NALTREXONE, QN, URIN ([id number]) 02/11/2025 Next Appt Details Provider Name:Marilu Palm franck, 05/12/2025 11:00:00 AM, [address] [facility], [address], [address], Provider Name:Marilu Palm franck, 06/08/2025 01:45:00 PM, [address], [address], [id number], Insurance Providers Payer Name Payer Address Payer Phone Subscriber Number Group Number Insured Name Patient Relationship to Insured Coverage Start Date Coverage End Date [employer] [employer] [address] [place] [address] [id number] GLENN ARRIAZA Self - patient is the insured Medical (General) History Medical History History ICD Code Past Psychiatric History: Anxiety Disord er,Major Depressive Episode abdominal aortic aneurysm: No atrial fibrillation: No chronic fatigue syndrome: No essential tremor: No hyperlipidemia: No hypertension: No Parkinson's disease: No restless leg syndrome: No stroke: No subdural hematoma: No type 1 diabetes mellitus: No type 2 diabetes mellitus: No vitamin B12 deficiency: No vitamin D deficiency: No Surgical History Surgery Date(Month/Year) tonsillectomy wisdom teeth extraction
--- OUTSIDE RECORDS SUMMARY | 2025-05-11 08:51 | XMS_ITS | Clinical Summary ---
Author Organization [facility] Address [address] [address] Care Team Providers Care Patient Biller Name Role Phone Unavailable Primary Care Provider Unavailabl e Source Comments [facility],non-owned Affiliates and Associated Physician Practices is amultiple site organization consisting of ambulatory clinics and hospital sitesin [place], [place], [place] and [place]. This disclosure is being madepursuant to the Care Everywhere program and may not contain all information available regarding this patient. Last updated 18.[facility] [employer] Allergies Active Allergy Reactions Criticality Noted Date Comments Peanut-Derived Anaphylaxis High 04/21/2023 Penicillins Other 04/22/2023 Extreme anxiety, panic, crying Skin Adhesives Rash,Itching Medium 04/23/2023 Tree Nuts Anaphylaxis High 04/21/2023 Medications * Be aware that medications may not be up to date on this document. Alwaysverify current medications with the patient. citalopram (CeleXA) 20 MG tablet Take 1 (one) tablet by mouth once daily Active cetirizine (ZyrTEC) 10 MG tablet Take 1 (one) tablet by mouth once daily Active MV-Min-Fe Fum-FA-DHA ( 1 PO) Active NIFEdipine (Procardia) 10 MG capsule Take 1 (one) capsule by mouth every 6 hours as needed (contractio ns) 30 capsule 1 3 Active iron polysaccharides (Niferex 150) 150 MG capsule Take 1 (one) capsule by mouth once daily 30 capsule 4 3 Active Active Problems Problem Noted Date Diagnosed [...] medical care, and heating? Somewhat hard 04/21/2023 [facility] - Occupational Stress [...] place to sleep or slept in a senior living (including now)? 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 Gender Identity Not on file Sexual Orientation [...] 9:45 AM CDT Height 157.5 cm (5' 2) 04/23/2023 9:45 AM CDT Body Mass Index 26.21 04/23/2023 9:45 AM CDT Plan of Treatment Health Maintenance Due Date Last Done Comments HIV SCREENING 2017 HPV VACCINE (1 - 3-dose series) 2017 MENINGOCOCCAL (Group B) VACCINE SHARED DECISION-MAKING (1 of 2 - Standard) 2018 HEPATITIS C SCREENING 09/24/2020 DTAP/TDAP/TD VACCINES (1 - Tdap) 2021 HEPATITIS B VACCINE (1 of 3 - 19+ 3-dose series) 2021 PAP SMEAR 2023 CHLAMYDIA/GONORRHEA SCREENING 04/21/2024, 10/21/2022, 12/06/2020 COVID-19 VACCINE (3 - 2023-2 5 season) 2024 01/12/2021, 12/15/2020 DEPRESSION SCREENING 09/24/2024 INFLUENZA VACCINE (#1) 2025 , 09/20/2020 ZOSTER VACCINE (1 of 2) 2052 HIB VACCINE Aged Out No longer eligi ble based on patient's age to complete this topic MENINGOCOCCAL GROUPS A/C/Y/W VACCINE Aged Out No longer eligible b ased on patient's age to complete this topic PNEUMOCOCCAL VACCINE Aged Out No long er eligible based on patient's age to complete this topic Procedures Procedure Name Priority Date/Time Associated Diagnosis Comments CHLAMYDIA + GC AMPLIFIED PROBE Routine 04/21/2023 8:47 PM CDT Threatened premature labor, antepartum from Last 3 Months or Most Recently Relevant to Health Maintenance Results * CHLAMYDIA + GC AMPLIFIED PROBE (04/21/2023 8:47 PM CDT) Chlamydia Amplified Probe Negative Negative 04/22/2023 8:23 PM CDT [facility] GC Amplified Probe Negative Negative 04/22/2023 8:23 PM CDT [facility] Microbiology PART OF UTERINE CERVIX / Unknown Collection / Unknown 04/21/2023 8:47 PM CDT 04/21/2023 9:01 PM CDT Narrative [facility] - 04/22/2023 8:23 PM CDT Results based on detection/no detection of ribosomal RNA by amplified method. Josie Gee MD LAB - MICROBIOLOGY ORDERABLES F inal Result [facility] [address] [place] [address], [facility] [phone] from Last 3 Months or Most Recently Relevant to Health Maintenance Insurance ANTHEM ANTHEM Advance Directives * Full Code (Latest Code Status on File) Date Activated Date Inactivated Comments 04/21/2023 6:59 PM 04/24/2023 1:02 PM
--- NOTE | 2025-05-11 09:14 | ED_ITS ---
HPI - Skin/Abscess/Foreign Bdy General Chief complaint: Skin/Abscess/Foreign Body Stated complaint: RT Knee Pain Time Seen by Provider: 05/11/25 09:01 Source: patient and RN notes reviewed Mode of arrival: ambulatory Limitations: no limitations History of Present Illness HPI narrative: Patient presents today with a 2 day history of a red and painful area to the right knee. States that started out looking like a pimple, the patient popped it. Now the area redness has spread. Denies injury or trauma. No history of MRSA or abscess. No recent antibiotic use. Related Data Home Medications ?Medication ?Instructions ?Recorded ?Confirmed ?Last Taken ?Type citalopram 40 mg tablet 40 mg PO DAILY 05/25/23 05/11/25 05/26/23 09:00 History bupropion HCl 150 mg 24 hr tablet, 150 mg PO DAILY 10/31/23 05/11/25 Unknown History extended release albuterol sulfate 90 mcg/actuation 2 puff inhalation Q4-6H PRN 10/31/24 10/31/24 Unknown History aerosol inhaler shortness of breath or wheezing buspirone 10 mg tablet 10 mg PO DAILY 10/31/24 05/11/25 Unknown History fluticasone furoate 200 1 inh inhalation Q24H 10/31/24 05/11/25 Unknown History mcg-vilanterol 25 mcg/dose inhalation powder Allergies Allergy/AdvReac Type Severity Reaction Status Date / Time peanut Allergy Severe Anaphylaxis Verified 05/11/25 08:56 tree nut Allergy Severe Anaphylaxis Verified 05/11/25 08:56 PMFSH Past Medical History Medical History Encounter for insertion of copper IUD Anxiety and depression Gestational HTN Family History Family History Mother Hypertension Grandparent Hypertension Social History Social History Smoking status: Current every day smoker Tobacco type: e-cigarettes/vaping Second hand tobacco smoke exposure: No Alcohol intake: current Alcohol use details: Occasionally Substance use: never Substance use type: does not use Do You Feel Safe in your Home?: Yes Lack of Transportation: No Lack of Food: Never True Current Housing: I Have Housing Concerned About Future Housing: No Difficulty Paying Gas/Electric Bills: No Difficulty Paying for Meds: No Currently Unemployed: No Education: High School Diploma/GED Difficulty w/ Childcare or Family Care: No Living arrangements: with family Occupation/Education: occupation Additional occupation/education comments: [employer] Gender identity (if verbalized by the patient): Female Spiritual care concerns: No Comments At time of signature, I have reviewed and agree with nursing past medical, surgical, social and family history unless otherwise noted. Please see nursing chart for further information. There is no relevant family history pertinent to the presenting complaint Exam Narrative: GENERAL: Well-appearing, well-nourished, and in no acute distress. HEAD: Normocephalic, atraumatic. EYES: EOMI. No redness or drainage. Conjunctivae normal. ENT: Mucous membranes pink and moist. NECK: Normal AROM. CHEST: No respiratory distress. EXTREMITIES: Right knee: 3 x 4 cm area of erythema and mild induration just below the patella that is tender to palpation. Small, superficial, open area to the proximal affected area. No drainage. No fluctuance. Distal sensation intact. Capillary refill normal. SKIN: Warm, dry, no rash. Capillary refill normal. Normal skin turgor. NEURO: No focal deficits. Alert and oriented x3. Gait steady. PSYCH: Normal affect. No signs of depression or anxiety. Course Course Level of Care: Express Care Visit Vital Signs Vital signs: Vital Signs Temperature 97.8 F 05/11/25 08:40 Pulse Rate 82 05/11/25 08:40 Respiratory Rate 18 05/11/25 08:40 Blood Pressure 109/61 05/11/25 08:40 Pulse Oximetry 100 05/11/25 08:40 Oxygen Delivery Room Air 05/11/25 08:40 Temperature 97.8 F 05/11/25 08:40 Pulse Rate 82 05/11/25 08:40 Respiratory Rate 18 05/11/25 08:40 Blood Pressure 109/61 05/11/25 08:40 Pulse Oximetry 100 05/11/25 08:40 Oxygen Delivery Room Air 05/11/25 08:40 Reviewed MDM - Skin/Abscess/Foreign Bdy MDM Narrative Medical decision making narrative: 24-year-old female patient presents today with redness and pain to the right knee area x2 days. States area started out looking like a pimple then expanded after she popped it. No history of abscesses or MRSA. Upon exam, patient has 3 x 4 cm area of erythema and mild induration that is tender to palpation with small open area that is superficial without drainage. No fluctuance. Patient will be started on a course of Keflex for cellulitis. Vital signs stable. Patient agrees with plan. Differential Diagnosis Differential diagnosis: Likely abscess of skin or subcutaneous tissue, cellulitis, insect bites and impetigo Critical Care Time Critical Care Time Critical Care Time: No Discharge Plan Discharge Clinical Impression: Cellulitis Qualifiers: Site of cellulitis: extremity Site of cellulitis of extremity: lower extremity Laterality: right Qualified Code(s): L03.115 - Cellulitis of right lower limb Patient Disposition: Home Condition: Stable Instructions: Cellulitis (ED) Additional Instructions: Please take the Keflex as prescribed until gone. Wash area daily with soap and water. Keep covered until scabbed over. Follow-up with your PCP in 3 days if symptoms are not improving. Go to the ER immediately if symptoms worsen to include red streaking up your leg, development of fever greater than 100.3. Patient Language: Wolof Prescriptions: New cephalexin 500 mg capsule 500 mg PO Q6H 7 Days Qty: 28 0RF No Action bupropion HCl 150 mg tablet extended release 24 hr 150 mg PO DAILY fluticasone furoate-vilanterol 200-25 mcg/dose blister with device 1 inh INHALATION Q24H albuterol sulfate 90 mcg/actuation HFA aerosol inhaler 2 puff INHALATION Q4-6H PRN (Reason: shortness of breath or wheezing) buspirone 10 mg tablet 10 mg PO DAILY citalopram 40 mg tablet 40 mg PO DAILY famotidine 20 mg tablet 20 mg PO DAILY Qty: 4 0RF epinephrine [EpiPen] 0.3 mg/0.3 mL auto-injector 0.3 mg IM Q5-15M PRN (Reason: anaphylaxis) Qty: 2 0RF Rx Instructions: do not exceed 3 doses per episode albuterol sulfate 90 mcg/actuation HFA aerosol inhaler 2 puff inhalation QID PRN (Reason: shortness of breath or wheezing) Qty: 8.5 0RF loratadine 10 mg tablet 10 mg PO DAILY Qty: 14 0RF epinephrine 0.3 mg/0.3 mL auto-injector 0.3 mg IM Q5-15M PRN (Reason: anaphylaxis) Qty: 2 0RF Rx Instructions: do not exceed 3 doses per episode Follow-up/Referrals: Sandeep,VALENTINA Bejarano [Primary Care Provider] - Time of Disposition: 09:20
== END 2025-05-11 09:23 | disposition home or self-care (01) ==
PROVIDERS: Emergency Provider Nurse Practitioner; PCP Family Medicine
DX: L03.115 Cellulitis of right lower limb (principal); F17.290 Nicotine dependence, other tobacco product, uncomplicated; F41.9 Anxiety disorder, unspecified; F32.A Depression, unspecified
CPT/HCPCS: 99213; G0463

== ENCOUNTER 2025-05-11 10:21 | Emergency (ER) | payer BC, MEDICAID, SELFPAY ==
--- OUTSIDE RECORDS SUMMARY | 2025-05-11 11:15 | XMS_ITS | Continuity of Care Document ---
Author Organization [facility] Address [address] [place] [address] Phone Care Team Providers Care Traffic Control Officer Name Role Phone Shahzad ESPINOSA, Brielle Unavailable [...] Date New (Level 4) OFFICE/OUTPATIENT VISIT Rasheeda THINNER SPRAYER Registration Fee Advance Directives Directive Yes / No Effective Date File Name No Information Encounters Encounter Description Practice Location Reason(s) For Visit Diagnoses Date Provider Providers Copied on Encounter [facility], [address] [place] [address], [address] [place] [address], tel:[phone] [facility] No Information Shahzad Cheshil. [address] , [place], [place], [facility], [place]. tel:[phone] Referring Provider: Carlee Hopkins, [address] [place] [address], [facility]. tel:[phone] New (Level 4) OFFICE/OUTPA TIENT VISIT [facility], [address] [place] [address], [address] [place] [address], tel:[phone] [facility] allergies and asthma (chief complaint) Elevated blood-pressure reading, w/o diagnosis of htnOther adverse food reaction, initial encounterOther allergic rhinitisModerate persistent asthma Shahzad Cheshil. [address] , [place], [address], [place]. tel:[phone] Referring Provider: Carlee Hopkins, [address] [place] [address], [facility]. tel:[phone] [facility], [address] [place] [address], [id number], tel:[phone] [facility] No Information Shahzad Cheshil. [address] , [place], [address], [place]. tel:[phone] Referring Provider: Carlee Hopkins, [address] [place] [address], [facility]. tel:[phone] [facility], [address] [place] [address], [id number], tel:[phone] [facility] [place] No Information Mis Prov. . Referring Provider: Carlee Hopkins, [address], [place], [address]. tel:[phone] Family History Family Member Type Diagnosis Age At Onset Problem No family history of Thyroid disorder Problem No family history of Rheumat oid arthritis Father Problem Rhinitis Paternal grandfather Problem Asthma Problem No family histor y of Systemic lupus erythematosus Payers Payer name Insurance type Covered democrat ID Authorearle bennett(s) [facility] [id number] [id number] Social History Type Description Quantity Date Captured [...]
--- OUTSIDE RECORDS SUMMARY | 2025-05-11 11:15 | XMS_ITS | Clinical Summary ---
Author Organization [facility] Address [address] [place] [address] Care Team Providers Care Survey Researcher Name Role Phone Unavailable Primary Care Provider Unavailabl e Source Comments [facility],non-owned Affiliates and Associated Physician Practices is amultiple site organization consisting of ambulatory clinics and hospital sitesin [place], [place], [place] and [place]. This disclosure is being madepursuant to the Care Everywhere program and may not contain all information available regarding this patient. Last updated 18.[facility] [employer] Allergies Active Allergy Reactions Criticality Noted Date [...] medical care, and heating? Somewhat hard 04/21/2023 [facility] [place] [facility] - Occupational [...] health care facility (including now)? No 04/21/2023 Comments No Sex and Gender Information Value Date Recorded Sex Assigned at Not on file Legal Sex Female 8:19 AM [facility] Gender Identity Not on file Sexual Orientation [...] Probe Negative Negative 04/22/2023 8:23 PM CDT [facility] GC Amplified Probe Negative Negative 04/22/2023 8:23 PM CDT [facility]CRO[facility] Microbiology PART OF UTERINE CERVIX / Unknown Collection / Unknown 04/21/2023 8:47 PM CDT 04/21/2023 9:01 PM CDT Narrative [facility] - 04/22/2023 8:23 PM CDT Results based on detection/no detection of ribosomal RNA by amplified method. Josie Gee MD LAB - MICROBIOLOGY ORDERABLES F inal Result [facility] [address] [place] [address], [facility] [phone] from Last 3 Months or Most Recently Relevant to Health Maintenance Insurance ANTHEM ANTHEM Advance Directives * Full Code (Latest Code Status on File) Date Activated Date Inactivated Comments 04/21/2023 6:59 PM 04/24/2023 1:02 PM
--- OUTSIDE RECORDS SUMMARY | 2025-05-11 11:15 | XMS_ITS | Continuity of Care Document ---
Author Organization [facility] Address [address] [place] [address] Phone Care Team Providers Care Folder And Notcher Name Role Phone Rach Ponce MD Unavailable [...] Diagnoses Date Provider Providers Copied on Encounter [facility], [address] [place] [address] [address], [address], [place] tel:[phone] [facility] Rt foot fx (chief complaint) Nondisplaced fracture of third metatarsal bone of right foot with routine healing, subsequent encounter Sep-2 1- 5 Hurst Rach . [address] [place] [address], [id number] . tel: [phone] [facility], [address] [place] [address] [address], [address], [place] tel:[phone] [facility] Follow Up of ON Rt foot fx (chief complaint) Closed fracture of metatarsal bone Sep-1 0-201 5 Kris Rach . [address] [place] [address], [id number] . tel:[phone] Referring Provider: Rebecca Sanders, [address], [place], [address] . tel:[phone] Family History Family Member Type Diagnosis Age At Onset No Information Payers Payer name Insurance type Covered republican ID Gustabo bennett(s) [employer] E2 OT [id number] Social History Type Description Quantity Date Captured [...]
--- OUTSIDE RECORDS SUMMARY | 2025-05-11 11:15 | XMS_ITS | Clinical Summary ---
Author Organization [facility] Address [address] [place] [address] Care Team Providers Care Enrober Name Role Phone Rebecca Ramirez MD Unavailable [phone] Carlee Hopkins NP Primary Care Provider [phone] Allergies Active Allergy Reactions Criticality Noted Date [...] and suggested counseling Mentioned walk-in clinic in [place] for mental health, encouraged to seek appointment today Assessment & Plan (12/24/2024 6:22 AM CDT): Uncontrolled Reviewed PHQ-2=1, previously 3, BARRIE-7=16, previously 3 Continued on citalopram 40 mg daily and buspirone, suggested increase in buspirone from 10 mg daily to 10 mg twice daily for better control of anxiety symptoms Assessment & Plan (10/16/2024 8:40 AM INK GRINDER): Controlled Reviewed PHQ-9=3, BARRIE-7=3 Continued on buspirone 10 mg daily and citalopram 40 mg daily Assessment & Plan (08/05/2024 6:31 AM INK GRINDER): Chronic, stable, controlled on medication Continued on [...] times Assessment & Plan (10/16/2024 8:41 AM INK GRINDER): Advised to check expiration date on EpiPen and to notify office if Is aware to carry at all times for possible accidental ingestion Assessment & Plan (08/05/2024 6:29 AM INK GRINDER): Instructed to carry EpiPen at all times [...] and suggested counseling Mentioned walk-in clinic in [place] for mental health, encouraged to be seen [...] safety Assessment & Plan (10/16/2024 8:41 AM INK GRINDER): Controlled Reviewed PHQ-9=3, BARRIE-7=3 Continued on bupropion [...] safety Assessment & Plan (10/10/2022 9:00 AM INK GRINDER): Patient with recurrent depression, will increase sertraline [...] control. Assessment & Plan (08/10/2022 8:27 AM INK GRINDER): Patient presents today for evaluation of recurrent [...] ideation. Assessment & Plan (11/15/2021 4:04 AM INK GRINDER): Patient with recurrent depression, she states that her current regimen is working well for her and she would like to continue on this. She denies any adverse effects and denies any suicidal or homicidal ideation. Assessment & Plan (09/26/2021 1:53 PM INK GRINDER): Symptoms seem to be worsening since increasing Wellbutrin. Recommend decreasing Wellbutrin to 150 mg once daily and starting low-dose Lexapro. Patient does have follow-up scheduled with PCP in 1 month. Recent labs reviewed. TSH within normal limits in April 2021 Assessment & Plan (08/14/2021 6:16 PM INK GRINDER): Patient with depression, and states that symptoms [...] times Assessment & Plan (10/16/2024 8:41 AM INK GRINDER): Advised to check expiration date on EpiPen and to notify office if Is aware to carry at all times for possible accidental ingestion Assessment & Plan (08/05/2024 6:29 AM INK GRINDER): Instructed to carry EpiPen at all times [...] needed Assessment & Plan (10/16/2024 8:39 AM INK GRINDER): Uncontrolled Discontinued Flovent Started on Breo 200-25 daily Continued on albuterol as directed as needed Assessment & Plan (09/18/2024 4:40 PM INK GRINDER): AFVSS, exam benign Recommend restarting daily inhaler [...] 12/24/2024 Assessment & Plan (08/05/2024 6:31 AM INK GRINDER): Acute, seen in ER last evening, with symptoms occurring immediately after drinking a protein shake for the 1st time, protein shake contained whey protein, soy, and dairy, and other ingredients Reviewed patient's cell phone Encouraged to avoid protein shake Advised to carry EpiPen at all times Instructed return to ER if symptoms should recur Referral made to vet assistant sree Martinez 07/06/2024 07/21/2024 Assessment & Plan [...] 01/16/2024 Assessment & Plan (10/10/2022 9:01 AM INK GRINDER): Patient with incidental and states that she is about 4 weeks , discussed risks and benefits of current medications advised that it is okay to proceed on sertraline as this is a safe medication during , and benefits outweigh risk at this time. IUD (intrauterine device) in place 08/10/2022 10/06/2022 Assessment & Plan (08/10/2022 8:28 AM INK GRINDER): Patient states that she has had IUD [...] 08/10/2022 Assessment & Plan (08/03/2022 5:44 PM INK GRINDER): Rapid strep positive. Antibiotic ordered today. Discussed [...] 11/02/2021 Assessment & Plan (09/26/2021 1:54 PM INK GRINDER): BMI Follow-up includes: education provided. Dysuria 06/23/2021 [...] 03/07/202103/10 Assessment & Plan (11/15/2021 4:04 AM INK GRINDER): Plan as above. Assessment & Plan (06/23/2021 [...] Description 04/09/2025 2:30 PM CDT Office Visit [facility] Primary Care at [address] [phone] Carlee Hopkins NP Annual physical exam (Primary Dx); Rectal bleeding; External hemorrhoids; Moderate persistent asthma without complication; Recurrent major depressive disorder, in partial remission; BARRIE (generalized anxiety disorder); Tree nut allergy; Allergy to peanuts; Canker sore; Allergic rhinitis due to animal hair and dander 04/07/2025 Nurse Triage [facility] Primary [facility] at [address] [phone] Carlee Melendez RN 04/07/2025 Telephone [facility] at [address] [phone] Carlee Hopkins NP Recommendation Request 03/13/2025 Results Follow-Up [facility] Emergency Department [address] [place] [address] Cris Kinney PA Urine culture Urine 03/12/2025 9:15 AM CDT Office Visit [facility] Primary [facility] at [address] [phone] Carlee Hopkins NP Interscapular pain (Primary Dx); Acute bilateral thoracic back pain; Acute bilateral low back pain without sciatica; Acute nonintractable headache, unspecified headache type 03/09/2025 8:44 AM CDT - 03/09/2025 12:21 PM CDT Emergency [facility] Emergency Department [address] [place] [address] Acute left-sided thoracic back pain (Primary Dx); Cystitis Discharge Disposition: Discharge to home or self care 02/18/2025 Telephone [facility] Medicine [address] [facility] [address] [place] [address] Hank Aguilar DO from Last [...] on file Legal Sex Female 11:52 PM INK GRINDER Gender Identity Female 12/09/2021 8:41 PM CDT [...] Vag-S pont N Living Complications:Pre eclampsia Delivery Location:[facility] in [place] Last Filed Vital Signs Vital Sign Reading [...] GONORRHOEAE/C. TRACHOMATIS AMPLIFICATION Routine 10/21/2022 11:02 AM INK GRINDER Early stage of HEPATITIS C ANTIBODY Routine 10/21/2022 10:59 AM INK GRINDER Early stage of from Last 3 Months [...] was last reviewed 2021. Testing performed by: [facility], [address] [place] [address]., [address] Blood 03/09/2025 9:26 AM CDT 03/09/2025 9:32 AM CDT us Cris MADDEN LAB BLOOD ORDERABLES Final R esult NAYE [address] [facility] [place] [address] * (ABNORMAL) Differential, auto (03/09/2025 9:26 AM CDT) Neutrophil abs 10.65(H) 1.50 - 6.50 K/cumm Comment:Testing performed by : [address] [address] Imm gran abs 0.07 0.00 - 0.10 K/cumm NAYE Comment:Testing performed by : [address] [address] Lymphocyte abs 0.73(L) 0.80 - 3.30 K/cumm NAYE Comment:Testing performed by : [address] [address] Monocyte abs 0.83(H) 0.20 - 0.80 K/cumm NAYE Comment:Testing performed by : [address] [address] Eosinophil abs 0.09 0.00 - 0.50 K/cumm NAYE Comment:Testing performed by : [address] [address] Basophil abs 0.05 0.00 - 0.10 K/cumm NAYE Comment:Testing performed by : [address] [address] Neutrophil pct 85.7 % NAYE Comment: Interpretive Data Percent cell count reference ranges are not reported, since discordance with absolute values may lead to misinterpretation of CBC data. Current Interpretive Data was last revised on 2018. Testing performed by: [address] [address] Imm gran pct 0.6 % NAYE Comment: Interpretive Data Percent cell count reference ranges are not reported, since discordance with absolute values may lead to misinterpretation of CBC data. Current Interpretive Data was last revised on 2018. Testing performed by: [address] [address] Lymphocyte pct 5.9 % NAYE Comment: Interpretive Data Percent cell count reference ranges are not reported, since discordance with absolute values may lead to misinterpretation of CBC data. Current Interpretive Data was last revised on 2018. Testing performed by: [address] [address] Monocyte pct 6.7 % NAYE Comment: Interpretive Data Percent cell count reference ranges are not reported, since discordance with absolute values may lead to misinterpretation of CBC data. Current Interpretive Data was last revised on 2018. Testing performed by: [address] [address] Eosinophil pct 0.7 % NAYE Comment: Interpretive Data Percent cell count reference ranges are not reported, since discordance with absolute values may lead to misinterpretation of CBC data. Current Interpretive Data was last revised on 2018. Testing performed by: [address] [address] Basophil pct 0.4 % NAYE Comment: Interpretive Data Percent cell count reference ranges are not reported, since discordance with absolute values may lead to misinterpretation of CBC data. Current Interpretive Data was last revised on 2018. Testing performed by: [address] [address] Blood 03/09/2025 9:26 AM CDT 03/09/2025 9:32 AM CDT us Cris MADDEN LAB BLOOD ORDERABLES Final [facility]ult [facility] [address] [facility] [place] [address] * (ABNORMAL) Urinalysis reflex to microscopic and culture Urine (03/09/2025 9:26 AM CDT) Color, ur Yellow Yellow Comment:Testing performed by : [address] [address] Clarity, ur Cloudy(A) Clear NAYE Comment:Testing performed by : [address] [address] Specific gravity, ur 1.025 1.003 - 1.030 NAYE Comment:Testing performed by : [address], [place]., [address] pH, urine 6.5 NAYE Comment: Interpretive Data U rine pH is affected by diet, medications, systemic acid-base disturbances, and renal tubular function. pH may affect urinary stone formation. For example, urine pH below 6.0 may help reduce the tendency for calcium phosphate stones and pH greater than 6.0 may reduce the tendency for uric acid stone formation. Source: [facility] [employer] Current Interpretive Data was last revised on 2017 Testing performed by: [address] [address] Protein, ur ql 1+(A) Negative NAYE Comment:Testing performed by : [address] [address] Glucose, ur ql Negative Negative NAYE Comment:Testing performed by : [address] [address] Ketones, ur Negative Negative NAYE Comment:Testing performed by : [address] [address] Bilirubin, ur Negative Negative NAYE Comment:Testing performed by : [address] [address] Blood, ur 1+(A) Negative NAYE Comment:Testing performed by : [address] [address] Urobilinogen, ur <2.0 <2.0 mg/dL NAYE Comment:Testing performed by : [address] [address] Nitrite, ur Positive(A) Negative NAYE Comment:Testing performed by : [address] [address] Leukocyte esterase, ur 2+(A) Negative NAYE Comment:Testing performed by : [address] [address] UA reflex comment Reflex to microscopic UA will be performed. NAYE Comment:Testing performed by : [address] [address] Urine 03/09/2025 9:26 AM CDT 03/09/2025 9:32 AM CDT us Cris MADDEN LAB MICROBIOLOGY - GENERAL O RDERABLES Final Result NAYE [address] [facility] Department [place] [address] * (ABNORMAL) CBC with auto differential (03/09/2025 9:26 AM CDT) WBC 12.42(H) 3.80 - 9.90 K/cumm Comment:Testing performed by : [address] [address] Hgb 12.3 11.9 - 15.5 g/dL NAYE Comment:Testing performed by : [address] [address] Hct 35.8 35.6 - 45.5 % NAYE Comment:Testing performed by : [address] [address] Plt 263 150 - 400 K/cumm NAYE Comment:Testing performed by : [address] [address] MPV 9.1 9.1 - 12.3 fL NAYE Comment:Testing performed by : [address] [address] RBC 4.24 3.90 - 5.20 M/cumm NAYE SHEARER Comment:Testing performed by : [address] [address] MCV 84.4 81.3 - 96.4 fL NAYE Comment:Testing performed by : [address] [address] MCH 29.0 27.1 - 33.3 pg NAYE SHEARER Comment:Testing performed by : [address] [address] MCHC 34.4 32.3 - 35.7 g/dL NAYE SHEARER Comment:Testing performed by : [facility], [address] [place] [address], [place]., [address] RDW CV 12.8 11.1 - 14.9 % NAYE SHEARER Comment:Testing performed by : [facility], [address] [place] [address], [place]., [address] RDW SD 39.0 35.7 - 48.1 fL NAYE SHEARER Comment:Testing performed by : [address], [place]., [address] NRBC abs 0.00 0.00 - 0.01 K/cumm NAYE Comment:Testing performed by : [address], [place]., [address] Blood 03/09/2025 9:26 AM CDT 03/09/2025 9:32 AM CDT us Cris MADDEN LAB BLOOD ORDERABLES Final R esult Performing Organization Address City/State/[facility] Co de Phone Number NAYE [address] [facility] Department [place] [address] * (ABNORMAL) Urinalysis, microscopic only (03/09/2025 9:26 AM CDT) WBC, ur 21-50(A) 0 - 5 /HPF Comment:Testing performed by : [address] [address] RBC, ur 11-20(A) 0 - 2 /HPF NAYE SHEARER Comment:Testing performed by : [address] [address] Epithelial cells, squamous, ur >50(A) 0 - 5 /HPF NAYE Comment:Testing performed by : [address], [place]., [address] Mucous, ur Present(A) NAYE SHEARER Comment:Testing performed by : [address] [address] Culture Reflex Comment Reflex to urine culture will be performed. NAYE SHEARER Comment:Testing performed by : [address], [place]., [address] Urine 03/09/2025 9:2 6 AM CDT 03/09/2025 9:32 AM CDT us Cris MADDEN LAB URINE ORDERABLES Final R esult NAYE [address] [facility] Department [place] [address] * (ABNORMAL) Urine culture Urine (03/09/2025 9:26 AM CDT) Report Final Report: Greater than or equal to 100,000 colonies/mL of Klebsiella (Enterobacter) aerogenes (.) Comment:Testing performed by : [facility], [address] [place]., [address] Organism KLEBSIELLA (ENTEROBACTER) AEROGENES NAYE Urine 03/09/2025 9:26 AM CDT 03/09/2025 1:49 PM CDT Narrative NAYE - 03/11/2025 11:29 AM CDT Urine culture reflexed based upon urinalysis results. Testing performed by [facility] Microbiology Laboratory ([phone]) Organism Antibiotic Method Susceptibility Klebsiella (Enterobacter) aerogenes [...] - GENERAL O RDERABLES Final Result NAYE [facility] Department [place] [address] * Comprehensive metabolic panel (03/09/2025 9:26 AM CDT) Sodium 137 135 - 145 mmol/L Comment:Testing performed by : [address], [place]., [address] Potassium, pl 3.4 3.3 - 4.9 mmol/L NAYE Comment:Testing performed by : [address], [place]., [address] Chloride 103 97 - 110 mmol/L NAYE Comment:Testing performed by : [address], [place]., [address] CO2 24 22 - 32 mmol/L NAYE Comment:Testing performed by : [address], [place]., [address] Anion gap 10 2 - 15 mmol/L NAYE Comment:Testing performed by : [address], [place]., [address] BUN 12 6 - 25 mg/dL NAYE Comment:Testing performed by : [address], [place]., [address] Creatinine 1.06 0.60 - 1.10 mg/dL NAYE Comment:Testing performed by : [address], [place]., [address] Glucose 92 70 - 199 mg/dL [facility] Comment: Interpretive Data Fasting glucose >/= [...] was last revised 2022. Testing performed by: [address] [address] Calcium 9.1 8.5 - 10.3 mg/dL NAYE Comment:Testing performed by : [address], [place]., [address] Bilirubin, total 0.9 0.1 - 1.2 mg/dL NAYE Comment:Testing performed by : [address] [address] Protein, pl 6.7 6.5 - 8.5 g/dL NAYE Comment:Testing performed by : [address] [address] Albumin 4.3 3.5 - 5.0 g/dL NAYE Comment:Testing performed by : [address] [address] Alk phos 74 40 - 130 Units/L NAYE Comment:Testing performed by : [address], [place]., [address] ALT 17 7 - 45 Units/L NAYE Comment:Testing performed by : [address] [address] AST 18 10 - 45 Units/L NAYE Comment:Testing performed by : [address] [address] Blood 03/09/2025 9:26 AM CDT 03/09/2025 9:32 AM CDT Cris MADDEN LAB BLOOD ORDERABLES Final R esult NAYE [address] [facility] Department of Laboratories [place], [place] [id number] * POCT hCG, urine (03/09/2025 8:14 AM CDT) Pathologist [facility] HCG, ur, POC Negative Negative Lot Number [id number] QC Backgroud Clear Acceptable QC Control Line Acceptable Urine 03/09/2025 8:14 AM CDT Paco Metcalf DO POINT OF CARE TEST ORDERABL ES Final Result * N. gonorrhoeae/C. trachomatis Amplification Urine (10/21/2022 11:02 AM INK GRINDER) Pathologist [facility] C. trachomatis Not Detected Not Detected [facility] Comment:Testing performed by : [facility], [address] [place]., [address] N. gonorrhoeae Not Detected Not Detected [facility] Comment: Interpretive Data Testing performed by the [facility] Laboratory. This assay detects Chlamydia trachomatis and Neisseria gonorrhoeae by nucleic acid amplification testing (NAAT). This test is approved by the [facility] Food and Drug Administration and the performance characteristics have been verified by the laboratory. The performance characteristics of this test have not been evaluated in individuals less than 14 years of age. Current Interpretive Data was last revised on 2018. Testing performed by: [facility], [address] [place] [address]., [address] Urine (None) 10/21/2022 11:0 2 AM INK GRINDER 10/21/2022 2:00 PM INK GRINDER [facility] LAB MICROBIOLOGY - GENERA L ORDERABLES Final Result Performing Organization Address City/[facility] Co de Phone Number [facility] [address] [place] [address] * Hepatitis C antibody (10/21/2022 10:59 AM INK GRINDER) Pathologist [facility] Hep C Ab Nonreactive Nonreactive [facility] Comment: Antibodies to HCV not detected. Does NOT exclude the possibility of recent exposure to HCV. Current interpretive data was last revised on 22 Testing performed by: [facility], [address] [place] [address]., [address] Blood 10/21/2022 10:5 9 AM INK GRINDER 10/21/2022 1:30 PM INK GRINDER Christiane Sparkle [facility] LAB MICROBIOLOGY - GENERA L ORDERABLES Final Result Performing Organization Address City/[facility]/ZIP Co de Phone Number [facility] [address] [place] [address] from Last 3 Months or Most Recently Relevant to Health Maintenance Insurance [facility] FEDERAL Member Subscriber Plan / Payer (Ef fective 2020-Present) Name:Lana Arriaza Relation to Subscriber:Child Name:BERNARDO ARRIAZA Date of :1975 (Home) Address: [address] [place] [phone] Payer ID:[id number] (NAIC) Group ID:[id number] Type:Kenguru Address: [facility] [id number] [place] [address] [facility] IDPA [employer]TH [employer]ADITIONAL Care Teams Enrober Relationship Specialty Start Date End Date Carlee Hopkins NP [address] [place] [id number] PCP - General Family Medicine 01/16/24 Rebecca Ramirez MD [address] [place] [address] [address] [address] 08/15/19
--- OUTSIDE RECORDS SUMMARY | 2025-05-12 00:44 | XMS_ITS | Patient Health Record ---
Author Organization [facility] Address [address] [place] [address] Care Team Providers Care Clubhouse Attendant Name Role Phone Carlee Campos Primary Care Provider UnavailMarilu Hernandez Unavailable [phone] Ken Rizo Unavailable [phone] Allergies Allergen (clinical drug ingredient) Drug/Non Drug Allergy documented on EMR Reaction Allergy Type Onset Date Status PEANUTS (uncoded) Unknown Allergy Ac tive TREENUTS (uncoded) Unknown Allergy A ctive Results Component Value Reference Range Flag Notes UDT Reviewed date:03/02/2025 10:50:39 AM Interpretation: Performing Lab: Notes/Report: THC n 0 - 50 ng/ml Cocaine n 0 - 300 ng/ml Amphetamine p 0 - 1000 ng/ml Buprenorphine (BUP) n 0 - 10 ng/ml Secobarbital (Bar) n 0 - 300 ng/ml Oxazepam (BZO) p 0 - 300 ng/ml 1-jiljiujnxe-8,8-cqdtjxuq-4, 3-diph enylpyrrolidine (EDDP) n 0 - 300 ng/ml Methamphetamine (MET) n 0 - 1000 ng/ml Methylenedioxymethamphetamin e (MDMA) n 0 - 500 ng/ml Morphine (MOP 300/[id number]) n 0 - 300 ng/ml Methadone (MTD) [...] Oxazepam (BZO) p 0 - 300 ng/ml 5-krpewlfihg-6,9-coystrmo-6, 3-diph enylpyrrolidine (EDDP) n 0 - 300 ng/ml Methamphetamine (MET) n 0 - 1000 ng/ml Methylenedioxymethamphetamin e (MDMA) n 0 - 500 ng/ml Morphine (MOP 300/[id number]) n 0 - 300 ng/ml Methadone (MTD) n 0 - 300 ng/ml Phencyclidine (PCP) n 0 - 25 ng/ml Nortriptyline (TCA) n 0 - 1000 ng/ml Oxycodone n 0 - 300 ng/ml x n 0 - 300 ng/ml UDT Reviewed date:01/27/2025 02:54:02 PM Interpretation: Performing Lab: Notes/Report: THC n 0 - 50 ng/ml Cocaine n 0 - 300 ng/ml Amphetamine n 0 - 1000 ng/ml Buprenorphine (BUP) n 0 - 10 ng/ml Secobarbital (Bar) n 0 - 300 ng/ml Oxazepam (BZO) n 0 - 300 ng/ml 5-yudidoiijm-6,0-ullgrxwi-8, 3-diph enylpyrrolidine (EDDP) n 0 - 300 ng/ml Methamphetamine (MET) n 0 - 1000 ng/ml Methylenedioxymethamphetamin e (MDMA) n 0 - 500 ng/ml Morphine (MOP 300/QGO4444) n 0 - 300 ng/ml Methadone (MTD) [...] Oxazepam (BZO) N 0 - 300 ng/ml 0-zcqjgsxbkg-3,7-hmeturin-3, 3-diph enylpyrrolidine (EDDP) N 0 - 300 ng/ml Methamphetamine (MET) N 0 - 1000 ng/ml Methylenedioxymethamphetamin e (MDMA) N 0 - 500 ng/ml Morphine (MOP 300/[id number]) N 0 - 300 ng/ml Methadone (MTD) N 0 - 300 ng/ml Phencyclidine (PCP) N 0 - 25 ng/ml Nortriptyline (TCA) N 0 - 1000 ng/ml Oxycodone N 0 - 300 ng/ml Amphetamine Reviewed date:02/22/2025 07:05:20 PM Interpretation: Performing Lab: Notes/Report: Stimulants Reviewed date:02/22/2025 07:05:20 PM Interpretation: Performing Lab: Notes/Report: Phentermine NEGATIVE 100.0 ng/mL Not Medicate d Consistent Methylphenidate NEGATIVE 50.0 ng/mL Not Medic ated Consistent Methamphetamine NEGATIVE 100.0 ng/mL Not Medi cated Consistent Amphetamine 1909.4 100.0 ng/mL POSITIVE Medicated Consistent Benzodiazepines Reviewed date:02/22/2025 07:05:20 PM Interpretation: Performing Lab:[address] [place] [address], [address] [place] [address], Director - [id number] Notes/Report: An exception occurred while processing this report and so it has incomplete data. Please contact [employer] for assistance. Not Medicated Consistent Not Medicated Consistent Not Medicated Consistent Not Medicated Consistent Not Medicated Consistent Medicated Consistent Not Medicated Consistent Not Medicated Consistent Not Medicated Consistent Not Medicated Consistent 7-Aminoclonazepam NEGATIVE 20.0 ng/mL Temazepam NEGATIVE 40.0 ng/mL Oxazepam NEGATIVE 40.0 ng/mL Midazolam NEGATIVE 40.0 ng/mL Lorazepam 126.9 40.0 ng/mL POSITIVE Nordiazepam NEGATIVE 40.0 ng/mL Diazepam NEGATIVE 40.0 ng/mL Clonazepam NEGATIVE 20.0 ng/mL Hydroxyalprazolam NEGATIVE 20.0 ng/mL Alprazolam NEGATIVE 20.0 ng/mL PDF Report [id number] Validity Testing Reviewed date:02/22/2025 07:05:20 PM Interpretation: Performing Lab: Notes/Report: Not Medicated Consistent Not Medicated Consistent Not Medicated Consistent Not Medicated Consistent Specific Stanford 1.009 1.003 - 1.030 pH 6.6 3.0 - 10.9 Oxidants 0 200 g/mL Creatinine 40.1 20.0 - 300.0 mg/dL Reason For Referral No Information Medications Medication SIG (Take, Route, Frequency, Duration) Notes Start Date End Date Status Amphetamine-Dextroamphet ER 20 MG Capsule Extended Release 24 Hour 1 capsule every morning Orally Once a day; Duration: 30 days 05/07/2025 Active LORazepam 0.5 MG Tablet 1 tablet at bedt tammy as needed Orally twice a day; Duration: 30 days Active guanFACINE HCl ER 1 MG Tablet Extended Release 24 Hour 1 tablet Orally daily; Duration: 30 days 05/07/2025 Active buPROPion HCl ER (XL) 300 MG Tablet Extended Release 24 Hour 1 tablet every morning Oral Once a day; Duration: 90 days Active busPIRone HCl 15 MG Tablet TAKE 1 TABLET BY MOUTH TWICE DAILY; Duration: 90 Active busPIRone HCl 15 MG Tablet 1 tablet Oral Twice a day; Duration: 90 days Active Citalopram Hydrobromide 40 MG Tablet TAKE 1 TABLET BY MOUTH DAILY; Duration: 90 Active Social History Tobacco Use: Social History Observation Description Date Details (start date - stop date) Never Smoker NA - NA Sex Assigned At : Social History Observation Description Sex Assigned At Female Social History Miscellaneous: Social Info Question Answer Notes Safety issues: Are there any firearms in the house? Ye s Social History Social Info Question Answer Notes Household: Marital Status: Single Number of Adults in household: 2 Number of Children in Household: 2 Level of Education: Finished High School Drug/Alcohol: Social Info Question Answer Notes Drugs Have you used drugs other than those for medical reasons in the past 12 months? No AUDIT-C (Standard) Did you have a drink containing alcohol in the past year? Yes How often did you have six or more drinks on one occasion in the past year? Never (0 point) How many drinks did you have on a typical day when you were drinking in the past year? 1 or 2 drinks (0 point) How often did you have a drink containing alcohol in the past year? 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 [employer] Problems Problem Type SNOMED Code ICD Code Onset Dates Problem Status W/U Status Risk Notes Problem Severe recurrent major depression without psychotic features (05309754) Major depressive disorder, recurrent severe without psychotic features (F33.2) Active confirmed Problem Generalized anxiety disorder (73277502) Generalized anxiety disorder (F41.1) Active confirmed Problem Attention deficit hyperactivity disorder (233434544) ADHD (attention deficit hyperactivity disorder), combined type (F90.2) Active confirmed Problem Attention deficit hyperactivity disorder (675113251) Attention deficit hyperactivity disorder (ADHD), unspecified ADHD type (F90.9) Active confirmed Problem Unable to concentrate (finding) (70352716) Difficulty concentrating (R41.840) Active confirmed Vital Signs [...] N/A Encounters Encounter Location Date Provider Diagnosis [facility] [address] [address] 01/14/2025 Marilu Kurilla Major depressive disorder, recurrent severe without psychotic features F33.2 ; Generalized anxiety disorder F41.1 ; Difficulty concentrating R41.840 ; Encounter for screening for cardiovascular disorders Z13.6 and Encounter for screening for depression Z13.[address] [facility] [address] [address] 01/19/2025 Ken Rizo Attention deficit hyperactivity disorder (ADHD), unspecified ADHD type F90.9 [facility] [address] [address] 01/26/2025 Marilu Kurilla Major depressive disorder, recurrent severe without psychotic features F33.2 ; Generalized anxiety disorder F41.1 ; ADHD (attention deficit hyperactivity disorder), combined type F90.2 ; Encounter for screening for depression Z13.31 and Encounter for screening for cardiovascular disorders Z13.6 [facility] [address] [place] [address] 01/27/2025 Marilu Kurilla Major depressive disorder, recurrent severe without psychotic features F33.2 ; Generalized anxiety disorder F41.1 ; ADHD (attention deficit hyperactivity disorder), combined type F90.2 ; Encounter for screening for cardiovascular disorders Z13.6 and Encounter for screening for depression Z13.31 [place] [address] [place] [address] 02/11/2025 Marilu Kurilla Major depressive disorder, recurrent severe without psychotic features F33.2 ; Generalized anxiety disorder F41.1 ; ADHD (attention deficit hyperactivity disorder), combined type F90.2 ; Encounter for screening for depression Z13.31 ; Encounter for screening for cardiovascular disorders Z13.6 and High risk medication use Z79.899 [place] [address] [facility] [address] [place] [address] 03/02/2025 Marilu Kurilla Major depressive disorder, recurrent severe without psychotic features F33.2 ; Generalized anxiety disorder F41.1 ; ADHD (attention deficit hyperactivity disorder), combined type F90.2 ; Encounter for screening for depression Z13.31 ; Negative depression screening Z13.31 and Encounter for screening for cardiovascular disorders Z13.6 [place] [address] [facility] [address] [place] [address] 04/16/2025 Marilu Mcqueen [facility], [place] [address] [place] [address] 05/07/2025 Marilu Kurilla Major depressive disorder, recurrent severe without psychotic features F33.2 ; Generalized anxiety disorder F41.1 and ADHD (attention deficit hyperactivity disorder), combined type F90.2 [facility] [address] [place] [address] 01/28/2025 Mariluharmony Mcqueen [facility], [place] [address] [place] [address] 01/29/2025 Marilu Kurilla Generalized anxiety disorder F41.1 [place] [address] [place] [address] 01/14/2025 Mariluharmony Mcqueen [facility] [address] [place] [address] 01/14/2025 Marilu Mcqueen [facility], [facility] [address] [place] [address] 01/26/2025 Marilu Mcqueen ADHD (attention defi cit hyperactivity disorder), combined type F90.2 [facility], [facility] [address] [place] [address] 01/27/2025 Marilu Mcqueen [facility], [facility] [address] [place] [address] 01/27/2025 Marilu Mcqueen [facility], [facility] [address] [place] [address] 01/27/2025 Marilu Mcqueen [facility], [facility] [address] [place] [address] 01/27/2025 Marilu Mcqueen [facility], [facility] [address] [place] [address] 01/27/2025 Marilu Mcqueen [facility], [facility] [address] [place] [address] 01/27/2025 Marilu Mcqueen [facility], [facility] [address] [place] [address] 01/27/2025 Marilu Mcqueen [facility], [facility] [address] [place] [address] 01/27/2025 Marilu Mcqueen [facility], [facility] [address] [place] [address] 01/27/2025 Marilu Mcqueen [facility], [facility] [address] [place] [address] 02/04/2025 Marilu Mcqueen [facility], [facility] [address] [place] [address] 02/05/2025 Marilu Mcqueen [facility], [facility] [address] [place] [address] 02/07/2025 Marilu Mcqueen [facility], [facility] [address] [place] [address] 02/07/2025 Marilu Mcqueen [facility], [facility] [address] [place] [address] 02/09/2025 Marilu Charisse [facility], [facility] [address] [place] [address] 02/11/2025 Mariluharmony Maravillaangie [facility], [facility] [address] [place] [address] 02/11/2025 Marilu Charisse [facility], [facility] [address] [place] [address] 02/11/2025 Marilu Charisse [facility], [facility] [address] [place] [address] 02/17/2025 Mariluharmony Mcqueen [facility], [facility] [address] [place] [address] 02/21/2025 Mariluharmony Maravillaangie [facility], [facility] [address] [place] [address] 02/23/2025 Mariluharmony Mcqueen [facility], [facility] [address] [place] [address] 02/23/2025 Mariluharmony Maravillaangie [facility], [facility] [address] [place] [address] 03/31/2025 Mariluharmony Mcqueen ADHD (attention defi cit hyperactivity disorder), combined type F90.2 [facility] [address] [place] [address] 05/05/2025 Marilu Mcqueen ADHD (attention defi cit [...] attention and reduces cognitive interference. Apps like [employer] or [employer] Timer can support this. 3. Metacognitive Strategy [...] policy, only prescribed to local pharmacy in [place], no early refills on control substance. 02/11/2025 [...] policy, only prescribed to local pharmacy in [place], no early refills on control substance. 01/14/2025 [...] normal limits are seen, we consult a algorithm developer to determine whether the results are sufficiently [...] policy, only prescribed to local pharmacy in [place], no early refills on control substance. 01/27/2025 [...] policy, only prescribed to local pharmacy in [place], no early refills on control substance. 01/26/2025 [...] policy, only prescribed to local pharmacy in [place], no early refills on control substance. 03/02/2025 [...] therapeutic effects of psychotropic medications. -Crisis prevention [facility] 988. 01/26/2025 Other [facility] Clinical Report ADHD [...] therapeutic effects of psychotropic medications. -Crisis prevention [facility] 988. 01/27/2025 Other Start short term lorazepam 0.5mg BID PRN- discussed not intended for medical terminologist, use for short term for panic attacks [...] of psychotropic medications. -Crisis prevention hotline 988. 02/11/2025 Other Increase Adderall ER to [...] therapeutic effects of psychotropic medications. -Crisis prevention [facility] 988. 03/02/2025 Other Increase Adderall ER to 25mg [...] therapeutic effects of psychotropic medications. -Crisis prevention [facility] 988. 05/07/2025 Other Decrease Adderall back to [...] therapeutic effects of psychotropic medications. -Crisis prevention [place] [address]. Plan Of Treatment Pending Test Test Name Order Date DRUG MONITOR,AMPHETAMINE, QN, URINE (393 85) 02/11/2025 DRUG MONITOR,AMPHETAMINE, W/DL, QN URINE (40867) 02/11/2025 DRUG MONITOR,BARBITURATE, QN, URINE (393 87) 02/11/2025 DRUG MONITOR, BENZO, QN, URINE (58377) 0 02/11/2025 DRUG MONITOR, MARIJUANA METAB, QN, URINE (83984) 02/11/2025 DRUG MONITOR, METHADONE METAB, QN, URINE (63697) 02/11/2025 DRUG MONITOR, OPIATES EXPANDED, QN, URIN E (53972) 02/11/2025 DRUG MONITOR, PCP, QN, URINE (76461) DRUG MONITOR, FENTANYL, QN, URINE (11556 ) 02/11/2025 DRUG MONITOR, BUP AND NALOXONE,QN,URINE (56574) 02/11/2025 DRUG MONITOR,CARISOPRODOL METAB, QN, URI NE (67626) 02/11/2025 DRUG MONITOR, TRICYCLIC ANTIDEPRESS, QN, URINE (24150) 02/11/2025 DRUG MONITOR, GABAPENTIN, QN, URINE (394 07) 02/11/2025 DRUG MONITOR, MEPERIDINE, QN, URINE (394 08) 02/11/2025 DRUG MONITOR, TRAMADOL, QN, URINE (03929 ) 02/11/2025 DRUG MONITOR, PREGABALIN, QN, URINE (394 10) 02/11/2025 DRUG MONITOR, MDMA/MDA, QN, URINE (36911 ) 02/11/2025 DRUG MONITOR, ALCOHOL METAB, W/CONF, URI NE (81356) 02/11/2025 DRUG MONITOR,METHYLPHENID METAB, QN, URI NE (81868) 02/11/2025 DRUG MONITOR, COCAINE METAB, QN, URINE ( 55451) 02/11/2025 PRESCRIBED DRUGS, medMATCH(R) (74106) SPECIMEN VALIDITY TEST PANEL (75066) DRUG MONITOR, METHAMPHETAMINE D/L,U (394 13) 02/11/2025 DRUG MONITOR, ZOLPIDEM, QN, URINE (48307 ) 02/11/2025 DRUG MONITOR, NALTREXONE, QN, URIN (3941 4) 02/11/2025 Next Appt Details Provider Name:Marilu juárez, 05/12/2025 11:00:00 AM, [address], [address], [address], Provider Name:Marilu juárez, 06/08/2025 01:45:00 PM, [address], [facility] [address], [place], [address], Insurance Providers Payer Name Payer Address Payer Phone Subscriber Number Group Number Insured Name Patient Relationship to Insured Coverage Start Date Coverage End Date [employer] [employer] [address] [place] [address] [id number] GLENN ARRIAZA Self - patient is the [...]
--- OUTSIDE RECORDS SUMMARY | 2025-05-12 00:44 | XMS_ITS | Encounter Summary ---
Author Organization [facility] Address [address] [place] [address] Care Team Providers Care Portable Track Crew Chief Name Role Phone Rebecca Ramirez MD Unavailable [phone] Carlee Hopkins NP Primary Care Provider [phone] Reason for Visit * Reason Comments Abscess Encounter Details Date Type Department Care Team (Late st Contact Info) Description 05/11/2025 6:24 PM CDT - 05/11/2025 8:01 PM CDT Emergency [facility] Emergency Department [facility] [place] [address] Cellulitis of right lower extremity [...] on file 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 * Cellulitis (Discharge Care) (Yemeni) documented in this encounter Medications at Time [...] the patient to follow-up with: Carlee Hopkins, LABORATORY HELPER [address] [place] [address] Schedule an appointment as soon as [...] was last reviewed 2021. Testing performed by: [address] [address] Blood 05/11/2025 7:19 PM CDT 05/11/2025 7:26 PM CDT Melissa Chaves LABORATORY HELPER LAB BLOOD ORDERABLES Fin al Result NAYE [facility] [place] [address] * Differential, auto (05/11/2025 7:19 PM CDT) Neutrophil abs 5.04 1.50 - 6.50 K/cumm Comment:Testing performed by : [address] [address] Imm gran abs 0.03 0.00 - 0.10 K/cumm NAYE Comment:Testing performed by : [address] [address] Lymphocyte abs 1.86 0.80 - 3.30 K/cumm NAYE Comment:Testing performed by : [address] [address] Monocyte abs 0.62 0.20 - 0.80 K/cumm NAYE Comment:Testing performed by : [address] [address] Eosinophil abs 0.25 0.00 - 0.50 K/cumm NAYE Comment:Testing performed by : [address] [address] Basophil abs 0.03 0.00 - 0.10 K/cumm NAYE Comment:Testing performed by : [address] [address] Neutrophil pct 64.3 % NAYE Comment: Interpretive Data Percent cell count reference ranges are not reported, since discordance with absolute values may lead to misinterpretation of CBC data. Current Interpretive Data was last revised on 2018. Testing performed by: [address] [address] Imm gran pct 0.4 % [facility] Comment: Interpretive Data Percent cell count reference ranges are not reported, since discordance with absolute values may lead to misinterpretation of CBC data. Current Interpretive Data was last revised on 2018. Testing performed by: [address] [address] Lymphocyte pct 23.8 % [facility] Comment: Interpretive Data Percent cell count reference ranges are not reported, since discordance with absolute values may lead to misinterpretation of CBC data. Current Interpretive Data was last revised on 2018. Testing performed by: [address] [address] Monocyte pct 7.9 % [facility] Comment: Interpretive Data Percent cell count reference ranges are not reported, since discordance with absolute values may lead to misinterpretation of CBC data. Current Interpretive Data was last revised on 2018. Testing performed by: [address] [address] Eosinophil pct 3.2 % [facility] Comment: Interpretive Data Percent cell count reference ranges are not reported, since discordance with absolute values may lead to misinterpretation of CBC data. Current Interpretive Data was last revised on 2018. Testing performed by: [address] [address] Basophil pct 0.4 % [facility] Comment: Interpretive Data Percent cell count reference ranges are not reported, since discordance with absolute values may lead to misinterpretation of CBC data. Current Interpretive Data was last revised on 2018. Testing performed by: [address] [address] Blood 05/11/2025 7:19 PM CDT 05/11/2025 7:26 PM CDT us Melissa Quarles Anastacio LABORATORY HELPER LAB BLOOD ORDERABLES Fin al Result NAYE [address] [facility] Department [place] [address] * (ABNORMAL) CBC with auto differential (05/11/2025 7:19 PM CDT) WBC 7.83 3.80 - 9.90 K/cumm Comment:Testing performed by : [address] [address] Hgb 11.4(L) 11.9 - 15.5 g/dL NAYE Comment:Testing performed by : [address] [address] Hct 33.8(L) 35.6 - 45.5 % NAYE Comment:Testing performed by : [address] [address] Plt 254 150 - 400 K/cumm NAYE Comment:Testing performed by : [address] [address] MPV 9.5 9.1 - 12.3 fL NAYE Comment:Testing performed by : [address] [address] RBC 3.97 3.90 - 5.20 M/cumm NAYE Comment:Testing performed by : [address] [address] MCV 85.1 81.3 - 96.4 fL NAYE Comment:Testing performed by : [address] [address] MCH 28.7 27.1 - 33.3 pg NAYE SHEARER Comment:Testing performed by : [address] [address] MCHC 33.7 32.3 - 35.7 g/dL NAYE SHEARER Comment:Testing performed by : [address] [address] RDW CV 13.4 11.1 - 14.9 % NAYE SHEARER Comment:Testing performed by : [address] [address] RDW SD 41.5 35.7 - 48.1 fL NAYE SHEARER Comment:Testing performed by : [address] [address] NRBC abs 0.00 0.00 - 0.01 K/cumm NAYE SHEARER Comment:Testing performed by : [address], [place]., [address] Blood 05/11/2025 7:19 PM CDT 05/11/2025 7:26 PM CDT Melissa Chaves LABORATORY HELPER LAB BLOOD ORDERABLES Fin al Result NAYE [address] Department [place] [address] * (ABNORMAL) Comprehensive metabolic panel (05/11/2025 7:19 PM CDT) Sodium 142 135 - 145 mmol/L Comment:Testing performed by : [address] [address] Potassium, pl 3.4 3.3 - 4.9 mmol/L NAYE SHEARER Comment:Testing performed by : [address] [address] Chloride 107 97 - 110 mmol/L NAYE SHEARER Comment:Testing performed by : [address] [address] CO2 24 22 - 32 mmol/L NAYE SHEARER Comment:Testing performed by : [address] [address] Anion gap 11 2 - 15 mmol/L NAYE SHEARER Comment:Testing performed by : [address] [address] BUN 9 6 - 25 mg/dL NAYE SHEARER Comment:Testing performed by : [address] [address] Creatinine 0.90 0.60 - 1.10 mg/dL NAYE Comment:Testing performed by : [address] [address] Glucose 69(L) 70 - 199 mg/dL NAYE [...] was last revised 2022. Testing performed by: [address] [address] Calcium 8.7 8.5 - 10.3 mg/dL NAYE Comment:Testing performed by : [address] [address] Bilirubin, total 0.3 0.1 - 1.2 mg/dL [facility] Comment:Testing performed by : [address] [address] Protein, pl 6.1(L) 6.5 - 8.5 g/dL [facility] Comment:Testing performed by : [address] [address] Albumin 4.1 3.5 - 5.0 g/dL [facility] Comment:Testing performed by : [address] [address] Alk phos 78 40 - 130 Units/L NAYE Comment:Testing performed by : [address] [address] ALT 21 7 - 45 Units/L NAYE Comment:Testing performed by : [address] [address] AST 41 10 - 45 Units/L NAYE Comment:Testing performed by : [address] [address] Blood 05/11/2025 7:19 PM CDT 05/11/2025 7:26 PM CDT Melissa Chaves LABORATORY HELPER LAB BLOOD ORDERABLES Fin al Result Performing Organization Address City/State/[facility] Co de Phone Number NAYE [address] [facility] Department [place] [address] documented in this encounter Visit Diagnoses Diagnosis [...] 05/11/2025 documented in this encounter Care Teams Portable Track Crew Chief Relationship Specialty Start Date End Date Carlee Hopkins NP [address] [place] [address] PCP - General Family Medicine 01/16/24 Rebecca Ramirez MD [address] [facility] [address] [place] [address] 08/15/19 documented as of this encounter
--- OUTSIDE RECORDS SUMMARY | 2025-05-12 00:44 | XMS_ITS | Clinical Summary ---
Author Organization [facility] Address [address] [place] [address] Care Team Providers Care Hand Painter Name Role Phone Unavailable Primary Care Provider Unavailabl e Source Comments [facility],non-owned Affiliates and Associated Physician Practices is amultiple site organization consisting of ambulatory clinics and hospital sitesin [place], [place], [place] and [place]. This disclosure is being madepursuant to the Care Everywhere program and may not contain all information available regarding this patient. Last updated 18.[facility] codebender Allergies Active Allergy Reactions Criticality Noted Date [...] medical care, and heating? Somewhat hard 04/21/2023 [facility] of Occupat ional Health - Occupational Stress [...] in a m[facility]p (including now)? 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 GC Amplified Probe Negative Negative 04/22/2023 8:[address] [facility] Microbiology PART OF UTERINE CERVIX / Unknown Collection / Unknown 04/21/2023 8:47 PM CDT 04/21/2023 9:[address] [facility] - 04/22/2023 8:23 PM CDT Results based on detection/no detection of ribosomal RNA by amplified method. Josie Gee MD LAB - MICROBIOLOGY ORDERABLES F inal Result [facility] [address] [place] [address], [facility] [phone] from Last 3 Months or Most Recently Relevant to Health Maintenance Insurance ANTHEM ANTHEM Advance Directives * Full Code (Latest Code Status on File) Date Activated Date Inactivated Comments 04/21/2023 6:59 PM 04/24/2023 1:02 PM
--- OUTSIDE RECORDS SUMMARY | 2025-05-12 00:44 | XMS_ITS | Continuity of Care Document ---
Author Organization [facility] Address [address] [place] [address] Phone Care Team Providers Care Family Law Legal Assistant Name Role Phone Rach Ponce MD Unavailable [...] Diagnoses Date Provider Providers Copied on Encounter [facility], [address] [place] [address] [address], [place], [address], [place] tel:[phone] [facility] Follow Up of Rt foot fx (chief complaint) Nondisplaced fracture of third metatarsal bone of right foot with routine healing, subsequent encounter Sep-2 1- 5 Bandy Rach . [address] [place] [address], [id number] . tel: [phone] [facility], [address] [place] [address] [address], [place], [address], [place] tel:[phone] [facility] Follow Up of ON Rt foot fx (chief complaint) Closed fracture of metatarsal bone Sep-1 0-201 5 Kris Rach . [address] [place] [address], [id number] . tel:[phone] Referring Provider: Rebecca Sanders, [address], [place], [address] . tel:[phone] Family History Family Member Type Diagnosis Age At Onset No Information Payers Payer name Insurance type Covered green party ID Gustabo bennett(s) [employer]2 OT [id number] Social History Type Description Quantity Date Captured [...]
--- OUTSIDE RECORDS SUMMARY | 2025-05-12 00:44 | XMS_ITS | Continuity of Care Document ---
Author Organization [facility] Address [address] [facility] [address] [place] [address] Phone Care Team Providers Care Commuter Train Operator Name Role Phone Shahzad ESPINOSA, Brielle Unavailable [...] Date New (Level 4) OFFICE/OUTPATIENT VISIT Rasheeda NURSE TRANSPLANT Registration Fee Advance Directives Directive Yes / No Effective Date File Name No Information Encounters Encounter Description Practice Location Reason(s) For Visit Diagnoses Date Provider Providers Copied on Encounter [facility], [address] [place] [address], [address] [place] [address], tel:[phone] [facility] No Information Shahzad Cheshil. [address] , [place], [place], [facility], [place]. tel:[phone] Referring Provider: Carlee Hopkins, [address] [place] [address], [facility]. tel:[phone] New (Level 4) OFFICE/OUTPA TIENT VISIT [facility], [address] [place] [address], [address] [place] [address], tel:[phone] [facility] [place] asthma (chief complaint) Elevated blood-pressure reading, w/o diagnosis of htnOther adverse food reaction, initial encounterOther allergic rhinitisModerate persistent asthma Shahzad Cheshil. [address] , [place], [address], [place]. tel:[phone] Referring Provider: Carlee Hopkins, [address] [place] [address], [facility]. tel:[phone] [facility], [address] [place] [address], [id number], tel:[phone] [facility] [place] No Information Shahzad Cheshil. [address] , [place], [address], [place]. tel:[phone] Referring Provider: Carlee Hopkins, [address] [place] [address], [facility]. tel:[phone] [facility], [address] [place] [address], [id number], tel:[phone] [facility] [place] [place] Location No Information Mis Prov. . Referring Provider: Carlee Hopkins, [address] [facility] [address], [place], [address]. tel:[phone] Family History Family Member Type Diagnosis Age At Onset Problem No family history of Thyroid disorder Problem No family history of Rheumat oid arthritis Father Problem Rhinitis Paternal grandfather Problem Asthma Problem No family histor y of Systemic lupus erythematosus Payers Payer name Insurance type Covered libertarian ID Authorearle bennett(s) [facility] [id number] Medicaid [place] [id number] Social History Type Description Quantity Date Captured [...]
--- OUTSIDE RECORDS SUMMARY | 2025-05-12 00:44 | XMS_ITS | Clinical Summary ---
Author Organization [facility] Address [address] [place] [address] Care Team Providers Care Phlebotomy Program Coordinator Name Role Phone Rebecca Ramirez MD Unavailable [phone] Carlee Hopkins NP Primary Care Provider [phone] Allergies Active Allergy Reactions Criticality Noted Date [...] needed. 15 g 5 5 026 Active mupirocin (BACTROBAN) 2 % ointment Apply topically 3 (three) times a day 22 g 5 Active ibuprofen (ADVIL,MOTRIN) 800 mg tablet Take 1 tablet (800 mg total) by mouth 3 (three) times a day 21 tablet 5 Active Active Problems Problem Noted Date Diagnosed [...] and suggested counseling Mentioned walk-in clinic in [place] for mental health, encouraged to seek appointment today Assessment & Plan (12/24/2024 6:22 AM CDT): Uncontrolled Reviewed PHQ-2=1, previously 3, BARRIE-7=16, previously 3 Continued on citalopram 40 mg daily and buspirone, suggested increase in buspirone from 10 mg daily to 10 mg twice daily for better control of anxiety symptoms Assessment & Plan (10/16/2024 8:40 AM VARNISHING UNIT OPERATOR): Controlled Reviewed PHQ-9=3, BARRIE-7=3 Continued on buspirone 10 mg daily and citalopram 40 mg daily Assessment & Plan (08/05/2024 6:31 AM VARNISHING UNIT OPERATOR): Chronic, stable, controlled on medication Continued on [...] times Assessment & Plan (10/16/2024 8:41 AM VARNISHING UNIT OPERATOR): Advised to check expiration date on EpiPen and to notify office if Is aware to carry at all times for possible accidental ingestion Assessment & Plan (08/05/2024 6:29 AM VARNISHING UNIT OPERATOR): Instructed to carry EpiPen at all times [...] and suggested counseling Mentioned walk-in clinic in [place] for mental health, encouraged to be seen [...] safety Assessment & Plan (10/16/2024 8:41 AM VARNISHING UNIT OPERATOR): Controlled Reviewed PHQ-9=3, BARRIE-7=3 Continued on bupropion [...] safety Assessment & Plan (10/10/2022 9:00 AM VARNISHING UNIT OPERATOR): Patient with recurrent depression, will increase sertraline [...] control. Assessment & Plan (08/10/2022 8:27 AM VARNISHING UNIT OPERATOR): Patient presents today for evaluation of recurrent [...] ideation. Assessment & Plan (11/15/2021 4:04 AM VARNISHING UNIT OPERATOR): Patient with recurrent depression, she states that her current regimen is working well for her and she would like to continue on this. She denies any adverse effects and denies any suicidal or homicidal ideation. Assessment & Plan (09/26/2021 1:53 PM VARNISHING UNIT OPERATOR): Symptoms seem to be worsening since increasing Wellbutrin. Recommend decreasing Wellbutrin to 150 mg once daily and starting low-dose Lexapro. Patient does have follow-up scheduled with PCP in 1 month. Recent labs reviewed. TSH within normal limits in April 2021 Assessment & Plan (08/14/2021 6:16 PM VARNISHING UNIT OPERATOR): Patient with depression, and states that symptoms [...] times Assessment & Plan (10/16/2024 8:41 AM VARNISHING UNIT OPERATOR): Advised to check expiration date on EpiPen and to notify office if Is aware to carry at all times for possible accidental ingestion Assessment & Plan (08/05/2024 6:29 AM VARNISHING UNIT OPERATOR): Instructed to carry EpiPen at all times [...] needed Assessment & Plan (10/16/2024 8:39 AM VARNISHING UNIT OPERATOR): Uncontrolled Discontinued Flovent Started on Breo 200-25 daily Continued on albuterol as directed as needed Assessment & Plan (09/18/2024 4:40 PM VARNISHING UNIT OPERATOR): AFVSS, exam benign Recommend restarting daily inhaler [...] 12/24/2024 Assessment & Plan (08/05/2024 6:31 AM VARNISHING UNIT OPERATOR): Acute, seen in ER last evening, with symptoms occurring immediately after drinking a protein shake for the 1st time, protein shake contained whey protein, soy, and dairy, and other ingredients Reviewed patient's cell phone Encouraged to avoid protein shake Advised to carry EpiPen at all times Instructed return to ER if symptoms should recur Referral made to machine stacker sree Martinez 07/06/2024 07/21/2024 Assessment & Plan [...] 01/16/2024 Assessment & Plan (10/10/2022 9:01 AM VARNISHING UNIT OPERATOR): Patient with incidental and states that she is about 4 weeks , discussed risks and benefits of current medications advised that it is okay to proceed on sertraline as this is a safe medication during , and benefits outweigh risk at this time. IUD (intrauterine device) in place 08/10/2022 10/06/2022 Assessment & Plan (08/10/2022 8:28 AM VARNISHING UNIT OPERATOR): Patient states that she has had IUD [...] 08/10/2022 Assessment & Plan (08/03/2022 5:44 PM VARNISHING UNIT OPERATOR): Rapid strep positive. Antibiotic ordered today. Discussed [...] 11/02/2021 Assessment & Plan (09/26/2021 1:54 PM VARNISHING UNIT OPERATOR): BMI Follow-up includes: education provided. Dysuria 06/23/2021 [...] 03/07/202103/10 Assessment & Plan (11/15/2021 4:04 AM VARNISHING UNIT OPERATOR): Plan as above. Assessment & Plan (06/23/2021 [...] Encounters Date Type Department Care Team Description 05/11/2025 6:24 PM CDT - 05/11/2025 8:01 PM CDT Emergency [facility] Emergency Department [facility] [place] [address] Cellulitis of right lower extremity (Primary Dx) Discharge Disposition: Discharge to home or self care 04/09/2025 2:30 PM CDT Office Visit [facility] Primary Care at [address] [phone] Carlee Hopkins NP Annual physical exam (Primary Dx); Rectal bleeding; External hemorrhoids; Moderate persistent asthma without complication; Recurrent major depressive disorder, in partial remission; BARRIE (generalized anxiety disorder); Tree nut allergy; Allergy to peanuts; Canker sore; Allergic rhinitis due to animal hair and dander 04/07/2025 Nurse Triage [facility] Primary Care at [address] [phone] Carlee Melendez RN 04/07/2025 Telephone [facility] Primary Care at [address] [phone] Carlee Hopkins NP Recommendation Request 03/13/2025 Results Follow-Up [facility] Emergency Department [address] [place] [address] Cris Kinney PA Urine culture Urine 03/12/2025 9:15 AM CDT Office Visit [facility] Primary [facility] at [place] [address] [place] [address] Carlee Hopkins NP Interscapular pain (Primary Dx); Acute bilateral thoracic back pain; Acute bilateral low back pain without sciatica; Acute nonintractable headache, unspecified headache type 03/09/2025 8:44 AM CDT - 03/09/2025 12:21 PM CDT Emergency [facility] Emergency Department [address] [place] [address] Acute left-sided thoracic back pain (Primary Dx); Cystitis Discharge Disposition: Discharge to home or self care 02/18/2025 Telephone [facility] [address] [place] [address] Hank Aguilar DO from Last [...] Bernardo Nephrolithiasis Father Bernardo Hypertension Maternal Grandmother Sara Asthma Mother Roxana Cancer Mother Roxana Depression [...] on file Legal Sex Female 11:52 PM VARNISHING UNIT OPERATOR Gender Identity Female 12/09/2021 8:41 PM CDT [...] Vag-S pont N Living Complications:Pre eclampsia Delivery Location:[facility] in [place] Last Filed Vital Signs [...] Mass Index 21.73 05/11/2025 5:40 PM CDT Plan of Treatment Health Maintenance [...] METABOLIC PANEL STAT 05/11/2025 7:19 PM CDT EGFR STAT 03/09/2025 9:26 AM CDT URINALYSIS, [...] GONORRHOEAE/C. TRACHOMATIS AMPLIFICATION Routine 10/21/2022 11:02 AM VARNISHING UNIT OPERATOR Early stage of HEPATITIS C ANTIBODY Routine 10/21/2022 10:59 AM VARNISHING UNIT OPERATOR Early stage of from Last 3 Months or Most Recently Relevant to Health Maintenance Results * eGFR (05/11/2025 7:19 PM CDT) [...] was last reviewed 2021. Testing performed by: [address] [address] Blood 05/11/2025 7:19 PM CDT 05/11/2025 7:26 PM CDT us Melissa Chaves TRAVEL AGENCY MANAGER LAB BLOOD ORDERABLES Fin al Result NAYE SHEARER [address] Department [place] [address] * Differential, auto (05/11/2025 7:19 PM CDT) Neutrophil abs 5.04 1.50 - 6.50 K/cumm Comment:Testing performed by : [address] [address] Imm gran abs 0.03 0.00 - 0.10 K/cumm NAYE SHEARER Comment:Testing performed by : [address] [address] Lymphocyte abs 1.86 0.80 - 3.30 K/cumm NAYE SHEARER Comment:Testing performed by : [address] [address] Monocyte abs 0.62 0.20 - 0.80 K/cumm NAYE SHEARER Comment:Testing performed by : [address] [address] Eosinophil abs 0.25 0.00 - 0.50 K/cumm NAYE Comment:Testing performed by : [address] [address] Basophil abs 0.03 0.00 - 0.10 K/cumm NAYE Comment:Testing performed by : [address] [address] Neutrophil pct 64.3 % [facility] Comment: Interpretive Data Percent cell count reference ranges are not reported, since discordance with absolute values may lead to misinterpretation of CBC data. Current Interpretive Data was last revised on 2018. Testing performed by: [address] [address] Imm gran pct 0.4 % [facility] Comment: Interpretive Data Percent cell count reference ranges are not reported, since discordance with absolute values may lead to misinterpretation of CBC data. Current Interpretive Data was last revised on 2018. Testing performed by: [address] [address] Lymphocyte pct 23.8 % [facility] Comment: Interpretive Data Percent cell count reference ranges are not reported, since discordance with absolute values may lead to misinterpretation of CBC data. Current Interpretive Data was last revised on 2018. Testing performed by: [address] [address] Monocyte pct 7.9 % [facility] Comment: Interpretive Data Percent cell count reference ranges are not reported, since discordance with absolute values may lead to misinterpretation of CBC data. Current Interpretive Data was last revised on 2018. Testing performed by: [address] [address] Eosinophil pct 3.2 % NAYE Comment: Interpretive Data Percent cell count reference ranges are not reported, since discordance with absolute values may lead to misinterpretation of CBC data. Current Interpretive Data was last revised on 2018. Testing performed by: [address] [address] Basophil pct 0.4 % NAYE Comment: Interpretive Data Percent cell count reference ranges are not reported, since discordance with absolute values may lead to misinterpretation of CBC data. Current Interpretive Data was last revised on 2018. Testing performed by: [address] [address] Blood 05/11/2025 7:19 PM CDT 05/11/2025 7:26 PM CDT Melissa Chaves TRAVEL AGENCY MANAGER LAB BLOOD ORDERABLES Fin al Result NAYE [address] Department [place] [address] * (ABNORMAL) CBC with auto differential (05/11/2025 7:19 PM CDT) WBC 7.83 3.80 - 9.90 K/cumm Comment:Testing performed by : [address] [address] Hgb 11.4(L) 11.9 - 15.5 g/dL NAYE Comment:Testing performed by : [address] [address] Hct 33.8(L) 35.6 - 45.5 % NAYE Comment:Testing performed by : [address] [address] Plt 254 150 - 400 K/cumm NAYE Comment:Testing performed by : [address] [address] MPV 9.5 9.1 - 12.3 fL NAYE Comment:Testing performed by : [address] [address] RBC 3.97 3.90 - 5.20 M/cumm NAYE Comment:Testing performed by : [address] [address] MCV 85.1 81.3 - 96.4 fL NAYE Comment:Testing performed by : [address] [address] MCH 28.7 27.1 - 33.3 pg NAYE SHEARER Comment:Testing performed by : [address] [address] MCHC 33.7 32.3 - 35.7 g/dL NAYE SHEARER Comment:Testing performed by : [address] [address] RDW CV 13.4 11.1 - 14.9 % NAYE SHEARER Comment:Testing performed by : [address] [address] RDW SD 41.5 35.7 - 48.1 fL NAYE SHEARER Comment:Testing performed by : [address] [address] NRBC abs 0.00 0.00 - 0.01 K/cumm NAYE SHEARER Comment:Testing performed by : [address] [address] Blood 05/11/2025 7:19 PM CDT 05/11/2025 7:26 PM CDT Melissa Chaves TRAVEL AGENCY MANAGER LAB BLOOD ORDERABLES Fin al Result NAYE SHEARER [facility] Department of Laboratories [place], [place] [id number] * (ABNORMAL) Comprehensive metabolic panel (05/11/2025 7:19 PM CDT) Sodium 142 135 - 145 mmol/L Comment:Testing performed by : [address] [address] Potassium, pl 3.4 3.3 - 4.9 mmol/L NAYE SHEARER Comment:Testing performed by : [address] [address] Chloride 107 97 - 110 mmol/L NAYE SHEARER Comment:Testing performed by : [address] [address] CO2 24 22 - 32 mmol/L NAYE SHEARER Comment:Testing performed by : [address] [address] Anion gap 11 2 - 15 mmol/L NAYE SHEARER Comment:Testing performed by : [address] [address] BUN 9 6 - 25 mg/dL NAYE Comment:Testing performed by : [address] [address] Creatinine 0.90 0.60 - 1.10 mg/dL NAYE Comment:Testing performed by : [address] [address] Glucose 69(L) 70 - 199 mg/dL NAYE [...] classification and Diagnosis of Diabetes Diabetes Care 2021; 46: S19-S40. Current interpretive data was last revised 2022. Testing performed by: [address] [address] Calcium 8.7 8.5 - 10.3 mg/dL NAYE Comment:Testing performed by : [address] [address] Bilirubin, total 0.3 0.1 - 1.2 mg/dL NAYE Comment:Testing performed by : [address] [address] Protein, pl 6.1(L) 6.5 - 8.5 g/dL NAYE Comment:Testing performed by : [address] [address] Albumin 4.1 3.5 - 5.0 g/dL NAYE Comment:Testing performed by : [address] [address] Alk phos 78 40 - 130 Units/L NAYE Comment:Testing performed by : [address] [address] ALT 21 7 - 45 Units/L NAYE Comment:Testing performed by : [address] [address] AST 41 10 - 45 Units/L NAYE Comment:Testing performed by : [facility], [address] [place] [address]., [address] Blood 05/11/2025 7:19 PM CDT 05/11/2025 7:26 PM CDT us Melissa Chaves NP LAB BLOOD ORDERABLES Fin al Result Performing Organization Address City/[facility]/ZIP Co de Phone Number NAYE [address] [place] [address] * eGFR (03/09/2025 9:26 AM CDT) eGFR [...] was last reviewed 2021. Testing performed by: [facility], [address] [place] [address]., [address] Blood 03/09/2025 9:26 AM CDT 03/09/2025 9:32 AM CDT us Cris Kinney PA LAB BLOOD ORDERABLES Final R esult NAYE [address] [place] [address] * (ABNORMAL) Differential, auto (03/09/2025 9:26 AM CDT) Neutrophil abs 10.65(H) 1.50 - 6.50 K/cumm Comment:Testing performed by : [address] [address] Imm gran abs 0.07 0.00 - 0.10 K/cumm NAYE Comment:Testing performed by : [address] [address] Lymphocyte abs 0.73(L) 0.80 - 3.30 K/cumm NAYE Comment:Testing performed by : [address] [address] Monocyte abs 0.83(H) 0.20 - 0.80 K/cumm NAYE Comment:Testing performed by : [address] [address] Eosinophil abs 0.09 0.00 - 0.50 K/cumm NAYE Comment:Testing performed by : [address] [address] Basophil abs 0.05 0.00 - 0.10 K/cumm [facility] Comment:Testing performed by : [address] [address] Neutrophil pct 85.7 % [facility] Comment: Interpretive Data Percent cell count reference ranges are not reported, since discordance with absolute values may lead to misinterpretation of CBC data. Current Interpretive Data was last revised on 2018. Testing performed by: [address] [address] Imm gran pct 0.6 % [facility] Comment: Interpretive Data Percent cell count reference ranges are not reported, since discordance with absolute values may lead to misinterpretation of CBC data. Current Interpretive Data was last revised on 2018. Testing performed by: [address] [address] Lymphocyte pct 5.9 % [facility] Comment: Interpretive Data Percent cell count reference ranges are not reported, since discordance with absolute values may lead to misinterpretation of CBC data. Current Interpretive Data was last revised on 2018. Testing performed by: [address] [address] Monocyte pct 6.7 % NAYE Comment: Interpretive Data Percent cell count reference ranges are not reported, since discordance with absolute values may lead to misinterpretation of CBC data. Current Interpretive Data was last revised on 2018. Testing performed by: [address] [address] Eosinophil pct 0.7 % NAYE Comment: Interpretive Data Percent cell count reference ranges are not reported, since discordance with absolute values may lead to misinterpretation of CBC data. Current Interpretive Data was last revised on 2018. Testing performed by: [address] [address] Basophil pct 0.4 % NAYE Comment: Interpretive Data Percent cell count reference ranges are not reported, since discordance with absolute values may lead to misinterpretation of CBC data. Current Interpretive Data was last revised on 2018. Testing performed by: [address] [address] Blood 03/09/2025 9:26 AM CDT 03/09/2025 9:32 AM CDT us Cris MADDEN LAB BLOOD ORDERABLES Final R esult [facility] [address] Department of Laboratories [place], [place] [id number] * (ABNORMAL) Urinalysis reflex to microscopic and culture Urine (03/09/2025 9:26 AM CDT) Color, ur Yellow Yellow Comment:Testing performed by : [address] [address] Clarity, ur Cloudy(A) Clear NAYE Comment:Testing performed by : [address] [address] Specific gravity, ur 1.025 1.003 - 1.030 NAYE Comment:Testing performed by : [address] [address] pH, urine 6.5 NAYE Comment: Interpretive Data U rine pH is affected by diet, medications, systemic acid-base disturbances, and renal tubular function. pH may affect urinary stone formation. For example, urine pH below 6.0 may help reduce the tendency for calcium phosphate stones and pH greater than 6.0 may reduce the tendency for uric acid stone formation. Source: [facility] [employer] Current Interpretive Data was last revised on 2017 Testing performed by: [facility], [address] [place] [address]., [address] Protein, ur ql 1+(A) Negative NAYE Comment:Testing performed by : [address] [address] Glucose, ur ql Negative Negative NAYE Comment:Testing performed by : [address], [place]., [address] Ketones, ur Negative Negative NAYE Comment:Testing performed by : [address] [address] Bilirubin, ur Negative Negative NAYE Comment:Testing performed by : [address], [place]., [address] Blood, ur 1+(A) Negative NAYE Comment:Testing performed by : [address] [address] Urobilinogen, ur <2.0 <2.0 mg/dL NAYE Comment:Testing performed by : [address] [address] Nitrite, ur Positive(A) Negative NAYE Comment:Testing performed by : [address] [address] Leukocyte esterase, ur 2+(A) Negative NAYE Comment:Testing performed by : [address] [address] UA reflex comment Reflex to microscopic UA will be performed. NAYE Comment:Testing performed by : [address], [place]., [address] Urine 03/09/2025 9:26 AM CDT 03/09/2025 9:32 AM CDT us Cris MADDEN LAB MICROBIOLOGY - GENERAL O RDERABLES Final Result NAYE [address] Department [place] [address] * (ABNORMAL) CBC with auto differential (03/09/2025 9:26 AM CDT) WBC 12.42(H) 3.80 - 9.90 K/cumm Comment:Testing performed by : [address] [address] Hgb 12.3 11.9 - 15.5 g/dL NAYE Comment:Testing performed by : [address] [address] Hct 35.8 35.6 - 45.5 % NAYE Comment:Testing performed by : [address] [address] Plt 263 150 - 400 K/cumm NAYE Comment:Testing performed by : [address], [address] MPV 9.1 9.1 - 12.3 fL NAYE Comment:Testing performed by : [address] [address] RBC 4.24 3.90 - 5.20 M/cumm NAYE Comment:Testing performed by : [address] [address] MCV 84.4 81.3 - 96.4 fL NAYE Comment:Testing performed by : [address] [address] MCH 29.0 27.1 - 33.3 pg NAYE Comment:Testing performed by : [address], [address] MCHC 34.4 32.3 - 35.7 g/dL NAYE Comment:Testing performed by : [address], [address] RDW CV 12.8 11.1 - 14.9 % NAYE Comment:Testing performed by : [address] [place] [address] RDW SD 39.0 35.7 - 48.1 fL NAYE SHEARER Comment:Testing performed by : [address] [address] NRBC abs 0.00 0.00 - 0.01 K/cumm NAYE SHEARER Comment:Testing performed by : [address] [address] Blood 03/09/2025 9:26 AM CDT 03/09/2025 9:32 AM CDT us Cris MADDEN LAB BLOOD ORDERABLES Final R esult Performing Organization Address [facility] Co de Phone Number NAYE SHEARER [address] Department of Laboratories [place], [place] [id number] * (ABNORMAL) Urinalysis, microscopic only (03/09/2025 9:26 AM CDT) WBC, ur 21-50(A) 0 - 5 /HPF Comment:Testing performed by : [address] [address] RBC, ur 11-20(A) 0 - 2 /HPF NAYE SHEARER Comment:Testing performed by : [address] [address] Epithelial cells, squamous, ur >50(A) 0 - 5 /HPF NAYE Comment:Testing performed by : [address] [address] Mucous, ur Present(A) NAYE Comment:Testing performed by : [address] [address] Culture Reflex Comment Reflex to urine culture will be performed. NAYE Comment:Testing performed by : [address] [address] Urine 03/09/2025 9:26 AM CDT 03/09/2025 9:32 AM CDT Cris MADDEN LAB URINE ORDERABLES Final R esult [facility] [address] [place] [address] * (ABNORMAL) Urine culture Urine (03/09/2025 9:26 AM CDT) Report Final Report: Greater than or equal to 100,000 colonies/mL of Klebsiella (Enterobacter) aerogenes (.) Comment:Testing performed by : [facility], [address] [place]., [address] Organism KLEBSIELLA (ENTEROBACTER) AEROGENES NAYE Urine 03/09/2025 9:26 AM CDT 03/09/2025 1:49 PM CDT Narrative NAYE - 03/11/2025 11:29 AM CDT Urine culture reflexed based upon urinalysis results. Testing performed by [facility] ([phone]) Organism Antibiotic Method Susceptibility Klebsiella (Enterobacter) aerogenes [...] MICROBIOLOGY - GENERAL O RDERABLES Final Result [facility] [address] Department [place] [address] * Comprehensive metabolic panel (03/09/2025 9:26 AM CDT) Sodium 137 135 - 145 mmol/L Comment:Testing performed by : [facility], [address] [place] [address]., [address] Potassium, pl 3.4 3.3 - 4.9 mmol/L NAYE Comment:Testing performed by : [address], [place]., [address] Chloride 103 97 - 110 mmol/L NAYE Comment:Testing performed by : [address], [place]., [address] CO2 24 22 - 32 mmol/L NAYE Comment:Testing performed by : [address], [place]., [address] Anion gap 10 2 - 15 mmol/L NAYE Comment:Testing performed by : [address], [place]., [address] BUN 12 6 - 25 mg/dL NAYE Comment:Testing performed by : [address], [place]., [address] Creatinine 1.06 0.60 - 1.10 mg/dL NAYE Comment:Testing performed by : [address], [place]., [address] Glucose 92 70 - 199 mg/dL NAYE Comment: Interpretive [...] was last revised 2022. Testing performed by: [address] [address] Calcium 9.1 8.5 - 10.3 mg/dL NAYE Comment:Testing performed by : [address] [address] Bilirubin, total 0.9 0.1 - 1.2 mg/dL NAYE Comment:Testing performed by : [address], [place]., [address] Protein, pl 6.7 6.5 - 8.5 g/dL NAYE Comment:Testing performed by : [address] [address] Albumin 4.3 3.5 - 5.0 g/dL NAYE Comment:Testing performed by : [address] [address] Alk phos 74 40 - 130 Units/L NAYE Comment:Testing performed by : [address] [address] ALT 17 7 - 45 Units/L NAYE Comment:Testing performed by : [address] [address] AST 18 10 - 45 Units/L NAYE Comment:Testing performed by : [address] [address] Blood 03/09/2025 9:26 AM CDT 03/09/2025 9:32 AM CDT Cris MADDEN LAB BLOOD ORDERABLES Final R esult Performing Organization Address City/State/[facility] Co de Phone Number N[facility]E [facility] [facility] [place] [address] * POCT hCG, urine (03/09/2025 8:14 AM CDT) Pathologist [facility] HCG, ur, POC Negative Negative Lot Number [id number] QC Backgroud Clear Acceptable QC Control Line Acceptable Urine 03/09/2025 8:14 AM CDT Paco Metcalf DO POINT OF CARE TEST ORDERABL ES Final Result * N. gonorrhoeae/C. trachomatis Amplification Urine (10/21/2022 11:02 AM VARNISHING UNIT OPERATOR) Pathologist [facility] C. trachomatis Not Detected Not Detected [facility] Comment:Testing performed by : [facility], [address] [facility] [place]., [address] N. gonorrhoeae Not Detected Not Detected [facility] Comment: Interpretive Data Testing performed by the [facility]. This assay detects Chlamydia trachomatis and Neisseria gonorrhoeae by nucleic acid amplification testing (NAAT). This test is approved by the [place] Food and Drug Administration and the performance characteristics have been verified by the laboratory. The performance characteristics of this test have not been evaluated in individuals less than 14 years of age. Current Interpretive Data was last revised on 2018. Testing performed by: [facility], [address] [place] [address]., [id number] Urine (None) 10/21/2022 11:0 2 AM VARNISHING UNIT OPERATOR 10/21/2022 2:00 PM VARNISHING UNIT OPERATOR [facility]CRO[facility] - GENERA L ORDERABLES Final Result Performing Organization Address City/[facility] Co de Phone Number [address] [address] * Hepatitis C antibody (10/21/2022 10:59 AM VARNISHING UNIT OPERATOR) Hep C Ab Nonreactive Nonreactive [facility] Comment: Antibodies to HCV not detected. Does NOT exclude the possibility of recent exposure to HCV. Current interpretive data was last revised on 22 Testing performed by: [facility], [address] [place] [address]., [id number] Blood 10/21/2022 10:5 9 AM VARNISHING UNIT OPERATOR 10/21/2022 1:30 PM VARNISHING UNIT OPERATOR [facility] MICRO[facility]OLOG[facility] - GENERA L ORDERABLES Final Result Performing Organization Address City/[facility]/ZIP Co de Phone Number [facility] [address] [place] [address] from Last 3 Months or Most Recently Relevant to Health Maintenance Insurance [facility] FEDERAL [facility] FEDERAL IDPA [facility] IDPA [employer]TH [employer]ADITIONAL Care Teams Phlebotomy Program Coordinator Relationship Specialty Start Date End Date Carlee Hopkins NP [address] [place] [id number] PCP - General Family Medicine 01/16/24 Rebecca Ramirez MD [address] [place] [address] [address] [place] [address] 08/15/19
== END 2025-05-11 10:25 | disposition left against medical advice (07) ==
LOC: ANHED 05-12 00:40
PROVIDERS: PCP Family Medicine
DX: Z53.21 Procedure and treatment not carried out due to patient leaving prior to being seen by health care provider (principal)
CPT/HCPCS: 99199

== ENCOUNTER 2025-05-12 16:27 | Emergency (ER) | payer BC, MEDICAID, SELFPAY ==
--- OUTSIDE RECORDS SUMMARY | 2015-06-14 08:05 | XMS_ITS | Continuity of Care Document ---
Author Organization [facility] Address [address] [place] [address] Phone Care Team Providers Care Foxer Name Role Phone Rach Ponce MD Unavailable [...] Diagnoses Date Provider Providers Copied on Encounter [facility], [address] [place] [address] [address], [address], [place] tel:[phone] [facility] Follow Up of Rt foot fx (chief complaint) Nondisplaced fracture of third metatarsal bone of right foot with routine healing, subsequent encounter Sep-2 1- 5 [place] Rach . [address] [place] [address], [id number] . tel: [phone] [facility], [address] [place] [address] [address], [address], [place] tel:[phone] [facility] [place] [facility] Follow Up of ON Rt foot fx (chief complaint) Closed fracture of metatarsal bone Sep-1 0-201 5 Kris Rach . [address] [place] [address], [id number] . tel:[phone] Referring Provider: Rebecca Sanders, [address], [place], [address] . tel:[phone] Family History Family Member Type Diagnosis Age At Onset No Information Payers Payer name Insurance type Covered libertarian ID Gustabo bennett(s) [place] [employer] E2 OT [id number] Social History Type Description Quantity Date Captured [...]
--- OUTSIDE RECORDS SUMMARY | 2025-04-20 10:40 | XMS_ITS | Continuity of Care Document ---
Author Organization [facility] Address [address] [place] [address] Phone Care Team Providers Care Application Security Developer Name Role Phone Shahzad ESPINOSA, Brielle Unavailable Unavailable Allergies, Adverse Reactions, Alerts Substance Reaction Status Criticality No Known Allergies Active No Inform ation Medications Medication Instructions Dosage Effective Dates (start - stop) Status Comments EpiPen 0.3 mg/0.3 mL injection, auto-injector inject 0.3 milliliter by intramuscular route once as needed for anaphylaxis 0.3 MG - Active dextroamphetamine-amp hetamine ER 25 mg 24hr capsule,extend release TAKE DIRECTED - Active lorazepam 0.5 mg tablet TAKE 1 TABLET BY MOUTH TWICE DAILY NEEDED - Active citalopram 40 mg tablet TAKE 1 TABLET BY MOUTH DAILY - Active bupropion HCl XL 300 mg 24 hr tablet, extended release TAKE 1 TABLET BY MOUTH EVERY MORNING - Active buspirone 15 mg tablet TAKE 1 TABLET BY MOUTH TWICE DAILY - Active fluticasone furoate 200 mcg-vilanterol 25 mcg/dose inhalation powder INHALE 1 PUFF DAILY RINSE MOUTH WITH WATER AFTER USE. DO NOT SWALLOW. - Active albuterol sulfate HFA 90 mcg/actuation aerosol inhaler INHALE 2 PUFFS EVERY 4 HOURS NEEDED FOR WHEEZING OR SHORTNESS OF BREATH - Active Procedures Procedure Date New (Level 4) OFFICE/OUTPATIENT VISIT [employer] Registration Fee Advance Directives Directive Yes / No Effective Date File Name No Information Encounters Encounter Description Practice Location Reason(s) For Visit Diagnoses Date Provider Providers Copied on Encounter [facility], [address] [place] [address], [address] [place] [address], tel:[phone] [facility] No Information Shahzad Cheshil. [address] , [place], [place], [facility], [place]. tel:[phone] Referring Provider: Carlee Hopkins, [address] [place] [address], [facility]. tel:[phone] New (Level 4) OFFICE/OUTPA TIENT VISIT [facility], [address] [place] [address], [address] [place] [address], tel:[phone] [facility] allergies and asthma (chief complaint) Elevated blood-pressure reading, w/o diagnosis of htnOther adverse food reaction, initial encounterOther allergic rhinitisModerate persistent asthma Shahzad Cheshil. [address] , [place], [address], [place]. tel:[phone] Referring Provider: Carlee Hopkins, [address] [place] [address], [facility]. tel:[phone] [facility], [address] [place] [address], [id number], tel:[phone] [facility] No Information Shahzad Cheshil. [address] , [place], [address], [place]. tel:[phone] Referring Provider: Carlee Hopkins, [address] [place] [address], [facility]. tel:[phone] [facility], [address] [place] [address], [id number], tel:[phone] [facility] [place] No Information Mis Prov. . Referring Provider: Carlee Hopkins, [address], [place], [address]. tel:[phone] Family History Family Member Type Diagnosis Age At Onset Problem No family history of Thyroid disorder Problem No family history of Rheumat oid arthritis Father Problem Rhinitis Paternal grandfather Problem Asthma Problem No family histor y of Systemic lupus erythematosus Payers Payer name Insurance type Covered green party ID Authorearle bennett(s) [facility] [id number] [id number] Social History Type Description Quantity Date Captured Comments Sex Female Smoking Status No Information Chief Complaint And Reason For Visit No Information Reason For Referral Reason For Referral No Information Plan Of Treatment Date Type Action Status Appointment Lana Thompson 4-6 Wk F /up, Papa BOOKED History Of Present Illness Encounter Date Complaint History Of Prese nt Illness allergies and asthma Adverse Delfin d ReactionShe has a history of peanut and tree nut allergy. She does have one EpiPen. She worries she has new food allergies.Peanut - Around 5 yo, she had throat swelling + dyspnea + vomiting after eating peanut. She does report she had a peanut IgE > 100 at around age 8 (not available for review). She avoids all tree nuts as she is unsure if she would tolerate any of them. She has never introduced these nuts. She had a protein drink (whey protein isolate, natural and artificial flavors, salt, soy lecithin, sucralose, stevia) and reports anaphylaxis. This occurred in Aug 2024. After 1 sip, she had dyspnea, vomiting, throat symptoms, and shakiness. She used her EpiPen. She reports an episode with hives and dyspnea. She woke up in the morning with these symptoms. She tolerates milk/dairy without issue. AsthmaThe patient has asthma on Breo 200/25 c g 1 puff daily and albuterol PRN (not used in the last couple of months). They were diagnosed with asthma at age 4-5 yo. The patient has never been hospitalized for asthma. Currently, they have no exertional limitations 2/2 asthma symptoms. They deny nocturnal awakenings with cough/wheeze. No ED/PCP/UC visits and no oral steroid bursts because of asthma in the last year.RhinitisThe patient has a history of perennial rhinitis with seasonal worsening in spring > fall. The symptoms include nasal congestion, rhinorrhea (post), and sneezing w/ ocular pruritus. Currently, the patient is on cetirizine (zyrtec) 10 mg daily (not used recently), which does provide adequate relief. She has had allergy testing in the past, though does not recall the results. 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
--- OUTSIDE RECORDS SUMMARY | 2025-05-11 18:24 | XMS_ITS | Encounter Summary ---
Author Organization [facility] Healthcare Address [address] [place] [address] Care Team Providers Care Sales And Marketing Analyst Name Role Phone Rebecca Ramirez MD Unavailable [phone] Carlee Hopkins NP Primary Care Provider [phone] Reason for Visit * Reason Comments Abscess Encounter Details Date Type Department Care Team (Late st Contact Info) Description 05/11/2025 6:24 PM CDT - 05/11/2025 8:01 PM CDT Emergency [facility] Emergency Department [facility] [place] [address] Cellulitis of right lower extremity (Primary Dx) Discharge Disposition: Discharge to home or self care Social History Tobacco Use Types Packs/Day Years Used Date Smoking Tobacco: Some Days Vaping Started: 2021 Passive Smoke Exposure: Yes Smokeless Tobacco: Never Comments:I havent vaped in a month Alcohol [...] making you feel afraid or unsafe? 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 Gender Identity Female 12/09/2021 8:41 PM CDT Sexual Orientation Straight 12/09/2021 8: 42 PM CDT documented as of this encounter Last Filed Vital Signs Vital Sign Reading Time Taken Comments Blood Pressure 106/66 05/11/2025 7:30 PM CDT Pulse 86 05/11/2025 7:30 PM CDT Temperature 36.8 C (98.2 F) 05/11/2025 5:40 PM CDT Respiratory Rate 17 05/11/2025 7:30 PM CDT Oxygen Saturation 100% 05/11/2025 7:30 PM CDT Inhaled Oxygen Concentration - - Weight 53.9 kg (118 lb 13.3 oz) 05/11/2025 5:40 PM CDT Height 157.5 cm (5' 2) 05/11/2025 5:40 PM CDT Body Mass Index 21.73 05/11/2025 5:40 PM CDT documented in this encounter Discharge Instructions * Discharge Instructions* Melissa Chaves NP - 05/11/2025 7:54 PM CDT MAKE SURE YOU SOLID PLASTERER THE ANTIBIOTIC YOU WERE PRESCRIBED AND TAKE IT EXACTLY DIRECTED UNTIL COMPLETE. EVEN IF YOUR SYMPTOMS IMPROVE ON THE MEDICATION, IT IS IMPORTANT THAT YOU COMPLETE IT DIRECTED. Thank you for allowing us to take care of you. Please follow up with your primary care physician orspecialist, as soon as possible, and ideally within 7 days. Please take any new medications as prescribed. Please return to the emergency department for worsening of your symptoms or any new problemswhich may arise. It is mandatory that you follow up, as recommended, with a primary care physician or specialist, per your discharge paperwork.You have received emergency care only at your visit today, an this is nota substitute for ongoing care, further evaluation, or treatment. Therefore, follow-up as directed is not optional, but mandatory. This ensures that any incidental abnormal radiographic and laboratoryfindings are evaluated appropriately. Return immediately for any new symptoms, worsening of symptoms, or persistent symptoms. We are open16/04 and will take care of you. * Attachments The following attachments cannot be sent through Care Everywhere. * Cellulitis (Discharge Care) (Azerbaijani) documented in this encounter Medications at Time of Discharge albuterol HFA (ProAir HFA) 90 mcg/actuation inhalerIndication s:Mild persistent asthma without complication Inhale 2 puffs every 4 (four) hours as needed for wheezing or shortness of breath 1 each 2 09/18/2024 amoxicillin 500 mg capsule 04/06/2025 buPROPion XL (WELLBUTRIN XL) 300 mg 24 hr tabletIndications :Recurrent major depressive disorder, in partial remission Take 1 tablet (300 mg total) by mouth every morning 90 tablet 1 04/09/2025 busPIRone (BUSPAR) 15 mg tablet Take 1 tablet (15 mg total) by mouth 2 (two) times a day 01/14/2025 dextroamphetamine -amphetamine XR (ADDERALL XR) 25 mg 24 hr capsule TAKE 1 CAPSULE BY MOUTH DAILY IN THE MORNING 03/03/2025 EPINEPHrine 0.3 mg/0.3 mL auto-injection syringeIndication s:Tree nut allergy,Nut allergy Inject 0.3 mL (0.3 mg total) into the muscle as instructed as needed for anaphylaxis 1 each 2 01/16/2024 fluticasone furoate-vilantero L (Breo Ellipta) 200-25 mcg/dose diskus inhalerIndication s:Moderate persistent asthma without complication Inhale 1 puff daily Rinse mouth with water after use. Do not swallow. 60 each 5 10/16/2024 ibuprofen (ADVIL,MOTRIN) 800 mg tablet Take 1 tablet (800 mg total) by mouth 3 (three) times a day 21 tablet 05/11/2025 levonorgestreL (MIRENA) IUD 1 each by intrauterine route once Perigard, unable to find in Rx list LORazepam (ATIVAN) 0.5 mg tablet Take 1 tablet (0.5 mg total) by mouth 2 (two) times a day as needed 01/27/2025 mupirocin (BACTROBAN) 2 % ointment Apply topically 3 (three) times a day 22 g 05/11/2025 triamcinolone (KENALOG) 0.1 % creamIndications: Canker sore Apply to affected area 1-2 times daily as needed. 15 g 5 04/09/2025 documented as of this encounter Ordered Prescriptions Prescription Sig Dispense Quantity Refills Last Filled Start Date End Date ibuprofen (ADVIL,MOTRIN) 800 mg tablet Take 1 tablet (800 mg total) by mouth 3 (three) times a day 21 tablet 05/11/2025 mupirocin (BACTROBAN) 2 % ointment Apply topically 3 (three) times a day 22 g 05/11/2025 documented in this encounter Discharge Disposition Disposition Code Departure Means Destination Comment s Discharge to home or self care documented in this encounter ED Notes * Melissa Chaves NP - 05/11/2025 7:11 PM CDT Images from the original note were not included. HPI Chief Complaint Patient presents with Abscess CHIEF COMPLAINT: Patient presents with: Abscess HPI 7:11 PM Lana Thompson is a 24 y.o. female presenting to the ED c/o redness and swelling to her right knee. She reports she first noticed what she thought was a pimple 2 days ago. She squeezed it, and then noted the redness and swelling starting. She did go to urgent care today and was diagnosed with cellulitis and prescribed keflex. She reports she comes in here because she could not get the medication and felt like it was getting worse. She denies fevers, no numbness, no tingling, no weakness, no warmth, no loss of range of motion. She has no other complaints expressed at this time. History provided by patient PCP: Carlee Hopkins NP PAST MEDICAL HISTORY Past Medical History: 03/07/2021: Abnormal TSH 03/22/2018: Acne vulgaris No date: Anxiety No date: Arthritis 5 Y/O: Asthma No date: Depression No date: Kidney stone 2020: Preeclampsia PAST SURGICAL HISTORY Past Surgical History: No date: TONSILLECTOMY Comment: 202109/24/2021: WISDOM TOOTH EXTRACTION FAMILY HISTORY Review of patient's family history indicates: Problem: Diabetes Relation: Mother Age of Onset: (Not Specified) Problem: Hypertension Relation: Mother Age of Onset: (Not Specified) Problem: Asthma Relation: Mother Age of Onset: (Not Specified) Problem: Cancer Relation: Mother Age of Onset: (Not Specified) Problem: Heart attack Relation: Mother Age of Onset: (Not Specified) Problem: Depression Relation: Mother Age of Onset: (Not Specified) Problem: Nephrolithiasis Relation: Father Age of Onset: (Not Specified) Problem: Cancer Relation: Father Age of Onset: (Not Specified) Problem: Hypertension Relation: Maternal Grandmother Age of Onset: (Not Specified) Problem: Skin cancer Relation: Paternal Grandmother Age of Onset: (Not Specified) Problem: Bladder Cancer Relation: Paternal Grandfather Age of Onset: (Not Specified) Problem: Hypertension Relation: Mother's Sister Age of Onset: (Not Specified) MEDICATIONS GIVEN IN THE ED Medications cefTRIAXone (ROCEPHIN) 2,000 mg/20 mL in sterile water (premix) 2,000 mg (has no administration in time range) CURRENT HOME MEDICATIONS Current Facility-Administered Medications: ?? cefTRIAXone (ROCEPHIN) 2,000 mg/20 mL in sterile water (premix) 2,000 mg, 2,000 mg, intravenous, Once, Melissa Chaves NP Current Outpatient Medications: ?? albuterol HFA (ProAir HFA) 90 mcg/actuation inhaler, Inhale 2 puffs every 4 (four) hours as needed for wheezing or shortness of breath, Disp: 1 each, Rfl: 2?? amoxicillin 500 mg capsule, , Disp: , Rfl: ?? buPROPion XL (WELLBUTRIN XL) 300 mg 24 hr tablet, Take 1 tablet (300 mg total) by mouth every morning, Disp: 90 tablet, Rfl: 1?? busPIRone (BUSPAR) 15 mg tablet, Take 1 tablet (15 mg total) by mouth 2 (two) times a day, Disp: , Rfl: ?? citalopram (CeleXA) 40 mg tablet, Take 1 tablet (40 mg total) by mouth daily, Disp: 90 tablet, Rfl: 1?? dextroamphetamine-amphetamine XR (ADDERALL XR) 25 mg 24 hr capsule, TAKE 1 CAPSULE BY MOUTH DAILY IN THE MORNING, Disp:, Rfl: ?? EPINEPHrine 0.3 mg/0.3 mL auto-injection syringe, Inject 0.3 mL (0.3 mg total) into the muscle as instructed as needed for anaphylaxis, Disp: 1 each, Rfl: 2?? fluticasone furoate-vilanteroL(Breo Ellipta) 200-25 mcg/dose diskus inhaler, Inhale 1 puff daily Rinse mouth with water after use. Do not swallow., Disp: 60 each, Rfl: 5?? levonorgestreL (MIRENA) IUD, 1 each by intrauterine routeonce Perigard, unable to find in Rx list, Disp: , Rfl: ?? LORazepam (ATIVAN) 0.5 mg tablet, Take 1 tablet (0.5 mg total) by mouth 2 (two) times a day as needed, Disp: , Rfl: ?? triamcinolone (KENALOG) 0.1 % cream, Apply to affected area 1-2 times daily as needed., Disp: 15 g, Rfl: 5 ALLERGIES -- Tree Nuts -- Anaphylaxis -- Nuts -- Unknown SOCIAL HISTORY Social History Tobacco Use Smoking status: Some Days Types: Vaping Start date: 2021 Passive exposure: Yes Smokeless tobacco: Never Tobacco comments: I havent vaped in a month Substance and Sexual Activity Drug use: Never Sexual activity: Yes Partners: Male control/protection: I.U.D. Alcohol Use: Not At Risk (09/08/2024) AUDIT-C Frequency of Alcohol Consumption: 2-4 times a month Average Number of Drinks: 1 or 2 Frequency of Binge Drinking: Never PHYSICAL EXAM TRIAGE VITAL SIGNS: ED Triage Vitals [05/11/25 1740] Temp: 36.8 ??C (98.2 ??F) Pulse: 93 Resp: 16 BP: 117/80 SpO2: 99 % Temp src: Oral Heart Rate Source: n/a Patient Position: n/a BP Location: n/a FiO2 (%): n/a Height: 1.575 m (5' 2) Height Method: n/a Weight: 53.9 kg (118 lb 13.3 oz) Weight Method: n/a Lana Thompsoncatherine 24 y.o. female presents to the ED Chief Complaint Patient presents with Abscess Triage nursing note reviewed and confirmed PMH: Past Medical History: Diagnosis Date Abnormal TSH 03/07/2021 Acne vulgaris 03/22/2018 Anxiety Arthritis Asthma 5 Y/O Depression Kidney stone Preeclampsia 2020 Patient History: Past Medical History: Diagnosis Date Abnormal TSH 03/07/2021 Acne vulgaris 03/22/2018 Anxiety Arthritis Asthma 5 Y/O Depression Kidney stone Preeclampsia 2020 Past Surgical History: Procedure Laterality Date TONSILLECTOMY 2021 WISDOM TOOTH EXTRACTION 09/24/2021 Family History Problem Relation Age of Onset Diabetes Mother Hypertension Mother Asthma Mother Cancer Mother Heart attack Mother Depression Mother Nephrolithiasis Father Cancer Father Hypertension Maternal Grandmother Skin cancer Paternal Grandmother Bladder Cancer Paternal Grandfather Hypertension Mother's Sister Social History Tobacco Use Smoking status: Some Days Types: Vaping Start date: 2021 Passive exposure: Yes Smokeless tobacco: Never Tobacco comments: I havent vaped in a month Substance and Sexual Activity Drug use: Never Sexual activity: Yes Partners: Male control/protection: I.U.D. Alcohol Use: Not At Risk (09/08/2024) AUDIT-C Frequency of Alcohol Consumption: 2-4 times a month Average Number of Drinks: 1 or 2 Frequency of Binge Drinking: Never Review of Systems Review of Systems Constitutional: Negative for activity change, chills and fever. Respiratory: Negative for cough, chest tightness and shortness of breath. Cardiovascular: Negative for chest pain and palpitations. Gastrointestinal: Negative for abdominal pain, diarrhea, nausea and vomiting. Genitourinary: Negative for dysuria and hematuria. Musculoskeletal: Positive for arthralgias (right knee) and joint swelling (right knee). Negative for myalgias. Skin: Positive for color change (redness, right knee) and wound (right knee). Negative for rash. Neurological: Negative for dizziness, syncope, weakness, light-headedness, numbness and headaches. All other systems reviewed and are negative. Physical Exam ED Triage Vitals [05/11/25 1740] Temp Pulse Resp BP SpO2 36.8 ??C (98.2 ??F) 93 16 117/80 99 % Temp src Heart Rate Source Patient Position BP Location FiO2 (%) Oral -- -- -- -- Height Height Method Weight Weight Method 1.575 m (5' 2) -- 53.9 kg (118 lb 13.3 oz) -- Physical Exam Vitals and nursing note reviewed. Constitutional: Appearance: She is well-developed. HENT: Head: Normocephalic and atraumatic. Nose: Nose normal. Mouth/Throat: Mouth: Mucous membranes are moist. Pharynx: Oropharynx is clear. Eyes: Conjunctiva/sclera: Conjunctivae normal. Cardiovascular: Rate and Rhythm: Normal rate and regular rhythm. Pulses: Normal pulses. Heart sounds: Normal heart sounds. Pulmonary: Effort: Pulmonary effort is normal. Breath sounds: Normal breath sounds. Abdominal: General: Bowel sounds are normal. Palpations: Abdomen is soft. Musculoskeletal: General: Normal range of motion. Cervical back: Normal range of motion and neck supple. Right knee: Swelling (mild, diffuse surrounding small wound on anterior aspect) and erythema present. No deformity, effusion, bony tenderness or crepitus. Normal range of motion. Tenderness (diffuse w/ palpation around area of wound) present. Normal alignment and normal patellar mobility. Normal pulse. Right lower leg: Normal. Skin: General: Skin is warm and dry. Capillary Refill: Capillary refill takes less than 2 seconds. Findings: Erythema (approx 3x4 cm area of erythema to the anterior aspect of the right knee) and wound (approx 3 cm open area in the center of the erythema, scant amt of clear drainage present w/ manipulation) present. No bruising or rash. Neurological: Mental Status: She is alert and oriented to person, place, and time. Procedures MDM Labs Reviewed COMPREHENSIVE METABOLIC PANEL - Abnormal Result Value Sodium 142 Potassium, pl 3.4 Chloride 107 CO2 24 Anion gap 11 BUN 9 Creatinine 0.90 Glucose 69 (*) Calcium 8.7 Bilirubin, total 0.3 Protein, pl 6.1 (*) Albumin 4.1 Alk phos 78 ALT 21 AST 41 CBC WITH AUTO DIFFERENTIAL - Abnormal WBC 7.83 Hgb 11.4 (*) Hct 33.8 (*) Plt 254 MPV 9.5 RBC 3.97 MCV 85.1 MCH 28.7 MCHC 33.7 RDW CV 13.4 RDW SD 41.5 NRBC abs 0.00 DIFFERENTIAL AUTO Neutrophil abs 5.04 Imm gran abs 0.03 Lymphocyte abs 1.86 Monocyte abs 0.62 Eosinophil abs 0.25 Basophil abs 0.03 Neutrophil pct 64.3 Imm gran pct 0.4 Lymphocyte pct 23.8 Monocyte pct 7.9 Eosinophil pct 3.2 Basophil pct 0.4 EGFR eGFR >90 No orders to display BP 106/66 Pulse 86 Temp 36.8 ??C (98.2 ??F) (Oral) Resp 17 Ht 157.5 cm (5' 2) Wt 53.9 kg (118 lb 13.3 oz) LMP 05/01/2025 SpO2 100% BMI 21.73 kg/m?? MDM Number of Diagnoses or Management Options Diagnosis management comments: In my medical decision making the following differential diagnoses were considered before arriving at final diagnosis and many were either ruled out or appeared unlikely: Arthritis Burn / Localized Other: Compartment Syndrome, Fracture, Hematoma, Osteomyelitis, Sciatica, Septic Arthritis, Strain / Sprain, Tenosynovitis, Contusion, Dislocation, DVT / Phlebitis Amount and/or Complexity of Data Reviewed Clinical lab tests: reviewed Risk of Complications, Morbidity, and/or Mortality Presenting problems: moderate Diagnostic procedures: moderate Management options: moderate Patient Progress Patient progress: stable 7:54 PM Rechecked Lana Makt is resting comfortably and feeling better. I discussed the results of diagnostic studies, my clinical impression, and the plan for further treatment with the Lana Thompson. Patient agrees with plan and discharge at this time, all questions addressed. Pt is medically stable for discharge at this time. I have given Lana Thompson instructions regarding the diagnosis, expectations, follow up, and return precautions. I explained to the patient that emergent conditions may arise and to return tot ER for new, worsening, or any persistent conditions. I've explained the importance of followingup with the Primary Care Physician-(or the referral physician listed below) as instructed. The patient verbalized understanding of the discharge instructions. New Medications: New Prescriptions IBUPROFEN (ADVIL,MOTRIN) 800 MG TABLET Take 1 tablet (800 mg total) by mouth 3 (three) times a day MUPIROCIN (BACTROBAN) 2 % OINTMENT Apply topically 3 (three) times a day I have advised the patient to follow-up with: Carlee Hopkins, REPAIRER HELPER [address] [place] [id number] Schedule an appointment as soon as possible for a visit As needed, If symptoms worsen DIAGNOSIS: 1. Cellulitis of right lower extremity Disposition: Discharged Impression: Cellulitis of right lower extremity All findings were discussed with patient. Pt agreeable with plan. Non toxic appearing, vitals stable. Patient stable for discharge home. Given return to ER precautions Close outpatient follow-up with a low threshold to return has been mandated , concerning symptoms have been emphasized in detail, and this patient expresses understanding Melissa Chaves NP 05/11/251953 * Landy Sanon RN - 05/11/2025 5:41 PM CDT Pt c/o redness, swelling, and pain to R knee. States it started off like a pimple 2 days ago, she scratched it, and has been getting worse since that time. Seen at urgent care this morning and diagnosed with cellulitis, states prescription has not been ready for pickup so has not started abx. documented in this encounter Plan of Treatment Not on file documented as of this encounter Procedures Procedure Name Priority Date/Time Associated Diagnosis Comments EGFR STAT 05/11/2025 7:19 PM CDT DIFFERENTIAL AUTO STAT 05/11/2025 7:1 9 PM CDT CBC WITH AUTO DIFFERENTIAL STAT 05/11/2025 7:19 PM CDT COMPREHENSIVE METABOLIC PANEL STAT 05/11/2025 7:19 PM CDT documented in this encounter Results * eGFR (05/11/2025 7:19 PM CDT) eGFR >90 >=60 mL/min/1. 73 m2 Comment: Interpretive Data [...] was last reviewed 2021. Testing performed by: [address] [address] Blood 05/11/2025 7:19 PM CDT 05/11/2025 7:26 PM CDT Melissa Chaves REPAIRER HELPER LAB BLOOD ORDERABLES Fin al Result NAYE [facility] [facility] Department [place] [address] * Differential, auto (05/11/2025 7:19 PM CDT) Neutrophil abs 5.04 1.50 - 6.50 K/cumm Comment:Testing performed by : [address] [address] Imm gran abs 0.03 0.00 - 0.10 K/cumm NAYE Comment:Testing performed by : [address] [address] Lymphocyte abs 1.86 0.80 - 3.30 K/cumm NAYE Comment:Testing performed by : [address] [address] Monocyte abs 0.62 0.20 - 0.80 K/cumm NAYE Comment:Testing performed by : [address] [address] Eosinophil abs 0.25 0.00 - 0.50 K/cumm NAYE Comment:Testing performed by : [address] [address] Basophil abs 0.03 0.00 - 0.10 K/cumm NAYE Comment:Testing performed by : [address] [address] Neutrophil pct 64.3 % NAYE Comment: Interpretive Data Percent cell count reference ranges are not reported, since discordance with absolute values may lead to misinterpretation of CBC data. Current Interpretive Data was last revised on 2018. Testing performed by: [address] [address] Imm gran pct 0.4 % [facility] Comment: Interpretive Data Percent cell count reference ranges are not reported, since discordance with absolute values may lead to misinterpretation of CBC data. Current Interpretive Data was last revised on 2018. Testing performed by: [address] [address] Lymphocyte pct 23.8 % [facility] Comment: Interpretive Data Percent cell count reference ranges are not reported, since discordance with absolute values may lead to misinterpretation of CBC data. Current Interpretive Data was last revised on 2018. Testing performed by: [address] [address] Monocyte pct 7.9 % [facility] Comment: Interpretive Data Percent cell count reference ranges are not reported, since discordance with absolute values may lead to misinterpretation of CBC data. Current Interpretive Data was last revised on 2018. Testing performed by: [address] [address] Eosinophil pct 3.2 % [facility] Comment: Interpretive Data Percent cell count reference ranges are not reported, since discordance with absolute values may lead to misinterpretation of CBC data. Current Interpretive Data was last revised on 2018. Testing performed by: [address] [address] Basophil pct 0.4 % [facility] Comment: Interpretive Data Percent cell count reference ranges are not reported, since discordance with absolute values may lead to misinterpretation of CBC data. Current Interpretive Data was last revised on 2018. Testing performed by: [address] [address] Blood 05/11/2025 7:19 PM CDT 05/11/2025 7:26 PM CDT us Melissa Quarles Anastacio REPAIRER HELPER LAB BLOOD ORDERABLES Fin al Result NAYE [address] [facility] Department [place] [address] * (ABNORMAL) CBC with auto differential (05/11/2025 7:19 PM CDT) WBC 7.83 3.80 - 9.90 K/cumm Comment:Testing performed by : [address] [address] Hgb 11.4(L) 11.9 - 15.5 g/dL NAYE Comment:Testing performed by : [address] [address] Hct 33.8(L) 35.6 - 45.5 % NAYE Comment:Testing performed by : [address] [address] Plt 254 150 - 400 K/cumm NAYE Comment:Testing performed by : [address] [address] MPV 9.5 9.1 - 12.3 fL NAYE Comment:Testing performed by : [address] [address] RBC 3.97 3.90 - 5.20 M/cumm NAYE Comment:Testing performed by : [address] [address] MCV 85.1 81.3 - 96.4 fL NAYE Comment:Testing performed by : [address] [address] MCH 28.7 27.1 - 33.3 pg NAYE SHEARER Comment:Testing performed by : [address] [address] MCHC 33.7 32.3 - 35.7 g/dL NAYE SHEARER Comment:Testing performed by : [address] [address] RDW CV 13.4 11.1 - 14.9 % NAYE SHEARER Comment:Testing performed by : [address] [address] RDW SD 41.5 35.7 - 48.1 fL NAYE SHEARER Comment:Testing performed by : [address] [address] NRBC abs 0.00 0.00 - 0.01 K/cumm NAYE SHEARER Comment:Testing performed by : [address], [place]., [address] Blood 05/11/2025 7:19 PM CDT 05/11/2025 7:26 PM CDT Melissa Chaves REPAIRER HELPER LAB BLOOD ORDERABLES Fin al Result NAYE [address] Department [place] [address] * (ABNORMAL) Comprehensive metabolic panel (05/11/2025 7:19 PM CDT) Sodium 142 135 - 145 mmol/L Comment:Testing performed by : [address] [address] Potassium, pl 3.4 3.3 - 4.9 mmol/L NAYE SHEARER Comment:Testing performed by : [address] [address] Chloride 107 97 - 110 mmol/L NAYE SHEARER Comment:Testing performed by : [address] [address] CO2 24 22 - 32 mmol/L NAYE SHEARER Comment:Testing performed by : [address] [address] Anion gap 11 2 - 15 mmol/L NAYE SHEARER Comment:Testing performed by : [address] [address] BUN 9 6 - 25 mg/dL NAYE SHEARER Comment:Testing performed by : [address] [address] Creatinine 0.90 0.60 - 1.10 mg/dL NAYE Comment:Testing performed by : [address] [address] Glucose 69(L) 70 - 199 mg/dL NAYE Comment: Interpretive Data Fasting glucose >/= 126 [...] was last revised 2022. Testing performed by: [address] [address] Calcium 8.7 8.5 - 10.3 mg/dL NAYE Comment:Testing performed by : [address] [address] Bilirubin, total 0.3 0.1 - 1.2 mg/dL [facility] Comment:Testing performed by : [address] [address] Protein, pl 6.1(L) 6.5 - 8.5 g/dL [facility] Comment:Testing performed by : [address] [address] Albumin 4.1 3.5 - 5.0 g/dL [facility] Comment:Testing performed by : [address] [address] Alk phos 78 40 - 130 Units/L NAYE Comment:Testing performed by : [address] [address] ALT 21 7 - 45 Units/L NAYE Comment:Testing performed by : [address] [address] AST 41 10 - 45 Units/L NAYE Comment:Testing performed by : [address] [address] Blood 05/11/2025 7:19 PM CDT 05/11/2025 7:26 PM CDT Melissa Chaves REPAIRER HELPER LAB BLOOD ORDERABLES Fin al Result Performing Organization Address City/State/[facility] Co de Phone Number NAYE [address] [facility] Department [place] [address] documented in this encounter Visit Diagnoses Diagnosis Cellulitis of right lower extremity- Primary documented in this encounter Administered Medications Inactive Administered Medications - up to 3 most recent administrations Medication Order MAR Action Action Date Dose Rate Site cefTRIAXone (ROCEPHIN) 2,000 mg/20 mL in sterile water (premix) 2,000 mg 2,000 mg, intravenous, at 240 mL/hr, Administer over 5 Minutes, Once, On Sun05/11/25 at 1903, For 1 dose, Indications: Skin/Soft Tissue InfectionIndications:Skin/S oft Tissue Infection Given 05/11/2025 7:20 PM CDT 2,000 mg 240 mL/hr documented in this encounter Active and Recently Administered Medications Times are shown in CDT. Scheduled Medication Order 05/09/2025 05/10/2025 05/11/2025 cefTRIAXone (ROCEPHIN) 2,000 mg/20 mL in sterile water (premix) 2,000 mg (COMPLETED) 2,000 mg, intravenous, at 240 mL/hr, Administer over 5 Minutes, Once, On Sun05/11/25 at 1903, For 1 dose, Indications: Skin/Soft Tissue Infection 1919 (Given - Provid er: Nelida Montilla RN) documented in this encounter Orders Medications Ordered That Orlin ht Not Have Been Administered Count Last Ordered Date First Ordered Date cefTRIAXone (ROCEPHIN) 2,000 mg/20 mL in sterile water (premix) 2,000 mg 1 05/11/2025 documented in this encounter Care Teams Sales And Marketing Analyst Relationship Specialty Start Date End Date Cralee Hopkins NP [address] [place] [id number] PCP - General Family Medicine 01/16/24 Rebecca Ramirez MD [address] [facility] [address] [place] [address] 08/15/19 documented as of this encounter
--- OUTSIDE RECORDS SUMMARY | 2025-05-11 18:24 | XMS_ITS | Encounter Summary ---
Author Organization [facility] Healthcare Address [address] [place] [address] Care Team Providers Care Plc Technician Name Role Phone Rebecca Ramirez MD Unavailable [phone] Carlee Hopkins NP Primary Care Provider [phone] Reason for Visit * Reason Comments Abscess Encounter Details Date Type Department Care Team (Late st Contact Info) Description 05/11/2025 6:24 PM CDT - 05/11/2025 8:01 PM CDT Emergency [facility] [place] [address] Cellulitis of right lower extremity [...] on file Legal Sex Female 11:52 PM [employer]ING [employer] P[employer]HER Gender Identity Female 12/09/2021 8:41 PM CDT [...] 05/11/2025 7:54 PM CDT 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 * Cellulitis (Discharge Care) (Sudanese) documented in this encounter Medications at Time [...] the patient to follow-up with: Carlee Hopkins, CHILDREN'S ATTENDANT [address] [place] [id number] Schedule an appointment as soon as [...] was last reviewed 2021. Testing performed by: [address] [address] Blood 05/11/2025 7:19 PM CDT 05/11/2025 7:26 PM CDT Melissa Chaves CHILDREN'S ATTENDANT LAB BLOOD ORDERABLES Fin al Result NAYE [facility] [facility] Department [place] [address] * Differential, auto (05/11/2025 7:19 PM CDT) Neutrophil abs 5.04 1.50 - 6.50 K/cumm Comment:Testing performed by : [address] [address] Imm gran abs 0.03 0.00 - 0.10 K/cumm NAYE Comment:Testing performed by : [address] [address] Lymphocyte abs 1.86 0.80 - 3.30 K/cumm NAYE Comment:Testing performed by : [address] [address] Monocyte abs 0.62 0.20 - 0.80 K/cumm NAYE Comment:Testing performed by : [address] [address] Eosinophil abs 0.25 0.00 - 0.50 K/cumm NAYE Comment:Testing performed by : [address] [address] Basophil abs 0.03 0.00 - 0.10 K/cumm NAYE Comment:Testing performed by : [address] [address] Neutrophil pct 64.3 % NAYE Comment: Interpretive Data Percent cell count reference ranges are not reported, since discordance with absolute values may lead to misinterpretation of CBC data. Current Interpretive Data was last revised on 2018. Testing performed by: [address] [address] Imm gran pct 0.4 % [facility] Comment: Interpretive Data Percent cell count reference ranges are not reported, since discordance with absolute values may lead to misinterpretation of CBC data. Current Interpretive Data was last revised on 2018. Testing performed by: [address] [address] Lymphocyte pct 23.8 % [facility] Comment: Interpretive Data Percent cell count reference ranges are not reported, since discordance with absolute values may lead to misinterpretation of CBC data. Current Interpretive Data was last revised on 2018. Testing performed by: [address] [address] Monocyte pct 7.9 % [facility] Comment: Interpretive Data Percent cell count reference ranges are not reported, since discordance with absolute values may lead to misinterpretation of CBC data. Current Interpretive Data was last revised on 2018. Testing performed by: [address] [address] Eosinophil pct 3.2 % [facility] Comment: Interpretive Data Percent cell count reference ranges are not reported, since discordance with absolute values may lead to misinterpretation of CBC data. Current Interpretive Data was last revised on 2018. Testing performed by: [address] [address] Basophil pct 0.4 % [facility] Comment: Interpretive Data Percent cell count reference ranges are not reported, since discordance with absolute values may lead to misinterpretation of CBC data. Current Interpretive Data was last revised on 2018. Testing performed by: [address] [address] Blood 05/11/2025 7:19 PM CDT 05/11/2025 7:26 PM CDT us Melissa Quarles Anastacio CHILDREN'S ATTENDANT LAB BLOOD ORDERABLES Fin al Result NAYE [address] [facility] Department [place] [address] * (ABNORMAL) CBC with auto differential (05/11/2025 7:19 PM CDT) WBC 7.83 3.80 - 9.90 K/cumm Comment:Testing performed by : [address] [address] Hgb 11.4(L) 11.9 - 15.5 g/dL NAYE Comment:Testing performed by : [address] [address] Hct 33.8(L) 35.6 - 45.5 % NAYE Comment:Testing performed by : [address] [address] Plt 254 150 - 400 K/cumm NAYE Comment:Testing performed by : [address] [address] MPV 9.5 9.1 - 12.3 fL NAYE Comment:Testing performed by : [address] [address] RBC 3.97 3.90 - 5.20 M/cumm NAYE Comment:Testing performed by : [address] [address] MCV 85.1 81.3 - 96.4 fL NAYE Comment:Testing performed by : [address] [address] MCH 28.7 27.1 - 33.3 pg NAYE SHEARER Comment:Testing performed by : [address] [address] MCHC 33.7 32.3 - 35.7 g/dL NAYE SHEARER Comment:Testing performed by : [address] [address] RDW CV 13.4 11.1 - 14.9 % NAYE SHEARER Comment:Testing performed by : [address] [address] RDW SD 41.5 35.7 - 48.1 fL NAYE SHEARER Comment:Testing performed by : [address] [address] NRBC abs 0.00 0.00 - 0.01 K/cumm NAYE SHEARER Comment:Testing performed by : [address], [place]., [address] Blood 05/11/2025 7:19 PM CDT 05/11/2025 7:26 PM CDT Melissa Chaves CHILDREN'S ATTENDANT LAB BLOOD ORDERABLES Fin al Result NAYE [address] Department [place] [address] * (ABNORMAL) Comprehensive metabolic panel (05/11/2025 7:19 PM CDT) Sodium 142 135 - 145 mmol/L Comment:Testing performed by : [address] [address] Potassium, pl 3.4 3.3 - 4.9 mmol/L NAYE SHEARER Comment:Testing performed by : [address] [address] Chloride 107 97 - 110 mmol/L NAYE SHEARER Comment:Testing performed by : [address] [address] CO2 24 22 - 32 mmol/L NAYE SHEARER Comment:Testing performed by : [address] [address] Anion gap 11 2 - 15 mmol/L NAYE SHEARER Comment:Testing performed by : [address] [address] BUN 9 6 - 25 mg/dL NAYE SHEARER Comment:Testing performed by : [address] [address] Creatinine 0.90 0.60 - 1.10 mg/dL NAYE Comment:Testing performed by : [address] [address] Glucose 69(L) 70 - 199 mg/dL NAYE [...] was last revised 2022. Testing performed by: [address] [address] Calcium 8.7 8.5 - 10.3 mg/dL NAYE Comment:Testing performed by : [address] [address] Bilirubin, total 0.3 0.1 - 1.2 mg/dL [facility] Comment:Testing performed by : [address] [address] Protein, pl 6.1(L) 6.5 - 8.5 g/dL [facility] Comment:Testing performed by : [address] [address] Albumin 4.1 3.5 - 5.0 g/dL [facility] Comment:Testing performed by : [address] [address] Alk phos 78 40 - 130 Units/L NAYE Comment:Testing performed by : [address] [address] ALT 21 7 - 45 Units/L NAYE Comment:Testing performed by : [address] [address] AST 41 10 - 45 Units/L NAYE Comment:Testing performed by : [address] [address] Blood 05/11/2025 7:19 PM CDT 05/11/2025 7:26 PM CDT Melissa Chaves CHILDREN'S ATTENDANT LAB BLOOD ORDERABLES Fin al Result Performing Organization Address City/State/[facility] Co de Phone Number NAYE [address] [facility] Department [place] [address] documented in this encounter Visit Diagnoses Diagnosis [...] 05/11/2025 documented in this encounter Care Teams Plc Technician Relationship Specialty Start Date End Date Carlee Hopkins NP [address] [place] [id number] PCP - General Family Medicine 01/16/24 Rebecca Ramirez MD [address] [facility] [address] [place] [address] 08/15/19 documented as of this encounter
--- NOTE | ~2025-05-12 | CT_ITS ---
CLINICAL INDICATION: Right lower quadrant pain and nausea and COMPARISON: 05/19/2019. TECHNIQUE: Multiple contiguous axial images of the abdomen and pelvis were performed following the administration of with 100 mL Omnipaque-350 intravenous contrast The dose-length product (DLP) was 201.99 mGy-cm. Automated exposure control and iterative reconstruction technique were employed. FINDINGS/OBSERVATIONS: Visualized lower thorax: The bilateral lung bases are clear. The heart is of normal size, without pericardial effusion. Small hiatal hernia is present. Liver: The liver demonstrates homogeneous enhancement and is not enlarged. Gallbladder and biliary system: The gallbladder is only minimally distended, and otherwise unremarkable. Pancreas: The pancreas enhances homogeneously without ductal dilatation. Spleen: The spleen enhances homogeneously and is not enlarged. Kidneys: The bilateral kidneys enhance symmetrically without hydronephrosis or renal calculi. Adrenal glands: Unremarkable. Gastrointestinal tract: Mural thickening with surrounding inflammatory change is identified within the descending colon. Fecal stasis throughout the remainder of the colon. Appendix: The air-filled appendix is of normal caliber (axial series, images 103 through 117). Vasculature: Unremarkable. Lymph nodes: No pathologically enlarged or morphologically suspicious lymph nodes within the retroperitoneum or at the root of the mesentery. Pelvic structures: The bladder is decompressed, limiting its evaluation. The uterus is anteverted and anteflexed and contains intrauterine device in good position. Within the right ovary is a involuting cyst measuring 21 x 21 x 20 mm. Trace free fluid within the right hemipelvis, likely physiologic. Body wall and musculoskeletal: Small fat-containing umbilical hernia. No significant degenerative disease within the lower thoracic or lumbosacral spine. IMPRESSION: Normal appendix. Involuting cyst within the right ovary. Short segment colitis within the descending colon. Reviewed, dictated and finalized at location A.
--- NOTE | ~2025-05-12 | US_ITS ---
EXAM: PELVIC ULTRASOUND HISTORY: R ovarian cyst on ct, r/o torsion COMPARISON: None. Reference is made to the CT examination of the abdomen and pelvis performed approximately 1 hour earlier FINDINGS: UTERUS: 11.8 x 5.0 x 5.6 cm. The uterus is anteverted and anteflexed. IUD is visualized. RIGHT OVARY: Right ovary measures 3.8 x 2.0 x 3.7 cm Within the right ovary is a well-circumscribed anechoic focus measuring 2.4 x 1.4 x 1.3 cm, consistent with a simple cyst which does not meet size criteria for follow-up in a premenopausal patient. Dopplerable flow is identified. LEFT OVARY: The left ovary is unremarkable in echogenicity and size measuring 3.4 x 2.1 x 2.4 cm Dopplerable flow is identified. IMPRESSION: Findings within the right ovary corresponding to examination with a simple cyst which does not meet size criteria for follow-up. No sonographic evidence of ovarian torsion. Reviewed, dictated and finalized at location A.
--- OUTSIDE RECORDS SUMMARY | 2025-05-12 16:36 | XMS_ITS | Clinical Summary ---
Author Organization [facility] Address [address] [place] [address] Care Team Providers Care [employer]ator Name Role Phone Rebecca Ramirez MD Unavailable [phone] Carlee Hopkins NP Primary Care Provider Allergies Active Allergy Reactions Criticality Noted Date [...] and suggested counseling Mentioned walk-in clinic in [place] for mental health, encouraged to seek appointment today Assessment & Plan (12/24/2024 6:22 AM CDT): Uncontrolled Reviewed PHQ-2=1, previously 3, BARRIE-7=16, previously 3 Continued on citalopram 40 mg daily and buspirone, suggested increase in buspirone from 10 mg daily to 10 mg twice daily for better control of anxiety symptoms Assessment & Plan (10/16/2024 8:40 AM FORKLIFT DRIVER): Controlled Reviewed PHQ-9=3, BARRIE-7=3 Continued on buspirone 10 mg daily and citalopram 40 mg daily Assessment & Plan (08/05/2024 6:31 AM FORKLIFT DRIVER): Chronic, stable, controlled on medication Continued on [...] times Assessment & Plan (10/16/2024 8:41 AM FORKLIFT DRIVER): Advised to check expiration date on EpiPen and to notify office if Is aware to carry at all times for possible accidental ingestion Assessment & Plan (08/05/2024 6:29 AM FORKLIFT DRIVER): Instructed to carry EpiPen at all times [...] and suggested counseling Mentioned walk-in clinic in [place] for mental health, encouraged to be seen [...] safety Assessment & Plan (10/16/2024 8:41 AM FORKLIFT DRIVER): Controlled Reviewed PHQ-9=3, BARRIE-7=3 Continued on bupropion [...] safety Assessment & Plan (10/10/2022 9:00 AM FORKLIFT DRIVER): Patient with recurrent depression, will increase sertraline [...] control. Assessment & Plan (08/10/2022 8:27 AM FORKLIFT DRIVER): Patient presents today for evaluation of recurrent [...] ideation. Assessment & Plan (11/15/2021 4:04 AM FORKLIFT DRIVER): Patient with recurrent depression, she states that her current regimen is working well for her and she would like to continue on this. She denies any adverse effects and denies any suicidal or homicidal ideation. Assessment & Plan (09/26/2021 1:53 PM FORKLIFT DRIVER): Symptoms seem to be worsening since increasing Wellbutrin. Recommend decreasing Wellbutrin to 150 mg once daily and starting low-dose Lexapro. Patient does have follow-up scheduled with PCP in 1 month. Recent labs reviewed. TSH within normal limits in April 2021 Assessment & Plan (08/14/2021 6:16 PM FORKLIFT DRIVER): Patient with depression, and states that symptoms [...] times Assessment & Plan (10/16/2024 8:41 AM FORKLIFT DRIVER): Advised to check expiration date on EpiPen and to notify office if Is aware to carry at all times for possible accidental ingestion Assessment & Plan (08/05/2024 6:29 AM FORKLIFT DRIVER): Instructed to carry EpiPen at all times [...] needed Assessment & Plan (10/16/2024 8:39 AM FORKLIFT DRIVER): Uncontrolled Discontinued Flovent Started on Breo 200-25 daily Continued on albuterol as directed as needed Assessment & Plan (09/18/2024 4:40 PM FORKLIFT DRIVER): AFVSS, exam benign Recommend restarting daily inhaler [...] 12/24/2024 Assessment & Plan (08/05/2024 6:31 AM FORKLIFT DRIVER): Acute, seen in ER last evening, with symptoms occurring immediately after drinking a protein shake for the 1st time, protein shake contained whey protein, soy, and dairy, and other ingredients Reviewed patient's cell phone Encouraged to avoid protein shake Advised to carry EpiPen at all times Instructed return to ER if symptoms should recur Referral made to emd special education teacher sree Matrinez 07/06/2024 07/21/2024 Assessment & Plan (07/06/2024 1:31 [...] 01/16/2024 Assessment & Plan (10/10/2022 9:01 AM FORKLIFT DRIVER): Patient with incidental and states that she is about 4 weeks , discussed risks and benefits of current medications advised that it is okay to proceed on sertraline as this is a safe medication during , and benefits outweigh risk at this time. IUD (intrauterine device) in place 08/10/2022 10/06/2022 Assessment & Plan (08/10/2022 8:28 AM FORKLIFT DRIVER): Patient states that she has had IUD [...] 08/10/2022 Assessment & Plan (08/03/2022 5:44 PM FORKLIFT DRIVER): Rapid strep positive. Antibiotic ordered today. Discussed [...] 11/02/2021 Assessment & Plan (09/26/2021 1:54 PM FORKLIFT DRIVER): BMI Follow-up includes: education provided. Dysuria 06/23/2021 [...] 03/07/202103/10 Assessment & Plan (11/15/2021 4:04 AM FORKLIFT DRIVER): Plan as above. Assessment & Plan (06/23/2021 [...] CDT - 05/11/2025 8:01 PM CDT Emergency [facility] Emergency Department [facility] [place] [address] Cellulitis of right lower extremity (Primary Dx) Discharge Disposition: Discharge to home or self care 04/09/2025 2:30 PM CDT Office Visit [facility] Primary Care at [address] [phone] Carlee Hopkins NP Annual physical exam (Primary Dx); Rectal bleeding; External hemorrhoids; Moderate persistent asthma without complication; Recurrent major depressive disorder, in partial remission; BARRIE (generalized anxiety disorder); Tree nut allergy; Allergy to peanuts; Canker sore; Allergic rhinitis due to animal hair and dander 04/07/2025 Nurse Triage [facility] Primary Care at [address] [phone] Carlee Melendez RN 04/07/2025 Telephone [facility] Primary Care at [address] [phone] Carlee Hopkins NP Recommendation Request 03/13/2025 Results Follow-Up [facility] Emergency Department [address] [place] [address] Cris Kinney PA Urine culture Urine 03/12/2025 9:15 AM CDT Office Visit [facility] Primary Care at [place] [address] [place] [address] Carlee Hopkins NP Interscapular pain (Primary Dx); Acute bilateral thoracic back pain; Acute bilateral low back pain without sciatica; Acute nonintractable headache, unspecified headache type 03/09/2025 8:44 AM CDT - 03/09/2025 12:21 PM CDT Emergency [facility] Emergency Department [address] [place] [address] Acute left-sided thoracic back pain (Primary Dx); Cystitis Discharge Disposition: Discharge to home or self care 02/18/2025 Telephone [facility] [address] [facility] [address] [place] [address] Hank Aguilar DO from Last [...] on file Legal Sex Female 11:52 PM FORKLIFT DRIVER Gender Identity Female 12/09/2021 8:41 PM CDT [...] Vag-S pont N Living Complications:Pre eclampsia Delivery Location:[facility] in [place] Last Filed Vital Signs [...] GONORRHOEAE/C. TRACHOMATIS AMPLIFICATION Routine 10/21/2022 11:02 AM FORKLIFT DRIVER Early stage of HEPATITIS C ANTIBODY Routine 10/21/2022 10:59 AM FORKLIFT DRIVER Early stage of from Last 3 Months [...] last reviewed 2021. Testing performed by: [address] [address] Blood 05/11/2025 7:19 PM CDT 05/11/2025 7:26 PM CDT us Melissa Chaves REHABILITATION CENTER MANAGER LAB BLOOD ORDERABLES Fin al Result NAYE SHEARER [address] [facility] Department [place] [address] * Differential, auto (05/11/2025 7:19 PM CDT) Neutrophil abs 5.04 1.50 - 6.50 K/cumm Comment:Testing performed by : [address] [address] Imm gran abs 0.03 0.00 - 0.10 K/cumm NAYE SHEARER Comment:Testing performed by : [address] [address] Lymphocyte abs 1.86 0.80 - 3.30 K/cumm NAYE SHEARER Comment:Testing performed by : [address] [address] Monocyte abs 0.62 0.20 - 0.80 K/cumm NAYE SHEARER Comment:Testing performed by : [address] [address] Eosinophil abs 0.25 0.00 - 0.50 K/cumm NAYE Comment:Testing performed by : [address] [address] Basophil abs 0.03 0.00 - 0.10 K/cumm NAYE Comment:Testing performed by : [address] [address] Neutrophil pct 64.3 % [facility] Comment: Interpretive Data Percent cell count reference ranges are not reported, since discordance with absolute values may lead to misinterpretation of CBC data. Current Interpretive Data was last revised on 2018. Testing performed by: [address] [address] Imm gran pct 0.4 % [facility] Comment: Interpretive Data Percent cell count reference ranges are not reported, since discordance with absolute values may lead to misinterpretation of CBC data. Current Interpretive Data was last revised on 2018. Testing performed by: [address] [address] Lymphocyte pct 23.8 % [facility] Comment: Interpretive Data Percent cell count reference ranges are not reported, since discordance with absolute values may lead to misinterpretation of CBC data. Current Interpretive Data was last revised on 2018. Testing performed by: [address] [address] Monocyte pct 7.9 % [facility] Comment: Interpretive Data Percent cell count reference ranges are not reported, since discordance with absolute values may lead to misinterpretation of CBC data. Current Interpretive Data was last revised on 2018. Testing performed by: [address] [address] Eosinophil pct 3.2 % NAYE Comment: Interpretive Data Percent cell count reference ranges are not reported, since discordance with absolute values may lead to misinterpretation of CBC data. Current Interpretive Data was last revised on 2018. Testing performed by: [address] [address] Basophil pct 0.4 % NAYE Comment: Interpretive Data Percent cell count reference ranges are not reported, since discordance with absolute values may lead to misinterpretation of CBC data. Current Interpretive Data was last revised on 2018. Testing performed by: [address] [address] Blood 05/11/2025 7:19 PM CDT 05/11/2025 7:26 PM CDT Melissa Chavse REHABILITATION CENTER MANAGER LAB BLOOD ORDERABLES Fin al Result NAYE [address] [facility] Department [place] [address] * (ABNORMAL) CBC with auto differential (05/11/2025 7:19 PM CDT) WBC 7.83 3.80 - 9.90 K/cumm Comment:Testing performed by : [address] [address] Hgb 11.4(L) 11.9 - 15.5 g/dL NAYE Comment:Testing performed by : [address] [address] Hct 33.8(L) 35.6 - 45.5 % NAYE Comment:Testing performed by : [address] [address] Plt 254 150 - 400 K/cumm NAYE Comment:Testing performed by : [address] [address] MPV 9.5 9.1 - 12.3 fL NAYE Comment:Testing performed by : [address] [address] RBC 3.97 3.90 - 5.20 M/cumm NAYE Comment:Testing performed by : [address] [address] MCV 85.1 81.3 - 96.4 fL NAYE Comment:Testing performed by : [address] [address] MCH 28.7 27.1 - 33.3 pg NAYE SHEARER Comment:Testing performed by : [address] [address] MCHC 33.7 32.3 - 35.7 g/dL NAYE SHEARER Comment:Testing performed by : [address] [address] RDW CV 13.4 11.1 - 14.9 % NAYE SHEARER Comment:Testing performed by : [address] [address] RDW SD 41.5 35.7 - 48.1 fL NAYE SHEARER Comment:Testing performed by : [address] [address] NRBC abs 0.00 0.00 - 0.01 K/cumm NAYE SHEARER Comment:Testing performed by : [address] [address] Blood 05/11/2025 7:19 PM CDT 05/11/2025 7:26 PM CDT Melissa Chaves REHABILITATION CENTER MANAGER LAB BLOOD ORDERABLES Fin al Result NAYE SHEARER [facility] Department of Laboratories [place], [place] [id number] * (ABNORMAL) Comprehensive metabolic panel (05/11/2025 7:19 PM CDT) Sodium 142 135 - 145 mmol/L Comment:Testing performed by : [address] [address] Potassium, pl 3.4 3.3 - 4.9 mmol/L NAYE SHEARER Comment:Testing performed by : [address] [address] Chloride 107 97 - 110 mmol/L NAYE SHEARER Comment:Testing performed by : [address] [address] CO2 24 22 - 32 mmol/L NAYE SHEARER Comment:Testing performed by : [address] [address] Anion gap 11 2 - 15 mmol/L NAYE SHEARER Comment:Testing performed by : [address] [address] BUN 9 6 - 25 mg/dL NAYE Comment:Testing performed by : [address] [address] Creatinine 0.90 0.60 - 1.10 mg/dL NAYE Comment:Testing performed by : [address] [address] Glucose 69(L) 70 - 199 mg/dL NAYE [...] last revised 2022. Testing performed by: [address] [address] Calcium 8.7 8.5 - 10.3 mg/dL NAYE Comment:Testing performed by : [address] [address] Bilirubin, total 0.3 0.1 - 1.2 mg/dL NAYE Comment:Testing performed by : [address] [address] Protein, pl 6.1(L) 6.5 - 8.5 g/dL NAYE Comment:Testing performed by : [address] [address] Albumin 4.1 3.5 - 5.0 g/dL NAYE Comment:Testing performed by : [address] [address] Alk phos 78 40 - 130 Units/L NAYE Comment:Testing performed by : [address] [address] ALT 21 7 - 45 Units/L NAYE Comment:Testing performed by : [address] [address] AST 41 10 - 45 Units/L NAYE Comment:Testing performed by : [facility], [address] [place] [address]., [address] Blood 05/11/2025 7:19 PM CDT 05/11/2025 7:26 PM CDT us Melissa Chaves NP LAB BLOOD ORDERABLES Fin al Result Performing Organization Address City/[facility]/ZIP Co de Phone Number NAYE [address] [place] [address] * eGFR (03/09/2025 9:26 AM CDT) eGFR [...] was last reviewed 2021. Testing performed by: [facility], [address] [place] [address]., [address] Blood 03/09/2025 9:26 AM CDT 03/09/2025 9:32 AM CDT us Cris Kinney PA LAB BLOOD ORDERABLES Final R esult NAYE [address] [place] [address] * (ABNORMAL) Differential, auto (03/09/2025 9:26 AM CDT) Neutrophil abs 10.65(H) 1.50 - 6.50 K/cumm Comment:Testing performed by : [address] [address] Imm gran abs 0.07 0.00 - 0.10 K/cumm NAYE Comment:Testing performed by : [address] [address] Lymphocyte abs 0.73(L) 0.80 - 3.30 K/cumm NAYE Comment:Testing performed by : [address] [address] Monocyte abs 0.83(H) 0.20 - 0.80 K/cumm NAYE Comment:Testing performed by : [address] [address] Eosinophil abs 0.09 0.00 - 0.50 K/cumm NAYE Comment:Testing performed by : [address] [address] Basophil abs 0.05 0.00 - 0.10 K/cumm [facility] Comment:Testing performed by : [address] [address] Neutrophil pct 85.7 % [facility] Comment: Interpretive Data Percent cell count reference ranges are not reported, since discordance with absolute values may lead to misinterpretation of CBC data. Current Interpretive Data was last revised on 2018. Testing performed by: [address] [address] Imm gran pct 0.6 % [facility] Comment: Interpretive Data Percent cell count reference ranges are not reported, since discordance with absolute values may lead to misinterpretation of CBC data. Current Interpretive Data was last revised on 2018. Testing performed by: [address] [address] Lymphocyte pct 5.9 % [facility] Comment: Interpretive Data Percent cell count reference ranges are not reported, since discordance with absolute values may lead to misinterpretation of CBC data. Current Interpretive Data was last revised on 2018. Testing performed by: [address] [address] Monocyte pct 6.7 % NAYE Comment: Interpretive Data Percent cell count reference ranges are not reported, since discordance with absolute values may lead to misinterpretation of CBC data. Current Interpretive Data was last revised on 2018. Testing performed by: [address] [address] Eosinophil pct 0.7 % NAYE Comment: Interpretive Data Percent cell count reference ranges are not reported, since discordance with absolute values may lead to misinterpretation of CBC data. Current Interpretive Data was last revised on 2018. Testing performed by: [address] [address] Basophil pct 0.4 % NAYE Comment: Interpretive Data Percent cell count reference ranges are not reported, since discordance with absolute values may lead to misinterpretation of CBC data. Current Interpretive Data was last revised on 2018. Testing performed by: [address] [address] Blood 03/09/2025 9:26 AM CDT 03/09/2025 9:32 AM CDT us Cris MADDEN LAB BLOOD ORDERABLES Final R esult [facility] [address] [facility] Department of Laboratories [place], [place] [id number] * (ABNORMAL) Urinalysis reflex to microscopic and culture Urine (03/09/2025 9:26 AM CDT) Color, ur Yellow Yellow Comment:Testing performed by : [address] [address] Clarity, ur Cloudy(A) Clear NAYE Comment:Testing performed by : [address] [address] Specific gravity, ur 1.025 1.003 - 1.030 NYAE Comment:Testing performed by : [address] [address] pH, urine 6.5 NAYE Comment: Interpretive Data U rine pH is affected by diet, medications, systemic acid-base disturbances, and renal tubular function. pH may affect urinary stone formation. For example, urine pH below 6.0 may help reduce the tendency for calcium phosphate stones and pH greater than 6.0 may reduce the tendency for uric acid stone formation. Source: [facility] [employer] Current Interpretive Data was last revised on 2017 Testing performed by: [facility], [address] [place] [address]., [address] Protein, ur ql 1+(A) Negative NAYE Comment:Testing performed by : [address] [address] Glucose, ur ql Negative Negative NAYE Comment:Testing performed by : [address], [place]., [address] Ketones, ur Negative Negative NAYE Comment:Testing performed by : [address] [address] Bilirubin, ur Negative Negative NAYE Comment:Testing performed by : [address], [place]., [address] Blood, ur 1+(A) Negative NAYE Comment:Testing performed by : [address] [address] Urobilinogen, ur <2.0 <2.0 mg/dL NAYE Comment:Testing performed by : [address] [address] Nitrite, ur Positive(A) Negative NAYE Comment:Testing performed by : [address] [address] Leukocyte esterase, ur 2+(A) Negative NAYE Comment:Testing performed by : [address] [address] UA reflex comment Reflex to microscopic UA will be performed. NAYE Comment:Testing performed by : [address], [place]., [address] Urine 03/09/2025 9:26 AM CDT 03/09/2025 9:32 AM CDT us Cris MADDEN LAB MICROBIOLOGY - GENERAL O RDERABLES Final Result NAYE [address] [facility] Department [place] [address] * (ABNORMAL) CBC with auto differential (03/09/2025 9:26 AM CDT) WBC 12.42(H) 3.80 - 9.90 K/cumm Comment:Testing performed by : [address] [address] Hgb 12.3 11.9 - 15.5 g/dL NAYE Comment:Testing performed by : [address] [address] Hct 35.8 35.6 - 45.5 % NAYE Comment:Testing performed by : [address] [address] Plt 263 150 - 400 K/cumm NAYE Comment:Testing performed by : [address], [address] MPV 9.1 9.1 - 12.3 fL NAYE Comment:Testing performed by : [address] [address] RBC 4.24 3.90 - 5.20 M/cumm NAYE Comment:Testing performed by : [address] [address] MCV 84.4 81.3 - 96.4 fL NAYE Comment:Testing performed by : [address] [address] MCH 29.0 27.1 - 33.3 pg NAYE Comment:Testing performed by : [address], [address] MCHC 34.4 32.3 - 35.7 g/dL NAYE Comment:Testing performed by : [address], [address] RDW CV 12.8 11.1 - 14.9 % NAYE Comment:Testing performed by : [address] [place]., [address] RDW SD 39.0 35.7 - 48.1 fL NAYE SHEARER Comment:Testing performed by : [address] [address] NRBC abs 0.00 0.00 - 0.01 K/cumm NAYE SHEARER Comment:Testing performed by : [address] [address] Blood 03/09/2025 9:26 AM CDT 03/09/2025 9:32 AM CDT us Cris MADDEN LAB BLOOD ORDERABLES Final R esult Performing Organization Address [facility] Co de Phone Number NAYE SHEARER [address] [facility] Department of Laboratories [place], [place] [id number] * (ABNORMAL) Urinalysis, microscopic only (03/09/2025 9:26 AM CDT) WBC, ur 21-50(A) 0 - 5 /HPF Comment:Testing performed by : [address] [address] RBC, ur 11-20(A) 0 - 2 /HPF NAYE SHEARER Comment:Testing performed by : [address] [address] Epithelial cells, squamous, ur >50(A) 0 - 5 /HPF NAYE Comment:Testing performed by : [address] [address] Mucous, ur Present(A) NAYE Comment:Testing performed by : [address] [address] Culture Reflex Comment Reflex to urine culture will be performed. NAYE Comment:Testing performed by : [address] [address] Urine 03/09/2025 9:26 AM CDT 03/09/2025 9:32 AM CDT Cris MADDEN LAB URINE ORDERABLES Final R esult [facility] [address] [facility] Department [place] [address] * (ABNORMAL) Urine culture Urine (03/09/2025 9:26 AM CDT) Report Final Report: Greater than or equal to 100,000 colonies/mL of Klebsiella (Enterobacter) aerogenes (.) Comment:Testing performed by : [facility], [address] [place] [address] Organism KLEBSIELLA (ENTEROBACTER) AEROGENES NAYE Urine 03/09/2025 9:26 AM CDT 03/09/2025 1:49 PM CDT Narrative NAYE - 03/11/2025 11:29 AM CDT Urine culture reflexed based upon urinalysis results. Testing performed by [facility] ([phone]) Organism Antibiotic Method Susceptibility Klebsiella (Enterobacter) aerogenes [...] MICROBIOLOGY - GENERAL O RDERABLES Final Result [facility] [address] [facility] Department [place] [address] * Comprehensive metabolic panel (03/09/2025 9:26 AM CDT) Sodium 137 135 - 145 mmol/L Comment:Testing performed by : [facility], [address] [place] [address]., [address] Potassium, pl 3.4 3.3 - 4.9 mmol/L NAYE Comment:Testing performed by : [address], [place]., [address] Chloride 103 97 - 110 mmol/L NAYE Comment:Testing performed by : [address], [place]., [address] CO2 24 22 - 32 mmol/L NAYE Comment:Testing performed by : [address], [place]., [address] Anion gap 10 2 - 15 mmol/L NAYE Comment:Testing performed by : [address], [place]., [address] BUN 12 6 - 25 mg/dL NAYE Comment:Testing performed by : [address], [place]., [address] Creatinine 1.06 0.60 - 1.10 mg/dL NAYE Comment:Testing performed by : [address], [place]., [address] Glucose 92 70 - 199 mg/dL NAYE [...] last revised 2022. Testing performed by: [address] [address] Calcium 9.1 8.5 - 10.3 mg/dL NAYE Comment:Testing performed by : [address] [address] Bilirubin, total 0.9 0.1 - 1.2 mg/dL NAYE Comment:Testing performed by : [address], [place]., [address] Protein, pl 6.7 6.5 - 8.5 g/dL NAYE Comment:Testing performed by : [address] [address] Albumin 4.3 3.5 - 5.0 g/dL NAYE Comment:Testing performed by : [address] [address] Alk phos 74 40 - 130 Units/L NAYE Comment:Testing performed by : [address] [address] ALT 17 7 - 45 Units/L NAYE Comment:Testing performed by : [address] [address] AST 18 10 - 45 Units/L NAYE Comment:Testing performed by : [address] [address] Blood 03/09/2025 9:26 AM CDT 03/09/2025 9:32 AM CDT Cris MADDEN LAB BLOOD ORDERABLES Final R esult Performing Organization Address City/State/[facility] Co de Phone Number NAYE [facility] Department [place] [address] * POCT hCG, urine (03/09/2025 8:14 AM CDT) Pathologist [facility] HCG, ur, POC Negative Negative Lot Number [id number] QC Backgroud Clear Acceptable QC Control Line Acceptable Urine 03/09/2025 8:14 AM CDT Paco Metcalf DO POINT OF CARE TEST ORDERABL ES Final Result * N. gonorrhoeae/C. trachomatis Amplification Urine (10/21/2022 11:02 AM FORKLIFT DRIVER) Pathologist [facility] C. trachomatis Not Detected Not Detected [facility] Comment:Testing performed by : [facility], [address] [place]., [address] N. gonorrhoeae Not Detected Not Detected [facility] Comment: Interpretive Data Testing performed by [...] performed by: [facility], [address] [place] [address]., [id number] Urine (None) 10/21/2022 11:0 2 AM FORKLIFT DRIVER 10/21/2022 2:00 PM FORKLIFT DRIVER [facility] - GENERA L ORDERABLES Final Result Performing Organization Address City/[facility] Co de Phone Number [address] [address] * Hepatitis C antibody (10/21/2022 10:59 AM FORKLIFT DRIVER) Hep C Ab Nonreactive Nonreactive [facility] Comment: Antibodies to HCV not detected. Does NOT exclude the possibility of recent exposure to HCV. Current interpretive data was last revised on 22 Testing performed by: [facility], [address] [place] [address]., [id number] Blood 10/21/2022 10:5 9 AM FORKLIFT DRIVER 10/21/2022 1:30 PM FORKLIFT DRIVER [facility]CRO[facility] - GENERA L ORDERABLES Final Result Performing Organization Address City/[facility]/ZIP Co de Phone Number [facility] [address] [place] [address] from Last 3 Months or Most Recently Relevant to Health Maintenance Insurance [facility] FEDERAL [facility] FEDERAL IDPA [facility] IDPA ANTH TRADITIONAL Care Teams [employer] Relationship Specialty Start Date End Date Carlee Hopkins NP [address] [place] [id number] PCP - General Family Medicine 01/16/24 Rebecca Ramirez MD [address] [place] [address] [address] [place] [address] 08/15/19
--- OUTSIDE RECORDS SUMMARY | 2025-05-12 16:36 | XMS_ITS | Patient Health Record ---
Author Organization [facility] [employer] Address [address] [place] [address] Care Team Providers Care Comparison Shopper Name Role Phone Carlee Campos Primary Care Provider UnavailMarilu Hernandez Unavailable [phone] Ken Rizo Unavailable [phone] Allergies Allergen (clinical drug ingredient) Drug/Non Drug [...] Oxazepam (BZO) p 0 - 300 ng/ml 9-xstdpmuanx-4,4-gkyrnkch-3, 3-diph enylpyrrolidine (EDDP) n 0 - 300 ng/ml Methamphetamine (MET) n 0 - 1000 ng/ml Methylenedioxymethamphetamin e (MDMA) n 0 - 500 ng/ml Morphine (MOP 300/BHV1536) n 0 - 300 ng/ml Methadone (MTD) [...] Oxazepam (BZO) p 0 - 300 ng/ml 5-pdiomdmxxw-9,5-ruiyrxnq-0, 3-diph enylpyrrolidine (EDDP) n 0 - 300 ng/ml Methamphetamine (MET) n 0 - 1000 ng/ml Methylenedioxymethamphetamin e (MDMA) n 0 - 500 ng/ml Morphine (MOP 300/[id number]) n 0 - 300 ng/ml Methadone (MTD) [...] Oxazepam (BZO) n 0 - 300 ng/ml 2-aipswdckfv-3,1-gklrvbys-2, 3-diph enylpyrrolidine (EDDP) n 0 - 300 ng/ml Methamphetamine (MET) n 0 - 1000 ng/ml Methylenedioxymethamphetamin e (MDMA) n 0 - 500 ng/ml Morphine (MOP 300/HVV4445) n 0 - 300 ng/ml Methadone (MTD) [...] Oxazepam (BZO) N 0 - 300 ng/ml 5-fbsucrynea-2,3-himsfmxu-3, 3-diph enylpyrrolidine (EDDP) N 0 - 300 ng/ml Methamphetamine (MET) N 0 - 1000 ng/ml Methylenedioxymethamphetamin e (MDMA) N 0 - 500 ng/ml Morphine (MOP 300/[id number]) N 0 - 300 ng/ml Methadone (MTD) [...] Benzodiazepines Reviewed date:02/22/2025 07:05:20 PM Interpretation: Performing Lab:[address] [place] [address], [address] [place] [address], Director - [id number] Notes/Report: An exception occurred while processing this report and so it has incomplete data. Please contact [employer] for assistance. Not Medicated Consistent Not [...] Not Medicated Consistent Not Medicated Consistent Specific [place] 1.009 1.003 - 1.030 pH 6.6 3.0 [...] Severe recurrent major depression without psychotic features (74253597) Major depressive disorder, recurrent severe without psychotic features (F33.2) Active confirmed Problem Generalized anxiety disorder (61431737) Generalized anxiety disorder (F41.1) Active confirmed Problem Attention deficit hyperactivity disorder (195928890) ADHD (attention deficit hyperactivity disorder), combined type (F90.2) Active confirmed Problem Attention deficit hyperactivity disorder (325947696) Attention deficit hyperactivity disorder (ADHD), unspecified ADHD type (F90.9) Active confirmed Problem Unable to concentrate (finding) (38356917) Difficulty concentrating (R41.840) Active confirmed Vital Signs [...] N/A Encounters Encounter Location Date Provider Diagnosis [facility] [employer] [address] [address] 01/14/2025 Marilu Kurilla Major depressive disorder, recurrent severe without psychotic features F33.2 ; Generalized anxiety disorder F41.1 ; Difficulty concentrating R41.840 ; Encounter for screening for cardiovascular disorders Z13.6 and Encounter for screening for depression Z13.[address] [employer] [address] [address] 01/19/2025 Ken Rizo Attention deficit hyperactivity disorder (ADHD), unspecified ADHD type F90.9 [facility] [employer] [address] [address] 01/26/2025 Marilu Kurilla Major depressive disorder, recurrent severe without psychotic features F33.2 ; Generalized anxiety disorder F41.1 ; ADHD (attention deficit hyperactivity disorder), combined type F90.2 ; Encounter for screening for depression Z13.31 and Encounter for screening for cardiovascular disorders Z13.6 [facility] [address] [place] [address] 01/27/2025 Marilu Kurilla Major depressive disorder, recurrent severe without psychotic features F33.2 ; Generalized anxiety disorder F41.1 ; ADHD (attention deficit hyperactivity disorder), combined type F90.2 ; Encounter for screening for cardiovascular disorders Z13.6 and Encounter for screening for depression Z13.31 [place] [address] [place] [address] 02/11/2025 Marilu Kurilla Major depressive disorder, recurrent severe without psychotic features F33.2 ; Generalized anxiety disorder F41.1 ; ADHD (attention deficit hyperactivity disorder), combined type F90.2 ; Encounter for screening for depression Z13.31 ; Encounter for screening for cardiovascular disorders Z13.6 and High risk medication use Z79.899 [place] [address] [facility] [address] [place] [address] 03/02/2025 Marilu Kurilla Major depressive disorder, recurrent severe without psychotic features F33.2 ; Generalized anxiety disorder F41.1 ; ADHD (attention deficit hyperactivity disorder), combined type F90.2 ; Encounter for screening for depression Z13.31 ; Negative depression screening Z13.31 and Encounter for screening for cardiovascular disorders Z13.6 [place] [address] [facility] [address] [place] [address] 04/16/2025 Marilu Mcqueen [facility], [place] [address] [place] [address] 05/07/2025 Marilu Kurilla Major depressive disorder, recurrent severe without psychotic features F33.2 ; Generalized anxiety disorder F41.1 and ADHD (attention deficit hyperactivity disorder), combined type F90.2 [facility] [address] [place] [address] 01/28/2025 Mariluharmony Mcqueen [facility], [place] [address] [place] [address] 01/29/2025 Marilu Kurilla Generalized anxiety disorder F41.1 [place] [address] [place] [address] 01/14/2025 Mariluharmony Mcqueen [facility] [address] [place] [address] 01/14/2025 Marilu Mcqueen [facility], [facility] [address] [place] [address] 01/26/2025 Marilu Mcqueen ADHD (attention defi cit hyperactivity disorder), combined type F90.2 [facility], [facility] [address] [place] [address] 01/27/2025 Marilu Mcqueen [facility], [facility] [address] [place] [address] 01/27/2025 Marilu Mcqueen [facility], [facility] [address] [place] [address] 01/27/2025 Marilu Mcqueen [facility], [facility] [address] [place] [address] 01/27/2025 Marilu Mcqueen [facility], [facility] [address] [place] [address] 01/27/2025 Marilu Mcqueen [facility], [facility] [address] [place] [address] 01/27/2025 Marilu Mcqueen [facility], [facility] [address] [place] [address] 01/27/2025 Marilu Mcqueen [facility], [facility] [address] [place] [address] 01/27/2025 Marilu Mcqueen [facility], [facility] [address] [place] [address] 01/27/2025 Marilu Mcqueen [facility], [facility] [address] [place] [address] 02/04/2025 Marilu Mcqueen [facility], [facility] [address] [place] [address] 02/05/2025 Marilu Mcqueen [facility], [facility] [address] [place] [address] 02/07/2025 Marilu Mcqueen [facility], [facility] [address] [place] [address] 02/07/2025 Marilu Mcqueen [facility], [facility] [address] [place] [address] 02/09/2025 Marilu Charisse [facility], [facility] [address] [place] [address] 02/11/2025 Mariluharmony Maravillaangie [facility], [facility] [address] [place] [address] 02/11/2025 Marilu Charisse [facility], [facility] [address] [place] [address] 02/11/2025 Marilu Charisse [facility], [facility] [address] [place] [address] 02/17/2025 Mariluharmony Mcqueen [facility], [facility] [address] [place] [address] 02/21/2025 Mariluharmony Maravillaangie [facility], [facility] [address] [place] [address] 02/23/2025 Mariluharmony Mcqueen [facility], [facility] [address] [place] [address] 02/23/2025 Mariluharmony Maravillaangie [facility], [facility] [address] [place] [address] 03/31/2025 Mariluharmony Mcqueen ADHD (attention defi cit hyperactivity disorder), combined type F90.2 [facility] [address] [place] [address] 05/05/2025 Marilu Mcqueen ADHD (attention defi cit [...] attention and reduces cognitive interference. Apps like [employer] or [employer] Timer can support this. 3. Metacognitive Strategy [...] policy, only prescribed to local pharmacy in [place], no early refills on control substance. 02/11/2025 [...] policy, only prescribed to local pharmacy in [place], no early refills on control substance. 01/14/2025 [...] normal limits are seen, we consult a medical records auditor to determine whether the results are sufficiently [...] policy, only prescribed to local pharmacy in [place], no early refills on control substance. 01/27/2025 [...] policy, only prescribed to local pharmacy in [place], no early refills on control substance. 01/26/2025 [...] policy, only prescribed to local pharmacy in [place], no early refills on control substance. 03/02/2025 [...] therapeutic effects of psychotropic medications. -Crisis prevention [facility] 988. 01/26/2025 Other [facility] Clinical Report ADHD [...] therapeutic effects of psychotropic medications. -Crisis prevention [facility] 988. 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 -Crisis prevention [facility] 988. 03/02/2025 Other Increase Adderall ER to [...] therapeutic effects of psychotropic medications. -Crisis prevention [facility] 988. 05/07/2025 Other Decrease Adderall back to [...] therapeutic effects of psychotropic medications. -Crisis prevention [place] [address]. Plan Of Treatment Pending Test Test Name Order Date DRUG MONITOR,AMPHETAMINE, QN, URINE (393 85) 02/11/2025 DRUG MONITOR,AMPHETAMINE, W/DL, QN URINE (45365) 02/11/2025 DRUG MONITOR,BARBITURATE, QN, URINE (393 87) 02/11/2025 DRUG MONITOR, BENZO, QN, URINE (47737) 0 02/11/2025 DRUG MONITOR, MARIJUANA METAB, QN, URINE (93299) 02/11/2025 DRUG MONITOR, METHADONE METAB, QN, URINE (52962) 02/11/2025 DRUG MONITOR, OPIATES EXPANDED, QN, URIN E (03713) 02/11/2025 DRUG MONITOR, PCP, QN, URINE (22759) DRUG MONITOR, FENTANYL, QN, URINE (34919 ) 02/11/2025 DRUG MONITOR, BUP AND NALOXONE,QN,URINE (04175) 02/11/2025 DRUG MONITOR,CARISOPRODOL METAB, QN, URI NE (94641) 02/11/2025 DRUG MONITOR, TRICYCLIC ANTIDEPRESS, QN, URINE (20540) 02/11/2025 DRUG MONITOR, GABAPENTIN, QN, URINE (394 07) 02/11/2025 DRUG MONITOR, MEPERIDINE, QN, URINE (394 08) 02/11/2025 DRUG MONITOR, TRAMADOL, QN, URINE (75780 ) 02/11/2025 DRUG MONITOR, PREGABALIN, QN, URINE (394 10) 02/11/2025 DRUG MONITOR, MDMA/MDA, QN, URINE (62130 ) 02/11/2025 DRUG MONITOR, ALCOHOL METAB, W/CONF, URI NE (67414) 02/11/2025 DRUG MONITOR,METHYLPHENID METAB, QN, URI NE (14225) 02/11/2025 DRUG MONITOR, COCAINE METAB, QN, URINE ( 48040) 02/11/2025 PRESCRIBED DRUGS, medMATCH(R) (82980) SPECIMEN VALIDITY TEST PANEL (49669) DRUG MONITOR, METHAMPHETAMINE D/L,U (394 13) 02/11/2025 DRUG MONITOR, ZOLPIDEM, QN, URINE (81257 ) 02/11/2025 DRUG MONITOR, NALTREXONE, QN, URIN (3941 4) 02/11/2025 Next Appt Details Provider Name:Marilu juárez, 05/12/2025 11:00:00 AM, [address], [address], [address], Provider Name:Marilu juárez, 06/08/2025 01:45:00 PM, [address], [facility], [place], [address], Insurance Providers Payer Name Payer Address Payer Phone Subscriber Number Group Number Insured Name Patient Relationship to Insured Coverage Start Date Coverage End Date [employer] [employer] [address] [place] [address] [id number] GLENN ARRIAZA Self - patient is the [...]
--- OUTSIDE RECORDS SUMMARY | 2025-05-12 16:36 | XMS_ITS | Clinical Summary ---
Author Organization [facility] Address [address] [place] [address] Care Team Providers Care Braze Operator Name Role Phone Unavailable Primary Care Provider Unavailabl e Source Comments [facility],non-owned Affiliates and Associated Physician Practices is amultiple site organization consisting of ambulatory clinics and hospital sitesin [place], [place], [place] and [place]. This disclosure is being madepursuant to the Care Everywhere program and may not contain all information available regarding this patient. Last updated 18.[facility] [employer] Allergies Active Allergy Reactions Criticality Noted Date [...] medical care, and heating? Somewhat hard 04/21/2023 [facility] [place] [facility] - Occupational [...] place to sleep or slept in a prison (including now)? 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 Josie Gee MD LAB - MICROBIOLOGY ORDERABLES F inal Result [facility] [address] [place] [address], [facility] [phone] from Last 3 Months or Most Recently Relevant to Health Maintenance Insurance ANTHEM ANTHEM Advance Directives * Full Code (Latest Code Status on File) Date Activated Date Inactivated Comments 04/21/2023 6:59 PM 04/24/2023 1:02 PM
[2025-05-12 16:41] VITALS: BP 141/85; PULSE 97; RESP 16; TEMP 36.4; O2SAT 99
--- NOTE | 2025-05-12 17:47 | ED.ABDPAIN ---
HPI - Abdominal Pain General Chief Complaint: Abdominal Pain <EVELYN Sanford Last Filed: 05/13/25 09:53> Stated Complaint: Abd pain <EVELYN Sanford Last Filed: 05/13/25 09:53> Time Seen by Provider: 05/12/25 17:47 <EVELYN Sanford Last Filed: 05/13/25 09:53> Focused HPI: This is a 24 year old female that presents to the ER for right lower quadrant pain. Ongoing over the last couple of hours. Reports the pain is sharp in nature. Reports associated nausea. Denies fever, dysuria, hematuria. GENERAL: Well-appearing, well-nourished, and in no acute distress. HEAD: Normocephalic, atraumatic. CHEST: Clear to auscultation. ?No respiratory distress. HEART: Regular rate and rhythm.? NEURO: ?Alert and oriented x3. Patient screened in triage and initial orders placed.? ?Additional care and disposition to be based upon?diagnostic testing and treatment. <EVELYN Sanford Last Filed: 05/13/25 09:53> Focused HPI: This is a 24 year old female that presents to the ER for right lower quadrant pain. Ongoing over the last couple of hours. Reports the pain is sharp in nature. Reports associated nausea. Denies fever, dysuria, hematuria. GENERAL: Well-appearing, well-nourished, and in no acute distress. HEAD: Normocephalic, atraumatic. CHEST: Clear to auscultation. ?No respiratory distress. HEART: Regular rate and rhythm.? NEURO: ?Alert and oriented x3. Patient screened in triage and initial orders placed.? ?Additional care and disposition to be based upon?diagnostic testing and treatment. <EVELYN Vargas Last Filed: 05/13/25 00:07> Source: patient <EVELYN Vargas Filed: 05/13/25 00:07> Mode of arrival: ambulatory <EVELYN Vargas Last Filed: 05/13/25 00:07> Limitations: no limitations <EVELYN Vargas Filed: 05/13/25 00:07> History of Present Illness HPI narrative: Agree with above HPI. Also reports diarrhea today, hot flashes. Denies history of ovarian cysts. <Kandy Barkley PA-C - Last Filed: 05/13/25 00:07> Related Data Home Medications: Home Medications ?Medication ?Instructions ?Recorded ?Confirmed ?Last Taken ?Type citalopram 40 mg tablet 40 mg PO DAILY 05/25/23 05/11/25 05/26/23 09:00 History bupropion HCl 150 mg 24 hr tablet, 150 mg PO DAILY 10/31/23 05/11/25 Unknown History extended release albuterol sulfate 90 mcg/actuation 2 puff inhalation Q4-6H PRN 10/31/24 10/31/24 Unknown History aerosol inhaler shortness of breath or wheezing buspirone 10 mg tablet 10 mg PO DAILY 10/31/24 05/11/25 Unknown History fluticasone furoate 200 1 inh inhalation Q24H 10/31/24 05/11/25 Unknown History mcg-vilanterol 25 mcg/dose inhalation powder <Cris Young PA-C - Last Filed: 05/13/25 09:53> Allergies/Adverse Reactions: Allergies Allergy/AdvReac Type Severity Reaction Status Date / Time peanut Allergy Severe Anaphylaxis Verified 05/12/25 16:42 tree nut Allergy Severe Anaphylaxis Verified 05/12/25 16:42 <Cris Young PA-C - Last Filed: 05/13/25 09:53> Review of Systems Review of Systems: All systems reviewed & are unremarkable except as noted in HPI. <Kandy Barkley PA-C - Last Filed: 05/13/25 00:07> All systems reviewed & are unremarkable except as noted in HPI and below <Kandy Barkley PA-C - Last Filed: 05/13/25 00:07> PMFSH Past Medical History Medical History: Medical History Encounter for insertion of copper IUD Anxiety and depression Gestational HTN <Cris Young PA-C - Last Filed: 05/13/25 09:53> Family History Family History: Family History Mother Hypertension Grandparent Hypertension <Cris Young PA-C - Last Filed: 05/13/25 09:53> Social History Social History: Social History Smoking status: Current every day smoker Tobacco type: e-cigarettes/vaping Second hand tobacco smoke exposure: No Alcohol intake: current Alcohol use details: Occasionally Substance use: never Substance use type: does not use Do You Feel Safe in your Home?: Yes Lack of Transportation: No Lack of Food: Never True Current Housing: I Have Housing Concerned About Future Housing: No Difficulty Paying Gas/Electric Bills: No Difficulty Paying for Meds: No Currently Unemployed: No Education: High School Diploma/GED Difficulty w/ Childcare or Family Care: No Living arrangements: with family Occupation/Education: occupation Additional occupation/education comments: [employer] Gender identity (if verbalized by the patient): Female Spiritual care concerns: No <Cris Young PA-C - Last Filed: 05/13/25 09:53> Exam Narrative: GENERAL: Well appearing, thin, non-toxic, in no acute distress. HEAD: Normocephalic, atraumatic. RESPIRATORY: Airway patent, respirations nonlabored. Clear to auscultation bilaterally, no rales, rhonchi, wheezing. CARDIOVASCULAR: Regular rate and rhythm without murmurs, rubs, or gallops. ABDOMINAL: Soft, mild diffuse tenderness throughout right lower abdomen, nondistended. Normoactive BS. MUSCULOSKELETAL: Moves all extremities. No gross deformities. Small scabbed region over right anterior inferior knee with slight surrounding redness/warmth. Focal tenderness to palpation. Full range of motion of right knee. SKIN: Warm, dry, normal color. NEURO: A&O X3. Speech clear. Cranial nerves II-XII grossly intact. Steady gait. No ataxic movements. PSYCHIATRIC: Appropriate mood and affect. Normal interaction. <Kandy Barkley PA-C - Last Filed: 05/13/25 00:07> Course Vital Signs Vital signs: Vital Signs Temperature 97.6 F 08/19/25 16:41 Pulse Rate 97 05/12/25 16:41 Respiratory Rate 16 05/12/25 16:41 Blood Pressure 141/85 H 05/12/25 16:41 Pulse Oximetry 99 05/12/25 16:41 Oxygen Delivery Room Air 05/12/25 16:41 Temperature 97.6 F 05/12/25 16:41 Pulse Rate 97 05/12/25 16:41 Respiratory Rate 16 05/12/25 16:41 Blood Pressure 141/85 H 05/12/25 16:41 Pulse Oximetry 99 05/12/25 16:41 Oxygen Delivery Room Air 05/12/25 16:41 <Cris Young PA-C - Last Filed: 05/13/25 09:53> Vital Signs Temperature 97.6 F 05/12/25 16:41 Pulse Rate 97 05/12/25 16:41 Respiratory Rate 16 05/12/25 16:41 Blood Pressure 141/85 H 05/12/25 16:41 Pulse Oximetry 99 05/12/25 16:41 Oxygen Delivery Room Air 05/12/25 16:41 Temperature 97.6 F 05/12/25 16:41 Pulse Rate 97 05/12/25 16:41 Respiratory Rate 16 05/12/25 16:41 Blood Pressure 141/85 H 05/12/25 16:41 Pulse Oximetry 99 05/12/25 16:41 Oxygen Delivery Room Air 05/12/25 16:41 <Kandy Barkley PA-C - Last Filed: 05/13/25 00:07> MDM - Abdominal Pain MDM Narrative Medical decision making narrative: Patient presented to ED with right lower abdominal pain onset today, associated with nausea and diarrhea. Vital signs are stable upon arrival. Patient is in no acute distress. Afebrile here. Cbc without leukocytosis or anemia. CMP unremarkable. Normal LFTs and lipase aside from mildly elevated AST at 79. Stable electrolytes. Stable kidney function. UA without signs of infection. Urine is negative. CT scan of abdomen/pelvis was obtained and showing evidence of short segment colitis, as well as right ovarian cyst. Normal appendix. Pelvic ultrasound was obtained, re-demonstrating right ovarian cyst, but no evidence of torsion. Discussed lab and imaging findings with patient. She is feeling better with supportive therapy in the ED. Feel safe for discharge home. Low suspicion for infectious colitis given otherwise normal blood work, lack of fevers. Likely inflammatory/viral. Will prescribe Jose F Desouza for home. Advised patient to have follow-up with PCP and OBGYN for further evaluation. Given strict return precautions. She agrees with plan. Feels comfortable going home. Discharged in stable condition. <Kandy Barkley PA-C - Last Filed: 05/13/25 00:07> Medical Records Attestation: I reviewed the patient's medical records. <Kandy Barkley PA-C - Last Filed: 05/13/25 00:07> Lab Data Attestation: I reviewed the patient's lab results. <Kandy Barkley PA-C - Last Filed: 05/13/25 00:07> Result diagrams: 05/12/25 17:56 05/12/25 17:56 <Cris Young PA-C - Last Filed: 05/13/25 09:53> Labs: Lab Results 05/12/25 05/12/25 Range/Units 17:56 18:00 WBC 9.4 (4.5-10.0) K/mm3 RBC 4.13 L (4.2-5.4) M/mm3 Hgb 12.0 (12.0-15.0) g/dL Hct 36.7 L (37.0-47.0) % MCV 88.9 (80-100) fl MCH 29.1 (26-34) pg MCHC 32.7 (32-36) g/dl RDW 13.3 (11.5-14.5) % Plt Count 276 (150-375) k/mm3 MPV 9.5 (7.4-10.4) fl Immature Gran % (Auto) 0.3 (0-0.5) % Neut % (Auto) 76.7 H (45.5-73.1) % Lymph % (Auto) 13.5 L (18.3-44.2) % [place] % (Auto) 7.2 (2.6-8.5) % Eos % (Auto) 2.0 (0-4.4) % Baso % (Auto) 0.3 (0.2-1.2) % Lymph # (Auto) 1.26 (0.9-3.2) K/mm3 [place] # (Auto) 0.7 H (0.1-0.6) K/mm3 Eos # (Auto) 0.2 (0-0.3) K/mm3 Baso # (Auto) 0.0 (0.0-0.1) K/mm3 Abs Immat Gran (auto) 0.03 (0.00-0.031) K/mm3 Absolute Neuts (auto) 7.2 H (1.3-6.7) K/mm3 Absolute Nucleated RBC 0.000 (0.0-0.012) K/mm3 Nucleated RBC % 0.0 (0.0-0.2) % Sodium 138 (137-145) mmol/L Potassium 4.2 (3.4-5.0) mmol/L Chloride 106 (98-107) mmol/L Carbon Dioxide 25 (22-30) mmol/L Anion Gap 7 (4-12) mmol/L BUN 12 (7-17) mg/dL Creatinine 0.94 (0.7-1.0) mg/dL Estim Creat Clear Calc 65 ml/min Estimated GFR > 60 (59 - ) Glucose 104 (65-110) mg/dL Calcium 8.8 (8.4-10.2) mg/dL Total Bilirubin 0.5 (0.2-1.3) mg/dL AST 79 H (14-36) U/L ALT 34 (6-35) U/L Alkaline Phosphatase 70 (38-126) U/L Total Protein 7.1 (6.3-8.2) g/dL Albumin 4.2 (3.5-5.1) g/dL Lipase 40 (23-300) U/L Urine Color Yellow (Yellow) Urine Appearance Cloudy H (Clear) Urine pH 7.0 (5.0-9.0) Ur Specific [place] 1.015 (1.001-1.035) Urine Protein Negative (Negative) mg/dL Urine Glucose (UA) Negative (Negative) mg/dL Urine Ketones Negative (Negative) mg/dL Ur Blood (Man) Negative (Negative) Urine Nitrate Negative (Negative) Urine Bilirubin Negative (Negative) Urine Urobilinogen 1.0 (<2.0) mg/dL Add Ur Microanalysis Reviewed Leukocyte Esterase Rfl 1+ H (Negative) ATIYA/UL Urine RBC 0-2 (0-2) /hpf Urine WBC 0-5 (0-3) /hpf Ur Squamous Epith Cells None seen (Few) /hpf Urine Bacteria None seen /hpf Urine Casts 0-2 POC Urine HCG, Qual Negative (Negative) <Cris Young PA-C - Last Filed: 05/13/25 09:53> Lab Results 05/12/25 05/12/25 Range/Units 17:56 18:00 WBC 9.4 (4.5-10.0) K/mm3 RBC 4.13 L (4.2-5.4) M/mm3 Hgb 12.0 (12.0-15.0) g/dL Hct 36.7 L (37.0-47.0) % MCV 88.9 (80-100) fl MCH 29.1 (26-34) pg MCHC 32.7 (32-36) g/dl RDW 13.3 (11.5-14.5) % Plt Count 276 (150-375) k/mm3 MPV 9.5 (7.4-10.4) fl Immature Gran % (Auto) 0.3 (0-0.5) % Neut % (Auto) 76.7 H (45.5-73.1) % Lymph % (Auto) 13.5 L (18.3-44.2) % [place] % (Auto) 7.2 (2.6-8.5) % Eos % (Auto) 2.0 (0-4.4) % Baso % (Auto) 0.3 (0.2-1.2) % Lymph # (Auto) 1.26 (0.9-3.2) K/mm3 [place] # (Auto) 0.7 H (0.1-0.6) K/mm3 Eos # (Auto) 0.2 (0-0.3) K/mm3 Baso # (Auto) 0.0 (0.0-0.1) K/mm3 Abs Immat Gran (auto) 0.03 (0.00-0.031) K/mm3 Absolute Neuts (auto) 7.2 H (1.3-6.7) K/mm3 Absolute Nucleated RBC 0.000 (0.0-0.012) K/mm3 Nucleated RBC % 0.0 (0.0-0.2) % Sodium 138 (137-145) mmol/L Potassium 4.2 (3.4-5.0) mmol/L Chloride 106 (98-107) mmol/L Carbon Dioxide 25 (22-30) mmol/L Anion Gap 7 (4-12) mmol/L BUN 12 (7-17) mg/dL Creatinine 0.94 (0.7-1.0) mg/dL Estim Creat Clear Calc 65 ml/min Estimated GFR > 60 (59 - ) Glucose 104 (65-110) mg/dL Calcium 8.8 (8.4-10.2) mg/dL Total Bilirubin 0.5 (0.2-1.3) mg/dL AST 79 H (14-36) U/L ALT 34 (6-35) U/L Alkaline Phosphatase 70 (38-126) U/L Total Protein 7.1 (6.3-8.2) g/dL Albumin 4.2 (3.5-5.1) g/dL Lipase 40 (23-300) U/L Urine Color Yellow (Yellow) Urine Appearance Cloudy H (Clear) Urine pH 7.0 (5.0-9.0) Ur Specific [place] 1.015 (1.001-1.035) Urine Protein Negative (Negative) mg/dL Urine Glucose (UA) Negative (Negative) mg/dL Urine Ketones Negative (Negative) mg/dL Ur Blood (Man) Negative (Negative) Urine Nitrate Negative (Negative) Urine Bilirubin Negative (Negative) Urine Urobilinogen 1.0 (<2.0) mg/dL Add Ur Microanalysis Reviewed Leukocyte Esterase Rfl 1+ H (Negative) ATIYA/UL Urine RBC 0-2 (0-2) /hpf Urine WBC 0-5 (0-3) /hpf Ur Squamous Epith Cells None seen (Few) /hpf Urine Bacteria None seen /hpf Urine Casts 0-2 POC Urine HCG, Qual Negative (Negative) <Kandy Barkley PA-C - Last Filed: 05/13/25 00:07> Imaging Data Attestation: I personally reviewed and interpreted this imaging study as follows: <Kandy Barkley PA-C - Last Filed: 05/13/25 00:07> Radiologist's impression: ITS Impressions Abdomen/Pelvis CT 05/12/25 22:24 IMPRESSION: Normal appendix. Involuting cyst within the right ovary. Short segment colitis within the descending colon. Pelvis Ultrasound 05/12/25 23:39 IMPRESSION: Findings within the right ovary corresponding to examination with a simple cyst which does not meet size criteria for follow-up. No sonographic evidence of ovarian torsion. <EVELYN Sanford Last Filed: 05/13/25 09:53> ITS Impressions Abdomen/Pelvis CT 05/12/25 22:24 IMPRESSION: Normal appendix. Involuting cyst within the right ovary. Short segment colitis within the descending colon. Pelvis Ultrasound 05/12/25 23:39 IMPRESSION: Findings within the right ovary corresponding to examination with a simple cyst which does not meet size criteria for follow-up. No sonographic evidence of ovarian torsion. <Kandy Barkley PA-C - Last Filed: 05/13/25 00:07> Critical Care Time Critical Care Time Critical Care Time: No <EVELYN Sanford Last Filed: 05/13/25 09:53> Discharge Plan Discharge Clinical Impression: Cyst of right ovary, Colitis <EVELYN Sanford Last Filed: 05/13/25 09:53> Patient Disposition: Home <EVELYN Sanford Last Filed: 05/13/25 09:53> Condition: Stable <EVELYN Sanford Last Filed: 05/13/25 09:53> Instructions: Antibiotic Form, Ovarian Cyst (ED), Abdominal Pain (ED), Colitis (ED) <EVELYN Sanofrd Last Filed: 05/13/25 09:53> Additional Instructions: Utilize zofran as needed for further nausea. Recommend Tylenol, ibuprofen, Bentyl as needed for further abdominal discomfort. You may also try heating pad for relief of pain. Increase fluid intake. Recommend electrolyte rich fluids, gatorade, pedialyte, body armour. Recommend clear liquids or bland diet until symptoms improve, such as bananas, rice, applesauce, toast, or crackers. Follow up with your primary care doctor and OBGYN for further evaluation. Return to the ED if you experience worsening or severe symptoms, unable to keep down food or drink, severe pain, fevers, rectal bleeding, vomiting blood, or any other symptoms of concern. <Cris Young PA-C - Last Filed: 05/13/25 09:53> Patient Language: Syriac <Cris Young PA-C - Last Filed: 05/13/25 09:53> Prescriptions: New dicyclomine 20 mg tablet 20 mg PO TID PRN (Reason: Abdominal Discomfort) Qty: 15 0RF ondansetron 4 mg tablet,disintegrating 4 mg PO Q8H PRN (Reason: nausea and vomiting) Qty: 15 0RF No Action cephalexin 500 mg capsule 500 mg PO Q6H 7 Days Qty: 28 0RF bupropion HCl 150 mg tablet extended release 24 hr 150 mg PO DAILY fluticasone furoate-vilanterol 200-25 mcg/dose blister with device 1 inh INHALATION Q24H albuterol sulfate 90 mcg/actuation HFA aerosol inhaler 2 puff INHALATION Q4-6H PRN (Reason: shortness of breath or wheezing) buspirone 10 mg tablet 10 mg PO DAILY citalopram 40 mg tablet 40 mg PO DAILY famotidine 20 mg tablet 20 mg PO DAILY Qty: 4 0RF epinephrine [EpiPen] 0.3 mg/0.3 mL auto-injector 0.3 mg IM Q5-15M PRN (Reason: anaphylaxis) Qty: 2 0RF Rx Instructions: do not exceed 3 doses per episode albuterol sulfate 90 mcg/actuation HFA aerosol inhaler 2 puff inhalation QID PRN (Reason: shortness of breath or wheezing) Qty: 8.5 0RF loratadine 10 mg tablet 10 mg PO DAILY Qty: 14 0RF epinephrine 0.3 mg/0.3 mL auto-injector 0.3 mg IM Q5-15M PRN (Reason: anaphylaxis) Qty: 2 0RF Rx Instructions: do not exceed 3 doses per episode <Cris Young PA-C - Last Filed: 05/13/25 09:53> Follow-up/Referrals: Sandeep,[facility] [Primary Care Provider, Unknown] <Cris Young PA-C - Last Filed: 05/13/25 09:53> Time of Disposition: 00:04 <Cris Young PA-C - Last Filed: 05/13/25 09:53> 00:04 <Kandy Barkley PA-C - Last Filed: 05/13/25 00:07>
[2025-05-12 18:03] LABS: BEDSIDEPREGUCG Negative (Negative)
[2025-05-12 18:04] LABS: Hematocrit 36.7 % (37.0-47.0); Hemoglobin 12.0 g/dL (12.0-15.0); Immature Granulocyte Percent A 0.3 % (0-0.5); Lymphocytes Absolute Auto 1.26 K/mm3 (0.9-3.2); Mean Corpuscular HGB Conc 32.7 g/dl (32-36); Mean Corpuscular Hemoglobin 29.1 pg (26-34); Mean Corpuscular Volume 88.9 fl (80-100); Nucleated Red Blood Cells Absolute Auto 0.000 K/mm3 (0.0-0.012); Nucleated Red Blood Cells Perc 0.0 % (0.0-0.2); Platelet Count Result 276 k/mm3 (150-375); Red Blood Count 4.13 M/mm3 (4.2-5.4); White Blood Count 9.4 K/mm3 (4.5-10.0)
[2025-05-12 18:17] LABS: Add Urine Microscopic? YES; Appearance Urine Cloudy (Clear); Glucose Urine UA Negative (Negative); Leukocyte Esterase Ur 1+ LEU/UL (Negative); Need Manual Microscopic Reviewed; Nitrate Urine Negative (Negative); Non Pathogenic Casts 0-2; Specific Grav Ur 1.015 (1.001-1.035)
[2025-05-12 18:23] LABS: Alanine Aminotransferase 34 U/L (6-35); Albumin Level 4.2 g/dL (3.5-5.1); Alkaline Phosphatase 70 U/L (38-126); Anion Gap 7 mmol/L (4-12); Aspartate Amino Transferase 79 U/L (14-36); Bilirubin,Total 0.5 mg/dL (0.2-1.3); Blood Urea Nitrogen 12 mg/dL (7-17); Calcium 8.8 mg/dL (8.4-10.2); Carbon Dioxide 25 mmol/L (22-30); Chloride 106 mmol/L (98-107); Estimated CRCL calculation 65 ml/min; Estimated Glomerular Filt Rate > 60; Glucose 104 mg/dL (65-110); Lipase 40 U/L (23-300); Potassium 4.2 mmol/L (3.4-5.0); Sodium 138 mmol/L (137-145); Total Protein 7.1 g/dL (6.3-8.2)
[2025-05-12] MEDS: ONDANSETRON INJ 4 MG/2 ML VIAL IV PUSH ×2 (20:38→22:20)
[2025-05-12] MEDS: SODIUM CHLORIDE 0.9% IV 1,000 ML 999 ML IV CONT ×2 (20:38→22:20)
--- OUTSIDE RECORDS SUMMARY | 2025-05-12 21:44 | XMS_ITS | Clinical Summary ---
Author Organization [facility] Address [address] [place] [address] Care Team Providers Care Composite Engineer Name Role Phone Unavailable Primary Care Provider Unavailabl e Source Comments [facility],non-owned Affiliates and Associated Physician Practices is amultiple site organization consisting of ambulatory clinics and hospital sitesin [place], [place], [place] and [place]. This disclosure is being madepursuant to the Care Everywhere program and may not contain all information available regarding this patient. Last updated 18.[facility] [place] Allergies Active Allergy Reactions Criticality Noted Date [...] medical care, and heating? Somewhat hard 04/21/2023 [facility] [place] [facility] Occupat ional Health - Occupational Stress [...] in a [facility] (including now)? 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 Josie Gee MD LAB - MICROBIOLOGY ORDERABLES F inal Result [facility] [address] [place] [address], [facility] [phone] from Last 3 Months or Most Recently Relevant to Health Maintenance Insurance ANTHEM ANTHEM Advance Directives * Full Code (Latest Code Status on File) Date Activated Date Inactivated Comments 04/21/2023 6:59 PM 04/24/2023 1:02 PM
[2025-05-12] MEDS: MORPHINE SULFATE (*CRX) 2 MG/ML INJ IV PUSH (22:20)
[2025-05-13] MEDS: KETOROLAC 30 MG/ML VIAL (*BKC) IV PUSH (00:12)
== END 2025-05-13 00:15 | disposition home or self-care (01) ==
PROVIDERS: Physician Assistant; Emergency Provider Physician Assistant; PCP Family Medicine
DX: N83.201 Unspecified ovarian cyst, right side (principal); K52.9 Noninfective gastroenteritis and colitis, unspecified; F17.290 Nicotine dependence, other tobacco product, uncomplicated; F41.9 Anxiety disorder, unspecified; F32.A Depression, unspecified
CPT/HCPCS: 36415; 74177; 76856; 80053; 81001; 81025; 83690; 85025; 87086; 96361; 96374; 96375; 96376; 99284; J1885; J2270; J2405; J7030; Q9967

== ENCOUNTER 2025-09-18 07:52 | Emergency (ER) | payer BC, MEDICAID, SELFPAY ==
--- OUTSIDE RECORDS SUMMARY | 2015-06-14 07:05 | XMS_ITS | Continuity of Care Document ---
Author Organization [facility] Address [address] [place] [address] Phone Care Team Providers Care Accounts Receivable Specialist Name Role Phone Rach Ponce MD Unavailable Unavailable Allergies, Adverse Reactions, Alerts Substance Reaction Status Criticality tree nut Active No Information peanut Active No Information Medications Medication Instructions Dosage Effective Dates (start - stop) Status Comments QVAR (unknown strength) Not Available - Active Advance Directives Directive Yes / No Effective Date File Name No Information Encounters Encounter Description Practice Location Reason(s) For Visit Diagnoses Date Provider Providers Copied on Encounter [facility], [address] [place] [address] [address], [address], [place] tel:[phone] [facility] Up of Rt foot fx (chief complaint) Nondisplaced fracture of third metatarsal bone of right foot with routine healing, subsequent encounter Sep-2 1- 5 [place] Rach . [address] [place] [address], [id number] . tel: [phone] [facility], [address] [place] [address] [address], [address], [place] tel:[phone] [facility] Follow Up of ON Rt foot fx (chief complaint) Closed fracture of metatarsal bone Sep-1 0-201 5 Kris Rach . [address] [place] [address], [id number] . tel:[phone] Referring Provider: Rebecca Sanders, [address], [place], [address] . tel:[phone] Family History Family Member Type Diagnosis Age At Onset No Information Payers Payer name Insurance type Covered alliance party ID Gustabo bennett(s) [place] [employer] E2 OT [id number] Social History Type Description Quantity Date Captured Comments Sex Female Smoking Status No Information Chief Complaint And Reason For Visit From encounter dated '06/14/2015 13:05'. Follow Up of Rt foot fx (chief complaint) Reason For Referral Reason For Referral No Information Plan Of Treatment Date Type Action Status Referral Ordered: RADEX FOOT 2 VIEWS RT ordered History Of Present Illness Encounter Date Complaint History Of Prese nt Illness Follow Up of Rt foot fx Follow Up of ON Rt foot fx Functional Status Date Functional Assessmen t No Information Instructions Date Instruction Additional Infor mation No Information Assessments Type Assessment Date assessment Nondisplaced fractur e of third metatarsal bone of right foot with routine healing, subsequent encounter Patient Care Teams Name Effective Dates (start - stop) Status Members No Information
--- OUTSIDE RECORDS SUMMARY | 2025-06-23 04:20 | XMS_ITS | Continuity of Care Document ---
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 [address], [place], [place], [facility], [place]. tel:[phone] Referring Provider: Carlee Hopkins, [address] [place] [address], [facility]. tel:[phone] New (Level 4) OFFICE/OUTPA TIENT VISIT [facility], [address] [place] [address], [id number], tel:[phone] [facility] allergies and asthma (chief complaint) Elevated blood-pressure reading, w/o diagnosis of htnOther adverse food reaction, initial encounterOther allergic rhinitisModerate persistent asthma 5 Shahzad Cheshil. [address], [place], [address], [place]. tel:[phone] Referring Provider: Carlee Hopkins, [address] [place] [address], [facility]. tel:[phone] [facility], [address] [place] [address], [id number], tel:[phone] [facility] No Information 5 Shahzad Cheshil. [address] [place], [address], [place]. tel:[phone] Referring Provider: Carlee Hopkins, [address] [place] [address], [id number]. tel:[phone] [facility], [address] [place] [address], [place], [place], [id number], [place] tel:[phone] [facility] [place] Information [facility] [place]. . Referring Provider: Carlee Hopkins, [address], [place], [address]. tel:[phone] Family History Family Member Type Diagnosis Age At Onset Problem No family history of Thyroid disorder Problem No family history of Rheumat oid arthritis Father Problem Rhinitis Paternal grandfather Problem Asthma Problem No family histor y of Systemic lupus erythematosus Payers Payer name Insurance type Covered green party ID Gustabo bennett(s) [facility] [id number] Social History Type Description Quantity Date Captured [...]
--- NOTE | ~2025-09-18 | XR_ITS ---
Examination: XR chest 2V Clinical History: SOA Comparison: None Technique: PA and Lateral Findings: Cardiomediastinal silhouette normal size and configuration. Lungs clear. No acute bony abnormality. IMPRESSION: 1. No acute cardiopulmonary findings. Reviewed, dictated and finalized at location [facility]
--- OUTSIDE RECORDS SUMMARY | 2025-09-18 07:54 | XMS_ITS | Patient Health Record ---
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 Name Role Phone Carlee Campos Primary Care Provider UnavailMarilu Hernandez Unavailable [phone] Ken Rizo Unavailable [phone] Allergies Allergen (clinical drug ingredient) Drug/Non Drug Allergy documented on EMR Reaction Allergy Type Onset Date Status PEANUTS (uncoded) Unknown Allergy Ac tive TREENUTS (uncoded) Unknown Allergy A ctive Results Component Value Reference Range Flag Notes UDT Reviewed date:01/14/2025 01:17:39 PM Interpretation: Performing Lab: Notes/Report: Amphetamine (AMP) N 0 - 1000 ng/ml Buprenorphine (BUP) M 0 - 10 ng/ml Oxazepam (BZO) N 0 - 300 ng/ml Cocaine (FADY) N 0 - 300 ng/ml Methamphetamine (mAMP) N 0 - 300 ng/ml Methylenedioxymethamphetamin e (MDMA) N 0 - 500 ng/ml Morphine (MOP) N 0 - 25 ng/ml Methadone (MTD) N 0 - 300 ng/ml Oxycodone (OXY) N 0 - 300 ng/ml THC N 0 - 50 ng/ml x N 0 - 1000 ng/ml x N 0 - 1000 ng/ml x N 0 - 300 ng/ml x N 0 - 300 ng/ml UDT Reviewed date:01/27/2025 02:54:02 PM Interpretation: Performing Lab: Notes/Report: Amphetamine (AMP) n 0 - 1000 ng/ml Buprenorphine (BUP) n 0 - 10 ng/ml Oxazepam (BZO) n 0 - 300 ng/ml Cocaine (FADY) n 0 - 300 ng/ml Methamphetamine (mAMP) n 0 - 300 ng/ml Methylenedioxymethamphetamin e (MDMA) n 0 - 500 ng/ml Morphine (MOP) n 0 - 25 ng/ml Methadone (MTD) n 0 - 300 ng/ml Oxycodone (OXY) n 0 - 300 ng/ml THC n 0 - 50 ng/ml x n 0 - 1000 ng/ml x n 0 - 1000 ng/ml x n 0 - 300 ng/ml x n 0 - 300 ng/ml x n 0 - 300 ng/ml UDT Reviewed date:02/11/2025 09:41:37 AM Interpretation: Performing Lab: Notes/Report: Amphetamine (AMP) p 0 - 1000 ng/ml Buprenorphine (BUP) n 0 - 10 ng/ml Oxazepam (BZO) p 0 - 300 ng/ml Cocaine (FADY) n 0 - 300 ng/ml Methamphetamine (mAMP) n 0 - 300 ng/ml Methylenedioxymethamphetamin e (MDMA) n 0 - 500 ng/ml Morphine (MOP) n 0 - 25 ng/ml Methadone (MTD) n 0 - 300 ng/ml Oxycodone (OXY) n 0 - 300 ng/ml THC n 0 - 50 ng/ml x n 0 - 1000 ng/ml x n 0 - 1000 ng/ml x n 0 - 300 ng/ml x n 0 - 300 ng/ml x n 0 - 300 ng/ml UDT Reviewed date:03/02/2025 10:50:39 AM Interpretation: Performing Lab: Notes/Report: Amphetamine (AMP) p 0 - 1000 ng/ml Buprenorphine (BUP) n 0 - 10 ng/ml Oxazepam (BZO) p 0 - 300 ng/ml Cocaine (FADY) n 0 - 300 ng/ml Methamphetamine (mAMP) n 0 - 300 ng/ml Methylenedioxymethamphetamin e (MDMA) n 0 - 500 ng/ml Morphine (MOP) n 0 - 25 ng/ml Methadone (MTD) n 0 - 300 ng/ml Oxycodone (OXY) n 0 - 300 ng/ml THC n 0 - 50 ng/ml x n 0 - 1000 ng/ml x n 0 - 1000 ng/ml x n 0 - 300 ng/ml x n 0 - 300 ng/ml x n 0 - 300 ng/ml UDT Reviewed date:06/12/2025 10:46:41 AM Interpretation: Performing Lab: Notes/Report: Amphetamine (AMP) p 0 - 1000 ng/ml Buprenorphine (BUP) n 0 - 10 ng/ml Oxazepam (BZO) p 0 - 300 ng/ml Cocaine (FADY) n 0 - 300 ng/ml Methamphetamine (mAMP) n 0 - 300 ng/ml Methylenedioxymethamphetamin e (MDMA) n 0 - 500 ng/ml Morphine (MOP) n 0 - 25 ng/ml Methadone (MTD) n 0 - 300 ng/ml Oxycodone (OXY) n 0 - 300 ng/ml THC n 0 - 50 ng/ml x n 0 - 1000 ng/ml x n 0 - 1000 ng/ml x n 0 - 300 ng/ml x n 0 - 300 ng/ml Validity Testing Reviewed date:02/22/2025 07:05:20 PM Interpretation: Performing Lab: Notes/Report: Not Medicated Consistent Not Medicated Consistent Not Medicated Consistent Not Medicated Consistent Specific [place] 1.009 1.003 - 1.030 pH 6.6 3.0 - 10.9 Oxidants 0 200 g/mL Creatinine 40.1 20.0 - 300.0 mg/dL Benzodiazepines Reviewed date:02/22/2025 07:05:20 PM Interpretation: Performing Lab:[address] [place] [address], [address] [place] [address], Director - [id number] Notes/Report: An exception occurred while processing this report and so it has incomplete data. Please contact [employer] for assistance. Not Medicated Consistent Not [...] NEGATIVE 20.0 ng/mL PDF Report [email or web address] [id number] Stimulants Reviewed date:02/22/2025 07:05:20 PM Interpretation: Performing Lab: Notes/Report: Phentermine NEGATIVE 100.0 ng/mL Not Medicate d Consistent Methylphenidate NEGATIVE 50.0 ng/mL Not Medic ated Consistent Methamphetamine NEGATIVE 100.0 ng/mL Not Medi cated Consistent Amphetamine 1909.4 100.0 ng/mL POSITIVE Medicated Consistent Amphetamine Reviewed date:02/22/2025 07:05:20 PM Interpretation: Performing Lab: Notes/Report: Reason For Referral No Information Medications Medication SIG (Take, Route, Frequency, Duration) Notes Start Date End Date Status Atomoxetine HCl 40 MG Capsule 1 capsule in the morning Orally Once a day; Duration: 90 days 08/10/2025 Active Social History Tobacco Use: Social History [...] Severe recurrent major depression without psychotic features (73022891) Major depressive disorder, recurrent severe without psychotic features (F33.2) Active confirmed Problem Generalized anxiety disorder (39642707) Generalized anxiety disorder (F41.1) Active confirmed Problem Attention deficit hyperactivity disorder (807730162) ADHD (attention deficit hyperactivity disorder), combined type (F90.2) Active confirmed Problem Attention deficit hyperactivity disorder (048211757) Attention deficit hyperactivity disorder (ADHD), unspecified ADHD type (F90.9) Active confirmed Problem Unable to concentrate (finding) (08592137) Difficulty concentrating (R41.840) Active confirmed Vital Signs Heart Rate 80 /min 08/10/2025 Height-cm 157.48 cm 08/10/2025 Blood pressure diastolic 85 mm Hg 08/10/2025 Weight-kg 52.62 kg 08/10/2025 Height 62 in 08/10/2025 Blood pressure systolic 120 mm Hg 08/10/2025 Weight 116 lbs 08/10/2025 BMI 21.21 kg/m2 08/10/2025 Procedures Procedure Date Ordered Date Performed Result Body Sit e ADHD Testing 01/14/2025 01/19/2025 N/A Encounters Encounter Location Date Provider Diagnosis [facility] [employer] [address] [facility] [address] [place] [address] 01/14/2025 Marilu Kurilla Major depressive disorder, recurrent severe without psychotic features F33.2 ; Generalized anxiety disorder F41.1 ; Difficulty concentrating R41.840 ; Encounter for screening for cardiovascular disorders Z13.6 and Encounter for screening for depression Z13.31 [facility] [employer] [address] [facility] [address] [place] [address] 01/19/2025 Kenlori Rizo Attention deficit hyperactivity disorder (ADHD), unspecified ADHD type F90.9 [facility] [address] [facility] [address] [place] [address] 01/26/2025 Marilu Kurilla Major depressive disorder, recurrent severe without psychotic features F33.2 ; Generalized anxiety disorder F41.1 ; ADHD (attention deficit hyperactivity disorder), combined type F90.2 ; Encounter for screening for depression Z13.31 and Encounter for screening for cardiovascular disorders Z13.[address] [employer] [address] [facility] [address] [place] [address] 01/27/2025 Marilu Kurilla Major depressive disorder, recurrent severe without psychotic features F33.2 ; Generalized anxiety disorder F41.1 ; ADHD (attention deficit hyperactivity disorder), combined type F90.2 ; Encounter for screening for cardiovascular disorders Z13.6 and Encounter for screening for depression Z13.31 [facility] [address] [facility] [address] [place] [address] 02/11/2025 Marilu Kurilla Major depressive disorder, recurrent severe without psychotic features F33.2 ; Generalized anxiety disorder F41.1 ; ADHD (attention deficit hyperactivity disorder), combined type F90.2 ; Encounter for screening for depression Z13.31 ; Encounter for screening for cardiovascular disorders Z13.6 and High risk medication use Z79.899 [place] [id number] [facility] [address] [place] [address] 03/02/2025 Marilu Kurilla Major depressive disorder, recurrent severe without psychotic features F33.2 ; Generalized anxiety disorder F41.1 ; ADHD (attention deficit hyperactivity disorder), combined type F90.2 ; Encounter for screening for depression Z13.31 ; Negative depression screening Z13.31 and Encounter for screening for cardiovascular disorders Z13.6 [place] [address] [address] 04/16/2025 Marilu Kurilla [place] [address] [address] 05/07/2025 Marilu Kurilla Major depressive disorder, recurrent severe without psychotic features F33.2 ; Generalized anxiety disorder F41.1 and ADHD (attention deficit hyperactivity disorder), combined type F90.2 [place] [id number] [facility] [address] [address] 06/08/2025 Marilu Kurilla Major depressive disorder, recurrent severe without psychotic features F33.2 ; Generalized anxiety disorder F41.1 and ADHD (attention deficit hyperactivity disorder), combined type F90.2 [place] [address] [address] 06/11/2025 Marilu Kurilla Major depressive disorder, recurrent severe without psychotic features F33.2 ; Generalized anxiety disorder F41.1 and ADHD (attention deficit hyperactivity disorder), combined type F90.2 [place] [id number] [facility] [address] [facility] [address] [place] [address] 07/10/2025 Marilu Kurilla Major depressive disorder, recurrent severe without psychotic features F33.2 ; Generalized anxiety disorder F41.1 and ADHD (attention deficit hyperactivity disorder), combined type F90.2 [place] [address] [place] [address] 08/10/2025 Marilu Mcqueen Major depressive disorder, recurrent severe without psychotic features F33.2 ; Generalized anxiety disorder F41.1 and ADHD (attention deficit hyperactivity disorder), combined type F90.2 [facility], [facility] [address] [place] [address] 01/28/2025 Marilu Mcqueen [facility], [facility] [address] [place] [address] 01/29/2025 Marilu Mcqueen Generalized anxiety disorder F41.1 [facility], [facility] [address] [place] [address] 06/09/2025 Marilu Mcqueen [facility], [facility] [address] [place] [address] 01/14/2025 Marilu Mcqueen [facility], [facility] [address] [place] [address] 01/14/2025 aMrilu Mcqueen [facility], [facility] [address] [place] [address] 01/26/2025 Marilu Mcqueen ADHD (attention defi cit hyperactivity disorder), combined type F90.2 [facility], [facility] [address] [place] [address] 01/27/2025 Marilu Mcqueen [facility], [facility] [address] [place] [address] 01/27/2025 Marilu Mcqueen [facility], [facility] [address] [place] [address] 01/27/2025 Marilu Mcqueen [facility], [facility] [address] [place] [address] 01/27/2025 Marilu Mcqueen [facility], [facility] [address] [place] [address] 01/27/2025 Marilu Mcqueen [facility], [facility] [address] [place] [address] 01/27/2025 Marilu Mcqueen [facility], [facility] [address] [place] [address] 01/27/2025 Marilu Mcqueen [facility], [facility] [address] [place] [address] 01/27/2025 Marilu Mcqueen [facility], [facility] [address] [place] [address] 01/27/2025 Marilu Mcqueen [facility], [facility] [address] [place] [address] 02/04/2025 Marilu Mcqueen [facility], [facility] [address] [place] [address] 02/05/2025 Marilu Mcqueen [facility], [facility] [address] [place] [address] 02/07/2025 Marilu Mcqueen [facility], [facility] [address] [place] [address] 02/07/2025 Marilu Mcqueen [facility], [facility] [address] [place] [address] 02/09/2025 Marilu Mcqueen [facility], [facility] [address] [place] [address] 02/11/2025 Marilu Mcqueen [facility], [facility] [address] [place] [address] 02/11/2025 Marilu Mcqueen [facility], [facility] [address] [place] [address] 02/11/2025 Marilu Mcqueen [facility], [facility] [address] [place] [address] 02/17/2025 Marilu Mcqueen [facility], [facility] [address] [place] [address] 02/21/2025 Marilu Mcqueen [facility], [facility] [address] [place] [address] 02/23/2025 Marilu Mcqueen [facility], [facility] [address] [place] [address] 02/23/2025 Marilu Mcqueen [facility], [facility] [address] [place] [address] 03/31/2025 Marilu Mcqueen ADHD (attention defi cit hyperactivity disorder), combined type F90.2 [facility], [facility] [address] [place] [address] 05/05/2025 Marilu Mcqueen ADHD (attention defi cit hyperactivity disorder), combined type F90.2 [facility] [employer] [facility] [address] [place] [address] 06/09/2025 Marilu Mcqueen Generalized anxiety disorder F41.1 [facility] [employer] [facility] [address] [place] [address] 07/25/2025 Marilu Mcqueen [facility] [employer] [facility] [address] [place] [address] 08/06/2025 Marilu Mcqueen ADHD (attention defi cit hyperactivity [...] attention and reduces cognitive interference. Apps like [employer] or [employer] Timer can support this. 3. Metacognitive Strategy [...] side effects persist, please contact the office. 06/09/2025 Generalized anxiety disorder (ICD-10 - F41.1) 06/11/2025 Major depressive disorder, recurrent severe without psychotic features (ICD-10 - F33.2) Common side effects of Wellbutrin include insomnia, increased anxiety, nausea, dizziness, decreased appetite, restlessness, irritability and anger, increased sweating or hot flashes, tremors, joint pain. Wellbutrin is not recommended in individuals with a history of seizures. If side effects persist, please contact the office. 06/11/2025 Generalized anxiety disorder (ICD-10 - F41.1) 06/08/2025 Major depressive disorder, recurrent severe without psychotic features (ICD-10 - F33.2) Common side effects of Wellbutrin include insomnia, increased anxiety, nausea, dizziness, decreased appetite, restlessness, irritability and anger, increased sweating or hot flashes, tremors, joint pain. Wellbutrin is not recommended in individuals with a history of seizures. If side effects persist, please contact the office. 07/10/2025 Major depressive disorder, recurrent severe without psychotic features (ICD-10 - F33.2) 08/06/2025 ADHD (attention deficit hyperactivity disorder), combined type (ICD-10 - F90.2) 08/10/2025 Major depressive disorder, recurrent severe without psychotic features (ICD-10 - F33.2) 08/10/2025 Generalized anxiety disorder (ICD-10 - F41.1) 07/10/2025 Generalized anxiety disorder (ICD-10 - F41.1) 06/08/2025 Generalized anxiety disorder (ICD-10 - F41.1) 06/11/2025 ADHD (attention deficit hyperactivity disorder), combined type [...] policy, only prescribed to local pharmacy in [place], no early refills on control substance. 05/07/2025 Generalized anxiety disorder (ICD-10 - F41.1) [...] policy, only prescribed to local pharmacy in [place], no early refills on control substance. 02/11/2025 [...] policy, only prescribed to local pharmacy in [place], no early refills on control substance. 01/14/2025 [...] normal limits are seen, we consult a electric range servicer to determine whether the results are sufficiently [...] policy, only prescribed to local pharmacy in [place], no early refills on control substance. 01/27/2025 [...] policy, only prescribed to local pharmacy in [place], no early refills on control substance. 01/26/2025 [...] policy, only prescribed to local pharmacy in [place], no early refills on control substance. 06/08/2025 ADHD (attention deficit hyperactivity disorder), combined type [...] policy, only prescribed to local pharmacy in [place], no early refills on control substance. 07/10/2025 ADHD (attention deficit hyperactivity disorder), combined type (ICD-10 - F90.2) Discussed risks/benefits/alte rnatives to atomoxetine, including GI side effects, weight loss, irritability, constipation, sexual dysfunction, increase in blood pressure and liver damage. Patient denies any h/o cardiovascular disease, including hypertension, tachyarrhythmias. 08/10/2025 ADHD (attention deficit hyperactivity disorder), combined type (ICD-10 - F90.2) Discussed risks/benefits/alte rnatives to atomoxetine, including GI side effects, weight loss, irritability, constipation, sexual dysfunction, increase in blood pressure and liver damage. Patient denies any h/o cardiovascular disease, including hypertension, tachyarrhythmias. 03/02/2025 Negative depression screening (ICD-10 - Z13.31) [...] of psychotropic medications. -Crisis prevention hotline 988. 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 -Crisis prevention [place] [id number]. 02/11/2025 Other Increase Adderall ER to 20mg [...] therapeutic effects of psychotropic medications. -Crisis prevention [place] [id number]. 03/02/2025 Other Increase Adderall ER to 25mg [...] therapeutic effects of psychotropic medications. -Crisis prevention [place] [id number]. 05/07/2025 Other Decrease Adderall back to 20mg [...] therapeutic effects of psychotropic medications. -Crisis prevention [place] [address]. 06/08/2025 Other Stable on current medication regimen, continue at current doses. -Refills sent in today -No concerns today Patient educated on all medications including potential [...] of psychotropic medications. -Crisis prevention hotline 988. 06/11/2025 Other Concern for disassociation episodes (zoning out) which is most likely linked to ADHD; more prominent towards the end of the day, likely when her Adderall ER is wearing off. Start Adderall IR 5mg in the afternoons/evenings as needed for ADHD management -discussed setting short timer on smartwatch while she is working to break any possible disassociation episodes. Recommended limiting use of lorazepam, as this can cause cognitive blunting, to only as needed for heightened anxiety and panic not controllable by coping mechanisms. Patient educated on all medications including potential [...] of psychotropic medications. -Crisis prevention hotline 988. 07/10/2025 Other Has been off of all of her medication for about two weeks. Struggling primarily with ADHD symptoms, emotional dysregulation. Hesitate to restart stimulant due to decreased appetite. Start atomoxetine 25mg daily for two weeks then 40mg daily for ADHD management. - discussed can still cause decrease appetite as side effect, monitor for continued weight loss Patient educated on all medications including potential benefits, side effects, risks. Educated on proper dosing schedule and importance of compliance. Continue off of other medications for now to avoid/limit polypharmacy- will plan to augment/adjust medications as needed pending response to atomoxetine -Assessment and treatment plan reviewed with patient. -Compliance with treatment plan importance discussed. -Discussed the risks/benefits of this medication -Discussed medication side effects. -Contact office if symptoms worsen. -Discussed that it can take up to 6-8 weeks to see full therapeutic effects of psychotropic medications. -Crisis prevention hotline 988. 08/10/2025 Other Restart atomoxetine 40mg daily for ADHD management Patient educated on all medications including potential benefits, side effects, risks. Educated on proper dosing schedule and importance of compliance. -Assessment and treatment plan reviewed with patient. [...] 85) 02/11/2025 DRUG MONITOR,AMPHETAMINE, W/DL, QN URINE ([id number]) 02/11/2025 DRUG MONITOR,BARBITURATE, QN, URINE (393 87) 02/11/2025 DRUG MONITOR, BENZO, QN, URINE ([id number]) 0 02/11/2025 DRUG MONITOR, MARIJUANA METAB, QN, URINE ([id number]) 02/11/2025 DRUG MONITOR, METHADONE METAB, QN, URINE (46915) 02/11/2025 DRUG MONITOR, OPIATES EXPANDED, QN, URIN E (99141) 02/11/2025 DRUG MONITOR, PCP, QN, URINE (60055) DRUG MONITOR, FENTANYL, QN, URINE (57626 ) 02/11/2025 DRUG MONITOR, BUP AND NALOXONE,QN,URINE (17333) 02/11/2025 DRUG MONITOR,CARISOPRODOL METAB, QN, URI NE ([id number]) 02/11/2025 DRUG MONITOR, TRICYCLIC ANTIDEPRESS, QN, URINE ([id number]) 02/11/2025 DRUG MONITOR, GABAPENTIN, QN, URINE (394 07) 02/11/2025 DRUG MONITOR, MEPERIDINE, QN, URINE (394 08) 02/11/2025 DRUG MONITOR, TRAMADOL, QN, URINE ([id number] ) 02/11/2025 DRUG MONITOR, PREGABALIN, QN, URINE (394 10) 02/11/2025 DRUG MONITOR, MDMA/MDA, QN, URINE ([id number] ) 02/11/2025 DRUG MONITOR, ALCOHOL METAB, W/CONF, URI NE (52823) 02/11/2025 DRUG MONITOR,METHYLPHENID METAB, QN, URI NE (13791) 02/11/2025 DRUG MONITOR, COCAINE METAB, QN, URINE ( 15271) 02/11/2025 PRESCRIBED DRUGS, medMATCH(R) (42538) SPECIMEN VALIDITY TEST PANEL (29706) DRUG MONITOR, METHAMPHETAMINE D/L,U (394 13) 02/11/2025 DRUG MONITOR, ZOLPIDEM, QN, URINE (44186 ) 02/11/2025 DRUG MONITOR, NALTREXONE, QN, URIN (7661 4) 02/11/2025 Insurance Providers Payer Name Payer Address Payer Phone Subscriber Number Group Number Insured Name Patient Relationship to Insured Coverage Start Date Coverage End Date [employer] [employer] [address] [place] [address] [id number] GLENN ARRIAZA Self - patient is the [...]
--- OUTSIDE RECORDS SUMMARY | 2025-09-18 07:54 | XMS_ITS | Clinical Summary ---
Author Organization [facility] Address [address] [place] [address] Care Team Providers Care Per Diem Registered Nurse Name Role Phone Unavailable Primary Care Provider Unavailabl e Source Comments [facility],non-owned Affiliates and Associated Physician Practices is amultiple site organization consisting of ambulatory clinics and hospital sitesin [place], [place], [place] and [place]. This disclosure is being madepursuant to the Care Everywhere program and may not contain all information available regarding this patient. Last updated 18.[facility] [place] Allergies Active Allergy Reactions Criticality Noted Date [...] care, and heating? Somewhat hard 04/21/2023 [facility] [place] [facility] Occupat ional Health - Occupational Stress [...] place to sleep or slept in a correction (including now)? 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 GC Amplified Probe Negative Negative 04/22/2023 8:[address] [facility] Microbiology PART OF UTERINE CERVIX / Unknown Collection / Unknown 04/21/2023 8:47 PM CDT 04/21/2023 9:[address] [facility] - 04/22/2023 8:23 PM CDT Results based on detection/no detection of ribosomal RNA by amplified method. Josie Gee MD LAB - MICROBIOLOGY ORDERABLES F inal Result [facility] [address] [place] [address], [facility] [phone] from Last 3 Months or Most Recently Relevant to Health Maintenance Insurance ANTHEM ANTHEM Advance Directives * Full Code (Latest Code Status on File) Date Activated Date Inactivated Comments 04/21/2023 6:59 PM 04/24/2023 1:02 PM
--- OUTSIDE RECORDS SUMMARY | 2025-09-18 07:54 | XMS_ITS | Clinical Summary ---
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 Do not swallow. 60 each 5 10/16/19 25 Active citalopram (CeleXA) 40 mg tabletIndication s:Recurrent major depressive disorder, in partial remission,BARRIE (generalized anxiety disorder) Take 1 tablet (40 mg total) by mouth daily 90 tablet 1 10/16/19 25 Active LORazepam (ATIVAN) 0.5 mg tablet Take 1 tablet (0.5 mg total) by mouth 2 (two) times a day as needed 01/28/20 25 Active busPIRone (BUSPAR) 15 mg tablet Take 1 tablet (15 mg total) by mouth 2 (two) times a day 01/15/20 25 Active dextroamphetamin e-amphetamine XR (ADDERALL XR) 25 mg 24 hr capsule TAKE 1 CAPSULE BY MOUTH DAILY IN THE MORNING 03/03/20 25 Active buPROPion XL (WELLBUTRIN XL) 300 mg 24 hr tabletIndication s:Recurrent major depressive disorder, in partial remission Take 1 tablet (300 mg total) by mouth every morning 90 tablet 1 04/09/20 25 Active triamcinolone (KENALOG) 0.1 % creamIndications :Canker sore Apply to affected area 1-2 times daily as needed. 15 g 5 04/09/20 25 026 Active mupirocin (BACTROBAN) 2 % ointment Apply topically 3 (three) times a day 22 g 05/11/20 25 Active ibuprofen (ADVIL,MOTRIN) 800 mg tablet Take 1 tablet (800 mg total) by mouth 3 (three) times a day 21 tablet 05/11/20 25 Active guanFACINE ER (INTUNIV) 1 mg tablet extended release 24 hr Take 1 tablet (1 mg total) by mouth daily 05/07/20 25 Active hydrocortisone (ANUSOL-HC) 25 mg suppositoryIndic ations:Hemorrhoi ds Insert 1 suppository (25 mg total) into the rectum 2 (two) times a day as needed for hemorrhoids Take prior to procedure as directed 30 suppository 2 05/15/20 25 Active ondansetron (ZOFRAN) 4 mg tabletIndication s:Prevention of Post-Operative Nausea and Vomiting Take 1 tablet (4 mg total) by mouth every 8 (eight) hours as needed for nausea or vomiting 2 tablet 05/15/20 25 Active dextroamphetamin e-amphetamine XR (ADDERALL XR) 20 mg 24 hr capsule Take 1 capsule (20 mg total) by mouth every morning 05/07/20 25 Active cetirizine (ZyrTEC) 10 mg tabletIndication s:Urticaria Take 1 tablet (10 mg total) by mouth daily 10 tablet 05/24/20 25 026 Active famotidine (PEPCID) 20 mg tablet Take 1 tablet (20 mg total) by mouth 2 (two) times a day 30 tablet 05/24/20 25 026 Active benzonatate (TESSALON) 100 mg capsuleIndicatio ns:Cough Take 1 capsule (100 mg total) by mouth every 8 (eight) hours 21 capsule 07/16/20 Active albuterol HFA (PROVENTIL HFA,VENTOLIN HFA,PROAIR HFA) 90 mcg/actuation inhaler Inhale 2 puffs every 4 (four) hours as needed for wheezing 18 g 07/16/20 25 026 Active ipratropium-albu teroL (DUO-NEB) 0.5-2.5 mg/3 mL nebulizer solution Take 3 mL by nebulization every 6 (six) hours 180 mL 07/16/20 Active Active Problems Problem Noted Date Diagnosed Date Dizziness 05/19/2025 Right ovarian cyst 05/19/2025 Abdominal pain 05/19/2025 Hemorrhoids 05/15/2025 Assessment & Plan (05/15/2025 10:21 AM CDT): Patient reports hemorrhoids with 1 external hemorrhoid. She reports they will bleed. She reports she has had these is 2020. Recommend starting Anusol suppositories 1-2 times daily as needed for hemorrhoids. She has a follow up next week with [facility] to discuss surgical treatment of hemorrhoids. Also recommend high-fiber diet, adequate fluid intake, avoiding straining to have a bowel movement. Orders: hydrocortisone (ANUSOL-HC) 25 mg suppository; Insert 1 suppository (25 mg total) into the rectum 2 (two) times a day as needed for hemorrhoids Take prior to procedure as directed Case Request Operating Room: COLONOSCOPY polyethylene glycol (GoLYTELY) 236-22.74-6.74 -5.86 gram solution; Take 4,000 mL by mouth once for 1 dose ondansetron (ZOFRAN) 4 mg tablet; Take 1 tablet (4 mg total) by mouth every 8 (eight) hours as needed for nausea or vomiting Colitis 05/15/2025 Assessment & Plan (05/15/2025 10:21 AM CDT): Patient was diagnosed with colitis in [facility]'s emergency room on Sunday, CT scan showed colitis of the sigmoid colon. Did not specify infectious cause, white blood cell count was not elevated at that time. Patient was having abdominal pain and diarrhea along with some nausea at that time. Patient reports symptoms resolved on their own, but Due to findings on CT scan, recommend colonoscopy as next steps and further evaluation. Orders: Case Request Operating Room: COLONOSCOPY polyethylene glycol (GoLYTELY) 236-22.74-6.74 -5.86 gram solution; Take 4,000 mL by mouth once for 1 dose ondansetron (ZOFRAN) 4 mg tablet; Take 1 tablet (4 mg total) by mouth every 8 (eight) hours as needed for nausea or vomiting External hemorrhoids 04/09/2025 Assessment & Plan (04/09/2025 2:30 PM CDT): New referral made to Dr. Julieth Melton, colorectal surgeon History of DVT (deep vein thrombosis) 07/06/2024 Omari sore 07/06/2024 Assessment & Plan (04/09/2025 2:30 [...] and suggested counseling Mentioned walk-in clinic in [place] for mental health, encouraged to seek appointment today Assessment & Plan (12/24/2024 6:22 AM CDT): Uncontrolled Reviewed PHQ-2=1, previously 3, BARRIE-7=16, previously 3 Continued on citalopram 40 mg daily and buspirone, suggested increase in buspirone from 10 mg daily to 10 mg twice daily for better control of anxiety symptoms Assessment & Plan (10/16/2024 8:40 AM DYE CAN OPERATOR): Controlled Reviewed PHQ-9=3, BARRIE-7=3 Continued on buspirone 10 mg daily and citalopram 40 mg daily Assessment & Plan (08/05/2024 6:31 AM DYE CAN OPERATOR): Chronic, stable, controlled on medication Continued [...] times Assessment & Plan (10/16/2024 8:41 AM DYE CAN OPERATOR): Advised to check expiration date on EpiPen and to notify office if Is aware to carry at all times for possible accidental ingestion Assessment & Plan (08/05/2024 6:29 AM DYE CAN OPERATOR): Instructed to carry EpiPen at all times Assessment & Plan (01/18/2024 4:21 AM CDT): Instructed to carry EpiPen at all times Rectal bleeding 01/16/2024 Assessment & Plan (05/15/2025 10:21 AM CDT): Patient reports rectal bleeding, possibly due to hemorrhoids as she has not external hemorrhoid and reports she has had hemorrhoids since 2020. We will start Anusol suppositories for hemorrhoids, she also has a follow up with [facility] next week. She was recently in the emergency room at [facility] and was diagnosed with colitis due to abdominal pain and diarrhea. Due to recent diagnosis of colitis as seen on CT imaging along with rectal bleeding and constipation recommend colonoscopy as next steps and further evaluation. Orders: Case Request Operating Room: COLONOSCOPY polyethylene glycol (GoLYTELY) 236-22.74-6.74 -5.86 gram solution; Take 4,000 mL by mouth once for 1 dose ondansetron (ZOFRAN) 4 mg tablet; Take 1 tablet (4 mg total) by mouth every 8 (eight) hours as needed for nausea or vomiting Assessment & Plan (04/09/2025 2:29 PM CDT): [...] and suggested counseling Mentioned walk-in clinic in [place] for mental health, encouraged to be seen [...] safety Assessment & Plan (10/16/2024 8:41 AM DYE CAN OPERATOR): Controlled Reviewed PHQ-9=3, BARRIE-7=3 Continued on [...] safety Assessment & Plan (10/10/2022 9:00 AM DYE CAN OPERATOR): Patient with recurrent depression, will increase [...] control. Assessment & Plan (08/10/2022 8:27 AM DYE CAN OPERATOR): Patient presents today for evaluation of [...] ideation. Assessment & Plan (11/15/2021 4:04 AM DYE CAN OPERATOR): Patient with recurrent depression, she states that her current regimen is working well for her and she would like to continue on this. She denies any adverse effects and denies any suicidal or homicidal ideation. Assessment & Plan (09/26/2021 1:53 PM DYE CAN OPERATOR): Symptoms seem to be worsening since increasing Wellbutrin. Recommend decreasing Wellbutrin to 150 mg once daily and starting low-dose Lexapro. Patient does have follow-up scheduled with PCP in 1 month. Recent labs reviewed. TSH within normal limits in April 2021 Assessment & Plan (08/14/2021 6:16 PM DYE CAN OPERATOR): Patient with depression, and states that [...] times Assessment & Plan (10/16/2024 8:41 AM DYE CAN OPERATOR): Advised to check expiration date on EpiPen and to notify office if Is aware to carry at all times for possible accidental ingestion Assessment & Plan (08/05/2024 6:29 AM DYE CAN OPERATOR): Instructed to carry EpiPen at all [...] needed Assessment & Plan (10/16/2024 8:39 AM DYE CAN OPERATOR): Uncontrolled Discontinued Flovent Started on Breo 200-25 daily Continued on albuterol as directed as needed Assessment & Plan (09/18/2024 4:40 PM DYE CAN OPERATOR): AFVSS, exam benign Recommend restarting daily [...] 12/24/2024 Assessment & Plan (08/05/2024 6:31 AM DYE CAN OPERATOR): Acute, seen in ER last evening, with symptoms occurring immediately after drinking a protein shake for the 1st time, protein shake contained whey protein, soy, and dairy, and other ingredients Reviewed patient's cell phone Encouraged to avoid protein shake Advised to carry EpiPen at all times Instructed return to ER if symptoms should recur Referral made to contact representative sree Martinez 07/06/2024 07/21/2024 Assessment & Plan [...] 01/16/2024 Assessment & Plan (10/10/2022 9:01 AM DYE CAN OPERATOR): Patient with incidental and states that she is about 4 weeks , discussed risks and benefits of current medications advised that it is okay to proceed on sertraline as this is a safe medication during , and benefits outweigh risk at this time. IUD (intrauterine device) in place 08/10/2022 10/06/2022 Assessment & Plan (08/10/2022 8:28 AM DYE CAN OPERATOR): Patient states that she has had [...] 08/10/2022 Assessment & Plan (08/03/2022 5:44 PM DYE CAN OPERATOR): Rapid strep positive. Antibiotic ordered today. [...] 11/02/2021 Assessment & Plan (09/26/2021 1:54 PM DYE CAN OPERATOR): BMI Follow-up includes: education provided. Dysuria [...] 03/07/202103/10 Assessment & Plan (11/15/2021 4:04 AM DYE CAN OPERATOR): Plan as above. Assessment & Plan [...] Encounters Date Type Department Care Team Description 07/16/2025 12:56 AM CDT - 07/16/2025 2:27 AM CDT Emergency [address] [address] Mild asthma with exacerbation, unspecified whether persistent (Primary Dx); Acute sinusitis, recurrence not specified, unspecified location; Upper respiratory tract infection, unspecified type Discharge Disposition: Discharge to home or self care from Last 3 Months Immunizations Immunization Administration [...] Bernardo Nephrolithiasis Father Bernardo Hypertension Maternal Grandmother Merisabella Asthma Mother Roxana Cancer Mother Roxana Depression Mother Roxana Diabetes Mother Roxana Heart attack Mother Roxana Hypertension Mother Roxana Hypertension Mother's Sister Cat Bladder Cancer Paternal Grandfather Skin cancer Paternal Grandmother Relation Name Status Comments Father Bernardo Alive Maternal Grandmother Merry Mother Roxana Alive Mother's Sister Cat Paternal Grandfather Paternal Grandmother Social History Tobacco Use Types Packs/Day Years Used Date Smoking Tobacco: Every Day Vaping Started: 2021 Passive Smoke Exposure: Yes Smokeless Tobacco: Never Tobacco Cessation:Ready to Q uit: No; Counseling Given: Not Answered Comments:I havent vaped in a month Alcohol Use Standard Drinks/Week Comments Yes 0 (1 standard drink = 0.6 oz pur e alcohol) PHQ-2 Answer Date Recorded PHQ-2 Total Score (If total score is 3 or more points, staff should administer the PHQ-9) 0 04/09/2025 Exercise Vital Sign Answer Date Recorde d Days of Exercise per Week 7 days 2018 Minutes of Exercise per Session 30 min 02/25/2019 PHQ-9 Answer Date Recorded PHQ-9 Total Score 10 01/14/2025 AUDIT-C Answer Date Recorded Q1: How often do you have a drink containing alc ohol? Monthly or less 05/20/2025 Q2: How many drinks containi ng alcohol do you have on a typical day when you are drinking? 1 or 2 05/20/2025 Q3: How often do you have si x or more drinks on one occasion? Never 05/20/2025 Personal Safety Answer Date Recorded Have you ever been in or are you currently in a harmful physical or emotional relationship or is someone making you feel afraid or unsafe? Denies 07/16/2025 Comments No Sex and Gender Information Value Date Recorded Sex Assigned at Not on file Legal Sex Female 11:52 PM DYE CAN OPERATOR Gender Identity Female 12/09/2021 8:41 PM [...] Vag-S pont N Living Complications:Pre eclampsia Delivery Location:[facility] in [place] Last Filed Vital Signs Vital Sign Reading Time Taken Comments Blood Pressure 135/76 07/16/2025 2:10 AM CDT Pulse 97 07/16/2025 2:10 AM CDT Temperature 36.8 C (98.3 F) 07/16/2025 12:39 AM CDT Respiratory Rate 17 07/16/2025 2:10 AM CDT Oxygen Saturation 100% 07/16/2025 2:10 AM CDT Inhaled Oxygen Concentration - - Weight 52.2 kg (115 lb) 07/16/2025 12:39 AM CDT Height 157.5 cm (5' 2) 05/15/2025 9:50 AM CDT Body Mass Index 21.03 05/15/2025 9:50 AM CDT Plan of Treatment Health Maintenance Due Date Last Done Comments Cervical Cancer Screening 2002 Meningococcal B Vaccine (1 o f 2 - Standard) 2018 Chlamydia and Gonorrhea (GC/ CT) Screening 10/21/2023 10/21/2022, 04/14/2022 HPV Vaccines (3 - 3-dose series) 01/15/2025 10/16/19 25, 07/17/2024 Covid-19 Vaccine ( - 2024-2 6 season) 2025 10/10/2021, 01/12/2021, 12/15/2020 Influenza Vaccine (#1) 2025 , 08/14/2023, 07/25/2023, Additional history exists Depression Screening 04/09/2026 04/09/2025, 03/12/2025, 01/14/2025, Additional history exists Regular Well Visit/Exam 18-64 04/09/2026, 01/16/2024, 03/04/2021 DTaP/Tdap/Td Vaccine (2 - Td or Tdap) 09/20/2030 09/20/2020 Hepatitis C Screening Completed 10/21/2022 Hepatitis B Screening Completed 11/29/2023 Pneumococcal vaccine <65 Completed 07/17/2024 Varicella Vaccines Discontinued Procedures Procedure Name Priority Date/Time Associated Diagnosis Comments D-DIMER, QUANTITATIVE STAT 07/16/2025 1:02 AM CDT XR CHEST PA LATERAL 2 VIEWS ED 07/16/2025 12:55 AM CDT EGFR STAT 07/16/2025 12:47 AM CDT DIFFERENTIAL AUTO STAT 07/16/2025 12: 47 AM CDT TROPONIN T HIGH-SENSITIVITY STAT 07/16/2025 12:47 AM CDT COMPREHENSIVE METABOLIC PANEL STAT 07/16/2025 12:47 AM CDT CBC WITH AUTO DIFFERENTIAL STAT 07/16/2025 12:47 AM CDT INFLUENZA A/B, RSV, AND COVID-19 PCR STAT 07/16/2025 12:47 AM CDT ECG 12-LEAD Routine 07/16/2025 12:39 AM CDT N. GONORRHOEAE/C. TRACHOMATIS AMPLIFICATION Routine 10/21/2022 11:02 AM DYE CAN OPERATOR Early stage of HEPATITIS C ANTIBODY Routine 10/21/2022 10:59 AM DYE CAN OPERATOR Early stage of from Last 3 Months or Most Recently Relevant to Health Maintenance Results * D-dimer, quantitative (07/16/2025 1:02 AM CDT) D-Dimer 290 <=499 ng/mL FEU Comment: Interpretive data FDA approved the D-dimer, in conjunction with a low or moderate pretest probability score, to exclude venous thromboembolic events (VTE) (PE and DVT) in outpatients when the D-dimer result is < 500 ng/ml FEU. Evidence supports using an age-adjusted D-dimer cut-off for outpatients older than 50 (age x 10) to improve specificity without sacrificing sensitivity. Example: age 68, VTE cut-off 680 ng/ml FEU. References; Schouten HT et al. Brit Med J. 2013;346:f2492. Kianna et al. Annals Int Med. 2015;163:701-11. Current interpretive data was last revised on 2019. Blood 07/16/2025 1:02 AM CDT 07/16/2025 1:06 AM CDT us Juanito MADDEN LAB BLOOD ORDERABLES Final R esult [facility] [address] Department [place] [address] * XR Chest PA Lateral 2 Views (If patient hemodynamically stable and ambulatory) (07/16/2025 12:55 AMCDT) Anatomical Region Laterality Modality Body, Chest N/A Computed Radiogr aphy 07/16/2025 12:5 8 AM CDT Impressions 07/16/2025 12:58 AM CDT FINDINGS/IMPRESSION: 2 views of the chest are provided. The lungs are clear. Mediastinal structures appear unremarkable. No skeletal lesions are seen. Electronically signed by: Nathanael Keith M.D. Narrative 07/16/2025 12:58 AM CDT EXAMINATION: XR CHEST PA LATERAL 2 VIEWS HISTORY: Shortness of breath COMPARISON: none Procedure Note Nathanael Keith MD - 07/16/2025 EXAMINATION: XR CHEST PA LATERAL 2 VIEWS HISTORY: Shortness of breath COMPARISON: none IMPRESSION: FINDINGS/IMPRESSION: 2 views of the chest are provided. The lungs are clear. Mediastinal structures appear unremarkable. No skeletal lesions are seen. Electronically signed by: Nathanael Keith M.D. Patt Leiva MD IMG XR PROCEDURES Final Result * Troponin T high-sensitivity (07/16/2025 12:47 AM CDT) Trop T hs <6 <=14 ng/L Comment: Interpretive Data For further hscTnT resources including the diagnostic algorithm and an aid in interpretation, copy and paste this link: [email or web address].testcatalog.org/show/hsTrop Current Interpretive Data last revised 2020. Blood 07/16/2025 12:4 7 AM CDT 07/16/2025 12:50 AM CDT Patt Leiva MD LAB BLOOD ORDERABLES Fin al Result [facility] [address] Department [place] [address] * Influenza A/B, RSV, and COVID-19 PCR Nasopharyngeal (07/16/2025 12:47 AM CDT) Pathologist [facility] COVID-19 RNA Negative Negative Influenza A RNA Negative Negative [facility] Influenza B RNA Negative Negative [facility] RSV RNA Negative Negative [facility] Comment: Interpretive data: Testing performed by [facility]. This test is performed using the [employer] Xpert Xpress CoV-2/Flu/RSV plus assay. This is a multiplex, real-time reverse transcriptase PCR assay intended for the qualitative detection of nucleic acid from SARS-CoV-2, influenza A, influenza B, and respiratory syncytial virus. This assay has been cleared by the [place] Food and Drug administration. The performance characteristics have been verified by the [facility]. Results must be considered in the clinical context, and a negative result does not rule out infection. Interpretive Data last revised 2023 Nasopharyngeal 07/16/2025 12 :47 AM CDT 07/16/2025 12:50 AM CDT Narrative [facility] - 07/16/2025 1:29 AM CDT Is the Patient experiencing symptoms consistent with COVID?->Yes Patt Leiva MD LAB MICROBIOLOGY - GENER AL ORDERABLES Final Result Performing Organization Address [facility] de Phone Number [address] [place] [address] * eGFR (07/16/2025 12:47 AM CDT) Pathologist [facility] eGFR >90 >=60 mL/min/1. 73 m2 Comment: [...] of Race in Diagnosing Kidney Disease, JASN 202). The CKD-EPI equation should not be used for patients with unstable renal function and has not been validated in children and those over 70. Current interpretive data was last reviewed 2021. Blood 07/16/2025 12:4 7 AM CDT 07/16/2025 12:50 AM CDT Patt Leiva MD LAB BLOOD ORDERABLES Fin al Result Performing Organization Address [facility] Co de Phone Number [address] Department [place] [address] * (ABNORMAL) Differential, auto (07/16/2025 12:47 AM CDT) Pathologist [facility] Neutrophil abs 7.07(H) 1.50 - 6.50 K/cumm Imm gran abs 0.08 0.00 - 0.10 K/cumm [facility] Lymphocyte abs 2.72 0.80 - 3.30 K/cumm [facility] Monocyte abs 1.11(H) 0.20 - 0.80 K/cumm [facility] Eosinophil abs 0.39 0.00 - 0.50 K/cumm [facility] Basophil abs 0.08 0.00 - 0.10 K/cumm [facility] Neutrophil pct 61.7 % [facility] Comment: Interpretive Data Percent cell count reference ranges are not reported, since discordance with absolute values may lead to misinterpretation of CBC data. Current Interpretive Data was last revised on 2018. Imm gran pct 0.7 % [facility] Comment: Interpretive Data Percent cell count reference ranges are not reported, since discordance with absolute values may lead to misinterpretation of CBC data. Current Interpretive Data was last revised on 2018. Lymphocyte pct 23.8 % [facility] Comment: Interpretive Data Percent cell count reference ranges are not reported, since discordance with absolute values may lead to misinterpretation of CBC data. Current Interpretive Data was last revised on 2018. Monocyte pct 9.7 % [facility] Comment: Interpretive Data Percent cell count reference ranges are not reported, since discordance with absolute values may lead to misinterpretation of CBC data. Current Interpretive Data was last revised on 2018. Eosinophil pct 3.4 % [facility] Comment: Interpretive Data Percent cell count reference ranges are not reported, since discordance with absolute values may lead to misinterpretation of CBC data. Current Interpretive Data was last revised on 2018. Basophil pct 0.7 % [facility] Comment: Interpretive Data Percent cell count reference ranges are not reported, since discordance with absolute values may lead to misinterpretation of CBC data. Current Interpretive Data was last revised on 2018. Blood 07/16/2025 12:4 7 AM CDT 07/16/2025 12:50 AM CDT us Patt Leiva MD LAB BLOOD ORDERABLES Fin al Result [facility] [address] Department [place] [address] * (ABNORMAL) CBC with auto differential (07/16/2025 12:47 AM CDT) [facility] WBC 11.45(H) 3.80 - 9.90 K/cumm Hgb 13.1 11.9 - 15.5 g/dL [facility] Hct 38.7 35.6 - 45.5 % [facility] Plt 318 150 - 400 K/cumm [facility] MPV 9.7 9.1 - 12.3 fL [facility] RBC 4.52 3.90 - 5.20 M/cumm [facility] MCV 85.6 81.3 - 96.4 fL [facility] MCH 29.0 27.1 - 33.3 pg [facility] MCHC 33.9 32.3 - 35.7 g/dL [facility] RDW CV 12.7 11.1 - 14.9 % [facility] RDW SD 39.6 35.7 - 48.1 fL [facility] NRBC abs 0.00 0.00 - 0.01 K/cumm [facility] Blood 07/16/2025 12:4 7 AM CDT 07/16/2025 12:50 AM CDT us Patt Leiva MD LAB BLOOD ORDERABLES Fin al Result [facility] [address] Department [place] [address] * (ABNORMAL) Comprehensive metabolic panel (07/16/2025 12:47 AM CDT) [facility] Sodium 140 135 - 145 mmol/L Potassium, pl 4.4 3.3 - 4.9 mmol/L [facility] Chloride 105 97 - 110 mmol/L [facility] CO2 23 22 - 32 mmol/L [facility] Anion gap 12 2 - 15 mmol/L [facility] BUN 13 6 - 25 mg/dL [facility] Creatinine 0.86 0.60 - 1.10 mg/dL [facility] Glucose 101 70 - 199 mg/dL [facility] Comment: Interpretive Data Fasting glucose >/= 126 [...] Current interpretive data was last revised 2022. Calcium 9.4 8.5 - 10.3 mg/dL [facility] Bilirubin, total 0.2 0.1 - 1.2 mg/dL [facility] Protein, pl 6.9 6.5 - 8.5 g/dL [facility] Albumin 4.0 3.5 - 5.0 g/dL [facility] Alk phos 111 40 - 130 Units/L [facility] ALT 47(H) 7 - 45 Units/L [facility] AST 48(H) 10 - 45 Units/L [facility] Blood 07/16/2025 12:4 7 AM CDT 07/16/2025 12:50 AM CDT us Patt Leiva MD LAB BLOOD ORDERABLES Fin al Result [facility] [address] [facility] Department [place] [address] * ECG 12 lead (07/16/2025 12:39 AM CDT) Pathologist [facility] Ventricular Rate EKG/Min 93 BPM [facility] Atrial Rate 93 BPM [facility] NV-Interval (MSEC) 112 ms [facility] QRS-Interval (MSEC) 86 ms [facility] QT-Interval (MSEC) 364 ms [facility] QTc 452 ms [facility] P Hazel 71 degrees [facility] R Hazel 79 degrees [facility] T Hazel 59 degrees [facility] Diagnosis Normal sinus rhythm with sinus arrhythmia Normal ECG When compared with ECG of 25-DEC-2024 20:59, Previous ECG has undetermined rhythm, needs review QRS axis Shifted left Nonspecific T wave abnormality no longer evident in Inferior leads Nonspecific T wave abnormality no longer evident in Lateral leads Confirmed by GALA HARPER M.D. ([id number]) on 07/16/2025 8:08:47 AM [facility] 07/16/2025 12:3 9 AM CDT 07/16/2025 8:08 AM CDT Patt Leiva MD ECG ORDERABLES Final Re sult Performing Organization Address City/[facility]/ZIP Co de Phone Number [facility] * N. gonorrhoeae/C. trachomatis Amplification Urine (10/21/2022 11:02 AM DYE CAN OPERATOR) Pathologist [facility] C. trachomatis Not Detected Not Detected [facility] Comment:Testing performed by : [facility], [address] [place] [address]., [id number] N. gonorrhoeae Not Detected Not Detected [facility] Comment: Interpretive Data Testing performed by the [facility]. This assay detects Chlamydia trachomatis and Neisseria gonorrhoeae by nucleic acid amplification testing (NAAT). This test is approved by the [facility] Food and Drug Administration and the performance characteristics have been verified by the laboratory. The performance characteristics of this test have not been evaluated in individuals less than 14 years of age. Current Interpretive Data was last revised on 2018. Testing performed by: [facility], [address] [place] [address]., [id number] Urine (None) 10/21/2022 11:0 2 AM DYE CAN OPERATOR 10/21/2022 2:00 PM DYE CAN OPERATOR Christiane Cheung DO LAB MICROBIOLOGY - GENERA L ORDERABLES Final Result Performing Organization Address City/[facility]/ZIP Co de Phone Number [facility] [address] [facility] Department [place] [address] * Hepatitis C antibody (10/21/2022 10:59 AM DYE CAN OPERATOR) [facility] Hep C Ab Nonreactive Nonreactive [facility] Comment: Antibodies to HCV not detected. Does NOT exclude the possibility of recent exposure to HCV. Current interpretive data was last revised on 22 Testing performed by: [facility], [address] [place] [address]., [id number] Blood 10/21/2022 10:5 9 AM DYE CAN OPERATOR 10/21/2022 1:30 PM DYE CAN OPERATOR Christiane Cheung DO LAB MICROBIOLOGY - GENERA L ORDERABLES Final Result Performing Organization Address City/State/ZIP [facility] Phone Number [facility] [address] [facility] Department [place] [address] from Last 3 Months or Most Recently Relevant to Health Maintenance Insurance [facility] [facility] FEDERAL IDPA [facility] IDPA Care Teams [employer] Relationship Specialty Start Date End Date Carlee Hopkins NP [address] [address] PCP - General Family Medicine 01/16/24 Rebecca Ramirez MD [address] [place] [address] [address] [address] 08/15/19
[2025-09-18 08:23] VITALS: PULSE 97; RESP 20; O2SAT 96
[2025-09-18 08:25] VITALS: O2SAT 100
[2025-09-18] MEDS: IPRATROPIUM 0.5 MG/ALBUTEROL SULFATE 2.5 MG (BASE) AMPUL.NEB 3 ML INHALATION (08:37)
[2025-09-18 08:38] VITALS: PULSE 103
[2025-09-18 08:39] LABS: Hematocrit 40.6 % (37.0-47.0); Hemoglobin 13.7 g/dL (12.0-15.0); Immature Granulocyte Percent A 0.3 % (0-0.5); Lymphocytes Absolute Auto 1.95 K/mm3 (0.9-3.2); Mean Corpuscular HGB Conc 33.7 g/dl (32-36); Mean Corpuscular Hemoglobin 28.8 pg (26-34); Mean Corpuscular Volume 85.5 fl (80-100); Nucleated Red Blood Cells Absolute Auto 0.000 K/mm3 (0.0-0.012); Nucleated Red Blood Cells Perc 0.0 % (0.0-0.2); Platelet Count Result 320 k/mm3 (150-375); Red Blood Count 4.75 M/mm3 (4.2-5.4); White Blood Count 8.8 K/mm3 (4.5-10.0)
[2025-09-18 08:43] VITALS: PULSE 104
--- NOTE | 2025-09-18 08:48 | ED_ITS ---
HPI - General Adult General Chief complaint: Asthma Stated complaint: i can not breath Time Seen by Provider: 09/18/25 08:26 History of Present Illness HPI narrative: Patient is a 24-year-old female who presents to the ER with shortness of breath. Worsening over last 2 days. History of asthma. She has tried her inhaler without improvement. No chest pain. Worse with exertion. She has had some sore throat with cough and some runny nose. She is tearful due to her distress. No leg swelling. No hemoptysis. Currently saturating 100% on room air. Anxious appearing. Related Data Home Medications ?Medication ?Instructions ?Recorded ?Confirmed ?Last Taken ?Type citalopram 40 mg tablet 40 mg PO DAILY 05/25/2304/2405/26/23 09:00 History bupropion HCl 150 mg 24 hr tablet, 150 mg PO DAILY 04/1605/11/25 Unknown History extended release albuterol sulfate 90 mcg/actuation 2 puff inhalation Q 4-6H PRN 10/31/24 10/31/24 Unknown History aerosol inhaler shortness of breath or wheez ing buspirone 10 mg tablet 10 mg PO DAILY 10/31/2404/24 Unknown History fluticasone furoate 200 1 inh inhalation Q24H 05/11/25 Unknown History mcg-vilanterol 25 mcg/dose inhalation powder Allergies Allergy/AdvReac Type Severity Reaction Status Date / Time peanut Allergy Severe Anaphylaxis Verified 09/18/25 07:54 tree nut Allergy Severe Anaphylaxis Verified 09/18/25 07:54 Review of Systems 2 Review of Systems: All systems reviewed & are unremarkable except as noted in HPI and below Constitutional: Constitutional: Reports no additional constitutional complaints ENT: Reports system reviewed and no additional complaints, except as documented Cardiovascular: Cardiovascular: Reports no additional cardiovascular complaints Respiratory: Respiratory: Reports no additional respiratory complaints [facility] Past Medical History Medical History Encounter for insertion of copper IUD Anxiety and depression Gestational HTN Family History Family History Mother Hypertension Grandparent Hypertension Social History Social History (Reviewed 05/12/25 @ 22:01 by EMILY Vargas Smoking status: Current every day smoker Tobacco type: e-cigarettes/vaping Second hand tobacco smoke exposure: No Alcohol intake: current Alcohol use details: Occasionally Substance use: never Substance use type: does not use Lack of Transportation: No Lack of Food: Never True Current Housing: I Have Housing Concerned About Future Housing: No Difficulty Paying Gas/Electric Bills: No Difficulty Paying for Meds: No Currently Unemployed: No Education: High School Diploma/GED Difficulty w/ Childcare or Family Care: No Living arrangements: with family Occupation/Education: occupation Additional occupation/education comments: [employer] Gender identity (if verbalized by the patient): Female Spiritual care concerns: No Exam 2 Narrative: GENERAL: Anxious and tearful, well-nourished, and in no acute distress. HEAD: Normocephalic, atraumatic. ENT: Mucous membranes moist. Normal appearing posterior oropharynx. NECK: Supple. CHEST: Clear to auscultation. No respiratory distress. HEART: Tachycardic and regular. Normal peripheral pulses. ABDOMEN: Soft, nontender, nondistended. EXTREMITIES: Normal range of motion. No edema. SKIN: Warm, dry, no rash. NEURO: Alert and oriented x3. PSYCH: Normal mood and affect. Course Course Emergency Course: Patient feels better after nebulizer treatment. Still a little tachycardic. D- dimer negative. Imaging without pneumonia. Appropriate for discharge home. Will give some steroids for home as well. Toradol given for chest pain from coughing. Vital Signs Vital signs: Vital Signs Pulse Rate 97 09/18/25 08:23 Respiratory Rate 20 09/18/25 08:23 Pulse Oximetry 96 09/18/25 08:23 Pulse Rate 104 H 09/18/25 08:43 Respiratory Rate 20 09/18/25 08:23 Pulse Oximetry 100 09/18/25 08:25 Oxygen Delivery Room Air 09/18/25 08:[address] [facility] Differential Diagnosis Differential Diagnosis: Pneumonia, asthma exacerbation, COVID, influenza, anxiety, PE Lab Data [facility] Lab Attestation statement: I personally reviewed the patient's lab results. 09/18/25 08:31 09/18/25 08:31 Labs: Lab Results 09/18/25 09/18/25 Range/Units 08:31 10:26 WBC 8.8 (4.5-10.0) K/mm3 RBC 4.75 (4.2-5.4) M/mm3 Hgb 13.7 (12.0-15.0) g/dL Hct 40.6 (37.0-47.0) % MCV 85.5 (80-100) fl MCH 28.8 (26-34) pg MCHC 33.7 (32-36) g/dl RDW 12.3 (11.5-14.5) % Plt Count 320 (150-375) k/mm3 MPV 9.5 (7.4-10.4) fl Immature Gran % (Auto) 0.3 (0-0.5) % Neut % (Auto) 63.4 (45.5-73.1) % Lymph % (Auto) 22.3 (18.3-44.2) % [place] % (Auto) 8.3 (2.6-8.5) % Eos % (Auto) 4.9 H (0-4.4) % Baso % (Auto) 0.8 (0.2-1.2) % Lymph # (Auto) 1.95 (0.9-3.2) K/mm3 [place] # (Auto) 0.7 H (0.1-0.6) K/mm3 Eos # (Auto) 0.4 H (0-0.3) K/mm3 Baso # (Auto) 0.1 (0.0-0.1) K/mm3 Abs Immat Gran (auto) 0.03 (0.00-0.031) K/mm3 Absolute Neuts (auto) 5.5 (1.3-6.7) K/mm3 Absolute Nucleated RBC 0.000 (0.0-0.012) K/mm3 Nucleated RBC % 0.0 (0.0-0.2) % D-Dimer 0.39 (<0.48) ug/mL Sodium 140 (137-145) mmol/L Potassium 4.0 (3.4-5.0) mmol/L Chloride 107 (98-107) mmol/L Carbon Dioxide 22 (22-30) mmol/L Anion Gap 11 (4-12) mmol/L BUN 8 (7-17) mg/dL Creatinine 0.87 (0.7-1.0) mg/dL Estim Creat Clear Calc 73 ml/min Estimated GFR > 60 (59 - ) Glucose 82 (65-110) mg/dL Calcium 9.1 (8.4-10.2) mg/dL Total Bilirubin 0.7 (0.2-1.3) mg/dL AST 21 (14-36) U/L ALT 16 (6-35) U/L Alkaline Phosphatase 71 (38-126) U/L Total Protein 7.1 (6.3-8.2) g/dL Albumin 4.2 (3.5-5.1) g/dL Influenza A (RT-PCR) Negative (Negative) Influenza B (RT-PCR) Negative (Negative) RSV (RT-PCR) Negative (Negative) SARS-CoV-2 RNA (RT-PCR) Negative (Negative) Imaging Data Attestation: I personally reviewed and interpreted this imaging study as follows: Radiologist's impression: ITS Impressions Chest X-Ray 09/18/25 09:33 IMPRESSION: 1. No acute cardiopulmonary findings. Discharge Plan Discharge Clinical Impression: Asthma exacerbation Patient Disposition: Home Condition: Stable Instructions: Asthma (ED) Additional Instructions: Please return to the emergency department if you develop severe and persistent chest pain, difficulty breathing, dizziness, leg swelling or if you are coughing up blood as these can be signs of a medical emergency. Please call your doctor for a follow up appointment to determine the need for further testing. Patient Language: Lao Prescriptions: New prednisone 50 mg tablet 50 mg PO DAILY Qty: 7 0RF No Action cephalexin 500 mg capsule 500 mg PO Q6H 7 Days Qty: 28 0RF bupropion HCl 150 mg tablet extended release 24 hr 150 mg PO DAILY fluticasone furoate-vilanterol 200-25 mcg/dose blister with device 1 inh INHALATION Q24H albuterol sulfate 90 mcg/actuation HFA aerosol inhaler 2 puff INHALATION Q4-6H PRN (Reason: shortness of breath or wheezing) buspirone 10 mg tablet 10 mg PO DAILY citalopram 40 mg tablet 40 mg PO DAILY famotidine 20 mg tablet 20 mg PO DAILY Qty: 4 0RF epinephrine [EpiPen] 0.3 mg/0.3 mL auto-injector 0.3 mg IM Q5-15M PRN (Reason: anaphylaxis) Qty: 2 0RF Rx Instructions: do not exceed 3 doses per episode albuterol sulfate 90 mcg/actuation HFA aerosol inhaler 2 puff inhalation QID PRN (Reason: shortness of breath or wheezing) Qty: 8.5 0RF loratadine 10 mg tablet 10 mg PO DAILY Qty: 14 0RF dicyclomine 20 mg tablet 20 mg PO TID PRN (Reason: Abdominal Discomfort) Qty: 15 0RF ondansetron 4 mg tablet,disintegrating 4 mg PO Q8H PRN (Reason: nausea and vomiting) Qty: 15 0RF epinephrine 0.3 mg/0.3 mL auto-injector 0.3 mg IM Q5-15M PRN (Reason: anaphylaxis) Qty: 2 0RF Rx Instructions: do not exceed 3 doses per episode Follow-up/Referrals: Sandeep,Carlee, STREET CLEANER [Primary Care Provider, Unknown] - 1 Week
--- OUTSIDE RECORDS SUMMARY | 2025-09-18 08:56 | XMS_ITS | Clinical Summary ---
Author Organization [facility] Address [address] [place] [address] Care Team Providers Care Scientific Writer Name Role Phone Rebecca Ramirez MD Unavailable [phone] Carlee Hopkins NP Primary Care Provider [phone] Allergies Active Allergy Reactions Criticality Noted Date [...] has a follow up next week with [facility] to discuss surgical treatment of [...] CDT): Patient was diagnosed with colitis in [facility]'s emergency room on Sunday, CT scan [...] and suggested counseling Mentioned walk-in clinic in [place] for mental health, encouraged to seek appointment today Assessment & Plan (12/24/2024 6:22 AM CDT): Uncontrolled Reviewed PHQ-2=1, previously 3, BARRIE-7=16, previously 3 Continued on citalopram 40 mg daily and buspirone, suggested increase in buspirone from 10 mg daily to 10 mg twice daily for better control of anxiety symptoms Assessment & Plan (10/16/2024 8:40 AM TUNNEL FORM PLACING SUPERVISOR): Controlled Reviewed PHQ-9=3, BARRIE-7=3 Continued on buspirone 10 mg daily and citalopram 40 mg daily Assessment & Plan (08/05/2024 6:31 AM TUNNEL FORM PLACING SUPERVISOR): Chronic, stable, controlled on medication Continued [...] times Assessment & Plan (10/16/2024 8:41 AM TUNNEL FORM PLACING SUPERVISOR): Advised to check expiration date on EpiPen and to notify office if Is aware to carry at all times for possible accidental ingestion Assessment & Plan (08/05/2024 6:29 AM TUNNEL FORM PLACING SUPERVISOR): Instructed to carry EpiPen at all [...] she also has a follow up with [facility] next week. She was recently in the emergency room at [facility] and was diagnosed with colitis due to [...] and suggested counseling Mentioned walk-in clinic in [place] for mental health, encouraged to be seen [...] safety Assessment & Plan (10/16/2024 8:41 AM TUNNEL FORM PLACING SUPERVISOR): Controlled Reviewed PHQ-9=3, BARRIE-7=3 Continued on [...] safety Assessment & Plan (10/10/2022 9:00 AM TUNNEL FORM PLACING SUPERVISOR): Patient with recurrent depression, will increase [...] control. Assessment & Plan (08/10/2022 8:27 AM TUNNEL FORM PLACING SUPERVISOR): Patient presents today for evaluation of [...] ideation. Assessment & Plan (11/15/2021 4:04 AM TUNNEL FORM PLACING SUPERVISOR): Patient with recurrent depression, she states that her current regimen is working well for her and she would like to continue on this. She denies any adverse effects and denies any suicidal or homicidal ideation. Assessment & Plan (09/26/2021 1:53 PM TUNNEL FORM PLACING SUPERVISOR): Symptoms seem to be worsening since increasing Wellbutrin. Recommend decreasing Wellbutrin to 150 mg once daily and starting low-dose Lexapro. Patient does have follow-up scheduled with PCP in 1 month. Recent labs reviewed. TSH within normal limits in April 2021 Assessment & Plan (08/14/2021 6:16 PM TUNNEL FORM PLACING SUPERVISOR): Patient with depression, and states that [...] times Assessment & Plan (10/16/2024 8:41 AM TUNNEL FORM PLACING SUPERVISOR): Advised to check expiration date on EpiPen and to notify office if Is aware to carry at all times for possible accidental ingestion Assessment & Plan (08/05/2024 6:29 AM TUNNEL FORM PLACING SUPERVISOR): Instructed to carry EpiPen at all [...] needed Assessment & Plan (10/16/2024 8:39 AM TUNNEL FORM PLACING SUPERVISOR): Uncontrolled Discontinued Flovent Started on Breo 200-25 daily Continued on albuterol as directed as needed Assessment & Plan (09/18/2024 4:40 PM TUNNEL FORM PLACING SUPERVISOR): AFVSS, exam benign Recommend restarting daily [...] 12/24/2024 Assessment & Plan (08/05/2024 6:31 AM TUNNEL FORM PLACING SUPERVISOR): Acute, seen in ER last evening, with symptoms occurring immediately after drinking a protein shake for the 1st time, protein shake contained whey protein, soy, and dairy, and other ingredients Reviewed patient's cell phone Encouraged to avoid protein shake Advised to carry EpiPen at all times Instructed return to ER if symptoms should recur Referral made to house painter sree Martinez 07/06/2024 07/21/2024 Assessment & Plan [...] 01/16/2024 Assessment & Plan (10/10/2022 9:01 AM TUNNEL FORM PLACING SUPERVISOR): Patient with incidental and states that she is about 4 weeks , discussed risks and benefits of current medications advised that it is okay to proceed on sertraline as this is a safe medication during , and benefits outweigh risk at this time. IUD (intrauterine device) in place 08/10/2022 10/06/2022 Assessment & Plan (08/10/2022 8:28 AM TUNNEL FORM PLACING SUPERVISOR): Patient states that she has had [...] 08/10/2022 Assessment & Plan (08/03/2022 5:44 PM TUNNEL FORM PLACING SUPERVISOR): Rapid strep positive. Antibiotic ordered today. [...] 11/02/2021 Assessment & Plan (09/26/2021 1:54 PM TUNNEL FORM PLACING SUPERVISOR): BMI Follow-up includes: education provided. Dysuria [...] 03/07/202103/10 Assessment & Plan (11/15/2021 4:04 AM TUNNEL FORM PLACING SUPERVISOR): Plan as above. Assessment & Plan [...] CDT - 07/16/2025 2:27 AM CDT Emergency [address] [address] Mild asthma with exacerbation, unspecified whether persistent [...] on file Legal Sex Female 11:52 PM TUNNEL FORM PLACING SUPERVISOR Gender Identity Female 12/09/2021 8:41 PM [...] Vag-S pont N Living Complications:Pre eclampsia Delivery Location:[facility] [place] Last Filed Vital [...] GONORRHOEAE/C. TRACHOMATIS AMPLIFICATION Routine 10/21/2022 11:02 AM TUNNEL FORM PLACING SUPERVISOR Early stage of HEPATITIS C ANTIBODY Routine 10/21/2022 10:59 AM TUNNEL FORM PLACING SUPERVISOR Early stage of from Last 3 [...] MADDEN LAB BLOOD ORDERABLES Final R esult [facility] [address] [facility] [place] [address] * XR Chest PA Lateral 2 Views [...] MD LAB BLOOD ORDERABLES Fin al Result [facility] [address] [facility] [place] [address] * Influenza A/B, RSV, and COVID-19 PCR Nasopharyngeal (07/16/2025 12:47 AM CDT) Pathologist [facility] COVID-19 RNA Negative Negative Influenza A RNA Negative Negative [facility] Influenza B RNA Negative Negative [facility] RSV RNA Negative Negative [facility] Comment: Interpretive data: Testing performed by [facility]. This test is performed using the [employer] Xpert Xpress CoV-2/Flu/RSV plus assay. This is a multiplex, real-time reverse transcriptase PCR assay intended for the qualitative detection of nucleic acid from SARS-CoV-2, influenza A, influenza B, and respiratory syncytial virus. This assay has been cleared by the [place] Food and Drug administration. The performance characteristics have been verified by the [facility]. Results must be considered in the clinical context, and a negative result does not rule out infection. Interpretive Data last revised 2023 Nasopharyngeal 07/16/2025 12 :47 AM CDT 07/16/2025 12:50 AM CDT Narrative [facility] - 07/16/2025 1:29 AM CDT Is the Patient experiencing symptoms consistent with COVID?->Yes Patt Leiva MD LAB MICROBIOLOGY - GENER AL ORDERABLES Final Result Performing Organization Address [facility] de Phone Number [address] [place] [address] * eGFR (07/16/2025 12:47 AM CDT) Pathologist [facility] Department eGFR >90 >=60 mL/min/1. 73 m2 Comment: [...] ORDERABLES Fin al Result Performing Organization Address [facility] Co de Phone Number [address] Department [place] [address] * (ABNORMAL) Differential, auto (07/16/2025 12:47 AM CDT) Pathologist [facility] Neutrophil abs 7.07(H) 1.50 - 6.50 K/cumm Imm gran abs 0.08 0.00 - 0.10 K/cumm [facility] Lymphocyte abs 2.72 0.80 - 3.30 K/cumm [facility] Monocyte abs 1.11(H) 0.20 - 0.80 K/cumm [facility] Eosinophil abs 0.39 0.00 - 0.50 K/cumm [facility] Basophil abs 0.08 0.00 - 0.10 K/cumm [facility] Neutrophil pct 61.7 % [facility] Comment: Interpretive Data Percent cell count reference ranges are not reported, since discordance with absolute values may lead to misinterpretation of CBC data. Current Interpretive Data was last revised on 2018. Imm gran pct 0.7 % [facility] Comment: Interpretive Data Percent cell count reference ranges are not reported, since discordance with absolute values may lead to misinterpretation of CBC data. Current Interpretive Data was last revised on 2018. Lymphocyte pct 23.8 % [facility] Comment: Interpretive Data Percent cell count reference ranges are not reported, since discordance with absolute values may lead to misinterpretation of CBC data. Current Interpretive Data was last revised on 2018. Monocyte pct 9.7 % [facility] Comment: Interpretive Data Percent cell count reference ranges are not reported, since discordance with absolute values may lead to misinterpretation of CBC data. Current Interpretive Data was last revised on 2018. Eosinophil pct 3.4 % [facility] Comment: Interpretive Data Percent cell count reference ranges are not reported, since discordance with absolute values may lead to misinterpretation of CBC data. Current Interpretive Data was last revised on 2018. Basophil pct 0.7 % [facility] Comment: Interpretive Data Percent cell count reference ranges are not reported, since discordance with absolute values may lead to misinterpretation of CBC data. Current Interpretive Data was last revised on 2018. Blood 07/16/2025 12:4 7 AM CDT 07/16/2025 12:50 AM CDT us Patt Leiva MD LAB BLOOD ORDERABLES Fin al Result [facility] [address] [facility] [place] [address] * (ABNORMAL) CBC with auto differential (07/16/2025 12:47 AM CDT) [facility] WBC 11.45(H) 3.80 - 9.90 K/cumm Hgb 13.1 11.9 - 15.5 g/dL [facility] Hct 38.7 35.6 - 45.5 % [facility] Plt 318 150 - 400 K/cumm [facility] MPV 9.7 9.1 - 12.3 fL [facility] RBC 4.52 3.90 - 5.20 M/cumm [facility] MCV 85.6 81.3 - 96.4 fL [facility] MCH 29.0 27.1 - 33.3 pg [facility] MCHC 33.9 32.3 - 35.7 g/dL [facility] RDW CV 12.7 11.1 - 14.9 % [facility] RDW SD 39.6 35.7 - 48.1 fL [facility] NRBC abs 0.00 0.00 - 0.01 K/cumm [facility] Blood 07/16/2025 12:4 7 AM CDT 07/16/2025 12:50 AM CDT us Patt Leiva MD LAB BLOOD ORDERABLES Fin al Result [facility] [address] [facility] [place] [address] * (ABNORMAL) Comprehensive metabolic panel (07/16/2025 12:47 AM CDT) [facility] Sodium 140 135 - 145 mmol/L Potassium, pl 4.4 3.3 - 4.9 mmol/L [facility] Chloride 105 97 - 110 mmol/L [facility] CO2 23 22 - 32 mmol/L [facility] Anion gap 12 2 - 15 mmol/L [facility] BUN 13 6 - 25 mg/dL [facility] Creatinine 0.86 0.60 - 1.10 mg/dL [facility] Glucose 101 70 - 199 mg/dL [facility] Comment: Interpretive Data Fasting glucose >/= [...] 2022. Calcium 9.4 8.5 - 10.3 mg/dL [facility] Bilirubin, total 0.2 0.1 - 1.2 mg/dL [facility] Protein, pl 6.9 6.5 - 8.5 g/dL [facility] Albumin 4.0 3.5 - 5.0 g/dL [facility] Alk phos 111 40 - 130 Units/L [facility] ALT 47(H) 7 - 45 Units/L [facility] AST 48(H) 10 - 45 Units/L [facility] Blood 07/16/2025 12:4 7 AM CDT 07/16/2025 12:50 AM CDT us Patt Leiva MD LAB BLOOD ORDERABLES Fin al Result [facility] [address] [facility] [place] [address] * ECG 12 lead (07/16/2025 12:39 AM CDT) Pathologist [facility] Ventricular Rate EKG/Min 93 BPM [facility] Atrial Rate 93 BPM [facility] NE-Interval (MSEC) 112 ms [facility] QRS-Interval (MSEC) 86 ms [facility] QT-Interval (MSEC) 364 ms [facility] QTc 452 ms [facility] P Salol 71 degrees [facility] R Salol 79 degrees [facility] T Salol 59 degrees [facility] Diagnosis Normal sinus rhythm with sinus arrhythmia Normal ECG When compared with ECG of 25-DEC-2024 20:59, Previous ECG has undetermined rhythm, needs review QRS axis Shifted left Nonspecific T wave abnormality no longer evident in Inferior leads Nonspecific T wave abnormality no longer evident in Lateral leads Confirmed by GALA HARPER M.D. ([id number]) on 07/16/2025 8:08:47 AM [facility] 07/16/2025 12:3 9 AM CDT 07/16/2025 8:08 AM CDT Patt Leiva MD ECG ORDERABLES Final Re sult Performing Organization Address City/[facility]/ZIP Co de Phone Number [facility] * N. gonorrhoeae/C. trachomatis Amplification Urine (10/21/2022 11:02 AM TUNNEL FORM PLACING SUPERVISOR) Pathologist [facility] C. trachomatis Not Detected Not Detected [facility] Comment:Testing performed by : , [address] [place] [address]., [id number] N. gonorrhoeae Not Detected Not Detected [facility] Comment: Interpretive Data Testing performed by the Laboratory. This assay detects Chlamydia trachomatis and Neisseria gonorrhoeae by nucleic acid amplification testing (NAAT). This test is approved by the [facility] Food and Drug Administration and the performance characteristics have been verified by the laboratory. The performance characteristics of this test have not been evaluated in individuals less than 14 years of age. Current Interpretive Data was last revised on 2018. Testing performed by: , [address] [place] [address]., [id number] Urine (None) 10/21/2022 11:0 2 AM TUNNEL FORM PLACING SUPERVISOR 10/21/2022 2:00 PM TUNNEL FORM PLACING SUPERVISOR Christiane Cheung DO LAB MICROBIOLOGY - GENERA L ORDERABLES Final Result Performing Organization Address City/[facility]/ZIP Co de Phone Number [facility] [address] [facility] Department [place] [address] * Hepatitis C antibody (10/21/2022 10:59 AM TUNNEL FORM PLACING SUPERVISOR) [facility] Hep C Ab Nonreactive Nonreactive [facility] Comment: Antibodies to HCV not detected. Does NOT exclude the possibility of recent exposure to HCV. Current interpretive data was last revised on 22 Testing performed by: , [address] [place] [address]., [id number] Blood 10/21/2022 10:5 9 AM TUNNEL FORM PLACING SUPERVISOR 10/21/2022 1:30 PM TUNNEL FORM PLACING SUPERVISOR Christiane Cheung DO LAB MICROBIOLOGY - GENERA L ORDERABLES Final Result Performing Organization Address City/State/ZIP [facility] Phone Number [facility] [address] [facility] Department [place] [address] from Last 3 Months or Most Recently Relevant to Health Maintenance Insurance [facility] FEDERAL [facility] FEDERAL IDPA [facility] IDPA Care Teams Scientific Writer Relationship Specialty Start Date End Date Carlee Hopkins NP [address] [address] PCP - General Family Medicine 01/16/24 Rebecca Ramirez MD [address] [place] [address] [address], [place] [address] 08/15/19
--- OUTSIDE RECORDS SUMMARY | 2025-09-18 08:56 | XMS_ITS | Clinical Summary ---
Author Organization [facility] Address [address] [facility] [place] [address] Care Team Providers Care Safety Supervisor Name Role Phone Unavailable Primary Care Provider Unavailabl e Source Comments [facility],non-owned Affiliates and Associated Physician Practices is amultiple site organization consisting of ambulatory clinics and hospital sitesin [place], [place], [place] and [place]. This disclosure is being madepursuant to the Care Everywhere program and may not contain all information available regarding this patient. Last updated 18.[facility] [employer] Allergies Active Allergy Reactions Criticality Noted Date [...] medical care, and heating? Somewhat hard 04/21/2023 [facility] [place] of Occupat ional Health - Occupational Stress [...] place to sleep or slept in a snf (including now)? 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 Josie Gee MD LAB - MICROBIOLOGY ORDERABLES F inal Result [facility] MICROBIOLOGY [address] [place] [address], [facility] [phone] from Last 3 Months or Most Recently Relevant to Health Maintenance Insurance ANTHEM ANTHEM Advance Directives * Full Code (Latest Code Status on File) Date Activated Date Inactivated Comments 04/21/2023 6:59 PM 04/24/2023 1:02 PM
[2025-09-18 09:04] LABS: Alanine Aminotransferase 16 U/L (6-35); Albumin Level 4.2 g/dL (3.5-5.1); Alkaline Phosphatase 71 U/L (38-126); Anion Gap 11 mmol/L (4-12); Aspartate Amino Transferase 21 U/L (14-36); Bilirubin,Total 0.7 mg/dL (0.2-1.3); Blood Urea Nitrogen 8 mg/dL (7-17); Calcium 9.1 mg/dL (8.4-10.2); Carbon Dioxide 22 mmol/L (22-30); Chloride 107 mmol/L (98-107); Estimated CRCL calculation 73 ml/min; Estimated Glomerular Filt Rate > 60; Glucose 82 mg/dL (65-110); Potassium 4.0 mmol/L (3.4-5.0); Sodium 140 mmol/L (137-145); Total Protein 7.1 g/dL (6.3-8.2)
[2025-09-18 09:13] LABS: Influenza A QL RT-PCR Negative (Negative); Influenza B QL RT-PCR Negative (Negative); RSV RNA, RT-PCR Negative (Negative); SARS-CoV-2 RNA PCR Negative (Negative)
[2025-09-18] MEDS: KETOROLAC 15 MG/ML VIAL (*BKC) IV PUSH (10:23)
[2025-09-18 11:08] VITALS: BP 130/75; PULSE 85; RESP 20; O2SAT 100
== END 2025-09-18 11:09 | disposition home or self-care (01) ==
PROVIDERS: Emergency Provider Emergency Medicine; PCP Family Medicine
DX: J45.901 Unspecified asthma with (acute) exacerbation (principal); F17.290 Nicotine dependence, other tobacco product, uncomplicated; Z20.822 Contact with and (suspected) exposure to COVID-19
CPT/HCPCS: 36415; 71046; 80053; 85025; 85380; 87637; 94640; 96374; 99284; J1885

== ENCOUNTER 2025-09-18 16:14 | Emergency (ER) | payer BC, MEDICAID, SELFPAY ==
--- OUTSIDE RECORDS SUMMARY | 2025-06-23 04:20 | XMS_ITS | Continuity of Care Document ---
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 [address], [place], [place], [facility], [place]. tel:[phone] Referring Provider: Carlee Hopkins, [address] [place] [address], [facility]. tel:[phone] New (Level 4) OFFICE/OUTPA TIENT VISIT [facility], [address] [place] [address], [id number], tel:[phone] [facility] [place] and asthma (chief complaint) Elevated blood-pressure reading, w/o diagnosis of htnOther adverse food reaction, initial encounterOther allergic rhinitisModerate persistent asthma 5 Shahzad Cheshil. [address], [place], [address], [place]. tel:[phone] Referring Provider: Carlee Hopkins, [address] [place] [address], [facility]. tel:[phone] [facility], [address] [place] [address], [id number], tel:[phone] [facility] No Information 5 Shahzad Cheshil. [address] [place], [address], [place]. tel:[phone] Referring Provider: Carlee Hopkins, [address] [place] [address], [id number]. tel:[phone] [facility], [address] [place] [address], [place], [place], [id number], [place] tel:[phone] [facility] Location No Information [facility] Prov. . Referring Provider: Carlee Hopkins, [address] [facility] [address], [place], [address]. tel:[phone] Family History Family Member Type Diagnosis Age At Onset Problem No family history of Thyroid disorder Problem No family history of Rheumat oid arthritis Father Problem Rhinitis Paternal grandfather Problem Asthma Problem No family histor y of Systemic lupus erythematosus Payers Payer name Insurance type Covered green party ID Gustabo bennett(s) [facility] [id number] Social History Type Description Quantity Date Captured Comments Alcohol Use Details Unknown Caffeine Use Details Unknown Tobacco Use Status Current non-smoker Smoking Status Never smoker Non-Smoking Tobacco Use Details : No Details Available : No Details Available Sex Female Vital Signs Date / Time: Height Weight BMI Pulse Rate Blood Pressure Temperature Respiratory Rate Body Surface Area Head Circumference Head Circ. Percentile Wt./Chuck. Percentile BMI percentile Pulse Ox Inhaled Ox 10:12 AM 62.00 in 53.252 kg (117.40 lbs) 21.4 7 kg/m eter (2) 97 /min 116/68 mm[Hg] 97.80 F 1.53 meter(2) 100 % Chief Complaint And Reason For Visit From encounter dated '06/23/2025 10:20'. lab review (chief complaint). Description: LV: 04[birth year]25She has food allergy, AR, and asthma. She presents for follow up / lab review. Food AllergyShe avoids peanut and tree nuts. She has epinephrine auto-injectors (epipen or auvi-q). No interval reactions. ARShe is on cetirizine (zyrtec) 10 mg daily, which controls symptoms.AsthmaShe is on Breo 200/25 ?cg 1 puff daily and albuterol PRN, used prior to exercise. No nocturnal awakenings due to asthma. No interval ED/UC visits nor oral steroids for flared asthma. Data04/09/25Total IgE 1096Alpha Gal IgE <0.10Peanut IgE: >100*Briana h1: >100*Briana h2: >100*Briana h3: 36.3*Briana h6: 35.2*Briana h8: 1.25*Briana h9: UDHazelnut(Filbert) IgE: 7.37*Cor a1: 9.55 *Cor a8: UD*Cor a9: 3.12*Cor a14: UDCashew IgE: 12.4*Mely o3: 10.6Pistachio IgE: 11.5Walnut IgE: 2.62*Jug r1: 1.61*Jug r3: UDPecan IgE: 0.91Brazil nut IgE: 2.96*Doug e1: UDMacadamia IgE: 0.83Almond IgE: 1.97(UD = Undetectable)Environmental Immunocaps: +cat, dog, housedust mite, cockroach, trees, grass, ragweed, and other weeds*fel d1 > d4 > d7*can f5 > f4 > f6 > f1 Reason For Referral Reason For Referral No Information Plan Of Treatment Date Type Action Status Goal Tobacco cessation counseling completed Appointment Lana Thompson 6MO F/U BOOKED History Of Present Illness Encounter Date Complaint History Of Prese nt Illness lab review LV: 04/09/25She h as food allergy, AR, and asthma. She presents for follow up / lab review. Food AllergyShe avoids peanut and tree nuts. She has epinephrine auto-injectors (epipen or auvi-q). No interval reactions. ARShe is on cetirizine (zyrtec) 10 mg daily, which controls symptoms.AsthmaShe is on Breo 200/25 c g 1 puff daily and albuterol PRN, used prior to exercise. No nocturnal awakenings due to asthma. No interval ED/UC visits nor oral steroids for flared asthma. Data04/09/25Total IgE 1096Alpha Gal IgE <0.10Peanut IgE: >100*Briana h1: >100*Briana h2: >100*Briana h3: 36.3*Briana h6: 35.2*Briana h8: 1.25*Briana h9: UDHazelnut (Filbert) IgE: 7.37*Cor a1: 9.55 *Cor a8: UD*Cor a9: 3.12*Cor a14: UDCashew IgE: 12.4*Mely o3: 10.6Pistachio IgE: 11.5Walnut IgE: 2.62*Jug r1: 1.61*Jug r3: UDPecan IgE: 0.91Brazil nut IgE: 2.96*Doug e1: UDMacadamia IgE: 0.83Almond IgE: 1.97(UD = Undetectable)Environmental Immunocaps: +cat, dog, house dust mite, cockroach, trees, grass, ragweed, and other weeds*fel d1 > d4 > d7*can f5 > f4 > f6 > f1 allergies and asthma Adverse Delfin d ReactionShe [...] No Information Instructions Date Instruction Additional Infor ramona Hypertension education Related t o Elevated blood-pressure reading, w/o diagnosis of htn Assessments Type Assessment Date assessment Moderate persistent asthma May-3 assessment Other adverse food reaction, sub sequent encounter assessment Other allergic rhinitis 025 Patient Care Teams Name Effective Dates (start - stop) Status Members No Information
--- OUTSIDE RECORDS SUMMARY | 2025-06-23 04:20 | XMS_ITS | Continuity of Care Document ---
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 [address], [place], [place], [facility], [place]. tel:[phone] Referring Provider: Carlee Hopkins, [address] [place] [address], [facility]. tel:[phone] New (Level 4) OFFICE/OUTPA TIENT VISIT [facility], [address] [place] [address], [id number], tel:[phone] [facility] allergies and asthma (chief complaint) Elevated blood-pressure reading, w/o diagnosis of htnOther adverse food reaction, initial encounterOther allergic rhinitisModerate persistent asthma 5 Shahzad Cheshil. [address], [place], [address], [place]. tel:[phone] Referring Provider: Carlee Hopkins, [address] [place] [address], [facility]. tel:[phone] [facility], [address] [place] [address], [id number], tel:[phone] [facility] No Information 5 Shahzad Cheshil. [address] [place], [address], [place]. tel:[phone] Referring Provider: Carlee Hopkins, [address] [place] [address], [id number]. tel:[phone] [facility], [address] [place] [address], [place], [place], [id number], [place] tel:[phone] [facility] [place] Location No Information [facility] Prov. . Referring Provider: Carlee Hopkins, [address] [facility] [address], [place], [address]. tel:[phone] Family History Family Member Type Diagnosis Age At Onset Problem No family history of Thyroid disorder Problem No family history of Rheumat oid arthritis Father Problem Rhinitis Paternal grandfather Problem Asthma Problem No family histor y of Systemic lupus erythematosus Payers Payer name Insurance type Covered republican ID Gustabo bennett(s) [facility] [id number] Social History Type Description Quantity Date Captured [...]
--- OUTSIDE RECORDS SUMMARY | 2025-09-18 16:16 | XMS_ITS | Clinical Summary ---
Author Organization [facility] Address [address] [place] [address] Care Team Providers Care Privacy Manager Name Role Phone Pcp, No Primary Care Provider [phone] Social History Tobacco Use Types Packs/Day Years Used Date Smoking Tobacco: Never Assessed Comments Unknown Sex and Gender Information Value Date Recorded Sex Assigned at Not on file Legal Sex Female 11:31 AM EST Gender Identity Not on file Sexual Orientation Not on file Plan of Treatment Not on file Medical Devices Not on file Insurance [facility] Care Teams Privacy Manager Relationship Specialty Start Date End Date Pcp, No PCP - General Family Medicine 09/25/21
--- OUTSIDE RECORDS SUMMARY | 2025-09-18 16:16 | XMS_ITS | Clinical Summary ---
Author Organization [facility] Address [address] [place] [address] Care Team Providers Care Usability Architect Name Role Phone Rebecca Ramirez MD Unavailable Carlee Hopkins NP Primary Care Provider Allergies [...] has a follow up next week with [facility] to discuss surgical treatment of [...] CDT): Patient was diagnosed with colitis in [facility]'s emergency room on Sunday, CT scan showed [...] and suggested counseling Mentioned walk-in clinic in [place] for mental health, encouraged to seek appointment today Assessment & Plan (12/24/2024 6:22 AM CDT): Uncontrolled Reviewed PHQ-2=1, previously 3, BARRIE-7=16, previously 3 Continued on citalopram 40 mg daily and buspirone, suggested increase in buspirone from 10 mg daily to 10 mg twice daily for better control of anxiety symptoms Assessment & Plan (10/16/2024 8:40 AM STRUCTURAL STEEL WORKER HELPER): Controlled Reviewed PHQ-9=3, BARRIE-7=3 Continued on buspirone 10 mg daily and citalopram 40 mg daily Assessment & Plan (08/05/2024 6:31 AM STRUCTURAL STEEL WORKER HELPER): Chronic, stable, controlled on medication Continued on [...] times Assessment & Plan (10/16/2024 8:41 AM STRUCTURAL STEEL WORKER HELPER): Advised to check expiration date on EpiPen and to notify office if Is aware to carry at all times for possible accidental ingestion Assessment & Plan (08/05/2024 6:29 AM STRUCTURAL STEEL WORKER HELPER): Instructed to carry EpiPen at all times [...] she also has a follow up with [facility] next week. She was recently in the emergency room at [facility] and was diagnosed with colitis due to [...] and suggested counseling Mentioned walk-in clinic in [place] for mental health, encouraged to be seen today if possible Advised if suicidal ideation thoughts of harming self or others, to go to ER and/or call [phone] for assistance, agree to contract for safety Assessment & Plan (12/23/2024 3:02 PM CDT): Controlled Reviewed PHQ-2=1, previously 3, BARREI-7=16, previously 3 Continued on bupropion XL 150 mg daily and citalopram 40 mg daily Advised if suicidal ideation thoughts of harming self or others, to go to ER and/or call [phone] for assistance, agree to contract for safety Assessment & Plan (10/16/2024 8:41 AM STRUCTURAL STEEL WORKER HELPER): Controlled Reviewed PHQ-9=3, BARRIE-7=3 Continued on bupropion [...] safety Assessment & Plan (10/10/2022 9:00 AM STRUCTURAL STEEL WORKER HELPER): Patient with recurrent depression, will increase sertraline [...] control. Assessment & Plan (08/10/2022 8:27 AM STRUCTURAL STEEL WORKER HELPER): Patient presents today for evaluation of recurrent [...] ideation. Assessment & Plan (11/15/2021 4:04 AM STRUCTURAL STEEL WORKER HELPER): Patient with recurrent depression, she states that her current regimen is working well for her and she would like to continue on this. She denies any adverse effects and denies any suicidal or homicidal ideation. Assessment & Plan (09/26/2021 1:53 PM STRUCTURAL STEEL WORKER HELPER): Symptoms seem to be worsening since increasing Wellbutrin. Recommend decreasing Wellbutrin to 150 mg once daily and starting low-dose Lexapro. Patient does have follow-up scheduled with PCP in 1 month. Recent labs reviewed. TSH within normal limits in April 2021 Assessment & Plan (08/14/2021 6:16 PM STRUCTURAL STEEL WORKER HELPER): Patient with depression, and states that symptoms [...] times Assessment & Plan (10/16/2024 8:41 AM STRUCTURAL STEEL WORKER HELPER): Advised to check expiration date on EpiPen and to notify office if Is aware to carry at all times for possible accidental ingestion Assessment & Plan (08/05/2024 6:29 AM STRUCTURAL STEEL WORKER HELPER): Instructed to carry EpiPen at all times [...] needed Assessment & Plan (10/16/2024 8:39 AM STRUCTURAL STEEL WORKER HELPER): Uncontrolled Discontinued Flovent Started on Breo 200-25 daily Continued on albuterol as directed as needed Assessment & Plan (09/18/2024 4:40 PM STRUCTURAL STEEL WORKER HELPER): AFVSS, exam benign Recommend restarting daily inhaler [...] 12/24/2024 Assessment & Plan (08/05/2024 6:31 AM STRUCTURAL STEEL WORKER HELPER): Acute, seen in ER last evening, with symptoms occurring immediately after drinking a protein shake for the 1st time, protein shake contained whey protein, soy, and dairy, and other ingredients Reviewed patient's cell phone Encouraged to avoid protein shake Advised to carry EpiPen at all times Instructed return to ER if symptoms should recur Referral made to medical supply technician sree Martinez 07/06/2024 07/21/2024 Assessment & Plan [...] 01/16/2024 Assessment & Plan (10/10/2022 9:01 AM STRUCTURAL STEEL WORKER HELPER): Patient with incidental and states that she is about 4 weeks , discussed risks and benefits of current medications advised that it is okay to proceed on sertraline as this is a safe medication during , and benefits outweigh risk at this time. IUD (intrauterine device) in place 08/10/2022 10/06/2022 Assessment & Plan (08/10/2022 8:28 AM STRUCTURAL STEEL WORKER HELPER): Patient states that she has had IUD [...] 08/10/2022 Assessment & Plan (08/03/2022 5:44 PM STRUCTURAL STEEL WORKER HELPER): Rapid strep positive. Antibiotic ordered today. Discussed [...] 11/02/2021 Assessment & Plan (09/26/2021 1:54 PM STRUCTURAL STEEL WORKER HELPER): BMI Follow-up includes: education provided. Dysuria 06/23/2021 [...] 03/07/202103/10 Assessment & Plan (11/15/2021 4:04 AM STRUCTURAL STEEL WORKER HELPER): Plan as above. Assessment & Plan (06/23/2021 [...] CDT - 07/16/2025 2:27 AM CDT Emergency [address] [address] Mild asthma with exacerbation, unspecified whether persistent [...] on file Legal Sex Female 11:52 PM STRUCTURAL STEEL WORKER HELPER Gender Identity Female 12/09/2021 8:41 PM CDT [...] Vag-S pont N Living Complications:Pre eclampsia Delivery Location:[facility] [place] Last Filed Vital Signs Vital Sign Reading [...] GONORRHOEAE/C. TRACHOMATIS AMPLIFICATION Routine 10/21/2022 11:02 AM STRUCTURAL STEEL WORKER HELPER Early stage of HEPATITIS C ANTIBODY Routine 10/21/2022 10:59 AM STRUCTURAL STEEL WORKER HELPER Early stage of from Last 3 Months [...] MADDEN LAB BLOOD ORDERABLES Final R esult [facility] [address] [facility] Department [place] [address] * XR Chest PA Lateral 2 Views [...] MD LAB BLOOD ORDERABLES Fin al Result [facility] [address] [facility] Department [place] [address] * Influenza A/B, RSV, and COVID-19 PCR Nasopharyngeal (07/16/2025 12:47 AM CDT) Pathologist [facility] COVID-19 RNA Negative Negative Influenza A RNA Negative Negative [facility] Influenza B RNA Negative Negative [facility] RSV RNA Negative Negative [facility] Comment: Interpretive data: Testing performed by [facility]. This test is performed using the [employer] Xpert Xpress CoV-2/Flu/RSV plus assay. This is a multiplex, real-time reverse transcriptase PCR assay intended for the qualitative detection of nucleic acid from SARS-CoV-2, influenza A, influenza B, and respiratory syncytial virus. This assay has been cleared by the [place] Food and Drug administration. The performance characteristics have been verified by the [facility] [place] [facility]. Results must be considered in the clinical context, and a negative result does not rule out infection. Interpretive Data last revised 2023 Nasopharyngeal 07/16/2025 12 :47 AM CDT 07/16/2025 12:50 AM CDT Narrative [facility] - 07/16/2025 1:29 AM CDT Is the Patient experiencing symptoms consistent with COVID?->Yes Patt Leiva MD LAB MICROBIOLOGY - GENER AL ORDERABLES Final Result Performing Organization Address [facility] de Phone Number [address] [place] [address] * eGFR (07/16/2025 12:47 AM CDT) Pathologist [facility] eGFR >90 >=60 mL/min/1. 73 m2 Comment: [...] ORDERABLES Fin al Result Performing Organization Address [facility] Co de Phone Number [address] [place] [address] * (ABNORMAL) Differential, auto (07/16/2025 12:47 AM CDT) Pathologist [facility] Neutrophil abs 7.07(H) 1.50 - 6.50 K/cumm Imm gran abs 0.08 0.00 - 0.10 K/cumm [facility] Lymphocyte abs 2.72 0.80 - 3.30 K/cumm [facility] Monocyte abs 1.11(H) 0.20 - 0.80 K/cumm [facility] Eosinophil abs 0.39 0.00 - 0.50 K/cumm [facility] Basophil abs 0.08 0.00 - 0.10 K/cumm [facility] Neutrophil pct 61.7 % [facility] Comment: Interpretive Data Percent cell count reference ranges are not reported, since discordance with absolute values may lead to misinterpretation of CBC data. Current Interpretive Data was last revised on 2018. Imm gran pct 0.7 % [facility] Comment: Interpretive Data Percent cell count reference ranges are not reported, since discordance with absolute values may lead to misinterpretation of CBC data. Current Interpretive Data was last revised on 2018. Lymphocyte pct 23.8 % [facility] Comment: Interpretive Data Percent cell count reference ranges are not reported, since discordance with absolute values may lead to misinterpretation of CBC data. Current Interpretive Data was last revised on 2018. Monocyte pct 9.7 % [facility] Comment: Interpretive Data Percent cell count reference ranges are not reported, since discordance with absolute values may lead to misinterpretation of CBC data. Current Interpretive Data was last revised on 2018. Eosinophil pct 3.4 % [facility] Comment: Interpretive Data Percent cell count reference ranges are not reported, since discordance with absolute values may lead to misinterpretation of CBC data. Current Interpretive Data was last revised on 2018. Basophil pct 0.7 % [facility] Comment: Interpretive Data Percent cell count reference ranges are not reported, since discordance with absolute values may lead to misinterpretation of CBC data. Current Interpretive Data was last revised on 2018. Blood 07/16/2025 12:4 7 AM CDT 07/16/2025 12:50 AM CDT us Patt Leiva MD LAB BLOOD ORDERABLES Fin al Result [facility] [address] [facility] [place] [address] * (ABNORMAL) CBC with auto differential (07/16/2025 12:47 AM CDT) [facility] WBC 11.45(H) 3.80 - 9.90 K/cumm Hgb 13.1 11.9 - 15.5 g/dL [facility] Hct 38.7 35.6 - 45.5 % [facility] Plt 318 150 - 400 K/cumm [facility] MPV 9.7 9.1 - 12.3 fL [facility] RBC 4.52 3.90 - 5.20 M/cumm [facility] MCV 85.6 81.3 - 96.4 fL [facility] MCH 29.0 27.1 - 33.3 pg [facility] MCHC 33.9 32.3 - 35.7 g/dL [facility] RDW CV 12.7 11.1 - 14.9 % [facility] RDW SD 39.6 35.7 - 48.1 fL [facility] NRBC abs 0.00 0.00 - 0.01 K/cumm [facility] Blood 07/16/2025 12:4 7 AM CDT 07/16/2025 12:50 AM CDT us Patt Leiva MD LAB BLOOD ORDERABLES Fin al Result [facility] [address] [facility] [place] [address] * (ABNORMAL) Comprehensive metabolic panel (07/16/2025 12:47 AM CDT) [facility] Sodium 140 135 - 145 mmol/L Potassium, pl 4.4 3.3 - 4.9 mmol/L [facility] Chloride 105 97 - 110 mmol/L [facility] CO2 23 22 - 32 mmol/L [facility] Anion gap 12 2 - 15 mmol/L [facility] BUN 13 6 - 25 mg/dL [facility] Creatinine 0.86 0.60 - 1.10 mg/dL [facility] Glucose 101 70 - 199 mg/dL [facility] Comment: Interpretive Data Fasting glucose >/= [...] 2022. Calcium 9.4 8.5 - 10.3 mg/dL [facility] Bilirubin, total 0.2 0.1 - 1.2 mg/dL [facility] Protein, pl 6.9 6.5 - 8.5 g/dL [facility] Albumin 4.0 3.5 - 5.0 g/dL [facility] Alk phos 111 40 - 130 Units/L [facility] ALT 47(H) 7 - 45 Units/L [facility] AST 48(H) 10 - 45 Units/L [facility] Blood 07/16/2025 12:4 7 AM CDT 07/16/2025 12:50 AM CDT us Patt Leiva MD LAB BLOOD ORDERABLES Fin al Result [facility] [address] [facility] Department [place] [address] * ECG 12 lead (07/16/2025 12:39 AM CDT) Pathologist [facility] Ventricular Rate EKG/Min 93 BPM [facility] Atrial Rate 93 BPM [facility] MA-Interval (MSEC) 112 ms [facility] QRS-Interval (MSEC) 86 ms [facility] QT-Interval (MSEC) 364 ms [facility] QTc 452 ms [facility] P Myrtle 71 degrees [facility] R Myrtle 79 degrees [facility] T Myrtle 59 degrees [facility] Diagnosis Normal sinus rhythm with sinus arrhythmia Normal ECG When compared with ECG of 25-DEC-2024 20:59, Previous ECG has undetermined rhythm, needs review QRS axis Shifted left Nonspecific T wave abnormality no longer evident in Inferior leads Nonspecific T wave abnormality no longer evident in Lateral leads Confirmed by GALA HARPER M.D. ([id number]) on 07/16/2025 8:08:47 AM [facility] 07/16/2025 12:3 9 AM CDT 07/16/2025 8:08 AM CDT Patt Leiva MD ECG ORDERABLES Final Re sult Performing Organization Address City/[facility]/ZIP Co de Phone Number [facility] * N. gonorrhoeae/C. trachomatis Amplification Urine (10/21/2022 11:02 AM STRUCTURAL STEEL WORKER HELPER) Pathologist [facility] C. trachomatis Not Detected Not Detected [facility] Comment:Testing performed by : [facility], [address] [place] [address]., [id number] N. gonorrhoeae Not Detected Not Detected [facility] Comment: Interpretive Data Testing performed by the [facility]. This assay detects Chlamydia trachomatis and Neisseria gonorrhoeae by nucleic acid amplification testing (NAAT). This test is approved by the [facility] Food and Drug Administration and the performance characteristics have been verified by the laboratory. The performance characteristics of this test have not been evaluated in individuals less than 14 years of age. Current Interpretive Data was last revised on 2018. Testing performed by: [facility], [address] [place] [address]., [id number] Urine (None) 10/21/2022 11:0 2 AM STRUCTURAL STEEL WORKER HELPER 10/21/2022 2:00 PM STRUCTURAL STEEL WORKER HELPER Christiane Cheung DO LAB MICROBIOLOGY - GENERA L ORDERABLES Final Result Performing Organization Address City/[facility]/ZIP Co de Phone Number [facility] [address] [facility] Department [place] [address] * Hepatitis C antibody (10/21/2022 10:59 AM STRUCTURAL STEEL WORKER HELPER) [facility] Hep C Ab Nonreactive Nonreactive [facility] Comment: Antibodies to HCV not detected. Does NOT exclude the possibility of recent exposure to HCV. Current interpretive data was last revised on 22 Testing performed by: [facility], [address] [place] [address]., [id number] Blood 10/21/2022 10:5 9 AM STRUCTURAL STEEL WORKER HELPER 10/21/2022 1:30 PM STRUCTURAL STEEL WORKER HELPER Christiane Cheung DO LAB MICROBIOLOGY - GENERA L ORDERABLES Final Result Performing Organization Address City/State/ZIP [facility] Phone Number [facility] [address] [facility] Department [place] [address] from Last 3 Months or Most Recently Relevant to Health Maintenance Insurance [facility] Care Teams Usability Architect Relationship Specialty Start Date End Date Carlee Hopkins NP [address] [address] PCP - General Family Medicine 01/16/24 Rebecca Ramirez MD [address] [place] [address] [address] [place] [address] 08/15/19
--- OUTSIDE RECORDS SUMMARY | 2025-09-18 16:16 | XMS_ITS | Clinical Summary ---
Author Organization [facility] Address [address] [facility] [place] [address] Care Team Providers Care Flux Tube Attendant Name Role Phone Unavailable Primary Care Provider Unavailabl e Source Comments [facility],non-owned Affiliates and Associated Physician Practices is amultiple site organization consisting of ambulatory clinics and hospital sitesin [place], [place], [place] and [place]. This disclosure is being madepursuant to the Care Everywhere program and may not contain all information available regarding this patient. Last updated 18.[facility] Opentopic Allergies Active Allergy Reactions Criticality Noted Date [...] medical care, and heating? Somewhat hard 04/21/2023 [facility] [place] of Occupat ional Health - Occupational Stress [...] place to sleep or slept in a intermediate (including now)? No 04/21/2023 Comments No Sex and Gender Information Value Date Recorded Sex Assigned at Not on file Legal Sex Female 8:19 AM ONCOLOGY TRANSPLANT NETWORK MANAGER Gender Identity Not on file Sexual Orientation [...] Probe Negative Negative 04/22/2023 8:23 PM CDT [facility] MICROBIOLOGY GC Amplified Probe Negative Negative 04/22/2023 8:23 PM CDT [facility] MICROBIOLOGY Microbiology PART OF UTERINE CERVIX / Unknown Collection / Unknown 04/21/2023 8:47 PM CDT 04/21/2023 9:01 PM CDT Narrative [facility] MICROBIOLOGY - 04/22/2023 8:23 PM CDT Results based on detection/no detection of ribosomal RNA by amplified method. Josie Gee MD LAB - MICROBIOLOGY ORDERABLES F inal Result [facility] MICROBIOLOGY [address] [place] [address], [facility] [phone] from Last 3 Months or Most Recently Relevant to Health Maintenance Insurance ANTHEM ANTHEM Advance Directives * Full Code (Latest Code Status on File) Date Activated Date Inactivated Comments 04/21/2023 6:59 PM 04/24/2023 1:02 PM
[2025-09-18 16:19] VITALS: BP 144/93; PULSE 118; RESP 38; TEMP 36.6; O2SAT 95
--- OUTSIDE RECORDS SUMMARY | 2025-09-18 20:26 | XMS_ITS | Clinical Summary ---
Author Organization [employer] [facility] Address [address] [place] [address] Care Team Providers Care Clinical Haematologist Name Role Phone Pcp, No Primary Care Provider [phone] Social History Tobacco Use Types Packs/Day Years Used Date Smoking Tobacco: Never Assessed Comments Unknown Sex and Gender Information Value Date Recorded Sex Assigned at Not on file Legal Sex Female 11:31 AM EST Gender Identity Not on file Sexual Orientation Not on file Plan of Treatment Not on file Medical Devices Not on file Insurance [facility] Care Teams Clinical Haematologist Relationship Specialty Start Date End Date Pcp, No PCP - General Family Medicine 09/25/21
--- OUTSIDE RECORDS SUMMARY | 2025-09-18 20:26 | XMS_ITS | Clinical Summary ---
Author Organization [facility] Address [address] [place] [address] Care Team Providers Care Contract Analyst Name Role Phone Unavailable Primary Care Provider Unavailabl e Source Comments [facility],non-owned Affiliates and Associated Physician Practices is amultiple site organization consisting of ambulatory clinics and hospital sitesin [place], [place], [place] and [place]. This disclosure is being madepursuant to the Care Everywhere program and may not contain all information available regarding this patient. Last updated 18.[facility] [employer] Allergies Active Allergy Reactions Criticality Noted Date [...] medical care, and heating? Somewhat hard 04/21/2023 [facility] [place] of Occupat ional Health - Occupational Stress [...] a long term (including now)? 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
--- OUTSIDE RECORDS SUMMARY | 2025-09-18 20:26 | XMS_ITS | Clinical Summary ---
Author Organization [facility] Address [address] [place] [address] Care Team Providers Care Cyber Security Engineer Name Role Phone Rebecca Ramirez MD Unavailable Carlee Hopkins NP Primary Care Provider [phone] Allergies Active Allergy Reactions Criticality Noted Date [...] has a follow up next week with [facility]/Colorectal surgery to discuss surgical treatment of [...] CDT): Patient was diagnosed with colitis in [facility]'s emergency room on Sunday, CT scan [...] and suggested counseling Mentioned walk-in clinic in [place] for mental health, encouraged to seek appointment today Assessment & Plan (12/24/2024 6:22 AM CDT): Uncontrolled Reviewed PHQ-2=1, previously 3, BARRIE-7=16, previously 3 Continued on citalopram 40 mg daily and buspirone, suggested increase in buspirone from 10 mg daily to 10 mg twice daily for better control of anxiety symptoms Assessment & Plan (10/16/2024 8:40 AM BLACK OFF WORKER): Controlled Reviewed PHQ-9=3, BARRIE-7=3 Continued on buspirone 10 mg daily and citalopram 40 mg daily Assessment & Plan (08/05/2024 6:31 AM BLACK OFF WORKER): Chronic, stable, controlled on medication Continued on [...] times Assessment & Plan (10/16/2024 8:41 AM BLACK OFF WORKER): Advised to check expiration date on EpiPen and to notify office if Is aware to carry at all times for possible accidental ingestion Assessment & Plan (08/05/2024 6:29 AM BLACK OFF WORKER): Instructed to carry EpiPen at all times [...] she also has a follow up with [facility]/Colorectal surgery next week. She was recently in the emergency room at [facility] and was diagnosed with colitis [...] and suggested counseling Mentioned walk-in clinic in [place] for mental health, encouraged to be seen [...] safety Assessment & Plan (10/16/2024 8:41 AM BLACK OFF WORKER): Controlled Reviewed PHQ-9=3, BARRIE-7=3 Continued on bupropion [...] safety Assessment & Plan (10/10/2022 9:00 AM BLACK OFF WORKER): Patient with recurrent depression, will increase sertraline [...] control. Assessment & Plan (08/10/2022 8:27 AM BLACK OFF WORKER): Patient presents today for evaluation of recurrent [...] ideation. Assessment & Plan (11/15/2021 4:04 AM BLACK OFF WORKER): Patient with recurrent depression, she states that her current regimen is working well for her and she would like to continue on this. She denies any adverse effects and denies any suicidal or homicidal ideation. Assessment & Plan (09/26/2021 1:53 PM BLACK OFF WORKER): Symptoms seem to be worsening since increasing Wellbutrin. Recommend decreasing Wellbutrin to 150 mg once daily and starting low-dose Lexapro. Patient does have follow-up scheduled with PCP in 1 month. Recent labs reviewed. TSH within normal limits in April 2021 Assessment & Plan (08/14/2021 6:16 PM BLACK OFF WORKER): Patient with depression, and states that symptoms [...] times Assessment & Plan (10/16/2024 8:41 AM BLACK OFF WORKER): Advised to check expiration date on EpiPen and to notify office if Is aware to carry at all times for possible accidental ingestion Assessment & Plan (08/05/2024 6:29 AM BLACK OFF WORKER): Instructed to carry EpiPen at all times [...] needed Assessment & Plan (10/16/2024 8:39 AM BLACK OFF WORKER): Uncontrolled Discontinued Flovent Started on Breo 200-25 daily Continued on albuterol as directed as needed Assessment & Plan (09/18/2024 4:40 PM BLACK OFF WORKER): AFVSS, exam benign Recommend restarting daily inhaler [...] 12/24/2024 Assessment & Plan (08/05/2024 6:31 AM BLACK OFF WORKER): Acute, seen in ER last evening, with symptoms occurring immediately after drinking a protein shake for the 1st time, protein shake contained whey protein, soy, and dairy, and other ingredients Reviewed patient's cell phone Encouraged to avoid protein shake Advised to carry EpiPen at all times Instructed return to ER if symptoms should recur Referral made to pharmacists sree Martinez 07/06/2024 07/21/2024 Assessment & Plan [...] 01/16/2024 Assessment & Plan (10/10/2022 9:01 AM BLACK OFF WORKER): Patient with incidental and states that she is about 4 weeks , discussed risks and benefits of current medications advised that it is okay to proceed on sertraline as this is a safe medication during , and benefits outweigh risk at this time. IUD (intrauterine device) in place 08/10/2022 10/06/2022 Assessment & Plan (08/10/2022 8:28 AM BLACK OFF WORKER): Patient states that she has had IUD [...] 08/10/2022 Assessment & Plan (08/03/2022 5:44 PM BLACK OFF WORKER): Rapid strep positive. Antibiotic ordered today. Discussed [...] 11/02/2021 Assessment & Plan (09/26/2021 1:54 PM BLACK OFF WORKER): BMI Follow-up includes: education provided. Dysuria 06/23/2021 [...] 03/07/202103/10 Assessment & Plan (11/15/2021 4:04 AM BLACK OFF WORKER): Plan as above. Assessment & Plan (06/23/2021 [...] CDT - 07/16/2025 2:27 AM CDT Emergency [address] [address] Mild asthma with exacerbation, unspecified whether persistent [...] on file Legal Sex Female 11:52 PM BLACK OFF WORKER Gender Identity Female 12/09/2021 8:41 PM CDT [...] Vag-S pont N Living Complications:Pre eclampsia Delivery Location:[facility] in [place] Last Filed Vital [...] GONORRHOEAE/C. TRACHOMATIS AMPLIFICATION Routine 10/21/2022 11:02 AM BLACK OFF WORKER Early stage of HEPATITIS C ANTIBODY Routine 10/21/2022 10:59 AM BLACK OFF WORKER Early stage of from Last 3 Months [...] MADDEN LAB BLOOD ORDERABLES Final R esult [facility] [address] Department [place] [address] * XR Chest PA Lateral 2 Views [...] MD LAB BLOOD ORDERABLES Fin al Result [facility] [address] Department [place] [address] * Influenza A/B, RSV, and COVID-19 PCR Nasopharyngeal (07/16/2025 12:47 AM CDT) Pathologist [facility] COVID-19 RNA Negative Negative Influenza A RNA Negative Negative [facility] Influenza B RNA Negative Negative [facility] RSV RNA Negative Negative [facility] Comment: Interpretive data: Testing performed by [facility]. This test is performed using the [employer] Xpert Xpress CoV-2/Flu/RSV plus assay. This is a multiplex, real-time reverse transcriptase PCR assay intended for the qualitative detection of nucleic acid from SARS-CoV-2, influenza A, influenza B, and respiratory syncytial virus. This assay has been cleared by the [place] Food and Drug administration. The performance characteristics have been verified by the [facility]. Results must be considered in the clinical context, and a negative result does not rule out infection. Interpretive Data last revised 2023 Nasopharyngeal 07/16/2025 12 :47 AM CDT 07/16/2025 12:50 AM CDT Narrative [facility] - 07/16/2025 1:29 AM CDT Is the Patient experiencing symptoms consistent with COVID?->Yes Patt Leiva MD LAB MICROBIOLOGY - GENER AL ORDERABLES Final Result Performing Organization Address [facility] de Phone Number [address] [place] [address] * eGFR (07/16/2025 12:47 AM CDT) Pathologist [facility] eGFR >90 >=60 mL/min/1. 73 m2 Comment: [...] ORDERABLES Fin al Result Performing Organization Address [facility] Co de Phone Number [address] Department [place] [address] * (ABNORMAL) Differential, auto (07/16/2025 12:47 AM CDT) Pathologist [facility] Neutrophil abs 7.07(H) 1.50 - 6.50 K/cumm Imm gran abs 0.08 0.00 - 0.10 K/cumm [facility] Lymphocyte abs 2.72 0.80 - 3.30 K/cumm [facility] Monocyte abs 1.11(H) 0.20 - 0.80 K/cumm [facility] Eosinophil abs 0.39 0.00 - 0.50 K/cumm [facility] Basophil abs 0.08 0.00 - 0.10 K/cumm [facility] Neutrophil pct 61.7 % [facility] Comment: Interpretive Data Percent cell count reference ranges are not reported, since discordance with absolute values may lead to misinterpretation of CBC data. Current Interpretive Data was last revised on 2018. Imm gran pct 0.7 % [facility] Comment: Interpretive Data Percent cell count reference ranges are not reported, since discordance with absolute values may lead to misinterpretation of CBC data. Current Interpretive Data was last revised on 2018. Lymphocyte pct 23.8 % [facility] Comment: Interpretive Data Percent cell count reference ranges are not reported, since discordance with absolute values may lead to misinterpretation of CBC data. Current Interpretive Data was last revised on 2018. Monocyte pct 9.7 % [facility] Comment: Interpretive Data Percent cell count reference ranges are not reported, since discordance with absolute values may lead to misinterpretation of CBC data. Current Interpretive Data was last revised on 2018. Eosinophil pct 3.4 % [facility] Comment: Interpretive Data Percent cell count reference ranges are not reported, since discordance with absolute values may lead to misinterpretation of CBC data. Current Interpretive Data was last revised on 2018. Basophil pct 0.7 % [facility] Comment: Interpretive Data Percent cell count reference ranges are not reported, since discordance with absolute values may lead to misinterpretation of CBC data. Current Interpretive Data was last revised on 2018. Blood 07/16/2025 12:4 7 AM CDT 07/16/2025 12:50 AM CDT us Patt Leiva MD LAB BLOOD ORDERABLES Fin al Result [facility] [address] Department [place] [address] * (ABNORMAL) CBC with auto differential (07/16/2025 12:47 AM CDT) [facility] WBC 11.45(H) 3.80 - 9.90 K/cumm Hgb 13.1 11.9 - 15.5 g/dL [facility] Hct 38.7 35.6 - 45.5 % [facility] Plt 318 150 - 400 K/cumm [facility] MPV 9.7 9.1 - 12.3 fL [facility] RBC 4.52 3.90 - 5.20 M/cumm [facility] MCV 85.6 81.3 - 96.4 fL [facility] MCH 29.0 27.1 - 33.3 pg [facility] MCHC 33.9 32.3 - 35.7 g/dL [facility] RDW CV 12.7 11.1 - 14.9 % [facility] RDW SD 39.6 35.7 - 48.1 fL [facility] NRBC abs 0.00 0.00 - 0.01 K/cumm [facility] Blood 07/16/2025 12:4 7 AM CDT 07/16/2025 12:50 AM CDT us Patt Leiva MD LAB BLOOD ORDERABLES Fin al Result [facility] [address] Department [place] [address] * (ABNORMAL) Comprehensive metabolic panel (07/16/2025 12:47 AM CDT) [facility] Sodium 140 135 - 145 mmol/L Potassium, pl 4.4 3.3 - 4.9 mmol/L [facility] Chloride 105 97 - 110 mmol/L [facility] CO2 23 22 - 32 mmol/L [facility] Anion gap 12 2 - 15 mmol/L [facility] BUN 13 6 - 25 mg/dL [facility] Creatinine 0.86 0.60 - 1.10 mg/dL [facility] Glucose 101 70 - 199 mg/dL [facility] Comment: Interpretive Data Fasting glucose >/= [...] 2022. Calcium 9.4 8.5 - 10.3 mg/dL [facility] Bilirubin, total 0.2 0.1 - 1.2 mg/dL [facility] Protein, pl 6.9 6.5 - 8.5 g/dL [facility] Albumin 4.0 3.5 - 5.0 g/dL [facility] Alk phos 111 40 - 130 Units/L [facility] ALT 47(H) 7 - 45 Units/L [facility] AST 48(H) 10 - 45 Units/L [facility] Blood 07/16/2025 12:4 7 AM CDT 07/16/2025 12:50 AM CDT us Patt Leiva MD LAB BLOOD ORDERABLES Fin al Result [facility] [address] Department [place] [address] * ECG 12 lead (07/16/2025 12:39 AM CDT) Pathologist [facility] Ventricular Rate EKG/Min 93 BPM [facility] Atrial Rate 93 BPM [facility] KS-Interval (MSEC) 112 ms [facility] QRS-Interval (MSEC) 86 ms [facility] QT-Interval (MSEC) 364 ms [facility] QTc 452 ms [facility] P [place] 71 degrees [facility] R [place] 79 degrees [facility] T [place] 59 degrees [facility] Diagnosis Normal sinus rhythm with sinus arrhythmia Normal ECG When compared with ECG of 25-DEC-2024 20:59, Previous ECG has undetermined rhythm, needs review QRS axis Shifted left Nonspecific T wave abnormality no longer evident in Inferior leads Nonspecific T wave abnormality no longer evident in Lateral leads Confirmed by GALA HARPER M.D. ([id number]) on 07/16/2025 8:08:47 AM [facility] 07/16/2025 12:3 9 AM CDT 07/16/2025 8:08 AM CDT Patt Leiva MD ECG ORDERABLES Final Re sult Performing Organization Address City/[facility]/ZIP Co de Phone Number [facility] * N. gonorrhoeae/C. trachomatis Amplification Urine (10/21/2022 11:02 AM BLACK OFF WORKER) Pathologist [facility] C. trachomatis Not Detected Not Detected [facility] Comment:Testing performed by : [facility], [address] [place] [address]., [id number] N. gonorrhoeae Not Detected Not Detected [facility] Comment: Interpretive Data Testing performed by the [facility]. This assay detects Chlamydia trachomatis and Neisseria gonorrhoeae by nucleic acid amplification testing (NAAT). This test is approved by the [facility] Food and Drug Administration and the performance characteristics have been verified by the laboratory. The performance characteristics of this test have not been evaluated in individuals less than 14 years of age. Current Interpretive Data was last revised on 2018. Testing performed by: [facility], [address] [place] [address]., [id number] Urine (None) 10/21/2022 11:0 2 AM BLACK OFF WORKER 10/21/2022 2:00 PM BLACK OFF WORKER Christiane Cheung DO LAB MICROBIOLOGY - GENERA L ORDERABLES Final Result Performing Organization Address City/[facility]/ZIP Co de Phone Number [facility] [address] [facility] Department [place] [address] * Hepatitis C antibody (10/21/2022 10:59 AM BLACK OFF WORKER) [facility] Hep C Ab Nonreactive Nonreactive [facility] Comment: Antibodies to HCV not detected. Does NOT exclude the possibility of recent exposure to HCV. Current interpretive data was last revised on 22 Testing performed by: [facility], [address] [place] [address]., [id number] Blood 10/21/2022 10:5 9 AM BLACK OFF WORKER 10/21/2022 1:30 PM BLACK OFF WORKER Christiane Cheung DO LAB MICROBIOLOGY - GENERA L ORDERABLES Final Result Performing Organization Address City/State/ZIP [facility] Phone Number [facility] [address] [facility] Department [place] [address] from Last 3 Months or Most Recently Relevant to Health Maintenance Insurance [facility] [employer]AL [facility] [employer] IDPA [facility] IDPA Care Teams Cyber Security Engineer Relationship Specialty Start Date End Date Carlee Hopkins NP [address] [address] PCP - General Family Medicine 01/16/24 Rebecca Ramirez MD [address] [place] [address] [address] [address] 08/15/19
== END 2025-09-18 20:43 | disposition left against medical advice (07) ==
LOC: ANHED 20:24
PROVIDERS: PCP Family Medicine
DX: R06.02 Shortness of breath (principal)
CPT/HCPCS: 99199